=== PATIENT | male | born 1980 | race Caucasian/White ===

== ENCOUNTER → 2016-02-28 | Outpatient (CLI) | payer MEDICAID ==
[~2016-02-28] VITALS: Ht 180.3 cm; Wt 68.0 kg
[~2016-02-28] MED LIST: AMOX500C2 PO; ASP325T PO; DEXAMETHASONE PF 10 MG/ML (DECADRON) VIAL ONE; DOXY100C2 PO; HYDR-700 PO; PRD20T PO; TRIA60LO3 TP
--- OUTSIDE RECORDS SUMMARY | 2016-02-28 10:33 | XMS REPORT | Continuity of Care Document ---
Author Author [facility] Organization [facility] Address Unknown Phone Unavailable Care Team Providers Care Chemical Detection Expert Name Role Phone [facility] OF PCP Insurance Providers Payer Name Policy Number Subscriber Name Relationship [facility] [id number] Osito Hutchinson Sr 20 Self / Same As Patient Advance Directives Directive Response Recorded Date/Time Advance Directives No 01/31/16 7:35am Health Care Power of Data Designer No 01/31/16 7:35am Organ Donor No 01/31/16 7:35am Resuscitation Status Full Code 01/31/16 7:35am Problems Active Problems Medical Problem Onset Date Status Acute headache Unknown Acute Dermatitis Unknown Acute Lymphadenitis Unknown Acute Rash Unknown Acute Medications Past Home Medications Medication Directions Ordered Status Aspirin 325 Mg Tab, 325 Mg Oral 2 Daily 03/23/10 Discontinued Amoxicillin 500 Mg Capsule, 1 Each Oral Four Times Daily 03/23/10 Discontinued Prednisone 20 Mg Tab, 20 Mg Oral Three Times A Day 12/26/14 Discontinued Triamcinolone Acetonide 60 Ml Lotion, 60 Ml Topical Twice A Day 12/26/14 Discontinued Doxycycline Hyclate 100 Mg Capsule, 100 Mg Oral Twice A Day 01/06/15 Discontinued Hydroxyzine Hcl 25 Mg Tablet, 25-50 Mg Oral Every 4HRS as needed for Itching 01/06/15 Discontinued Social History Social History Problem Response Recorded Date/Time Alcohol Use Denies Use 08/25/2015 3:12pm Recreational Drug Use No 08/25/2015 3:12pm Recent Foreign Travel No 01/31/2016 7:22am Hospital Discharge Instructions No hospital discharge instructions. Plan of Care Discharge Date 01/31/16 8:01am Instructions/Education Provided DR. PEARSON-POST EPIDURAL INST Prescriptions See Medication Section Functional Status No functional status results. Allergies, Adverse Reactions, Alerts No known allergies. Immunizations No immunization records. Vital Signs Acute Vital Signs Vital Response Date/Time Temperature (Fahrenheit) 98.1 degrees F (97.6 - 99.5) 01/31/2016 7:43am Temperature (Calculated Celsius) 36.46085 degrees C (36.4 - 37.5) 01/31/2016 7:43am Temperature Source Tympanic 01/31/2016 7:43am Pulse Rate (adult) 78 bpm (60 - 90) 01/31/2016 8:00am Respiratory Rate 14 bpm (12 - 24) 01/31/2016 8:00am O2 Sat by Pulse Oximetry 98 % (88 - 100) 01/31/2016 8:00am Blood Pressure 128/68 mm Hg 01/31/2016 8:00am Blood Pressure Mean 90 mm Hg 01/31/2016 7:43am Pain Numeric Pain Scale 4 01/31/2016 8:00am Height (Feet) 5 feet 01/31/2016 7:35am Height (Inches) 11.00 inches 01/31/2016 7:35am Height (Calculated Centimeters) 180.126297 cm 01/31/2016 7:35am Weight (Pounds) 156 pounds 01/31/2016 7:35am Weight (Ounces) 0.0 oz 01/31/2016 7:35am Weight (Calculated Grams) 26338.41 gm 01/31/2016 7:35am Weight (Calculated Kilograms) 70.197841 kilograms 01/31/2016 7:35am Calculated BMI 21.8 01/31/2016 7:35am Results No known relevant diagnostic tests, laboratory data and/or discharge summary. Procedures No known history of procedures. Encounters Encounter Location Arrival/Admit Date Discharge/Depart Date Attending Provider Departed Clinic [facility] 01/31/16 7:23am 01/31/16 8: 01am FERNY PEARSON MD Registered Clinic [facility] 01/08/16 9:14am FERNY PEARSON MD
[2016-02-28 10:46] VITALS: BP 116/68
[2016-02-28 11:23] VITALS: BP 124/81
--- NOTE | 2016-02-28 13:58 | Pain Medicine-Procedure ---
Procedure Pre-Op/Post-Op Diagnosis Diagnosis: disc disorder with radiculopathy, thoracic Indications for Operation Mid back pain Attending Surgeon Maury Procedure Date of Service: Feb 28, 2016 Procedure: Thoracic epidural steroid injection at T11-T12 Level under Fluoroscopic Guidance Procedure: Pt was identified in the holding area. After risks, benefits, and alternatives were discussed with the patient, informed consent was obtained. An IV was placed by nursing staff prior to procedure. Patient was brought to the fluoroscopy suite and placed prone on the operating table. A time out was performed. Vital signs were monitored throughout the procedure. The patients mid back was prepped and draped in the usual sterile fashion. The patients skin was anesthetized using 1% Lidocaine. A 18 gauge tuohy needle was inserted and advanced to the T11-T12 epidural space under fluoroscopic guidance using the loss of resistance technique. The needle position was confirmed in the AP and lateral view. After negative aspiration 2 ml of non-ionic contrast was injected under live fluoroscopy which showed good spread of the contrast in the epidural space at the appropriate level, there was no intravascular or subarachnoid spread. Again, after negative aspiration, 3 ml of preservative free normal saline and 10 mg of dexamethasone was injected. The needle was removed and the patient was transferred to the recovery area in stable condition. And after a brief period of observation was discharged to home in stable condition with no new neurologic deficits. l Complications None FERNY PEARSON MD Feb 28, 2016 1:58 pm
== END ==
LOC: CARD 10:29
PROVIDERS: ATTEND Pain Medicine Pain Medicine
DX: M51.14 Intervertebral disc disorders with radiculopathy, thoracic region (principal); M47.814 Spondylosis without myelopathy or radiculopathy, thoracic region; Z79.899 Other long term (current) drug therapy
CPT/HCPCS: 62321

== ENCOUNTER 2016-08-29 00:53 | Emergency (ER) | payer MEDICAID ==
[~2016-08-29] VITALS: Ht 180.3 cm; Wt 68.0 kg
[~2016-08-29 00:53] MED LIST changes: -DEXAMETHASONE PF 10 MG/ML (DECADRON) VIAL ONE
[2016-08-29] MEDS ORDERED: ARTIFICAL TEARS 0.4 ML UNIT DOSE (REFRESH PLUS) ONE (02:36)
[2016-08-29] MEDS ORDERED: RX-TOBRAMYCIN 0.3% OPHTH (TOBREX) SOLN 5 ML BTL OP STA (02:39)
[2016-08-29] MEDS ORDERED: ARTIFICAL TEARS 0.4 ML UNIT DOSE (REFRESH PLUS) OD PRN (02:45)
[2016-08-29] MEDS ORDERED: TETRACAINE 0.5% OPHTH SOLN 4 ML BTL (SINGLE DOSE ONLY) OP ONE (02:45)
[2016-08-29] MEDS ORDERED: RX-HYDROCODONE/APAP 5/325 MG #4 TAB PK PO PRN (02:45)
--- NOTE | 2016-08-29 02:53 | ED EENT ---
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 REPORTS THINKS HE HAS METAL IN HIS RT EYE. NO OTHER C/O VOICED Source: patient Exam Limitations: no limitations History of Present Illness Time seen by provider: 02:20 Initial Comments Here with complaint of a piece of metal in his eye. 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 He can see and feel the metal to the medial lower aspect of the right eye. Denies other injury. Tetanus is up-to-date. Admits to rubbing his eye as it felt better but now he can feel it scratching his eye. Timing/Duration: abrupt, other (36 hours ago) Severity: moderate Location: eye (R) Prearrival Treatment: no prearrival treatment Allergies and Home Medications Allergies Coded Allergies: No Known Drug Allergies (Unverified , 08/25/15) Review of Systems Constitutional: no symptoms reported, No chills, No fever Eyes: See HPI, Foreign Body Sensation, Inflammation, Pain Respiratory: no symptoms reported Cardiovascular: no symptoms reported Gastrointestinal: no symptoms reported Neurological: No Symptoms Reported Past Agjxxug-Hffzlh-Majtvg Hx Patient Social History Alcohol Use: Denies Use Recreational Drug Use: No Smoking Status: Current Everyday Smoker 2nd Hand Smoke Exposure: Yes Recent Foreign Travel: No Contact w/Someone Who Travel: No Recent Infectious Disease Expo: No Recent Hopitalizations: No Immunizations Up To Date Tetanus Booster (TDap): More than 5yrs Surgeries HX Surgeries: No Respiratory Hx Respiratory Disorders: No Cardiovascular Hx Cardiac Disorders: No Neurological Hx Neurological Disorders: No Reproductive System Hx Reproductive Disorders: No Genitourinary Hx Genitourinary Disorders: No Gastrointestinal Hx Gastrointestinal Disorders: No Musculoskeletal Hx Musculoskeletal Disorders: Yes (rotator cuff injury, in pain clinic for back pain- hydrocodones) Musculoskeletal Disorders: Chronic Back Pain Endocrine Hx Endocrine Disorders: No HEENT HX ENT Disorders: No Cancer Hx Cancer: No Psychosocial Hx Psychiatric Problems: No Integumentary HX Skin/Integumentary Disorder: No Blood Transfusions Hx Blood Disorders: No Reviewed Nursing Assessment Reviewed/Agree w Nursing PMH: Yes Family Medical History Significant Family History: No Pertinent Family Hx Physical Exam Vital Signs Vital Sign - Last 12Hours 08/29/16 01:36 Temp 97.6 Pulse 81 Resp 20 B/P (MAP) 115/79 Pulse Ox 99 O2 Delivery Room Air General Appearance: WD/WN, no apparent distress Eyes: right eye corneal abrasion, right eye foreign body, left eye normal inspection, bilateral eye EOMI, bilateral eye PERRL Cardiovascular: regular rate, rhythm, no murmur Respiratory: lungs clear, normal breath sounds Neurologic/Psychiatric: alert, oriented x 3 Progress/Results/Core Measures Results/Orders My Orders Orders - AREN COLINDRES MD Carboxymethylcell Ophth Soln (Refresh Pl (08/29/16 02:36) Rx-Tobramycin Ophth Drops (Rx-Tobrex 0.3 (08/29/16 02:39) Rx-Hydrocodone/Apap 5-325 Mg (Rx-Vicodin (08/29/16 02:45) Carboxymethylcell Ophth Soln (Refresh Pl (08/29/16 02:45) Tetracaine 0.5% Ophth Lashawn Sdv (Tetracai (08/29/16 02:45) Vital Signs/I&O Vital Sign - Last 12Hours 08/29/16 01:36 Temp 97.6 Pulse 81 Resp 20 B/P (MAP) 115/79 Pulse Ox 99 O2 Delivery Room Air Blood Pressure Mean: 91 Progress Note : Progress Note Seen and evaluated. Patient has obvious metal foreign body with rust ring to the right medial lower aspect of the right eye within the area of the iris. Local anesthesia with tetracaine. Using a ophthalmic bur, I was able to remove the foreign body and rust ring. Patient has abrasion noted to the surrounding area and linear medial lateral aspect. I did discuss the case with Dr. Guidry. He will see the patient in the office at 0900. Recommending tobramycin eyedrops which I will give. Patient's tetanus is up-to-date. Hydrocodone 5/325 go pack given. Discharged home with return precautions. Patient verbalize understanding instructions and agreement with plan. Departure Impression Impression: Primary Impression: Foreign body of eye, external, right Qualified Codes: T15.91XA - Foreign body on external eye, part unspecified, right eye, initial encounter Disposition: HOME, SELF-CARE Condition: Improved Departure-Patient Inst. Decision time for Depature: 02:55 Referrals: RENE BUENO DO (PCP) Primary Care Physician [place] (Family) Primary Care Physician LONDON GUIDRY OD Patient Instructions: Corneal Abrasion (DC) Add. Discharge Instructions: All discharge instructions reviewed with patient and/or family. Voiced understanding. Use medications as directed. You may take ibuprofen 800 mg every 8 hours as needed for pain as well. It is very important that he follow up with Dr. Guidry at 9 a.m. at his office on [address] across from [facility] for further evaluation. You may call him at [phone] if the pain becomes severe or you have vision problems. This is his direct number. Return for worse pain, fever , vomiting, weakness, breathing problems or other concerns as needed. Images Eye 1 - Foriegn Body 2 - Abrasion Copy Copies To 1: LONDON GUIDRY OD, TIMOTHY D MD Aug 29, 2016 02:53
[2016-08-29 03:05] VITALS: BP 121/79
== END 2016-08-29 03:05 | disposition home or self-care (01) ==
LOC: EDUNIT# 00:53 → ER 00:59
DX: T15.91XA Foreign body on external eye, part unspecified, right eye, initial encounter (principal); G89.29 Other chronic pain; M54.9 Dorsalgia, unspecified; F17.210 Nicotine dependence, cigarettes, uncomplicated
CPT/HCPCS: 99283

== ENCOUNTER 2018-04-01 20:10 | Emergency (ER) | payer MEDICAID ==
[~2018-04-01] VITALS: Ht 177.8 cm; Wt 63.5 kg
[~2018-04-01 20:10] MED LIST changes: +HYDR-34 PO; +LORA2TAB PO; +PSEU120T75 PO; +TRIA60LO10 TP; -TRIA60LO3 TP
--- OUTSIDE RECORDS SUMMARY | 2018-04-01 20:15 | XMS REPORT ---
Author Author MOUNA LAKE Organization [facility] Address [address] [place] [address] Care Team Providers Care Direct Service Worker Name Role Phone MOUNA LAKE Unavailable PROBLEMS Type Condition ICD9-CM Code [id number] Code Onset Dates Condition Status SNOMED Code Problem Acute upper respiratory infection, unspecified J06.9 Active 89749633 Problem Low back pain M54.5 Active 030176926 Problem Primary insomnia F51.01 Active 7875178 Problem DENISSE (generalized anxiety disorder) F41.1 Active 08310580 Problem Adjustment disorder with depressed mood F43.21 Active 08774715 Problem Anxiety F41.9 Active 32499248 Problem Cannabis use disorder, mild, abuse F12.10 Active 48120303 Problem Dysthymic disorder F34.1 Active 75914892 ALLERGIES No Information ENCOUNTERS Encounter Location Date Diagnosis [place] [address] [address]17- 8155 Feb, [place] [address] 61229- 1217 Feb, [place] [address] 44923- 3451 Jan, [facility] [address] 80775- 8305 Jan, Thoracic neuritis M54.14 [place] [address] 79289- 8590 05 Jan, 2018 Primary insomnia F51.01 [facility] [address] 04105- 9765 04 Jan, 2018 DENISSE (generalized anxiety disorder) F41.1 and Cannabis use disorder, mild, abuse F12.10 [place] [address] 61388- 8958 Jan, Generalized anxiety disorder F41.1 [facility] [address] [place] [id number] [place] [address] 28820- 7788 Dec, Generalized anxiety disorder F41.1 [facility] [address] [place] [id number] [place] [address] 53190- 0535 14 Dec, 2017 Thoracic neuritis M54.14 and Acute upper respiratory infection, unspecified J06.9 [facility] [address] [place] [id number] [place] [address] 18317- 1940 07 Dec, 2017 Thoracic neuritis M54.14 [facility] [address] [place] [id number] [place] [address] 82099- 9274 30 Nov, 2017 Generalized anxiety disorder F41.1 [facility] [address] [place] [id number] [place] [address] 15901- 1882 16 Nov, 2017 [facility] [address] 93678- 5485 15 Nov, 2017 Low back pain M54.5 and Thoracic neuritis M54.14 [facility] [address] [id number] [place] [address] 58866- 4589 03 Nov, 2017 Low back pain M54.5 [facility] [address] [place] [id number] [place] [address] 66371- 4773 19 Oct, 2017 Thoracic neuritis M54.14 [facility] [address] [id number] [place] [address] 97913- 8093 18 Oct, 2017 Thoracic neuritis M54.14 [facility] [address] [id number] [place] [address] 25398- 7905 06 Oct, 2017 Thoracic neuritis M54.14 [facility] [address] [place] [id number] [place] [address] 48928- 7731 Sep, Thoracic neuritis M54.14 [facility] [address] [place] [id number] [place] [address] 81051- 9448 Sep, [facility] [address] [place] [id number] [place] [address] 13415- 3985 Sep, Thoracic neuritis M54.14 and Acute recurrent maxillary sinusitis J01.01 [facility] [address] [place] [id number] [place] [address] 81472- 4376 Aug, [facility] [address] [id number] [place] [address] 11504- 0436 Aug, Thoracic neuritis M54.14 [facility] [address] [place] [id number] [place] [address] 91713- 6162 Jul, Low back pain M54.5 [facility] [address] 69144- 9821 June, Low back pain M54.5 [facility] [address] [place] [id number] [place] [address] 77307- 5891 May, Low back pain M54.5 and Generalized anxiety disorder F41.1 [facility] [address] [place] [id number] [place] [address] 78212- 4725 May, [facility] [address] 96637- 8710 May, Generalized anxiety disorder F41.1 [facility] [address] [place] [id number] [place] [address] 04810- 6922 May, Low back pain M54.5 and Anxiety F41.9 [facility] [address] [place] [id number] [place] [address] 64924- 6129 Apr, [facility] [address] [place] [id number] [place] [address] 32623- 9246 Mar, Low back pain M54.5 [facility] [address] [place] [id number] [place] [address] 35277- 5716 Mar, Low back pain M54.5 [facility] [address] [place] [id number] [place] [address] 30284- 1332 Feb, Ganglion, left wrist M67.432 [facility] [address] [place] [id number] [place] [address] 81447- 7910 Feb, Low back pain M54.5 [facility] [address] [place] [id number] [place] [address] 24963- 4946 Feb, Low back pain M54.5 [facility] [address] [place] [id number] [place] [address] 55897- 1343 Feb, [facility] [address] [place] [id number] [place] [address] 83484- 9934 Feb, Low back pain M54.5 and Bronchitis J40 [facility] [address] 43739- 8826 Feb, Low back pain M54.5 [facility] [address] [place] [id number] [place] [address] 61478- 1359 Jan, [facility] [address] 42890- 5654 Jan, Low back pain M54.5 [facility] [address] [place] [id number] [place] [address] 04503- 7529 Jan, Low back pain M54.5 ; Anxiety F41.9 and Ganglion, left wrist M67.432 [facility] [address] [place] [id number] [place] [address] 12290- 8167 Dec, Low back pain M54.5 [facility] [address] [place] [id number] [place] [address] 32674- 2039 Dec, Ganglion, left wrist M67.432 [facility] [address] [place] [id number] [place] [address] 71097- 1122 Nov, Ganglion, left wrist M67.432 and Anxiety F41.9 [facility] [address] [place] [id number] [place] [address] 19240- 3348 Nov, Low back pain M54.5 [facility] [address] [place] [address]- 3870 18 Nov, 2016 [facility] [address] [address]- 9111 16 Nov, 2016 [facility] [address] [address]- 6615 Nov, [facility] [address] [place] [address] 05744- 0037 Oct, Anxiety F41.9 [facility] [address] [place] [address] 45629- 8096 Oct, Low back pain M54.5 [facility] [address] [place] [address] 24148- 5214 Oct, [facility] [address] [address]- 7520 Oct, [facility] [address] [place] [address] 82416- 9913 06 Oct, 2016 Adjustment disorder with depressed mood F43.21 and Generalized anxiety disorder F41.1 [facility] [address] [place] [address] 82264- 1063 Sep, Adjustment disorder with depressed mood F43.21 and Generalized anxiety disorder F41.1 [facility] [address] [address]- 2267 Sep, [address] [id number] [address] Sep [facility] [address] [place] [id number] [address]- 2405 Sep, Anxiety F41.9 [facility] [address] [address]- 3920 Sep, Low back pain M54.5 [facility] [address] [address]- 7634 Sep, Adjustment disorder with depressed mood F43.21 and Generalized anxiety disorder F41.1 [facility] [address] [place] [id number] [place] [address] 36885- 3131 Sep, Allergic urticaria L50.0 [facility] [address] [place] [id number] [place] [address] 73520- 7725 Aug, [facility] [address] [place] [id number] [place] [address] 14097- 7426 Aug, Low back pain M54.5 [facility] [address] [place] [id number] [place] [address] 47059 2546 Aug, Low back pain M54.5 [facility] [address] [place] [id number] [place] [address] 91477- 4776 Aug, [facility] [address] [place] [id number] [place] [address] 47558- 2540 Aug, Thoracic neuritis M54.14 [facility] [address] [place] [id number] [place] [address] 30645- 6410 Jul, [facility] [address] [place] [id number] [place] [address] 67886- 1600 Jul, Low back pain M54.5 [facility] [address] [place] [id number] [place] [address] 87941 2541 Jul, Thoracic neuritis M54.14 [facility] [address] [place] [id number] [place] [address] 84497 2546 Jul, [facility] [address] [place] [id number] [place] [address] 52733 2545 Jul, Thoracic neuritis M54.14 [facility] [address] [place] [id number] [place] [address] 83838- 1936 June, [facility] [address] [place] [id number] [place] [address] 24994- 2540 June, Thoracic neuritis M54.14 [facility] [address] [place] [id number] [place] [address] 09873- 5446 May, [facility] [address] [facility] [id number] [address]- 7911 May, [facility] [address] [facility] [id number] [place] [address] 52013- 5258 Dec, [facility] [address] [place] [address] 48406- 7062 Dec, [facility] [address] [facility] [id number] [place] [address] 30874- 5043 Dec, [facility] [address] [facility] [id number] [place] [address] 91689- 3523 Dec, [facility] [address] [place] [id number] [place] [address] 32029- 0642 Nov, [facility] [address] [place] [id number] [place] [address] 08829- 7439 Nov, Thoracic neuritis M54.14 and Low back pain M54.5 [facility] [address] [place] [address] 42696- 0052 Nov, [facility] [address] [place] [id number] [place] [address] 66908- 7125 Oct, Low back pain M54.5 and Acute upper respiratory infection, unspecified J06.9 [facility] [address] [place] [address] 91838- 1045 Oct, [facility] [address] [place] [address] 76355- 7459 Oct, [facility] [address] [place] [address] 57077- 7992 Oct, [facility] [address] [place] [address] 43478- 7791 Oct, [facility] [address] [address]- 4084 Sep, Chronic maxillary sinusitis J32.0 and Thoracic neuritis M54.14 [facility] [address] [place] [id number] [place] [address] 39908- 1300 Sep, [facility] [address] 37637- 6705 Aug, Low back pain M54.5 and Other chronic pain G89.29 [place] [address] 99116- 7161 Jul, Low back pain M54.5 and Other chronic pain G89.29 [place] [address] 46585- 8257 Jul, [place] [address] 41452- 3587 June, [place] [address] 58477- 6944 May, Lumbago M54.5 and Sinusitis J32.9 [place] [address] [place] [id number] [place] [address] 96368- 5696 Apr, Unspecified backache 724.5 and Folliculitis L73.9 [place] [address] [place] [id number] [place] [address] 05903- 8834 Mar, URI (upper respiratory infection) J06.9 and Back pain M54.9 [place] [address] [place] [id number] [place] [address] 06543- 0744 Mar, [facility] [address] [place] [id number] [place] [address] 39172- 0547 Mar, [facility] [address] [place] [id number] [place] [address] 69276- 7254 Feb, Low back pain M54.5 ; Sciatica, unspecified side M54.30 ; Folliculitis L73.9 and Allergic urticaria L50.0 [facility] [address] [place] [id number] [place] [address] 98941- 7922 Feb, Visit for suture removal Z48.02 [facility] [address] [place] [id number] [place] [address] 11894- 3706 Feb, [facility] [address] [place] [id number] [place] [address] 55033- 1895 Feb, Rash R21 [facility] [address] [place] [id number] [place] [address] 85540- 1082 Jan, Pharyngitis J02.9 ; Shoulder pain, right M25.511 and Rash R21 [place] [address] [place] [id number] [place] [address] 65290- 7644 Jan, [place] [address] 44899- 5986 Dec, Allergic urticaria L50.0 ; Right shoulder pain M25.511 and Lumbago M54.5 [place] [address] [place] [id number] [place] [address] 87659- 2448 Dec, Upper respiratory tract infection, unspecified upper respiratory infection J06.9 [place] [address] [place] [id number] [place] [address] 29404- 5580 Dec, Contact dermatitis L25.9 [place] [address] [place] [id number] [place] [address] 84978- 6743 Dec, [facility] [address] [place] [id number] [place] [address] 15020- 9737 Dec, Dermatitis L30.9 and Pain in right shoulder M25.511 [facility] [address] [place] [id number] [place] [address] 87264- 7846 Nov, [facility] [address] [place] [id number] [place] [address] 65487- 7898 Nov, Upper respiratory tract infection, unspecified upper respiratory infection J06.9 [facility] [address] [place] [id number] [place] [address] 48512- 9640 Oct, [facility] [address] [id number] [place] [address]- 5669 Oct, [facility] [address] [id number] [place] [address]- 7120 Oct, [facility] [place] [facility] [address] [id number] [place] [address]- 1915 Sep, Back pain 724.5 [facility] [place] [facility] [address] [id number] [place] [address]- 6467 Sep, Back pain 724.5 [facility] [place] [facility] [address] [id number] [place] [address]- 6840 10 Sep, 2014 [facility] [place] [facility] [address] [id number] [place] [address]- 5769 Aug, [facility] [place] [facility] [address] [id number] [place] [address]- 1164 Aug, [facility] [place] [facility] [address] [id number] [address]- 8370 Jul, Back pain 724.5 [facility] [place] [facility] [address] [id number] [place] [address]- 6693 Jul, [facility] [place] [facility] [address] [id number] [place] [address]- 9831 June, [facility] [place] [facility] [address] [id number] [place] [address]- 9642 14 May, 2014 [facility] [place] [facility] [address] [id number] [place] [address]- 2124 May, [facility] [place] [facility] [address] [id number] [place] [address]- 4976 30 Apr, 2014 [facility] [place] [facility] [address] [id number] [place] 1490 30 Apr, 2014 [facility] [place] [facility] [address] [id number] [place] [address]- 1872 Feb, [facility] [place] [facility] [address] [address]- 6996 Feb, [facility] [address] [address]- 2389 Dec, [facility] [address] [address]- 0896 Dec, [facility] [address] [address]- 9274 Nov, [facility] [address] 7049 Nov, [facility] [address] [place] [address] 97357- 7895 Feb, [facility] [address] 3586 Feb, [facility] [address] [place] [address] 55676- 4894 Sep, [facility] [address] [address]- 7895 Apr, [facility] [address] 5486 Apr, [facility] [address] [address]- 0608 Mar, [facility] [address] 5587 Mar, [facility] [address] [place] [id number] 6046 Mar, [facility] [address] [address]- 0616 Sep, IMMUNIZATIONS No Known Immunizations SOCIAL HISTORY Never Assessed REASON FOR VISIT Controlled Med Refill PLAN OF CARE VITAL SIGNS MEDICATIONS Medication Instructions Dosage Frequency Start Date End Date Duration Status Pseudoephedrine HCl 60 mg Orally 2 times a day 1 tablet as needed 12h 05 Aug, 2017 28 days Active RESULTS No Results PROCEDURES No Known procedures INSTRUCTIONS MEDICATIONS ADMINISTERED No Known Medications MEDICAL (GENERAL) HISTORY Type Description Date Medical History frequent ear infections Medical History gets 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 redding did injections down his spine, adn Epidurals
--- OUTSIDE RECORDS SUMMARY | 2018-04-01 20:16 | XMS REPORT ---
Author Author MOUNA LAKE Organization 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 Name Role Phone MOUNA LAKE Unavailable PROBLEMS Type Condition ICD9-CM Code OXF50-DP Code Onset Dates Condition Status SNOMED Code Problem Acute upper respiratory infection, unspecified J06.9 Active 47063804 Problem Low back pain M54.5 Active 029079327 Problem Primary insomnia F51.01 Active 2556092 Problem DENISSE (generalized anxiety disorder) F41.1 Active 82746492 Problem Adjustment disorder with depressed mood F43.21 Active 66287285 Problem Anxiety F41.9 Active 16812935 Problem Cannabis use disorder, mild, abuse F12.10 Active 75495227 Problem Dysthymic disorder F34.1 Active 53244653 ALLERGIES No Known Allergies ENCOUNTERS Encounter Location Date Diagnosis [facility] [address] [address]- 1791 Feb, [facility] [id number] [place] [address] 76267- 8958 Feb, [facility] [id number] [place] [address] 58370- 9742 Jan, [facility] [id number] [place] [address] 05475- 4412 Jan, Primary insomnia F51.01 [facility] [id number] [place] [address] 52884- 3534 Jan, DENISSE (generalized anxiety disorder) F41.1 and Cannabis use disorder, mild, abuse F12.10 [facility] [id number] [place] [address] 80370- 6047 Jan, Generalized anxiety disorder F41.1 [facility] [id number] [place] [address] 00036- 3968 Dec, Generalized anxiety disorder F41.1 [facility] [id number] [place] [address] 99971- 7623 14 Dec, 2017 Thoracic neuritis M54.14 and Acute upper respiratory infection, unspecified J06.9 [facility] [id number] [place] [address] 80482- 7056 07 Dec, 2017 Thoracic neuritis M54.14 [facility] [address] 24907- 5744 30 Nov, 2017 Generalized anxiety disorder F41.1 [facility] [address] 14459- 9452 16 Nov, 2017 [facility] [address] 70364- 9350 15 Nov, 2017 Low back pain M54.5 and Thoracic neuritis M54.14 [facility] [address] 82804- 0787 03 Nov, 2017 Low back pain M54.5 [facility] [address] 47531- 5403 19 Oct, 2017 Thoracic neuritis M54.14 [facility] [id number] [place] [address] 14617- 6689 18 Oct, 2017 Thoracic neuritis M54.14 [facility] [address] 88486- 8399 06 Oct, 2017 Thoracic neuritis M54.14 [facility] [id number] [place] [address] 83906- 6386 Sep, Thoracic neuritis M54.14 [facility] [id number] [place] [address] 18402- 3165 Sep, [facility] [id number] [place] [address] 83794- 1663 Sep, Thoracic neuritis M54.14 and Acute recurrent maxillary sinusitis J01.01 [facility] [id number] [place] [address] 11125- 6189 Aug, [facility] [id number] [place] [address] 21957- 2478 Aug, Thoracic neuritis M54.14 [facility] [id number] [place] [address] 06723- 7936 Jul, Low back pain M54.5 [facility] [id number] [place] [address] 24712- 7001 June, Low back pain M54.5 [facility] [address] 87312- 8165 May, Low back pain M54.5 and Generalized anxiety disorder F41.1 [facility] [id number] [place] [address] 21788- 4959 May, [facility] [id number] [place] [address] 03478- 0808 May, Generalized anxiety disorder F41.1 [facility] [address] 96773- 5503 May, Low back pain M54.5 and Anxiety F41.9 [facility] [id number] [place] [address] 93287- 5720 Apr, [facility] [id number] [place] [address] 12798- 1871 Mar, Low back pain M54.5 [facility] [id number] [place] [address] 69073- 6452 Mar, Low back pain M54.5 [facility] [id number] [place] [address] 14246- 3477 Feb, Ganglion, left wrist M67.432 [facility] [id number] [place] [address] 40721- 0576 Feb, Low back pain M54.5 [facility] [id number] [place] [address] 27962- 3885 Feb, Low back pain M54.5 [facility] [id number] [place] [address] 76572- 0522 Feb, [facility] [id number] [place] [address] 61650- 9012 Feb, Low back pain M54.5 and Bronchitis J40 [facility] [id number] [place] [address] 02021- 2927 Feb, Low back pain M54.5 [facility] [id number] [place] [address] 92595- 4185 Jan, [facility] [id number] [place] [address] 62322- 7571 Jan, Low back pain M54.5 [facility] [id number] [place] [address] 36153- 9521 Jan, Low back pain M54.5 ; Anxiety F41.9 and Ganglion, left wrist M67.432 [facility] [id number] [place] [address] 59417- 4368 Dec, Low back pain M54.5 [facility] [id number] [place] [address] 42752- 1215 Dec, Ganglion, left wrist M67.432 [facility] [id number] [place] [address] 12720- 2475 Nov, Ganglion, left wrist M67.432 and Anxiety F41.9 [facility] [id number] [place] [address] 69270- 4437 Nov, Low back pain M54.5 [facility] [id number] [place] [address] 87669- 7473 Nov, [facility] [id number] [place] [address] 14991- 0828 Nov, [facility] [address] [address]- 1229 Nov, [facility] [id number] [place] [address] 19487- 0133 Oct, Anxiety F41.9 [facility] [id number] [place] [address] 97229- 2915 Oct, Low back pain M54.5 [facility] [id number] [place] [address] 02753- 5102 20 Oct, 2016 [facility] [id number] [place] [address] 71139- 6522 07 Oct, 2016 [facility] [id number] [place] [address] 50275- 5307 06 Oct, 2016 Adjustment disorder with depressed mood F43.21 and Generalized anxiety disorder F41.1 [facility] [id number] [place] [address] 23149- 0943 Sep, Adjustment disorder with depressed mood F43.21 and Generalized anxiety disorder F41.1 [facility] [address] [address]- 0985 Sep, [address] [id number] [place] [address] Sep [facility] [id number] [place] [address] 11310- 7626 Sep, Anxiety F41.9 [facility] [address] [address]- 4969 Sep, Low back pain M54.5 [facility] [id number] [place] [address] 85108- 3255 Sep, Adjustment disorder with depressed mood F43.21 and Generalized anxiety disorder F41.1 [facility] [id number] [place] [address] 84113- 3423 Sep, Allergic urticaria L50.0 [facility] [address] [facility] [id number] [place] [address] 77476- 4407 Aug, [facility] [id number] [place] [address] 00863- 1526 Aug, Low back pain M54.5 [facility] [id number] [place] [address] 03722- 3756 Aug, Low back pain M54.5 [facility] [id number] [place] [address] 05467 2546 Aug, [facility] [id number] [place] [address] 36608- 9469 Aug, Thoracic neuritis M54.14 [facility] [id number] [place] [address] 75816- 2275 Jul, [facility] [id number] [place] [address] 68639- 3344 Jul, Low back pain M54.5 [facility] [id number] [place] [address] 15898- 5819 Jul, Thoracic neuritis M54.14 [facility] [id number] [place] [address] 86125- 7830 Jul, [facility] [id number] [place] [address] 92673- 3028 Jul, Thoracic neuritis M54.14 [facility] [id number] [place] [address] 31030- 7759 June, [facility] [id number] [place] [address] 28408- 7567 June, Thoracic neuritis M54.14 [facility] [id number] [place] [address] 27488- 2302 May, [facility] [id number] [place] [address] 62212- 5324 May, [facility] [address] [address]- 4044 Dec, [facility] [id number] [place] [address] 49288- 2065 Dec, [facility] [id number] [place] [address] 24201- 9092 Dec, [facility] [id number] [place] [address] 47673- 1739 Dec, [facility] [id number] [place] [address] 03990- 6918 Nov, [facility] [id number] [place] [address] 22703- 0369 Nov, Thoracic neuritis M54.14 and Low back pain M54.5 [facility] [id number] [place] [address] 42077- 9897 Nov, [facility] [id number] [place] [address] 10941- 0026 Oct, Low back pain M54.5 and Acute upper respiratory infection, unspecified J06.9 [facility] [id number] [place] [address] 13960- 7199 Oct, [facility] [id number] [place] [address] 78008- 1360 Oct, [facility] [id number] [place] [address] 67714- 8667 Oct, [facility] [id number] [place] [address] 79639- 0480 Oct, [facility] [id number] [place] [address] 17568- 6798 Sep, Chronic maxillary sinusitis J32.0 and Thoracic neuritis M54.14 [facility] [id number] [place] [address] 25055- 3136 Sep, [facility] [id number] [place] [address] 17582- 5489 Aug, Low back pain M54.5 and Other chronic pain G89.29 [facility] [id number] [place] [address] 97339- 5666 Jul, Low back pain M54.5 and Other chronic pain G89.29 [place] [address] 56287- 5080 Jul, [place] [address] 40901- 6545 June, [place] [id number] [place] [address] 80276- 6393 May, Lumbago M54.5 and Sinusitis J32.9 [place] [id number] [place] [address] 50179- 5314 Apr, Unspecified backache 724.5 and Folliculitis L73.9 [place] [id number] [place] [address] 19466- 5753 24 Mar, 2015 URI (upper respiratory infection) J06.9 and Back pain M54.9 [place] [id number] [place] [address] 59571- 3848 05 Mar, 2015 [place] [id number] [place] [address] 88453- 2035 Mar, [place] [id number] [place] [address] 69610- 7504 Feb, Low back pain M54.5 ; Sciatica, unspecified side M54.30 ; Folliculitis L73.9 and Allergic urticaria L50.0 [place] [id number] [place] [address] 57363- 4039 Feb, Visit for suture removal Z48.02 [place] [address] 98442- 3993 Feb, [facility] [id number] [place] [address] 60354- 9786 Feb, Rash R21 [facility] [id number] [place] [address] 72645- 4715 Jan, Pharyngitis J02.9 ; Shoulder pain, right M25.511 and Rash R21 [facility] [address] 50140- 1971 Jan, [facility] [id number] [place] [address] 96991- 2796 30 Dec, 2014 Allergic urticaria L50.0 ; Right shoulder pain M25.511 and Lumbago M54.5 [facility] [id number] [place] [address] 92504- 9129 Dec, Upper respiratory tract infection, unspecified upper respiratory infection J06.9 [facility] [id number] [place] [address] 49746- 5616 Dec, Contact dermatitis L25.9 [facility] [id number] [place] [address] 07910- 1627 Dec, [facility] [id number] [place] [address] 25100- 7207 Dec, Dermatitis L30.9 and Pain in right shoulder M25.511 [facility] [id number] [place] [address] 07956- 1122 Nov, [facility] [id number] [place] [address] 88390- 3158 Nov, Upper respiratory tract infection, unspecified upper respiratory infection J06.9 [facility] [id number] [place] [address] 90374- 7686 Oct, [facility] [id number] [place] [address] 97554- 9282 Oct, [facility] [address] [id number] [place] [address]- 1722 Oct, [facility] [address] [id number] [place] [address]- 1147 Sep, Back pain 724.5 [facility] [place] [facility] [address] [id number] [place] [address]- 1546 Sep, Back pain 724.5 [facility] [place] [facility] [address] [id number] [place] [address]- 2537 Sep, [facility] [place] [facility] [address] [id number] [place] [address]- 3716 Aug, [facility] [place] [facility] [address] [id number] [place] [address]- 3331 Aug, [facility] [place] [facility] [address] [facility] [id number] [place] [address]- 2514 Jul, Back pain 724.5 [facility] [place] [facility] [address] [id number] [place] [address]- 1004 Jul, [facility] [place] [facility] [address] [id number] [place] [address]- 3671 June, [facility] [place] [facility] [address] [facility] [id number] [place] [address]- 4475 May, [facility] [place] [facility] [address] [id number] [address]- 9703 May, [facility] [place] [facility] [address] [id number] [address]- 5535 Apr, [facility] [place] [facility] [address] [id number] [place] [address]- 9582 Apr, [facility] [place] [facility] [address] [id number] [address]- 4407 Feb, [facility] [place] [facility] [address] [id number] [place] [address]- 0326 Feb, [facility] [place] [facility] [id number] [address]- 0516 Dec, [facility] [address] [address]- 2696 Dec, [facility] [address] [address]- 6706 Nov, [facility] [address] [address]- 3456 Nov, [facility] [address] [address]- 0986 Feb, [facility] [address] [address]- 4023 Feb, [facility] [address] [address]- 9166 Sep, [facility] [address] [address]- 9556 Apr, [facility] [address] [address]- 1956 Apr, [facility] [address] [address]- 0474 Mar, [facility] [id number] [address]- 3456 Mar, [facility] [address] [address]- 8116 Mar, [facility] [id number] [address]- 8226 Sep, IMMUNIZATIONS No Known Immunizations SOCIAL HISTORY Never Assessed REASON FOR VISIT Pain management (chronic) - Pavan CAREY, PT has an appointment 03/07 in [place] for [facility]. -Pavan CAREY PLAN OF CARE VITAL SIGNS Height 70 in 2018-01-12 Weight 141 lbs 2018-01-12 Temperature 97.8 degrees Fahrenheit 2018-01-12 Heart Rate 80 bpm 2018-01-12 Respiratory Rate 20 2018-01-12 Oximetry 98 % 2018-01-12 BMI 20.23 kg/m2 2018-01-12 Blood pressure systolic 122 mmHg 2018-01-12 Blood pressure diastolic 70 mmHg 2018-01-12 MEDICATIONS Medication Instructions Dosage Frequency Start Date End Date Duration Status Cymbalta 30 MG Orally Once a day for two weeks, then 1 capsule twice a day 1 capsule Jan, 30 day(s) Active ProAir HFA 108 (90 Base) MCG/ACT INHALE 2 PUFFS BY MOUTH EVERY 6 HOURS NEEDED FOR SHORTNESS OF BREATH OR COUGH 25 Active Methocarbamol 750 MG Orally every 4 hrs 1 tablet 4h Oct, Active Pseudoephedrine HCl 60 mg Orally 2 times a day 1 tablet as needed 12h Aug, 28 days Active Propranolol HCl 20 mg Orally twice a day as needed for anxiety 1 tablet Jan, 30 day(s) Active Seroquel 50 MG Orally Once a day 1 tablet 24h Jan, 30 day(s) Active Ibuprofen 800 MG Orally Three times a day 1 tablet with food or milk as needed 8h Sep, Active RESULTS No Results PROCEDURES No Known procedures INSTRUCTIONS MEDICATIONS ADMINISTERED No Known Medications MEDICAL (GENERAL) HISTORY Type Description Date Medical History frequent ear infections Medical History gets respiratory infections from being around 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 redding did injections down his spine, adn Epidurals
--- OUTSIDE RECORDS SUMMARY | 2018-04-01 20:16 | XMS REPORT ---
Author Author EVIN TERRY [facility] Address [address] [place] [address] Care Team Providers Care Web Page Designer Name Role Phone EVIN, TERRY Unavailable PROBLEMS Type Condition ICD9-CM Code [id number] Code Onset Dates Condition Status SNOMED Code Problem Acute upper respiratory infection, unspecified J06.9 Active 60895641 Problem Low back pain M54.5 Active 188932617 Problem Primary insomnia F51.01 Active 6182627 Problem DENISSE (generalized anxiety disorder) F41.1 Active 16984841 Problem Adjustment disorder with depressed mood F43.21 Active 10042590 Problem Anxiety F41.9 Active 23141002 Problem Cannabis use disorder, mild, abuse F12.10 Active 05108624 Problem Dysthymic disorder F34.1 Active 99495476 ALLERGIES No Known Allergies ENCOUNTERS Encounter Location Date Diagnosis [facility], [place] [id number] [place] [address] 65181- 5272 Feb, [facility], [place] [address] 54089- 9402 Feb, [facility], [place] [id number] [place] [address] 86898- 1359 Jan, [facility], [place] [id number] [place] [address] 40398- 3692 Jan, Primary insomnia F51.01 [facility], [place] [id number] [place] [address] 13516- 1380 Jan, DENISSE (generalized anxiety disorder) F41.1 and Cannabis use disorder, mild, abuse F12.10 [facility], [place] [id number] [place] [address] 02474- 2502 Jan, Generalized anxiety disorder F41.1 [facility], [place] [address] [place] [address] 0[address] 20 Dec, 2017 Generalized anxiety disorder F41.1 [facility], [place] [address] 41968- 2063 14 Dec, 2017 Thoracic neuritis M54.14 and Acute upper respiratory infection, unspecified J06.9 [facility], [place] [address] 97682- 6481 07 Dec, 2017 Thoracic neuritis M54.14 [facility], [place] [address] 64647- 5968 30 Nov, 2017 Generalized anxiety disorder F41.1 [facility], [place] [address] 77441- 2028 16 Nov, 2017 [facility], [place] [address] 64210- 1387 15 Nov, 2017 Low back pain M54.5 and Thoracic neuritis M54.14 [facility], [place] [address] 76159- 5973 03 Nov, 2017 Low back pain M54.5 [facility], [place] [address] 08504- 1286 19 Oct, 2017 Thoracic neuritis M54.14 [facility], [place] [address] 59542- 4992 18 Oct, 2017 Thoracic neuritis M54.14 [facility], [place] [id number] [place] [address] 72778- 4712 06 Oct, 2017 Thoracic neuritis M54.14 [facility], [place] [id number] [place] [address] 82116- 5770 Sep, Thoracic neuritis M54.14 [facility], [place] [id number] [place] [address] 14346- 5066 Sep, [facility], [place] [id number] [place] [address] 16787- 4937 Sep, Thoracic neuritis M54.14 and Acute recurrent maxillary sinusitis J01.01 [facility], [place] [id number] [place] [address] 33553- 5395 Aug, [facility], [place] [id number] [place] [address] 29488- 2204 Aug, Thoracic neuritis M54.14 [facility], [place] [id number] [place] [address] 78977- 9983 Jul, Low back pain M54.5 [facility], [place] [id number] [place] [address] 63386- 9813 June, Low back pain M54.5 [facility], [place] [id number] [place] [address] 30481- 0119 May, Low back pain M54.5 and Generalized anxiety disorder F41.1 [facility], [place] [id number] [place] [address] 13087- 0107 May, [facility], [place] [id number] [place] [address] 14900- 9538 May, Generalized anxiety disorder F41.1 [facility], [place] [address] 93084- 1087 May, Low back pain M54.5 and Anxiety F41.9 [facility], [place] [id number] [place] [address] 92479- 8185 Apr, [facility], [place] [id number] [place] [address] 17675- 9673 Mar, Low back pain M54.5 [facility], [place] [id number] [place] [address] 53164- 6203 Mar, Low back pain M54.5 [facility], [place] [id number] [place] [address] 23543- 7432 Feb, Ganglion, left wrist M67.432 [facility], [place] [id number] [place] [address] 90163- 9164 Feb, Low back pain M54.5 [facility], [place] [address] [facility] [id number] [place] [address] 53490- 1463 Feb, Low back pain M54.5 [facility], [place] [address] [facility] [id number] [place] [address] 98080- 0646 Feb, [facility], [place] [address] [facility] [id number] [place] [address] 50446- 7521 Feb, Low back pain M54.5 and Bronchitis J40 [facility], [place] [address] [facility] [id number] [place] [address] 74382- 5136 Feb, Low back pain M54.5 [facility], [place] [id number] [place] [address] 04868- 0910 Jan, [facility], [place] [id number] [place] [address] 01331- 5999 Jan, Low back pain M54.5 [facility], [place] [id number] [place] [address] 51243- 4685 Jan, Low back pain M54.5 ; Anxiety F41.9 and Ganglion, left wrist M67.432 [facility], [place] [id number] [place] [address] 29454- 2746 Dec, Low back pain M54.5 [facility], [place] [id number] [place] [address] 51906- 0137 Dec, Ganglion, left wrist M67.432 [facility], [place] [address] [facility] [id number] [place] [address] 34443- 1982 Nov, Ganglion, left wrist M67.432 and Anxiety F41.9 [facility], [place] [address] [facility] [id number] [place] [address] 65841- 3934 Nov, Low back pain M54.5 [facility], [place] [id number] [place] [address] 26360- 8376 Nov, [facility], [place] [address], [place] [address]- 3962 Nov, [facility], [place] [id number] [place] [address] 29631- 7349 Nov, [facility], [place] [id number] [place] [address] 62097- 6061 Oct, Anxiety F41.9 [facility], [place] [id number] [place] [address] 74215- 9721 Oct, Low back pain M54.5 [facility], [place] [id number] [place] [address] 25117- 7918 20 Oct, 2016 [facility], [place] [id number] [place] [address] 56818- 1911 07 Oct, 2016 [facility], [place] [id number] [place] [address] 57466- 4007 06 Oct, 2016 Adjustment disorder with depressed mood F43.21 and Generalized anxiety disorder F41.1 [facility], [place] [address], [place] [address]- 6639 Sep, Adjustment disorder with depressed mood F43.21 and Generalized anxiety disorder F41.1 [facility], [place] [address], [place] [address]- 9125 Sep, [address] [id number] [place] [address] Sep [facility], [place] [address], [place] [address]- 6170 Sep, Anxiety F41.9 [facility], [place] [address], [place] [address]- 7374 Sep, Low back pain M54.5 [facility], [place] [address], [place] [address]- 4604 Sep, Adjustment disorder with depressed mood F43.21 and Generalized anxiety disorder F41.1 [facility], [place] [id number] [place] [address] 27913- 4101 Sep, Allergic urticaria L50.0 [facility], [place] [id number] [place] [address] 50598- 3443 Aug, [facility], [place] [id number] [place] [address] 56776- 6102 Aug, Low back pain M54.5 [facility], [place] [id number] [place] [address] 31879- 2987 Aug, Low back pain M54.5 [facility], [place] [id number] [place] [address] 77744- 8779 Aug, [facility], [place] [id number] [place] [address] 16221- 5975 Aug, Thoracic neuritis M54.14 [facility], [place] [id number] [place] [address] 16114- 6848 Jul, [facility], [place] [id number] [place] [address] 16916- 7638 Jul, Low back pain M54.5 [facility], [place] [id number] [place] [address] 09034- 0849 Jul, Thoracic neuritis M54.14 [facility], [place] [id number] [place] [address] 49675- 5746 Jul, [facility], [place] [id number] [place] [address] 67815- 9550 Jul, Thoracic neuritis M54.14 [facility], [place] [id number] [place] [address] 34759- 7293 June, [facility], [place] [id number] [place] [address] 75248- 4086 June, Thoracic neuritis M54.14 [facility], [place] [id number] [place] [address] 35448- 6449 May, [facility], [place] [id number] [place] [address] 74884- 9421 May, [facility], [place] [address], [place] [address]- 4940 Dec, [facility], [place] [id number] [place] [address] 99854- 5361 Dec, [facility], [place] [id number] [place] [address] 84131- 2190 Dec, [facility], [place] [id number] [place] [address] 06052- 2077 Dec, [facility], [place] [id number] [place] [address] 82923- 7309 Nov, [facility], [place] [id number] [place] [address] 09588- 5509 Nov, Thoracic neuritis M54.14 and Low back pain M54.5 [facility], [place] [id number] [place] [address] 68803- 5100 Nov, [facility], [place] [id number] [place] [address] 70201- 2370 Oct, Low back pain M54.5 and Acute upper respiratory infection, unspecified J06.9 [facility], [place] [id number] [place] [address] 62196- 6728 Oct, [facility], [place] [id number] [place] [address] 89941- 9775 Oct, [facility], [place] [id number] [place] [address] 75403- 6614 Oct, [facility], [place] [id number] [place] [address] 12137- 0308 Oct, [facility], [place] [id number] [place] [address] 16759- 4216 Sep, Chronic maxillary sinusitis J32.0 and Thoracic neuritis M54.14 [facility], [place] [id number] [place] [address] 15241- 6990 Sep, [facility], [place] [id number] [place] [address] 42448- 0736 Aug, Low back pain M54.5 and Other chronic pain G89.29 [facility], [place] [id number] [place] [address] 89634- 1821 Jul, Low back pain M54.5 and Other chronic pain G89.29 [address] [address] 51378- 8191 Jul, [facility], [place] [address] 73516- 9932 June, [address] [address] 68749- 8786 May, Lumbago M54.5 and Sinusitis J32.9 [address] [address] 64818- 5729 Apr, Unspecified backache 724.5 and Folliculitis L73.9 [place] [id number] [place] [address] 42976- 5184 Mar, URI (upper respiratory infection) J06.9 and Back pain M54.9 [place] [id number] [place] [address] 87709- 2860 Mar, [facility], [place] [id number] [place] [address] 94239- 8590 Mar, [place] [id number] [place] [address] 56059- 1846 Feb, Low back pain M54.5 ; Sciatica, unspecified side M54.30 ; Folliculitis L73.9 and Allergic urticaria L50.0 [place] [id number] [place] [address] 28691- 2068 Feb, Visit for suture removal Z48.02 [place] [address] [place] [address]- 9124 Feb, [facility], [place] [id number] [place] [address] 37183- 5855 Feb, Rash R21 [facility], [place] [id number] [place] [address] 33043- 1676 Jan, Pharyngitis J02.9 ; Shoulder pain, right M25.511 and Rash R21 [facility], [place] [address] 85478- 8671 Jan, [facility], [place] [id number] [place] [address] 26143- 3767 Dec, Allergic urticaria L50.0 ; Right shoulder pain M25.511 and Lumbago M54.5 [place] [id number] [place] [address] 29859- 2763 Dec, Upper respiratory tract infection, unspecified upper respiratory infection J06.9 [facility], [place] [id number] [place] [address] 59507- 2064 Dec, Contact dermatitis L25.9 [facility], [place] [id number] [place] [address] 69007- 5884 Dec, [facility], [place] [id number] [place] [address] 50313- 4434 Dec, Dermatitis L30.9 and Pain in right shoulder M25.511 [facility], [place] [id number] [place] [address] 43273- 4942 Nov, [facility], [place] [id number] [place] [address] 51293- 9067 Nov, Upper respiratory tract infection, unspecified upper respiratory infection J06.9 [facility], [place] [id number] [place] [address] 89198- 0984 Oct, [facility], [place] [id number] [place] [address] 60369- 0232 Oct, [facility], [place] [address] [id number] [place] [address]- 7713 Oct, [facility] [address] [id number] [place] [address]- 4844 Sep, Back pain 724.5 [facility] [address] [id number] [place] [address]- 4918 Sep, Back pain 724.5 [facility] [address] [id number] [place] [address]- 8461 Sep, [facility] [place] [facility] [address] [id number] [place] [address]- 2111 Aug, [facility] [place] [facility] [address] [id number] [place] [address]- 6224 Aug, [facility] [place] [facility] [address] [id number] [place] [address]- 9575 Jul, Back pain 724.5 [facility] [address] [id number] [place] [address]- 7941 Jul, [facility] [place] [facility] [address] [id number] [place] [address]- 4472 June, [facility] [place] [facility] [address] [id number] [place] [address]- 7314 May, [facility] [place] [facility] [address] [id number] [place] [address]- 8010 May, [facility] [place] [facility] [address] [id number] [place] [address]- 5885 Apr, [facility] [place] [facility] [address] [id number] [place] 9941 Apr, [facility] [place] [facility] [address] [id number] [place] 4197 Feb, [facility] [place] [facility] [address] [id number] [place] [address]- 7485 Feb, [facility] [place] [facility] [address], [place] [address]- 0328 Dec, [facility], [place] [address], [place] [address]- 9928 Dec, [facility], [place] [address], [place] [address]- 4487 Nov, [facility], [place] [address] 1556 Nov, [facility], [place] [address], [place] [address]- 0479 Feb, [facility], [place] [id number] [place] [address] 975014- 1212 Feb, [facility], [place] [address], [place] [address]- 0348 Sep, [facility], [place] [address], [place] [address]- 2968 Apr, [facility], [place] [address], [place] [address]- 9029 Apr, [facility], [place] [address], [place] [address]- 1229 Mar, [facility], [place] [address], [place] [address]- 8169 Mar, [facility] [place] [address], [place] [address]- 1142 Mar, [facility], [place] [id number] [address]- 6243 Sep, IMMUNIZATIONS No Known Immunizations SOCIAL HISTORY Never Assessed REASON FOR VISIT Psychiatric intake- lety neri PLAN OF CARE Activity Details Follow Up 4 Weeks Reason: f/u VITAL SIGNS Height 70 in 2018-01-11 Weight 141 lbs 2018-01-11 Heart Rate 115 bpm 2018-01-11 Respiratory Rate 20 2018-01-11 BMI 20.23 kg/m2 2018-01-11 Blood pressure systolic 132 mmHg 2018-01-11 Blood pressure diastolic 84 mmHg 2018-01-11 MEDICATIONS Medication Instructions Dosage Frequency Start Date End Date Duration Status Methocarbamol 750 MG Orally every 4 hrs 1 tablet 4h Oct, Active Propranolol HCl 20 mg Orally twice a day as needed for anxiety 1 tablet Jan, 30 day(s) Active Pseudoephedrine HCl 60 mg Orally 2 times a day 1 tablet as needed 12h Aug, 28 days Active ProAir HFA 108 (90 Base) MCG/ACT INHALE 2 PUFFS BY MOUTH EVERY 6 HOURS NEEDED FOR SHORTNESS OF BREATH OR COUGH 25 Active Cymbalta 30 MG Orally Once a day for two weeks, then 1 capsule twice a day 1 capsule Jan, 30 day(s) Active Nortriptyline HCl 50 mg Orally Once a day, at night 1 capsule Dec, 30 day(s) Active Ibuprofen 800 MG Orally Three times a day 1 tablet with food or milk as needed 8h Sep, Active RESULTS No Results PROCEDURES No Known procedures INSTRUCTIONS MEDICATIONS ADMINISTERED No Known Medications MEDICAL (GENERAL) HISTORY Type Description Date Medical History frequent ear infections Medical History 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 redding did injections down his spine, adn Epidurals
--- OUTSIDE RECORDS SUMMARY | 2018-04-01 20:16 | XMS REPORT ---
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 Name Role Phone LORNA BELL Unavailable PROBLEMS Type Condition ICD9-CM Code JVE31-SE Code Onset Dates Condition Status SNOMED Code Problem Low back pain M54.5 Active 371035660 Problem DENISSE (generalized anxiety disorder) F41.1 Active 48445383 Problem Cannabis use disorder, mild, abuse F12.10 Active 46382987 Problem Anxiety F41.9 Active 20541766 Problem Acute upper respiratory infection, unspecified J06.9 Active 43675838 Problem Dysthymic disorder F34.1 Active 80196931 Problem Adjustment disorder with depressed mood F43.21 Active 02803669 ALLERGIES No Information ENCOUNTERS Encounter Location Date Diagnosis [facility] [id number] [place] [address] 63356- 0325 Feb, [facility] [address] 80814- 7933 Jan, [facility] [id number] [place] [address] 15537- 6183 Jan, [facility] [id number] [place] [address] 87481- 5503 Jan, DENISSE (generalized anxiety disorder) F41.1 and Cannabis use disorder, mild, abuse F12.10 [facility] [id number] [place] [address] 75303- 1486 Jan, Generalized anxiety disorder F41.1 [facility] [id number] [place] [address] 20484- 5937 Dec, Generalized anxiety disorder F41.1 [facility] [address] 06494- 2020 14 Dec, 2017 Thoracic neuritis M54.14 and Acute upper respiratory infection, unspecified J06.9 [facility] [address] 34402- 8376 07 Dec, 2017 Thoracic neuritis M54.14 [facility] [id number] [place] [address] 53231- 2672 30 Nov, 2017 Generalized anxiety disorder F41.1 [facility] [address] 72823- 5692 16 Nov, 2017 [facility] [address] 94764- 2661 15 Nov, 2017 Low back pain M54.5 and Thoracic neuritis M54.14 [facility] [address] 28905- 5742 Nov, Low back pain M54.5 [facility] [address] 32051- 2900 19 Oct, 2017 Thoracic neuritis M54.14 [facility] [address] 20832- 2546 18 Oct, 2017 Thoracic neuritis M54.14 [facility] [address] 37768- 0412 06 Oct, 2017 Thoracic neuritis M54.14 [facility] [id number] [place] [address] 43039- 7719 Sep, Thoracic neuritis M54.14 [facility] [id number] [place] [address] 69510- 5464 Sep, [facility] [address] 84519- 9355 Sep, Thoracic neuritis M54.14 and Acute recurrent maxillary sinusitis J01.01 [facility] [id number] [place] [address] 28193- 5201 Aug, [facility] [address] [place] [address]- 4098 Aug, Thoracic neuritis M54.14 [facility] [address] 46288- 9501 Jul, Low back pain M54.5 [facility] [id number] [place] [address] 39847- 4037 June, Low back pain M54.5 [facility] [address] 19403- 1194 May, Low back pain M54.5 and Generalized anxiety disorder F41.1 [facility] [address] 56231- 6250 May, [facility] [id number] [place] [address] 20013- 4288 May, Generalized anxiety disorder F41.1 [facility] [address] 66399- 7314 May, Low back pain M54.5 and Anxiety F41.9 [facility] [id number] [place] [address] 77653- 7522 Apr, [facility] [id number] [place] [address] 17322- 7542 Mar, Low back pain M54.5 [facility] [id number] [place] [address] 44548- 5621 Mar, Low back pain M54.5 [facility] [id number] [place] [address] 00355- 5963 Feb, Ganglion, left wrist M67.432 [facility] [id number] [place] [address] 33537- 5096 Feb, Low back pain M54.5 [facility] [id number] [place] [address] 21362- 9499 Feb, Low back pain M54.5 [facility] [id number] [place] [address] 42720- 9846 Feb, [facility] [id number] [place] [address] 11028- 2245 Feb, Low back pain M54.5 and Bronchitis J40 [facility] [id number] [place] [address] 35730- 7696 Feb, Low back pain M54.5 [facility] [id number] [place] [address] 83648- 8366 Jan, [facility] [id number] [place] [address] 32645- 6716 Jan, Low back pain M54.5 [facility] [id number] [place] [address] 25040- 9637 Jan, Low back pain M54.5 ; Anxiety F41.9 and Ganglion, left wrist M67.432 [facility] [id number] [place] [address] 61588- 5860 Dec, Low back pain M54.5 [facility] [id number] [place] [address] 77709- 3734 Dec, Ganglion, left wrist M67.432 [facility] [id number] [place] [address] 88517- 9659 Nov, Ganglion, left wrist M67.432 and Anxiety F41.9 [facility] [id number] [place] [address] 75404- 5014 Nov, Low back pain M54.5 [facility] [id number] [place] [address] 84007- 2016 Nov, [facility] [id number] [place] [address] 05870- 9086 Nov, [facility] [id number] [place] [address] 84793- 8783 Nov, [facility] [address] [facility] [id number], [place] [address]- 7774 Oct, Anxiety F41.9 [facility] [id number] [place] [address] 58077- 8036 Oct, Low back pain M54.5 [facility] [id number] [place] [address] 85873- 0087 Oct, [facility] [id number] [place] [address] 05738- 6605 Oct, [facility] [id number] [place] [address] 86281- 5942 Oct, Adjustment disorder with depressed mood F43.21 and Generalized anxiety disorder F41.1 [facility] [id number] [place] [address] 69583- 9749 Sep, Adjustment disorder with depressed mood F43.21 and Generalized anxiety disorder F41.1 [facility] [id number] [place] [address] 53348- 1016 Sep, [address] [id number] [place] [address] Sep [facility] [id number] [place] [address] 76140- 2482 Sep, Anxiety F41.9 [facility] [id number] [place] [address] 33798- 1306 Sep, Low back pain M54.5 [facility] [id number] [place] [address] 13740- 8525 Sep, Adjustment disorder with depressed mood F43.21 and Generalized anxiety disorder F41.1 [facility] [id number] [place] [address] 08248- 1263 Sep, Allergic urticaria L50.0 [facility] [id number] [place] [address] 74033- 7132 Aug, [facility] [id number] [place] [address] 90238- 0283 Aug, Low back pain M54.5 [facility] [address] [facility] [id number] [place] [address], [place] [address]- 7551 Aug, Low back pain M54.5 [facility] [address] [facility] [id number] [place] [address]- 5444 Aug, [facility] [address] [facility] [id number] [place] [address] 45564- 8283 Aug, Thoracic neuritis M54.14 [facility] [address] [facility] [id number] [place] [address], [place] [address]- 3751 Jul, [facility] [id number] [place] [address] 22062- 4084 Jul, Low back pain M54.5 [facility] [id number] [place] [address] 71771- 3621 Jul, Thoracic neuritis M54.14 [facility] [address] [facility] [id number] [place] [address] 22764- 1818 Jul, [facility] [id number] [place] [address] 53661- 3095 Jul, Thoracic neuritis M54.14 [facility] [address] [address]- 5085 June, [facility] [id number] [place] [address] 31194- 7413 June, Thoracic neuritis M54.14 [facility] [address] [facility] [id number], [place] [address]- 6791 May, [facility] [address] [facility] [id number] [place] [address] 86893- 7152 May, [facility] [address], [place] [address]- 1165 Dec, [facility] [id number] [address]- 0444 Dec, [facility] [id number] [place] [address] 10422- 4798 Dec, [facility] [id number] [place] [address] 36782- 6324 Dec, [facility] [id number] [place] [address] 86577- 4440 Nov, [facility] [id number] [place] [address] 39851- 9115 Nov, Thoracic neuritis M54.14 and Low back pain M54.5 [facility] [id number] [place] [address] 05125- 1338 Nov, [facility] [id number] [place] [address] 57060- 8941 Oct, Low back pain M54.5 and Acute upper respiratory infection, unspecified J06.9 [facility] [id number] [place] [address] 15932- 4355 Oct, [facility] [id number] [place] [address] 38354- 7337 Oct, [facility] [id number] [place] [address] 53642- 3002 Oct, [facility] [id number] [place] [address] 78419- 8425 Oct, [facility] [id number] [place] [address] 41143- 9458 Sep, Chronic maxillary sinusitis J32.0 and Thoracic neuritis M54.14 [facility] [id number] [place] [address] 85320- 7802 Sep, [facility] [id number] [place] [address] 63678- 3295 Aug, Low back pain M54.5 and Other chronic pain G89.29 [facility] [id number] [place] [address] 78260- 9614 27 Jul, 2015 Low back pain M54.5 and Other chronic pain G89.29 [facility] [id number] [place] [address] 98320- 7838 16 Jul, 2015 [facility] [address] 28061- 5422 June, [facility] [address] 26152- 0233 May, Lumbago M54.5 and Sinusitis J32.9 [facility] [address] 23759- 1287 Apr, Unspecified backache 724.5 and Folliculitis L73.9 [facility] [address] 09718- 3892 Mar, URI (upper respiratory infection) J06.9 and Back pain M54.9 [facility] [id number] [place] [address] 86678- 7821 Mar, [facility] [address] 15110- 9913 Mar, [facility] [id number] [place] [address] 27228- 4349 Feb, Low back pain M54.5 ; Sciatica, unspecified side M54.30 ; Folliculitis L73.9 and Allergic urticaria L50.0 [facility] [id number] [place] [address] 05748- 7557 Feb, Visit for suture removal Z48.02 [facility] [address] 08178- 4474 Feb, [facility] [address] 13088- 8014 Feb, Rash R21 [facility] [address] [address]- 9844 16 Jan, 2015 Pharyngitis J02.9 ; Shoulder pain, right M25.511 and Rash R21 [facility] [id number] [place] [address] 87330- 8058 Jan, [facility] [id number] [place] [address] 46906- 9487 30 Dec, 2014 Allergic urticaria L50.0 ; Right shoulder pain M25.511 and Lumbago M54.5 [facility] [id number] [place] [address] 29496- 8733 Dec, Upper respiratory tract infection, unspecified upper respiratory infection J06.9 [facility] [id number] [place] [address] 50013- 3720 Dec, Contact dermatitis L25.9 [facility] [id number] [place] [address] 80634- 9291 Dec, [facility] [id number] [place] [address] 99210- 0244 Dec, Dermatitis L30.9 and Pain in right shoulder M25.511 [facility] [id number] [place] [address] 38895- 2294 Nov, [facility] [id number] [place] [address] 85310- 3495 Nov, Upper respiratory tract infection, unspecified upper respiratory infection J06.9 [facility] [id number] [place] [address] 53401- 6907 Oct, [facility] [id number] [place] [address] 18754- 9812 Oct, [facility] [id number] [place] [address] 23726- 0085 Oct, [facility] [id number] [place] [address] 39596- 4981 Sep, Back pain 724.5 [facility] [address] [id number] [place] [address]- 0255 Sep, Back pain 724.5 [facility] [place] [facility] [address] [id number] [place] [address]- 0638 10 Sep, 2014 [facility] [address] [id number] [place] [address]- 1209 Aug, [facility] [place] [facility] [address] [id number] [place] [address]- 6177 Aug, [facility] [address] [id number] [place] [address], [place]- 0921 Jul, Back pain 724.5 [facility] [address] [id number] [place] [address]- 8140 Jul, [facility] [address] [facility] [id number] [place] [address], [place] [address]- 8066 June, [facility] [address] [id number] [place] [address]- 9972 May, [facility] [place] [facility] [address] [facility] [id number] [place] [address], [place] [address]- 2705 May, [facility] [address] [facility] [id number] [place] [address]- 7340 Apr, [facility] [place] [facility] [address] [facility] [id number] [place] [address]- 8427 Apr, [facility] [place] [facility] [address] [id number], [place] [address]- 6740 Feb, [facility] [place] [facility] [address] [id number] [place] [address]- 4280 Feb, [facility] [place] [facility] [address] [facility] [id number] [place] [address]- 7916 Dec, [facility] [place] [facility] [address] [facility] [id number] [place] [address]- 8905 Dec, [facility] [id number] [address]- 0036 Nov, [facility] [address] [address]- 3556 Nov, [facility] [id number], [place] [address]- 3546 Feb, [facility] [address] [address]- 6906 Feb, [facility] [address] [address]- 1350 Sep, [facility] [address], [place] [address]- 1186 Apr, [facility] [address] [address]- 2546 Apr, [facility] [address] [address]- 7806 Mar, [facility] [id number] [address]- 6816 Mar, [facility] [id number] [address]- 0176 Mar, [facility] [id number] [address]- 0796 Sep, IMMUNIZATIONS No Known Immunizations SOCIAL HISTORY Never Assessed REASON FOR VISIT f/u PLAN OF CARE Activity Details Follow Up next available Reason:anxiety VITAL SIGNS MEDICATIONS Unknown Medications RESULTS No Results PROCEDURES Procedure Date Ordered Result Body Site Psychotherapy, patient &/family, 30 minutes, established patient Jan 10, 2018 INSTRUCTIONS MEDICATIONS ADMINISTERED No Known Medications MEDICAL (GENERAL) HISTORY Type Description Date Medical History frequent ear infections Medical History gets respiratory infections from being around smoke, 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 redding did injections down his spine, adn Epidurals
--- OUTSIDE RECORDS SUMMARY | 2018-04-01 20:17 | XMS REPORT ---
Author Author MOUNA LAKE Organization [facility] Address [address] [place] [address] [id number] Care Team Providers Care Outsole Tacker Name Role Phone MOUNA LAKE Unavailable PROBLEMS Type Condition ICD9-CM Code PWC33-JY Code Onset Dates Condition Status SNOMED Code Problem Low back pain M54.5 Active 335359067 Problem Anxiety state, unspecified F41.1 Active 098187115 Problem Dysthymic disorder F34.1 Active 55865771 Problem Anxiety F41.9 Active 07129522 Problem Acute upper respiratory infection, unspecified J06.9 Active 20693073 Problem Generalized anxiety disorder F41.1 Active 97993807 Problem Adjustment disorder with depressed mood F43.21 Active 09550446 ALLERGIES No Known Allergies ENCOUNTERS Encounter Location Date Diagnosis [place] [id number] [place] [address] 98368- 4600 Jan, [place] [address] 74426- 2200 Jan, [facility] [id number] [place] [address] 25528- 4880 Dec, [place] [id number] [place] [address] 64417- 4541 Dec, Thoracic neuritis M54.14 [facility] [id number] [place] [address] 83315- 0511 Nov, Generalized anxiety disorder F41.1 [facility] [address] 95854- 7143 Nov, [facility] [id number] [place] [address] 02161- 4687 15 Nov, 2017 Low back pain M54.5 and Thoracic neuritis M54.14 [facility] [id number] [place] [address] 50705- 7308 Nov, Low back pain M54.5 [facility] [address] 83347- 5926 19 Oct, 2017 Thoracic neuritis M54.14 [facility] [id number] [place] [address] 80927- 4551 18 Oct, 2017 Thoracic neuritis M54.14 [facility] [address] 92280- 8006 06 Oct, 2017 Thoracic neuritis M54.14 [facility] [address] 13955- 2147 Sep, Thoracic neuritis M54.14 [facility] [id number] [place] [address] 38743- 1380 Sep, [facility] [address] 95095- 2569 Sep, Thoracic neuritis M54.14 and Acute recurrent maxillary sinusitis J01.01 [facility] [id number] [place] [address] 80841- 2984 Aug, [facility] [id number] [place] [address] 42208- 1439 Aug, Thoracic neuritis M54.14 [facility] [id number] [place] [address] 04163- 9138 Jul, Low back pain M54.5 [facility] [id number] [place] [address] 17655- 8301 June, Low back pain M54.5 [facility] [id number] [place] [address] 42142- 3265 May, Low back pain M54.5 and Generalized anxiety disorder F41.1 [facility] [id number] [place] [address] 82303- 0255 May, [facility] [id number] [place] [address] 66299- 4739 May, Generalized anxiety disorder F41.1 [facility] [address] 45887- 7215 May, Low back pain M54.5 and Anxiety F41.9 [facility] [id number] [place] [address] 23489- 7452 Apr, [facility] [address] 41095- 7233 Mar, Low back pain M54.5 [facility] [address] 22900- 6582 Mar, Low back pain M54.5 [facility] [id number] [place] [address] 29188- 0147 Feb, Ganglion, left wrist M67.432 [facility] [id number] [place] [address] 78303- 8760 Feb, Low back pain M54.5 [facility] [address] 12727- 6495 Feb, Low back pain M54.5 [facility] [id number] [place] [address] 28484- 3997 Feb, [facility] [id number] [place] [address] 20277- 9937 Feb, Low back pain M54.5 and Bronchitis J40 [facility] [id number] [place] [address] 39069- 8909 Feb, Low back pain M54.5 [facility] [id number] [place] [address] 79884- 2219 Jan, [facility] [id number] [place] [address] 82076- 2024 Jan, Low back pain M54.5 [facility] [id number] [place] [address] 28770- 2531 Jan, Low back pain M54.5 ; Anxiety F41.9 and Ganglion, left wrist M67.432 [facility] [id number] [place] [address] 12360- 9230 Dec, Low back pain M54.5 [facility] [id number] [place] [address] 16039- 8832 Dec, Ganglion, left wrist M67.432 [facility] [id number] [place] [address] 09371- 7180 Nov, Ganglion, left wrist M67.432 and Anxiety F41.9 [facility] [id number] [place] [address] 20040- 2991 Nov, Low back pain M54.5 [facility] [id number] [place] [address] 85138- 9117 Nov, [facility] [id number] [place] [address] 23677- 1614 Nov, [facility] [id number] [place] [address] 73296- 9950 Nov, [facility] [id number] [place] [address] 87843- 5654 Oct, Anxiety F41.9 [facility] [id number] [place] [address] 20062- 4145 22 Oct, 2016 Low back pain M54.5 [facility] [id number] [place] [address] 78151- 9727 Oct, [facility] [id number] [place] [address] 76756- 2295 Oct, [facility] [id number] [place] [address] 54832- 4338 06 Oct, 2016 Adjustment disorder with depressed mood F43.21 and Generalized anxiety disorder F41.1 [facility] [id number] [place] [address] 36297- 5322 Sep, Adjustment disorder with depressed mood F43.21 and Generalized anxiety disorder F41.1 [facility] [id number] [place] [address] 57503- 8046 Sep, [address] [id number] [address] Sep [facility] [id number] [place] [address] 82200- 0387 Sep, Anxiety F41.9 [facility] [id number] [place] [address] 46203- 9184 Sep, Low back pain M54.5 [facility] [id number] [place] [address] 75538- 6932 Sep, Adjustment disorder with depressed mood F43.21 and Generalized anxiety disorder F41.1 [facility] [id number] [place] [address] 27568- 9638 Sep, Allergic urticaria L50.0 [facility] [id number] [place] [address] 41315- 8065 Aug, [facility] [id number] [place] [address] 71688- 6780 Aug, Low back pain M54.5 [facility] [id number] [place] [address] 64265- 4910 Aug, Low back pain M54.5 [facility] [id number] [place] [address] 26743- 0764 Aug, [facility] [id number] [place] [address] 22228- 6810 Aug, Thoracic neuritis M54.14 [facility] [id number] [place] [address] 49432- 8607 Jul, [facility] [id number] [place] [address] 23077- 0791 Jul, Low back pain M54.5 [facility] [id number] [place] [address] 38044- 2871 Jul, Thoracic neuritis M54.14 [facility] [id number] [place] [address] 07554- 0650 Jul, [facility] [address] 68469- 7155 Jul, Thoracic neuritis M54.14 [facility] [id number] [place] [address] 55807- 2264 June, [facility] [id number] [place] [address] 24992- 5575 June, Thoracic neuritis M54.14 [facility] [id number] [place] [address] 74059- 2141 May, [facility] [id number] [place] [address] 53340- 1793 May, [facility] [id number] [place] [address] 85620- 4982 Dec, [facility] [id number] [place] [address] 74978- 6390 Dec, [facility] [id number] [place] [address] 28484- 0312 Dec, [facility] [id number] [place] [address] 91189- 0587 Dec, [facility] [id number] [place] [address] 08589- 9612 Nov, [facility] [id number] [place] [address] 29690- 9204 Nov, Thoracic neuritis M54.14 and Low back pain M54.5 [facility] [id number] [place] [address] 13182- 9279 Nov, [facility] [address] [address]- 2311 26 Oct, 2015 Low back pain M54.5 and Acute upper respiratory infection, unspecified J06.9 [facility] [id number] [place] [address] 28501- 3810 19 Oct, 2015 [facility] [id number] [place] [address] 16976- 6177 Oct, [facility] [id number] [place] [address] 16377- 7949 Oct, [facility] [id number] [place] [address] 43556- 7448 Oct, [facility] [id number] [place] [address] 15254- 1334 Sep, Chronic maxillary sinusitis J32.0 and Thoracic neuritis M54.14 [facility] [id number] [place] [address] 12660- 9761 Sep, [facility] [id number] [place] [address] 88909- 1114 Aug, Low back pain M54.5 and Other chronic pain G89.29 [facility] [id number] [place] [address] 06786- 2775 Jul, Low back pain M54.5 and Other chronic pain G89.29 [facility] [id number] [place] [address] 64888- 5632 16 Jul, 2015 [facility] [id number] [place] [address] 16974- 9983 June, [facility] [id number] [place] [address] 13171- 7394 May, Lumbago M54.5 and Sinusitis J32.9 [facility] [id number] [place] [address] 40562- 9371 Apr, Unspecified backache 724.5 and Folliculitis L73.9 [place] [id number] [place] [address] 11417- 2370 Mar, URI (upper respiratory infection) J06.9 and Back pain M54.9 [place] [address] 36190- 1063 Mar, [place] [address] 82157- 0740 Mar, [place] [address] 15583- 7714 Feb, Low back pain M54.5 ; Sciatica, unspecified side M54.30 ; Folliculitis L73.9 and Allergic urticaria L50.0 [place] [address] 43648- 8856 Feb, Visit for suture removal Z48.02 [place] [address] 73322- 1394 Feb, [place] [address] 15096- 7197 Feb, Rash R21 [place] [id number] [place] [address] 82075- 3937 16 Jan, 2015 Pharyngitis J02.9 ; Shoulder pain, right M25.511 and Rash R21 [place] [id number] [place] [address] 29783- 3173 Jan, [place] [id number] [place] [address] 14792- 2061 Dec, Allergic urticaria L50.0 ; Right shoulder pain M25.511 and Lumbago M54.5 [place] [id number] [place] [address] 56622- 5553 Dec, Upper respiratory tract infection, unspecified upper respiratory infection J06.9 [place] [address], [place] [address]- 3866 Dec, Contact dermatitis L25.9 [facility] [id number] [place] [address] 63096- 4749 Dec, [facility] [id number] [place] [address] 78141- 1645 Dec, Dermatitis L30.9 and Pain in right shoulder M25.511 [facility] [id number] [place] [address] 32805- 0459 Nov, [facility] [id number] [place] [address] 99966- 1751 Nov, Upper respiratory tract infection, unspecified upper respiratory infection J06.9 [facility] [id number] [place] [address] 58576- 1413 Oct, [facility] [id number] [place] [address] 58209- 0873 Oct, [facility] [id number] [place] [address] 99878- 4784 Oct, [facility] [id number] [place] [address] 53216- 3178 Sep, Back pain 724.5 [facility] [id number] [place] [address] 03705- 5092 Sep, Back pain 724.5 [facility] [id number] [place] [address] 71141- 7952 Sep, [facility] [address] [place] [address]- 8313 Aug, [facility] [id number] [place] [address] 70745- 5529 Aug, [facility] [address], [place] [address]- 7054 Jul, Back pain 724.5 [facility] [place] [facility] [address] [id number] [place] [address]- 7990 Jul, [facility] [place] [facility] [address] [id number] [place] [address]- 3630 June, [facility] [place] [facility] [address] [id number] [place] [address]- 3814 May, [facility] [place] [facility] [address] [id number] [place] [address]- 4171 May, [facility] [place] [facility] [address] [id number] [place] [address]- 3999 Apr, [facility] [place] [facility] [address] [id number] [place] [address]- 2667 Apr, [facility] [place] [facility] [address] [id number] [place] [address]- 1415 Feb, [facility] [place] [facility] [address] [id number] [place] [address]- 3559 Feb, [facility] [place] [facility] [address] [id number] [place] [address]- 0937 Dec, [facility] [place] [facility] [address] [id number] [place] [address]- 7597 Dec, [facility] [place] [facility] [address] [id number] [place] [address]- 5656 Nov, [facility] [place] [facility] [address] [id number] [place] [address]- 4030 Nov, [facility] [place] [facility] [address] [id number] [place] [address]- 4833 Feb, [facility] [place] [facility] [address] [id number] [place] [address]- 8422 Feb, [facility] [place] [facility] [address] [id number] [place] [address]- 9230 Sep, [facility] [place] [facility] [address] [id number] [place] [address]- 4464 Apr, [facility] [address] [facility] [id number], [place] [address]- 1216 Apr, [facility] [address] [facility] [id number], [place] [address]- 1126 Mar, [facility] [address] [facility] [id number], [place] [address]- 5836 Mar, [facility] [address] [facility] [id number] [address]- 2406 Mar, [facility] [address] [facility] [id number], [place] [address]- 1746 Sep, IMMUNIZATIONS No Known Immunizations SOCIAL HISTORY Never Assessed REASON FOR VISIT Pain management (chronic) --AURELIO Gomez PLAN OF CARE VITAL SIGNS Height 70 in 2017-12-15 Weight 138.9 lbs 2017-12-15 Temperature 97.8 degrees Fahrenheit 2017-12-15 Heart Rate 94 bpm 2017-12-15 Respiratory Rate 20 2017-12-15 BMI 19.93 kg/m2 2017-12-15 Blood pressure systolic 126 mmHg 2017-12-15 Blood pressure diastolic 74 mmHg 2017-12-15 MEDICATIONS Medication Instructions Dosage Frequency Start Date End Date Duration Status ProAir HFA 108 (90 Base) MCG/ACT INHALE 2 PUFFS BY MOUTH EVERY 6 HOURS NEEDED FOR SHORTNESS OF BREATH OR COUGH 25 Active Ibuprofen 800 MG Orally Three times a day 1 tablet with food or milk as needed 8h Sep, Active Nortriptyline HCl 50 mg Orally Once a day, at night 1 capsule Dec, 30 day(s) Active Pseudoephedrine HCl 60 mg Orally 2 times a day 1 tablet as needed 12h Aug, 28 days Active Venlafaxine HCl 37.5 MG Orally 2 times a day 1 tablet with food 12h Nov 30 day(s) Active Methocarbamol 750 MG Orally every 4 hrs 1 tablet 4h 06 Oct, 2017 Active RESULTS No Results PROCEDURES No Known procedures INSTRUCTIONS MEDICATIONS ADMINISTERED No Known Medications MEDICAL (GENERAL) HISTORY Type Description Date Medical History frequent ear infections Medical History gets 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 redding did injections down his spine, adn Epidurals
--- OUTSIDE RECORDS SUMMARY | 2018-04-01 20:17 | XMS REPORT ---
Author Author LORNA BELL Organization [facility] Address [address] [place] [address] Care Team Providers [employer] Name Role Phone RAY LORNA Unavailable PROBLEMS Type Condition ICD9-CM Code DDI24-OB Code Onset Dates Condition Status SNOMED Code Problem Low back pain M54.5 Active 904910418 Problem Anxiety state, unspecified F41.1 Active 184848495 Problem Dysthymic disorder F34.1 Active 55172015 Problem Anxiety F41.9 Active 24532179 Problem Acute upper respiratory infection, unspecified J06.9 Active 51286438 Problem Generalized anxiety disorder F41.1 Active 25831049 Problem Adjustment disorder with depressed mood F43.21 Active 62159227 ALLERGIES No Information ENCOUNTERS Encounter Location Date Diagnosis [facility] [id number] [place] [address] 31420- 9045 Jan, [facility] [address] 72510- 8041 Jan, [facility] [id number] [place] [address] 19672- 7172 Jan, [facility] [id number] [place] [address] 64446- 2551 Dec, Generalized anxiety disorder F41.1 [facility] [id number] [place] [address] 60994- 3746 14 Dec, 2017 Thoracic neuritis M54.14 and Acute upper respiratory infection, unspecified J06.9 [facility] [id number] [place] [address] 51468- 9610 07 Dec, 2017 Thoracic neuritis M54.14 [facility] [id number] [place] [address] 17234- 0471 Nov, Generalized anxiety disorder F41.1 [facility] [id number] [place] [address] 88912- 9858 16 Nov, 2017 [facility] [id number] [place] [address] 43781- 3556 15 Nov, 2017 Low back pain M54.5 and Thoracic neuritis M54.14 [facility] [id number] [place] [address] 92123- 5209 03 Nov, 2017 Low back pain M54.5 [facility] [id number] [place] [address] 08993- 4010 Oct, Thoracic neuritis M54.14 [facility] [id number] [place] [address] 30434- 9803 18 Oct, 2017 Thoracic neuritis M54.14 [facility] [id number] [place] [address] 30431- 4882 Oct, Thoracic neuritis M54.14 [facility] [id number] [place] [address] 31240- 2405 Sep, Thoracic neuritis M54.14 [facility] [id number] [place] [address] 71950- 9250 Sep, [facility] [id number] [place] [address] 06249- 0137 Sep, Thoracic neuritis M54.14 and Acute recurrent maxillary sinusitis J01.01 [facility] [id number] [place] [address] 60226- 9640 Aug, [facility] [id number] [place] [address] 61603- 9038 Aug, Thoracic neuritis M54.14 [facility] [id number] [place] [address] 02077- 2536 Jul, Low back pain M54.5 [facility] [id number] [place] [address] 33307- 3265 June, Low back pain M54.5 [facility] [id number] [place] [address] 46822- 4036 May, Low back pain M54.5 and Generalized anxiety disorder F41.1 [facility] [id number] [place] [address] 22925- 4782 May, [facility] [address] 70249- 5797 May, Generalized anxiety disorder F41.1 [facility] [address] 48255- 0367 May, Low back pain M54.5 and Anxiety F41.9 [facility] [id number] [place] [address] 78600- 5383 Apr, [facility] [address] 47714- 8451 Mar, Low back pain M54.5 [facility] [id number] [place] [address] 18256- 8852 Mar, Low back pain M54.5 [facility] [address] 50045- 5429 Feb, Ganglion, left wrist M67.432 [facility] [id number] [place] [address] 44554- 2836 Feb, Low back pain M54.5 [facility] [id number] [place] [address] 08511- 3673 Feb, Low back pain M54.5 [facility] [id number] [place] [address] 61709- 8360 Feb, [facility] [id number] [place] [address] 88869- 5342 Feb, Low back pain M54.5 and Bronchitis J40 [facility] [address] 45866- 6583 Feb, Low back pain M54.5 [facility] [id number] [place] [address] 30098- 9353 Jan, [facility] [id number] [place] [address] 65771- 2327 Jan, Low back pain M54.5 [facility] [id number] [place] [address] 64910- 3116 Jan, Low back pain M54.5 ; Anxiety F41.9 and Ganglion, left wrist M67.432 [facility] [id number] [place] [address] 74906- 3846 Dec, Low back pain M54.5 [facility] [id number] [place] [address] 72878- 5782 Dec, Ganglion, left wrist M67.432 [facility] [id number] [place] [address] 66998- 2031 Nov, Ganglion, left wrist M67.432 and Anxiety F41.9 [facility] [id number] [place] [address] 49744- 7023 Nov, Low back pain M54.5 [facility] [id number] [place] [address] 46879- 9355 Nov, [facility] [id number] [place] [address] 54997- 8442 Nov, [facility] [id number] [place] [address] 31709- 7679 Nov, [facility] [id number] [place] [address] 15990- 3200 Oct, Anxiety F41.9 [facility] [id number] [place] [address] 59867- 0454 Oct, Low back pain M54.5 [facility] [id number] [place] [address] 49523- 0090 Oct, [facility] [address] [address]- 0957 Oct, [facility] [address] [facility] [id number] [place] [address] 46027- 7569 Oct, Adjustment disorder with depressed mood F43.21 and Generalized anxiety disorder F41.1 [facility] [id number] [place] [address] 44040- 2945 Sep, Adjustment disorder with depressed mood F43.21 and Generalized anxiety disorder F41.1 [facility] [address] [address]- 5287 Sep, [address] [id number] [place] [address] Sep [facility] [address] [place] [address] 60049- 7740 Sep, Anxiety F41.9 [facility] [address] [place] [address] 03770- 6213 Sep, Low back pain M54.5 [facility] [address] [place] [address] 73527- 7596 Sep, Adjustment disorder with depressed mood F43.21 and Generalized anxiety disorder F41.1 [facility] [address] [place] [address] 40004- 9605 Sep, Allergic urticaria L50.0 [facility] [address] [place] [address] 72275- 1978 Aug, [facility] [address] [place] [address] 30182- 9049 Aug, Low back pain M54.5 [facility] [address] [place] [address] 06837- 6019 Aug, Low back pain M54.5 [facility] [address] [place] [address] 78867- 0665 Aug, [facility] [address] [facility] [id number] [address] 5601 Aug, Thoracic neuritis M54.14 [facility] [address] [facility] [id number] [address]- 1486 Jul, [facility] [address], [place] [address]- 2959 Jul, Low back pain M54.5 [facility] [id number] [place] [address] 83372- 9666 Jul, Thoracic neuritis M54.14 [facility] [id number] [place] [address] 15349- 6771 Jul, [facility] [address] [place] [address] 08110- 1778 Jul, Thoracic neuritis M54.14 [facility] [address] [place] [address] 71435- 7370 June, [facility] [id number] [place] [address] 79089- 9918 June, Thoracic neuritis M54.14 [facility] [id number], [place] [address]- 6180 May, [facility] [address], [place] [address]- 6037 May, [facility] [id number], [place] [address]- 1145 Dec, [facility] [id number], [place] [address]- 5517 Dec, [facility] [id number], [place] [address]- 2336 Dec, [facility] [address], [place] [address]- 7598 Dec, [facility] [id number] [place] [address] 11438- 6510 Nov, [facility] [id number] [place] [address] 31376- 0793 Nov, Thoracic neuritis M54.14 and Low back pain M54.5 [facility] [id number] [place] [address] 45832- 3534 17 Nov, 2015 [facility] [id number] [place] [address] 06387- 3934 26 Oct, 2015 Low back pain M54.5 and Acute upper respiratory infection, unspecified J06.9 [facility] [id number] [place] [address] 29681- 0377 Oct, [facility] [id number] [place] [address] 19750- 3795 Oct, [facility] [id number] [place] [address] 08820- 0897 Oct, [facility] [id number] [place] [address] 22292- 0440 Oct, [facility] [id number] [place] [address] 86620- 0980 Sep, Chronic maxillary sinusitis J32.0 and Thoracic neuritis M54.14 [facility] [id number] [place] [address] 76793- 7731 Sep, [facility] [id number] [place] [address] 45478- 6800 Aug, Low back pain M54.5 and Other chronic pain G89.29 [facility] [id number] [place] [address] 61641- 7306 Jul, Low back pain M54.5 and Other chronic pain G89.29 [facility] [id number] [place] [address] 21921- 5557 16 Jul, 2015 [facility] [address] 84607- 8529 June, [place] [address] 12480- 5051 May, Lumbago M54.5 and Sinusitis J32.9 [place] [address] 65703- 0971 Apr, Unspecified backache 724.5 and Folliculitis L73.9 [place] [address] 52341- 2730 Mar, URI (upper respiratory infection) J06.9 and Back pain M54.9 [place] [address] 46341- 5765 Mar, [place] [address] 33588- 8019 Mar, [place] [address] 14958- 9475 Feb, Low back pain M54.5 ; Sciatica, unspecified side M54.30 ; Folliculitis L73.9 and Allergic urticaria L50.0 [place] [address] 09316- 1096 Feb, Visit for suture removal Z48.02 [place] [address] 02972- 3908 Feb, [place] [address] 95132- 5510 Feb, Rash R21 [place] [address] 39974- 6974 16 Jan, 2015 Pharyngitis J02.9 ; Shoulder pain, right M25.511 and Rash R21 [place] [address] 18714- 0839 Jan, [place] [address] [place] [address]- 7043 30 Dec, 2014 Allergic urticaria L50.0 ; Right shoulder pain M25.511 and Lumbago M54.5 [facility] [id number] [place] [address] 00892- 0544 Dec, Upper respiratory tract infection, unspecified upper respiratory infection J06.9 [facility] [id number] [place] [address] 69215- 1537 Dec, Contact dermatitis L25.9 [facility] [address] 88453- 2624 Dec, [facility] [address] 48367- 1704 Dec, Dermatitis L30.9 and Pain in right shoulder M25.511 [facility] [id number] [place] [address] 44447- 9559 Nov, [facility] [id number] [place] [address] 58960- 6380 Nov, Upper respiratory tract infection, unspecified upper respiratory infection J06.9 [facility] [id number] [place] [address] 69163- 0538 Oct, [facility] [id number] [place] [address] 56907- 2429 Oct, [facility] [id number] [place] [address] 65979- 8737 Oct, [facility] [id number] [place] [address] 68962- 4268 Sep, Back pain 724.5 [facility] [id number] [place] [address] 34634- 0324 Sep, Back pain 724.5 [facility] [id number] [place] [address] 18192- 9661 Sep, [facility] [id number] [place] [address] [place] [address]- 3526 16 Aug, 2014 [facility] [address] [id number] [place] [address]- 0605 16 Aug, 2014 [facility] [place] [facility] [address] [address]- 9891 Jul, Back pain 724.5 [facility] [id number] [place] [address], [place] [address]- 9067 Jul, [facility] [place] [facility] [id number] [place] [address], [place] [address]- 4097 June, [facility] [address] [id number] [place] [address], [place] [address]- 5051 May, [facility] [place] [facility] [address] [facility] [id number] [place] [address], [place] [address]- 2470 May, [facility] [place] [facility] [id number] [place] [address], [place] [address]- 2351 Apr, [facility] [address] [id number] [place] [address]- 1550 Apr, [facility] [place] [facility] [id number] [place] [address], [place] [address]- 5815 Feb, [facility] [address] [facility] [id number], [place] [address]- 8256 Feb, [facility] [place] [facility] [address] [facility] [id number] [place] [address]- 5794 Dec, [facility] [place] [facility] [address] [id number] [place] [address]- 2396 Dec, [facility] [place] [facility] [address] [facility] [id number] [place] [address]- 9294 Nov, [facility] [place] [facility] [address] [facility] [id number] [place] [address]- 9842 Nov, [facility] [place] [facility] [address] [facility] [id number] [place] [address]- 6394 Feb, [facility] [id number], [place] [address]- 3636 Feb, [facility] [address], [place] [address]- 2816 Sep, [facility] [id number], [place] [address]- 1746 Apr, [facility] [address], [place] [address]- 0356 Apr, [facility] [address], [place] [address]- 3731 Mar, [facility] [address], [place] [address]- 1976 Mar, [facility] [address], [place] [address]- 3806 Mar, [facility] [id number], [place] [address]- 6926 Sep, IMMUNIZATIONS No Known Immunizations SOCIAL HISTORY Never Assessed REASON FOR VISIT f/u PLAN OF CARE Activity Details Follow Up Next available Reason:anxiety VITAL SIGNS MEDICATIONS Unknown Medications RESULTS No Results PROCEDURES Procedure Date Ordered Result Body Site Psychotherapy, patient &/family, 30 minutes, established patient Dec 28, 2017 INSTRUCTIONS MEDICATIONS ADMINISTERED No Known Medications MEDICAL (GENERAL) HISTORY Type Description Date Medical History frequent ear infections Medical History gets respiratory infections from being around smoke, 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 redding did injections down his spine, adn Epidurals
--- OUTSIDE RECORDS SUMMARY | 2018-04-01 20:17 | XMS REPORT ---
Author Author LRONA BELL Organization [facility] Address [address] [place] [address] Care Team Providers Care Gatehouse Attendant Name Role Phone LORNA BELL Unavailable PROBLEMS Type Condition ICD9-CM Code [id number] Code Onset Dates Condition Status SNOMED Code Problem Low back pain M54.5 Active 110595646 Problem Anxiety state, unspecified F41.1 Active 422721033 Problem Dysthymic disorder F34.1 Active 45343434 Problem Anxiety F41.9 Active 28891268 Problem Acute upper respiratory infection, unspecified J06.9 Active 97474932 Problem Generalized anxiety disorder F41.1 Active 67667656 Problem Adjustment disorder with depressed mood F43.21 Active 97136534 ALLERGIES No Information ENCOUNTERS Encounter Location Date Diagnosis [facility] [id number] [place] [address] 31382- 9126 Jan, [facility] [id number] [place] [address] 45588- 5026 Dec, [facility] [id number] [place] [address] 48960- 0856 Dec, [facility] [id number] [place] [address] 31682- 8270 30 Nov, 2017 Generalized anxiety disorder F41.1 [facility] [id number] [place] [address] 30787- 6313 Nov, [facility] [id number] [place] [address] 25417- 2946 15 Nov, 2017 Low back pain M54.5 and Thoracic neuritis M54.14 [facility] [id number] [place] [address] 17279- 1668 03 Nov, 2017 Low back pain M54.5 [facility] [id number] [place] [address] 97787- 5635 19 Oct, 2017 Thoracic neuritis M54.14 [facility] [id number] [place] [address] 74955- 1818 18 Oct, 2017 Thoracic neuritis M54.14 [facility] [id number] [place] [address] 91770- 8739 06 Oct, 2017 Thoracic neuritis M54.14 [facility] [id number] [place] [address] 34689- 2814 Sep, Thoracic neuritis M54.14 [facility] [id number] [place] [address] 50303- 9762 Sep, [facility] [id number] [place] [address] 64992- 9401 Sep, Thoracic neuritis M54.14 and Acute recurrent maxillary sinusitis J01.01 [facility] [id number] [place] [address] 91838- 4138 Aug, [facility] [id number] [place] [address] 87972- 8295 Aug, Thoracic neuritis M54.14 [facility] [id number] [place] [address] 38903- 2746 Jul, Low back pain M54.5 [facility] [id number] [place] [address] 72434- 5250 June, Low back pain M54.5 [facility] [id number] [place] [address] 49549- 8443 May, Low back pain M54.5 and Generalized anxiety disorder F41.1 [facility] [id number] [place] [address] 47192- 9604 May, [facility] [id number] [place] [address] 30692- 0415 May, Generalized anxiety disorder F41.1 [facility] [id number] [place] [address] 48622- 9500 May, Low back pain M54.5 and Anxiety F41.9 [facility] [id number] [place] [address] 91429- 8726 Apr, [facility] [id number] [place] [address] 93423 2546 Mar, Low back pain M54.5 [facility] [id number] [place] [address] 42589 2546 Mar, Low back pain M54.5 [facility] [id number] [place] [address] 39670- 1476 Feb, Ganglion, left wrist M67.432 [facility] [id number] [place] [address] 09633- 3306 Feb, Low back pain M54.5 [facility] [id number] [place] [address] 27669- 6256 Feb, Low back pain M54.5 [facility] [id number] [place] [address] 66486- 4286 Feb, [facility] [id number] [place] [address] 83793- 7727 Feb, Low back pain M54.5 and Bronchitis J40 [facility] [id number] [place] [address] 41119- 9448 Feb, Low back pain M54.5 [facility] [id number] [place] [address] 42934 2546 Jan, [facility] [id number] [place] [address] 09734 2546 Jan, Low back pain M54.5 [facility] [id number] [place] [address] 76248 2546 Jan, Low back pain M54.5 ; Anxiety F41.9 and Ganglion, left wrist M67.432 [facility] [address] [facility] [id number] [place] [address] 19007- 5306 15 Dec, 2016 Low back pain M54.5 [facility] [address] [facility] [id number] [place] [address] 72587 2546 07 Dec, 2016 Ganglion, left wrist M67.432 [facility] [id number] [place] [address] 28534 2546 Nov, Ganglion, left wrist M67.432 and Anxiety F41.9 [facility] [address] [facility] [id number] [place] [address] 72305- 1036 Nov, Low back pain M54.5 [facility] [id number] [place] [address] 74192- 8476 Nov, [facility] [id number] [place] [address] 01108- 4813 Nov, [facility] [id number] [place] [address] 98793- 5910 Nov, [facility] [id number] [place] [address] 66272- 3583 Oct, Anxiety F41.9 [facility] [id number] [place] [address] 03549- 5902 Oct, Low back pain M54.5 [facility] [id number] [place] [address] 74118 2546 Oct, [facility] [id number] [place] [address] 74099- 6906 Oct, [facility] [id number] [place] [address] 33434- 2546 Oct, Adjustment disorder with depressed mood F43.21 and Generalized anxiety disorder F41.1 [facility] [id number] [place] [address] 86263- 6186 Sep, Adjustment disorder with depressed mood F43.21 and Generalized anxiety disorder F41.1 [facility] [address] [facility] [id number], [place] [address]- 2597 Sep, [facility] [address] [id number] [place] [address] Sep [facility] [id number] [place] [address] 58029- 8657 Sep, Anxiety F41.9 [facility] [id number] [place] [address] 72740- 5572 Sep, Low back pain M54.5 [facility] [id number] [place] [address] 26300- 9568 Sep, Adjustment disorder with depressed mood F43.21 and Generalized anxiety disorder F41.1 [facility] [id number] [place] [address] 80660- 6456 Sep, Allergic urticaria L50.0 [facility] [id number] [place] [address] 13414- 1205 Aug, [facility] [id number] [place] [address] 36124- 8760 Aug, Low back pain M54.5 [facility] [id number] [place] [address] 81301- 3471 Aug, Low back pain M54.5 [facility] [id number] [place] [address] 80541- 9712 Aug, [facility] [id number] [place] [address] 54581- 7879 Aug, Thoracic neuritis M54.14 [facility] [id number] [place] [address] 83756- 5426 Jul, [facility] [id number] [place] [address] 60118- 9051 Jul, Low back pain M54.5 [facility] [address] [id number] [address]- 3406 Jul, Thoracic neuritis M54.14 [facility] [id number] [place] [address] 50314- 2154 Jul, [facility] [id number] [place] [address] 19083- 2299 Jul, Thoracic neuritis M54.14 [facility] [id number] [place] [address] 39201- 7224 June, [facility] [id number] [place] [address] 89618- 7069 June, Thoracic neuritis M54.14 [facility] [id number] [place] [address] 61214- 4497 May, [facility] [id number] [place] [address] 48118- 3402 May, [facility] [id number] [place] [address] 16541- 1631 Dec, [facility] [id number] [place] [address] 36538- 5481 Dec, [facility] [id number] [place] [address] 14748- 1858 Dec, [facility] [id number] [place] [address] 28710- 7558 Dec, [facility] [id number] [place] [address] 33239- 3743 Nov, [facility] [id number] [place] [address] 36586- 7018 Nov, Thoracic neuritis M54.14 and Low back pain M54.5 [facility] [address] [address]- 1611 Nov, [facility] [id number] [place] [address] 55319- 1997 Oct, Low back pain M54.5 and Acute upper respiratory infection, unspecified J06.9 [facility] [id number] [place] [address] 62534- 8541 Oct, [facility] [id number] [place] [address] 23627- 2855 Oct, [facility] [id number] [place] [address] 83746- 6010 Oct, [facility] [id number] [place] [address] 80254- 2504 Oct, [facility] [address] 99534- 9055 Sep, Chronic maxillary sinusitis J32.0 and Thoracic neuritis M54.14 [facility] [id number] [place] [address] 36790- 7338 Sep, [facility] [id number] [place] [address] 80866- 4301 Aug, Low back pain M54.5 and Other chronic pain G89.29 [facility] [address] 54907- 1528 Jul, Low back pain M54.5 and Other chronic pain G89.29 [facility] [id number] [place] [address] 51830- 6589 Jul, [facility] [id number] [place] [address] 46048- 0448 June, [facility] [id number] [place] [address] 83318- 8445 May, Lumbago M54.5 and Sinusitis J32.9 [facility] [id number] [place] [address] 90644- 9191 Apr, Unspecified backache 724.5 and Folliculitis L73.9 [facility] [id number] [place] [address] 83178- 7669 Mar, URI (upper respiratory infection) J06.9 and Back pain M54.9 [place] [address] 62667- 9330 Mar, [facility] [id number] [place] [address] 50952- 0793 Mar, [place] [facility] [address] 81502- 7403 Feb, Low back pain M54.5 ; Sciatica, unspecified side M54.30 ; Folliculitis L73.9 and Allergic urticaria L50.0 [place] [address] 28778- 3346 Feb, Visit for suture removal Z48.02 [place] [address] 15065- 1946 Feb, [place] [address] 95149- 0931 Feb, Rash R21 [place] [address] 79208- 4805 Jan, Pharyngitis J02.9 ; Shoulder pain, right M25.511 and Rash R21 [place] [facility] [id number] [place] [address] 94440- 1671 Jan, [place] [facility] [id number] [place] [address] 66847- 4663 Dec, Allergic urticaria L50.0 ; Right shoulder pain M25.511 and Lumbago M54.5 [place] [address] 02578- 4755 Dec, Upper respiratory tract infection, unspecified upper respiratory infection J06.9 [place] [facility] [id number] [place] [address] 91926- 7407 Dec, Contact dermatitis L25.9 [place] [address] [facility] [id number], [place] [address]- 5419 Dec, [facility] [address] [facility] [id number], [place] [address]- 0431 Dec, Dermatitis L30.9 and Pain in right shoulder M25.511 [facility] [address] [facility] [id number], [place] [address]- 1320 Nov, [facility] [address] [facility] [id number], [place] [address]- 5540 Nov, Upper respiratory tract infection, unspecified upper respiratory infection J06.9 [facility] [address] [facility] [id number], [place] [address]- 4071 Oct, [facility] [address] [facility] [id number], [place] [address]- 4652 Oct, [facility] [id number] [place] [address] 37801- 5062 Oct, [facility] [address] [facility] [id number], [place] [address]- 1347 Sep, Back pain 724.5 [facility] [address] [facility] [id number], [place] [address]- 0537 Sep, Back pain 724.5 [facility] [address] [facility] [id number], [place] [address]- 4659 Sep, [facility] [address] [facility] [id number], [place] [address]- 3092 Aug, [facility] [address] [facility] [id number], [place] [address]- 6168 Aug, [facility] [address] [facility] [id number], [place] [address]- 7311 Jul, Back pain 724.5 [facility] [address] [facility] [id number], [place] [address]- 6073 Jul, [facility] [address] [facility] [id number] [place] [address]- 3060 June, [facility] [address] [id number] [place] [address]- 2589 May, [facility] [place] [facility] [address] [id number] [place] [address]- 1449 May, [facility] [address] [id number] [place] [address]- 9626 Apr, [facility] [place] [facility] [address] [id number] [place] [address]- 8977 Apr, [facility] [address] [id number] [place] [address]- 9848 Feb, [facility] [address] [id number] [place] [address]- 0416 Feb, [facility] [address] [id number] [place] [address]- 0412 Dec, [facility] [address] [id number] [place] [address]- 4178 Dec, [facility] [address] [id number] [place] [address]- 1830 Nov, [facility] [address] [id number] [place] [address]- 5530 Nov, [facility] [place] [facility] [address] [id number] [place] [address]- 8665 Feb, [facility] [place] [facility] [address] [id number] [place] [address]- 9630 Feb, [facility] [place] [facility] [address] [id number] [place] [address]- 6569 Sep, [facility] [place] [facility] [address] [id number] [place] [address]- 7836 Apr, [facility] [place] [facility] [address] [id number] [place] [address]- 7506 Apr, [facility] [address] [facility] [id number], [place] [address]- 4414 Mar, [facility] [address] [facility] [id number], [place] [address]- 3906 Mar, [facility] [address] [facility] [id number], [place] [address]- 7356 Mar, [facility] [address] [facility] [id number], [place] [address]- 2196 Sep, IMMUNIZATIONS No Known Immunizations SOCIAL HISTORY Never Assessed REASON FOR VISIT Intake PLAN OF CARE Activity Details Follow Up next available Reason:anxiety VITAL SIGNS MEDICATIONS Medication Instructions Dosage Frequency Start Date End Date Duration Status Pseudoephedrine HCl 60 mg Orally 2 times a day 1 tablet as needed 12h Aug, 28 days Active ProAir HFA 108 (90 Base) MCG/ACT Inhalation every 6 hrs for shortness of breath/cough 2 puffs as needed Active Ibuprofen 800 MG Orally Three times a day 1 tablet with food or milk as needed 8h Sep, Active Methocarbamol 750 MG Orally every 4 hrs 1 tablet 4h Oct, Active Venlafaxine HCl 37.5 MG Orally 2 times a day 1 tablet with food 12h Nov 30 day(s) Active RESULTS No Results PROCEDURES Procedure Date Ordered Result Body Site Psych diagnostic evaluation, established patient Dec 07, 2017 INSTRUCTIONS MEDICATIONS ADMINISTERED No Known Medications MEDICAL (GENERAL) HISTORY Type Description Date Medical History frequent ear infections Medical History gets respiratory infections from being around 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 redding did injections down his spine, adn Epidurals
--- OUTSIDE RECORDS SUMMARY | 2018-04-01 20:18 | XMS REPORT ---
Author Author MOUNA LAKE Organization [facility] Address [address] [place] [address] Care Team Providers Care Vamp Throater Name Role Phone MOUNA LAKE Unavailable PROBLEMS Type Condition ICD9-CM Code [id number] Code Onset Dates Condition Status SNOMED Code Problem Dysthymic disorder F34.1 Active 99589109 Problem Generalized anxiety disorder F41.1 Active 80026837 Problem Acute upper respiratory infection, unspecified J06.9 Active 45177649 Problem Low back pain M54.5 Active 690845231 Problem Adjustment disorder with depressed mood F43.21 Active 17180546 Problem Anxiety F41.9 Active 68063698 ALLERGIES No Known Allergies ENCOUNTERS Encounter Location Date Diagnosis [facility] [id number] [place] [address] 98773- 9296 Dec, [facility] [address] 06130- 8568 Nov, Low back pain M54.5 [facility] [id number] [place] [address] 76115- 3934 Oct, Thoracic neuritis M54.14 [facility] [id number] [place] [address] 16637- 7821 18 Oct, 2017 Thoracic neuritis M54.14 [facility] [id number] [place] [address] 78386- 1918 Oct, Thoracic neuritis M54.14 [facility] [address] 97340- 2298 Sep, Thoracic neuritis M54.14 [facility] [id number] [place] [address] 40764- 6449 Sep, [facility] [address] [place] [address]- 5660 Sep, Thoracic neuritis M54.14 and Acute recurrent maxillary sinusitis J01.01 [facility] [id number] [place] [address] 42317- 6561 Aug, [facility] [id number] [place] [address] 15950- 0001 Aug, Thoracic neuritis M54.14 [facility] [id number] [place] [address] 85891- 4290 Jul, Low back pain M54.5 [facility] [id number] [place] [address] 78087- 5761 June, Low back pain M54.5 [facility] [id number] [place] [address] 99849- 5595 May, Low back pain M54.5 and Generalized anxiety disorder F41.1 [facility] [id number] [place] [address] 65899- 6019 May, [facility] [id number] [place] [address] 93401- 1986 May, Generalized anxiety disorder F41.1 [facility] [id number] [place] [address] 64192- 5351 May, Low back pain M54.5 and Anxiety F41.9 [facility] [id number] [place] [address] 54425- 8302 Apr, [facility] [id number] [place] [address] 17468- 7361 Mar, Low back pain M54.5 [facility] [id number] [place] [address] 85422- 5926 Mar, Low back pain M54.5 [facility] [id number] [place] [address] 16450- 4427 Feb, Ganglion, left wrist M67.432 [facility] [id number] [place] [address] 24940- 0540 Feb, Low back pain M54.5 [facility] [id number] [place] [address] 06154- 9337 Feb, Low back pain M54.5 [facility] [id number] [place] [address] 94992- 8942 Feb, [facility] [address] 62857- 4250 Feb, Low back pain M54.5 and Bronchitis J40 [facility] [address] 19949- 2894 Feb, Low back pain M54.5 [facility] [id number] [place] [address] 77103- 6694 Jan, [facility] [address] 14483- 3624 Jan, Low back pain M54.5 [facility] [id number] [place] [address] 86641- 8013 Jan, Low back pain M54.5 ; Anxiety F41.9 and Ganglion, left wrist M67.432 [facility] [id number] [place] [address] 10921- 2201 Dec, Low back pain M54.5 [facility] [id number] [place] [address] 72171- 5706 Dec, Ganglion, left wrist M67.432 [facility] [id number] [place] [address] 68718- 1867 Nov, Ganglion, left wrist M67.432 and Anxiety F41.9 [facility] [id number] [place] [address] 92314- 6713 Nov, Low back pain M54.5 [facility] [id number] [place] [address] 83021- 3268 Nov, [facility] [address] [facility] [id number], [place] [address]- 8571 Nov, [facility] [address] [facility] [id number], [place] [address]- 6266 Nov, [facility] [address] [facility] [id number], [place] [address]- 5148 Oct, Anxiety F41.9 [facility] [id number] [place] [address] 07686- 3089 Oct, Low back pain M54.5 [facility] [address] [facility] [id number] [place] [address] 39045- 9659 20 Oct, 2016 [facility] [address] [id number] [address]- 4423 07 Oct, 2016 [facility] [address] [place] [address] 48682- 3142 Oct, Adjustment disorder with depressed mood F43.21 and Generalized anxiety disorder F41.1 [facility] [address] [address]- 0249 Sep, Adjustment disorder with depressed mood F43.21 and Generalized anxiety disorder F41.1 [facility] [address] [address]- 1360 Sep, [address] [id number] [place] [address] Sep [facility] [address] [id number] [address]- 0159 Sep, Anxiety F41.9 [facility] [address] [id number] [address]- 1214 Sep, Low back pain M54.5 [facility] [address] [id number], [place] [address]- 9569 Sep, Adjustment disorder with depressed mood F43.21 and Generalized anxiety disorder F41.1 [facility] [id number] [place] [address] 85674- 4094 Sep, Allergic urticaria L50.0 [facility] [id number] [place] [address] 39500- 2996 Aug, [facility] [id number] [place] [address] 25022- 7357 Aug, Low back pain M54.5 [facility] [id number] [place] [address] 48060- 7745 Aug, Low back pain M54.5 [facility] [id number] [place] [address] 26750- 1056 Aug, [facility] [id number] [place] [address] 34237- 5275 Aug, Thoracic neuritis M54.14 [facility] [id number] [place] [address] 91269- 0568 Jul, [facility] [id number] [place] [address] 11164- 1405 Jul, Low back pain M54.5 [facility] [id number] [place] [address] 32819- 1614 Jul, Thoracic neuritis M54.14 [facility] [id number] [place] [address] 67196- 5724 Jul, [facility] [id number] [place] [address] 13404- 2541 Jul, Thoracic neuritis M54.14 [facility] [id number] [place] [address] 75778- 6912 June, [facility] [id number] [place] [address] 14659- 1705 June, Thoracic neuritis M54.14 [facility] [id number] [place] [address] 50077- 4144 May, [facility] [address] [facility] [id number], [place] [address]- 0290 May, [facility] [address] [facility] [id number] [place] [address] 64413- 0324 Dec, [facility] [address] [facility] [id number], [place] [address]- 0788 Dec, [facility] [address] [facility] [id number] [place] [address] 53117- 5799 Dec, [facility] [address] [facility] [id number] [place] [address] 00183- 2605 Dec, [facility] [address] [facility] [id number] [place] [address] 84719- 0057 Nov, [facility] [address] [place] [address] 74790- 4095 Nov, Thoracic neuritis M54.14 and Low back pain M54.5 [facility] [address] [facility] [id number] [place] [address] 48079- 6802 Nov, [facility] [address] [place] [address] 98305- 9976 Oct, Low back pain M54.5 and Acute upper respiratory infection, unspecified J06.9 [facility] [address], [place] [address]- 3395 Oct, [facility] [address] [facility] [id number], [place] [address]- 5778 Oct, [facility] [address] [facility] [id number], [place] [address]- 2399 Oct, [facility] [address] [facility] [id number] [place] [address] 24175- 2626 Oct, [facility] [address] [id number], [place] [address]- 1727 Sep, Chronic maxillary sinusitis J32.0 and Thoracic neuritis M54.14 [address] [facility] [id number] [place] [address] 73093- 6172 Sep, [facility] [address] 52291- 7363 Aug, Low back pain M54.5 and Other chronic pain G89.29 [address] [address] 84650- 9790 Jul, Low back pain M54.5 and Other chronic pain G89.29 [address] 40431- 8321 Jul, [address] [address] 30676- 8405 June, [address] 42745- 9969 May, Lumbago M54.5 and Sinusitis J32.9 [address] [place] [address] 85654- 7167 Apr, Unspecified backache 724.5 and Folliculitis L73.9 [address] [place] [address] 57127- 6178 Mar, URI (upper respiratory infection) J06.9 and Back pain M54.9 [facility] [id number] [place] [address] 80625- 9891 Mar, [facility] [id number] [place] [address] 64631- 4820 Mar, [address] [facility] [id number] [place] [address] 07010- 6543 Feb, Low back pain M54.5 ; Sciatica, unspecified side M54.30 ; Folliculitis L73.9 and Allergic urticaria L50.0 [facility] [id number] [place] [address] 59515- 9882 Feb, Visit for suture removal Z48.02 [facility] [address], [place] [address]- 2401 Feb, [facility] [id number] [place] [address] 78373- 6228 Feb, Rash R21 [facility] [id number] [place] [address] 80488- 3951 Jan, Pharyngitis J02.9 ; Shoulder pain, right M25.511 and Rash R21 [facility] [id number] [place] [address] 13120- 3806 Jan, [facility] [id number] [place] [address] 78071- 3311 Dec, Allergic urticaria L50.0 ; Right shoulder pain M25.511 and Lumbago M54.5 [address] [id number] [place] [address] 18601- 9906 Dec, Upper respiratory tract infection, unspecified upper respiratory infection J06.9 [facility] [address] [place] [address] 13158- 3706 Dec, Contact dermatitis L25.9 [facility] [id number] [place] [address] 44796- 4808 Dec, [facility] [address] [place] [address] 51975- 4381 Dec, Dermatitis L30.9 and Pain in right shoulder M25.511 [facility] [address], [place] [address]- 8139 Nov, [facility] [id number] [place] [address] 00601- 5266 Nov, Upper respiratory tract infection, unspecified upper respiratory infection J06.9 [facility] [address], [place] [address]- 7143 Oct, [facility] [address] [id number], [place] [address]- 2874 Oct, [facility] [address] [id number], [place] [address]- 4856 Oct, [facility] [place] [facility] [address] [id number], [place] [address]- 9370 Sep, Back pain 724.5 [facility] [address] [id number], [place] [address]- 4205 Sep, Back pain 724.5 [facility] [place] [facility] [address] [id number] [place] [address]- 6301 10 Sep, 2014 [facility] [place] [facility] [address] [id number], [place] [address]- 5865 Aug, [facility] [place] [facility] [address] [facility] [id number], [place] [address]- 7639 Aug, [facility] [place] [facility] [address] [id number], [place] [address]- 7277 Jul, Back pain 724.5 [facility] [place] [facility] [address] [id number] [place] [address]- 2256 Jul, [facility] [place] [facility] [address] [facility] [id number], [place] [address]- 6756 June, [facility] [place] [facility] [address] [id number], [place] [address]- 5332 14 May, 2014 [facility] [place] [facility] [address] [id number], [place] [address]- 4914 May, [facility] [place] [facility] [address] [facility] [id number], [place] [address]- 2777 30 Apr, 2014 [facility] [place] [facility] [address] [id number][place]- 7762 30 Apr, 2014 [facility] [place] [facility] [address] [facility] [id number], [place] [address]- 8327 Feb, [facility] [place] [facility] [address], [place] [address]- 0082 Feb, [facility] [address] 7361 Dec, [facility] [address], [place] [address]- 3825 Dec, [facility] [address], [place] [address]- 5293 Nov, [facility] [address], [place] [address]- 9350 Nov, [facility] [address] [place] [address] 07755- 9840 Feb, [facility] [address], [place] [address]- 2444 Feb, [facility] [address] 2248 Sep, [facility] [address], [place] [address]- 9390 Apr, [facility] [address], [place] [address]- 6644 Apr, [facility] [address], [place] [address]- 7094 Mar, [facility] [address], [place] [address]- 6361 Mar, [facility] [address], [place] [address]- 7003 Mar, [facility] [id number], [place] [address]- 7548 Sep, IMMUNIZATIONS No Known Immunizations SOCIAL HISTORY Never Assessed REASON FOR VISIT Pain management (chronic), PT reports he is still dealing with pain -Jade CAREY PLAN OF CARE VITAL SIGNS Height 70 in 2017-11-10 Weight 133.0 lbs 2017-11-10 Temperature 98.3 degrees Fahrenheit 2017-11-10 Heart Rate 102 bpm 2017-11-10 Respiratory Rate 20 2017-11-10 Oximetry 98 % 2017-11-10 BMI 19.08 kg/m2 2017-11-10 Blood pressure systolic 128 mmHg 2017-11-10 Blood pressure diastolic 80 mmHg 2017-11-10 MEDICATIONS Medication Instructions Dosage Frequency Start Date End Date Duration Status Pseudoephedrine HCl 60 mg Orally 2 times a day 1 tablet as needed 12h Aug, 28 days Active Venlafaxine HCl 37.5 MG Orally 2 times a day 1 tablet with food 12h Nov 30 day(s) Active Methocarbamol 750 MG Orally every 4 hrs 1 tablet 4h Oct, Active Ibuprofen 800 MG Orally Three times a day 1 tablet with food or milk as needed 8h Sep, Active ProAir HFA 108 (90 Base) MCG/ACT Inhalation every 6 hrs for shortness of breath/cough 2 puffs as needed Active RESULTS No Results PROCEDURES No Known procedures INSTRUCTIONS MEDICATIONS ADMINISTERED No Known Medications MEDICAL (GENERAL) HISTORY Type Description Date Medical History frequent ear infections Medical History gets respiratory infections from being 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 redding did injections down his spine, adn Epidurals
--- OUTSIDE RECORDS SUMMARY | 2018-04-01 20:18 | XMS REPORT ---
Author Author MOUNA LAKE Organization [facility] Address [address] [place] [address] Care Team Providers Care Sheep Killer Name Role Phone MOUNA LAKE Unavailable PROBLEMS Type Condition ICD9-CM Code [id number] Code Onset Dates Condition Status SNOMED Code Problem Dysthymic disorder F34.1 Active 22873987 Problem Generalized anxiety disorder F41.1 Active 25341976 Problem Acute upper respiratory infection, unspecified J06.9 Active 12682675 Problem Low back pain M54.5 Active 965196361 Problem Adjustment disorder with depressed mood F43.21 Active 27858412 Problem Anxiety F41.9 Active [id number] ALLERGIES No Information ENCOUNTERS Encounter Location Date Diagnosis [facility] [id number] [place] [address] 59715- 1607 Dec, [facility] [address] 02051- 6745 Nov, Low back pain M54.5 [facility] [id number] [place] [address] 49505- 7856 Oct, Thoracic neuritis M54.14 [facility] [id number] [place] [address] 64871- 5505 Oct, Thoracic neuritis M54.14 [facility] [id number] [place] [address] 75921- 7818 Oct, Thoracic neuritis M54.14 [facility] [address] 68667- 3658 Sep, Thoracic neuritis M54.14 [facility] [id number] [place] [address] 08954- 5732 Sep, [facility] [address] [place] [address]- 8696 Sep, Thoracic neuritis M54.14 and Acute recurrent maxillary sinusitis J01.01 [facility] [id number] [place] [address] 75180- 6233 Aug, [facility] [id number] [place] [address] 20862- 4666 Aug, Thoracic neuritis M54.14 [facility] [id number] [place] [address] 73905- 2976 Jul, Low back pain M54.5 [facility] [id number] [place] [address] 57118- 3373 June, Low back pain M54.5 [facility] [id number] [place] [address] 60177- 9019 May, Low back pain M54.5 and Generalized anxiety disorder F41.1 [facility] [id number] [place] [address] 98468- 3897 May, [facility] [id number] [place] [address] 96195- 0489 May, Generalized anxiety disorder F41.1 [facility] [id number] [place] [address] 28026- 3550 May, Low back pain M54.5 and Anxiety F41.9 [facility] [id number] [place] [address] 34218- 8583 Apr, [facility] [id number] [place] [address] 94647- 0145 Mar, Low back pain M54.5 [facility] [id number] [place] [address] 33281- 4326 Mar, Low back pain M54.5 [facility] [id number] [place] [address] 72336- 7331 Feb, Ganglion, left wrist M67.432 [facility] [id number] [place] [address] 29885- 1843 Feb, Low back pain M54.5 [facility] [id number] [place] [address] 53635- 2374 Feb, Low back pain M54.5 [facility] [id number] [place] [address] 71249- 3114 Feb, [facility] [id number] [place] [address] 42044- 1354 Feb, Low back pain M54.5 and Bronchitis J40 [facility] [address] 68316- 5689 Feb, Low back pain M54.5 [facility] [id number] [place] [address] 26335- 0351 Jan, [facility] [address] 79020- 4895 Jan, Low back pain M54.5 [facility] [id number] [place] [address] 76323- 4949 Jan, Low back pain M54.5 ; Anxiety F41.9 and Ganglion, left wrist M67.432 [facility] [id number] [place] [address] 59411- 3896 Dec, Low back pain M54.5 [facility] [id number] [place] [address] 64651- 2954 Dec, Ganglion, left wrist M67.432 [facility] [id number] [place] [address] 88308- 0650 Nov, Ganglion, left wrist M67.432 and Anxiety F41.9 [facility] [id number] [place] [address] 19301- 1492 Nov, Low back pain M54.5 [facility] [id number] [place] [address] 29579- 6202 18 Nov, 2016 [facility] [address] [facility] [id number] [address]- 6217 16 Nov, 2016 [facility] [address] [facility] [id number] [place] [address] 81380- 2185 Nov, [facility] [address] [facility] [id number] [place] [address] 41158- 4373 Oct, Anxiety F41.9 [facility] [address] [facility] [id number] [place] [address] 47951- 5366 22 Oct, 2016 Low back pain M54.5 [facility] [address] [facility] [id number] [place] [address] 58288- 1180 20 Oct, 2016 [facility] [id number] [place] [address] 78525- 9763 07 Oct, 2016 [facility] [address] [place] [address] 04246- 2158 Oct, Adjustment disorder with depressed mood F43.21 and Generalized anxiety disorder F41.1 [facility] [address] [address]- 4851 Sep, Adjustment disorder with depressed mood F43.21 and Generalized anxiety disorder F41.1 [facility] [address] [address]- 4479 Sep, [address] [id number] [place] [address] Sep [facility] [address] [id number] [address]- 6193 Sep, Anxiety F41.9 [facility] [address] [id number] [address]- 4136 Sep, Low back pain M54.5 [facility] [address] [id number] [address]- 0518 Sep, Adjustment disorder with depressed mood F43.21 and Generalized anxiety disorder F41.1 [facility] [id number] [place] [address] 29787- 9219 Sep, Allergic urticaria L50.0 [facility] [id number] [place] [address] 48578 2546 Aug, [facility] [id number] [place] [address] 37201- 6016 Aug, Low back pain M54.5 [facility] [id number] [place] [address] 12530 2546 Aug, Low back pain M54.5 [facility] [id number] [place] [address] 04115- 5626 Aug, [facility] [id number] [place] [address] 35194 2546 Aug, Thoracic neuritis M54.14 [facility] [id number] [place] [address] 55194- 3326 Jul, [facility] [id number] [place] [address] 56981 2545 Jul, Low back pain M54.5 [facility] [id number] [place] [address] 45858 2540 Jul, Thoracic neuritis M54.14 [facility] [id number] [place] [address] 95002- 3956 Jul, [facility] [id number] [place] [address] 30173 2541 Jul, Thoracic neuritis M54.14 [facility] [id number] [place] [address] 72570- 5566 June, [facility] [id number] [place] [address] 60303- 2547 June, Thoracic neuritis M54.14 [facility] [id number] [place] [address] 07589- 7723 May, [facility] [address] [facility] [id number] [address]- 2299 May, [facility] [address] [facility] [id number] [place] [address] 43026- 6882 Dec, [facility] [address] [facility] [id number] [address]- 5951 Dec, [facility] [id number] [place] [address] 39657- 9775 Dec, [facility] [address] [facility] [id number], [place] [address]- 7974 Dec, [facility] [id number] [place] [address] 15149- 8402 Nov, [facility] [id number] [place] [address] 71377- 4331 Nov, Thoracic neuritis M54.14 and Low back pain M54.5 [facility] [address] [place] [address] 07215- 7281 Nov, [facility] [address] [place] [address] 04837- 8185 Oct, Low back pain M54.5 and Acute upper respiratory infection, unspecified J06.9 [facility] [address] [address]- 5298 Oct, [facility] [address], [place] [address]- 0576 Oct, [facility] [address], [place] [address]- 5634 Oct, [facility] [id number] [place] [address] 71577- 4878 Oct, [facility] [address], [place] [address]- 0996 Sep, Chronic maxillary sinusitis J32.0 and Thoracic neuritis M54.14 [facility] [id number] [place] [address] 52266- 0427 Sep, [address] [address] 25161- 3416 Aug, Low back pain M54.5 and Other chronic pain G89.29 [address] 64913- 8391 Jul, Low back pain M54.5 and Other chronic pain G89.29 [address] 47001- 7141 Jul, [address] 54519- 0492 June, [address] [address] 11748- 6624 May, Lumbago M54.5 and Sinusitis J32.9 [address] [facility] [address] 90407- 4934 Apr, Unspecified backache 724.5 and Folliculitis L73.9 [place] [facility] [address] 04195- 6213 Mar, URI (upper respiratory infection) J06.9 and Back pain M54.9 [facility] [id number] [place] [address] 53743- 7414 Mar, [facility] [id number] [place] [address] 67933- 1383 Mar, [facility] [id number] [place] [address] 64494- 2570 Feb, Low back pain M54.5 ; Sciatica, unspecified side M54.30 ; Folliculitis L73.9 and Allergic urticaria L50.0 [facility] [id number] [place] [address] 42234- 9168 Feb, Visit for suture removal Z48.02 [facility] [address], [place] [address]- 1942 Feb, [facility] [id number] [place] [address] 08116- 6114 Feb, Rash R21 [facility] [id number] [place] [address] 95734- 4133 Jan, Pharyngitis J02.9 ; Shoulder pain, right M25.511 and Rash R21 [facility] [id number] [place] [address] 95297- 8513 Jan, [facility] [id number] [place] [address] 52372- 4767 Dec, Allergic urticaria L50.0 ; Right shoulder pain M25.511 and Lumbago M54.5 [facility] [id number] [place] [address] 13558- 7594 Dec, Upper respiratory tract infection, unspecified upper respiratory infection J06.9 [facility] [id number] [place] [address] 08559- 1921 Dec, Contact dermatitis L25.9 [facility] [id number] [place] [address] 02135- 1418 Dec, [facility] [address] [place] [address] 36680- 3048 Dec, Dermatitis L30.9 and Pain in right shoulder M25.511 [facility] [address] [place] [address] 22412- 4753 Nov, [facility] [id number] [place] [address] 52610- 9457 Nov, Upper respiratory tract infection, unspecified upper respiratory infection J06.9 [facility] [id number] [place] [address] 17318- 6848 Oct, [facility] [id number] [address]- 2737 Oct, [facility] [address] [id number] [place] [address]- 1976 Oct, [facility] [place] [facility] [address] [id number] [place] [address]- 2860 Sep, Back pain 724.5 [facility] [place] [facility] [address] [id number] [place] [address]- 9325 18 Sep, 2014 Back pain 724.5 [facility] [place] [facility] [address] [id number] [place] [address]- 3502 10 Sep, 2014 [facility] [place] [facility] [address] [id number] [place] [address]- 7611 16 Aug, 2014 [facility] [place] [facility] [address] [facility] [id number], [place] [address]- 2521 Aug, [facility] [place] [facility] [address] [id number], [place] [address]- 5725 Jul, Back pain 724.5 [facility] [place] [facility] [address] [id number] [place] [address]- 2817 Jul, [facility] [place] [facility] [address] [facility] [id number], [place] [address]- 9712 June, [facility] [place] [facility] [address] [id number], [place] [address]- 5618 14 May, 2014 [facility] [place] [facility] [address] [id number], [place] [address]- 2403 May, [facility] [place] [facility] [address] [id number] [place] [address]- 1172 30 Apr, 2014 [facility] [place] [facility] [address] [id number] [place] 9677 30 Apr, 2014 [facility] [place] [facility] [address] [facility] [id number]- 9654 Feb, [facility] [place] [facility] [id number], [place] [address]- 7990 Feb, [facility] [address], [place] [address]- 6430 Dec, [facility] [address], [place] [address]- 8505 Dec, [facility] [address], [place] [address]- 5196 Nov, [facility] [id number] [place] [address] 442971- 5918 Nov, [facility] [address] [place] [address] 510495- 5128 Feb, [facility] [address] [place] [address] 48275- 6511 Feb, [facility] [id number] [place] [address] 15388- 6532 Sep, [facility] [address], [place] [address]- 4975 Apr, [facility] [address]- 4165 Apr, [facility] [address], [place] [address]- 9446 Mar, [facility] [address] 8084 Mar, [facility] [address], [place] [address]- 2598 Mar, [facility] [address] 4964 Sep, IMMUNIZATIONS No Known Immunizations SOCIAL HISTORY Never Assessed REASON FOR VISIT Medication refill request PLAN OF CARE VITAL SIGNS MEDICATIONS Medication Instructions Dosage Frequency Start Date End Date Duration Status Pseudoephedrine HCl 60 mg Orally 2 times a day 1 tablet as needed 12h Aug, 28 days Active RESULTS No Results PROCEDURES No Known procedures INSTRUCTIONS MEDICATIONS ADMINISTERED No Known Medications MEDICAL (GENERAL) HISTORY Type Description Date Medical History frequent ear infections 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 redding did injections down his spine, adn Epidurals
--- OUTSIDE RECORDS SUMMARY | 2018-04-01 20:18 | XMS REPORT ---
Author Author MOUNA LAKE Organization [facility] Address [address] [place] [address] Care Team Providers Care Health Therapist Name Role Phone MOUNA LAKE Unavailable PROBLEMS Type Condition ICD9-CM Code [id number] Code Onset Dates Condition Status SNOMED Code Problem Dysthymic disorder F34.1 Active 37545857 Problem Generalized anxiety disorder F41.1 Active 37115432 Problem Acute upper respiratory infection, unspecified J06.9 Active 39967506 Problem Low back pain M54.5 Active 038422213 Problem Adjustment disorder with depressed mood F43.21 Active 39019631 Problem Anxiety F41.9 Active 66553361 ALLERGIES No Information ENCOUNTERS Encounter Location Date Diagnosis [facility] [id number] [place] [address] 15845- 5162 Dec, [facility] [address] 67560- 9355 Nov, Low back pain M54.5 [facility] [id number] [place] [address] 86769- 9666 Oct, Thoracic neuritis M54.14 [facility] [id number] [place] [address] 46857- 5292 Oct, Thoracic neuritis M54.14 [facility] [id number] [place] [address] 96663- 8761 Oct, Thoracic neuritis M54.14 [facility] [address] 84955- 0944 Sep, Thoracic neuritis M54.14 [facility] [id number] [place] [address] 11827- 5087 Sep, [facility] [address] [place] [address]- 1484 Sep, Thoracic neuritis M54.14 and Acute recurrent maxillary sinusitis J01.01 [facility] [id number] [place] [address] 52943- 4832 Aug, [facility] [id number] [place] [address] 03209- 3598 Aug, Thoracic neuritis M54.14 [facility] [id number] [place] [address] 44693- 6534 Jul, Low back pain M54.5 [facility] [id number] [place] [address] 53303- 4390 June, Low back pain M54.5 [facility] [id number] [place] [address] 14509- 4590 May, Low back pain M54.5 and Generalized anxiety disorder F41.1 [facility] [id number] [place] [address] 44902- 6128 May, [facility] [id number] [place] [address] 28505- 4548 May, Generalized anxiety disorder F41.1 [facility] [id number] [place] [address] 53065- 9466 May, Low back pain M54.5 and Anxiety F41.9 [facility] [id number] [place] [address] 08883- 9425 Apr, [facility] [id number] [place] [address] 52715- 0926 Mar, Low back pain M54.5 [facility] [id number] [place] [address] 22321- 8786 Mar, Low back pain M54.5 [facility] [id number] [place] [address] 76334- 0612 Feb, Ganglion, left wrist M67.432 [facility] [id number] [place] [address] 81398- 6409 Feb, Low back pain M54.5 [facility] [id number] [place] [address] 56047- 1070 Feb, Low back pain M54.5 [facility] [id number] [place] [address] 24495- 0297 Feb, [facility] [id number] [place] [address] 57744- 7083 Feb, Low back pain M54.5 and Bronchitis J40 [facility] [address] 58986- 3972 Feb, Low back pain M54.5 [facility] [id number] [place] [address] 93382- 8072 Jan, [facility] [address] 86793- 0338 Jan, Low back pain M54.5 [facility] [id number] [place] [address] 11516- 6216 Jan, Low back pain M54.5 ; Anxiety F41.9 and Ganglion, left wrist M67.432 [facility] [id number] [place] [address] 20807- 8870 Dec, Low back pain M54.5 [facility] [id number] [place] [address] 98640- 1434 Dec, Ganglion, left wrist M67.432 [facility] [id number] [place] [address] 93456- 7287 Nov, Ganglion, left wrist M67.432 and Anxiety F41.9 [facility] [id number] [place] [address] 24041- 7660 Nov, Low back pain M54.5 [facility] [id number] [place] [address] 40391- 2176 18 Nov, 2016 [facility] [address] [facility] [id number], [place] [address]- 9872 16 Nov, 2016 [facility] [address] [facility] [id number] [place] [address] 54886- 6921 Nov, [facility] [address] [facility] [id number] [place] [address] 04882- 6424 Oct, Anxiety F41.9 [facility] [address] [facility] [id number] [place] [address] 40752- 6301 22 Oct, 2016 Low back pain M54.5 [facility] [address] [facility] [id number] [place] [address] 90147- 1854 20 Oct, 2016 [facility] [id number] [place] [address] 74329- 9181 07 Oct, 2016 [facility] [id number] [place] [address] 54277- 4988 Oct, Adjustment disorder with depressed mood F43.21 and Generalized anxiety disorder F41.1 [facility] [address] [address]- 9468 Sep, Adjustment disorder with depressed mood F43.21 and Generalized anxiety disorder F41.1 [facility] [address], [place] [address]- 0195 Sep, [address] [id number] [place] [address] Sep [facility] [id number] [address]- 0221 Sep, Anxiety F41.9 [facility] [id number] [address]- 8451 Sep, Low back pain M54.5 [facility] [id number] [address]- 4257 Sep, Adjustment disorder with depressed mood F43.21 and Generalized anxiety disorder F41.1 [facility] [id number] [place] [address] 11424- 4164 Sep, Allergic urticaria L50.0 [facility] [id number] [place] [address] 80612 2546 Aug, [facility] [id number] [place] [address] 18895- 1706 Aug, Low back pain M54.5 [facility] [id number] [place] [address] 09885 2546 Aug, Low back pain M54.5 [facility] [id number] [place] [address] 62326- 8676 Aug, [facility] [id number] [place] [address] 58332 2546 Aug, Thoracic neuritis M54.14 [facility] [id number] [place] [address] 94346- 2516 Jul, [facility] [id number] [place] [address] 10757 2547 Jul, Low back pain M54.5 [facility] [id number] [place] [address] 97652 2544 Jul, Thoracic neuritis M54.14 [facility] [id number] [place] [address] 70003- 5586 Jul, [facility] [id number] [place] [address] 43496 2541 Jul, Thoracic neuritis M54.14 [facility] [id number] [place] [address] 22306- 6436 June, [facility] [id number] [place] [address] 22384- 254 June, Thoracic neuritis M54.14 [facility] [id number] [place] [address] 42457- 6847 May, [facility] [address] [facility] [id number], [place] [address]- 0516 May, [facility] [address] [facility] [id number] [place] [address] 22005- 4969 Dec, [facility] [address] [facility] [id number], [place] [address]- 9080 Dec, [facility] [id number] [place] [address] 65476- 7236 Dec, [facility] [address] [facility] [id number], [place] [address]- 6617 Dec, [facility] [id number] [place] [address] 17294- 0446 Nov, [facility] [id number] [place] [address] 47522- 3498 Nov, Thoracic neuritis M54.14 and Low back pain M54.5 [facility] [id number] [place] [address] 23077- 6195 Nov, [facility] [id number] [place] [address] 94012- 0703 Oct, Low back pain M54.5 and Acute upper respiratory infection, unspecified J06.9 [facility] [address], [place] [address]- 7306 Oct, [facility] [address], [place] [address]- 7977 Oct, [facility] [address], [place] [address]- 1471 Oct, [facility] [id number] [place] [address] 23073- 9831 Oct, [facility] [address], [place] [address]- 8951 Sep, Chronic maxillary sinusitis J32.0 and Thoracic neuritis M54.14 [facility] [id number] [place] [address] 01306- 8645 Sep, [place] [address] 15756- 6795 Aug, Low back pain M54.5 and Other chronic pain G89.29 [place] [address] 33924- 4065 Jul, Low back pain M54.5 and Other chronic pain G89.29 [address] [address] 15909- 2597 Jul, [place] [address] 84266- 0716 June, [place] [address] 44586- 8237 May, Lumbago M54.5 and Sinusitis J32.9 [place] [address] 86189- 5931 Apr, Unspecified backache 724.5 and Folliculitis L73.9 [place] [address] 22412- 4180 Mar, URI (upper respiratory infection) J06.9 and Back pain M54.9 [facility] [id number] [place] [address] 15202- 4439 Mar, [facility] [id number] [place] [address] 84693- 7858 Mar, [facility] [id number] [place] [address] 04346- 5008 Feb, Low back pain M54.5 ; Sciatica, unspecified side M54.30 ; Folliculitis L73.9 and Allergic urticaria L50.0 [facility] [id number] [place] [address] 49409- 8476 Feb, Visit for suture removal Z48.02 [facility] [address], [place] [address]- 9720 Feb, [facility] [id number] [place] [address] 62366- 8772 Feb, Rash R21 [facility] [id number] [place] [address] 10426- 3358 Jan, Pharyngitis J02.9 ; Shoulder pain, right M25.511 and Rash R21 [facility] [id number] [place] [address] 52855- 7674 Jan, [facility] [id number] [place] [address] 28083- 6961 Dec, Allergic urticaria L50.0 ; Right shoulder pain M25.511 and Lumbago M54.5 [facility] [id number] [place] [address] 12249- 2335 Dec, Upper respiratory tract infection, unspecified upper respiratory infection J06.9 [facility] [id number] [place] [address] 96412- 1334 Dec, Contact dermatitis L25.9 [facility] [id number] [place] [address] 22374- 1776 Dec, [facility] [id number] [place] [address] 69912- 6626 Dec, Dermatitis L30.9 and Pain in right shoulder M25.511 [facility] [id number] [place] [address] 41433- 8517 Nov, [facility] [id number] [place] [address] 90673- 7111 Nov, Upper respiratory tract infection, unspecified upper respiratory infection J06.9 [facility] [id number] [place] [address] 11980- 8045 Oct, [facility] [id number] [address]- 3357 Oct, [facility] [address] [id number] [place] [address]- 7208 Oct, [facility] [place] [facility] [address] [id number] [place] [address]- 5532 Sep, Back pain 724.5 [facility] [place] [facility] [address] [id number] [place] [address]- 8385 18 Sep, 2014 Back pain 724.5 [facility] [place] [facility] [address] [id number] [place] [address]- 2154 10 Sep, 2014 [facility] [place] [facility] [address] [id number] [place] [address]- 6003 16 Aug, 2014 [facility] [place] [facility] [address] [facility] [id number], [place] [address]- 9365 Aug, [facility] [place] [facility] [address] [id number], [place] [address]- 9779 Jul, Back pain 724.5 [facility] [place] [facility] [address] [id number] [place] [address]- 5370 Jul, [facility] [place] [facility] [address] [facility] [id number], [place] [address]- 9167 June, [facility] [place] [facility] [address] [id number], [place] [address]- 2006 14 May, 2014 [facility] [place] [facility] [address] [id number], [place] [address]- 6342 May, [facility] [place] [facility] [address] [id number] [place] [address]- 3657 30 Apr, 2014 [facility] [place] [facility] [address] [id number] [place] 7816 30 Apr, 2014 [facility] [place] [facility] [address] [facility] [id number] 3608 Feb, [facility] [place] [facility] [id number], [place] [address]- 7175 Feb, [facility] [address], [place] [address]- 6663 Dec, [facility] [address] 3392 Dec, [facility] [address], [place] [address]- 7575 Nov, [facility] [id number] [place] [address] 183520- 5662 Nov, [facility] [address] [place] [address] 551086- 4224 Feb, [facility] [id number] [place] [address] 90758- 9179 Feb, [facility] [address] [place] [address] 11381- 6252 Sep, [facility] [address], [place] [address]- 3162 Apr, [facility] [address] [place] [address] 961238- 8412 Apr, [facility] [address], [place] [address]- 4727 Mar, [facility] [address] 6023 Mar, [facility] [address], [place] [address]- 5122 Mar, [facility] [address] 4650 Sep, IMMUNIZATIONS No Known Immunizations SOCIAL HISTORY [...] from being around smoke, 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 redding did injections down his spine, adn Epidurals
--- OUTSIDE RECORDS SUMMARY | 2018-04-01 20:19 | XMS REPORT ---
Author Author MOUNA LAKE Organization [facility] Address [address] [place] [address] Care Team Providers Care Queen Producer Name Role Phone MOUNA LAKE Unavailable PROBLEMS Type Condition ICD9-CM Code GBP77-DG Code Onset Dates Condition Status SNOMED Code Problem Dysthymic disorder F34.1 Active 41334254 Problem Generalized anxiety disorder F41.1 Active 24151450 Problem Acute upper respiratory infection, unspecified J06.9 Active 48180986 Problem Low back pain M54.5 Active 221217969 Problem Adjustment disorder with depressed mood F43.21 Active 58813120 Problem Anxiety F41.9 Active 35398853 ALLERGIES No Information ENCOUNTERS Encounter Location Date Diagnosis [place] [id number] [address]- [address] Nov, [facility] [address] [address]- [address] Oct, Thoracic neuritis M54.14 [facility] [address] 55725- 6880 Oct, Thoracic neuritis M54.14 [facility] [address] 11568- 4338 Oct, Thoracic neuritis M54.14 [facility] [address] [place] [id number] [place] [address] 10818- 1688 Sep, Thoracic neuritis M54.14 [facility] [address] [address]- 6412 Sep, [facility] [address] 07953- 2805 Sep, Thoracic neuritis M54.14 and Acute recurrent maxillary sinusitis J01.01 [facility] [address] [place] [id number] [place] [address] 02327- 7783 Aug, [facility] [address] [place] [id number] [place] [address] 06161- 2774 Aug, Thoracic neuritis M54.14 [facility] [address] [place] [id number] [place] [address] 30816- 6290 Jul, Low back pain M54.5 [facility] [address] [place] [id number] [place] [address] 03511- 8938 June, Low back pain M54.5 [facility] [address] [place] [id number] [place] [address] 36781- 0246 May, Low back pain M54.5 and Generalized anxiety disorder F41.1 [facility] [address] [place] [id number] [place] [address] 22912- 2758 May, [facility] [address] [place] [id number] [place] [address] 39955- 5290 May, Generalized anxiety disorder F41.1 [facility] [address] [place] [id number] [place] [address] 51189- 2027 May, Low back pain M54.5 and Anxiety F41.9 [facility] [address] [place] [id number] [place] [address] 14451- 7730 Apr, [facility] [address] [place] [id number] [place] [address] 76596- 1894 Mar, Low back pain M54.5 [facility] [address] [place] [id number] [place] [address] 92541- 5395 Mar, Low back pain M54.5 [facility] [address] [place] [id number] [place] [address] 85513- 5256 Feb, Ganglion, left wrist M67.432 [facility] [address] [place] [id number] [place] [address] 35965- 9575 Feb, Low back pain M54.5 [facility] [address] [place] [id number] [place] [address] 28446- 5038 Feb, Low back pain M54.5 [facility] [address] [place] [id number] [place] [address] 83955- 3256 Feb, [facility] [address] [place] [id number] [place] [address] 25599- 0434 Feb, Low back pain M54.5 and Bronchitis J40 [facility] [address] [place] [id number] [place] [address] 24303- 9365 Feb, Low back pain M54.5 [facility] [address] 21055- 3866 Jan, [facility] [address] [place] [id number] [place] [address] 37925- 6908 Jan, Low back pain M54.5 [facility] [address] [place] [id number] [place] [address] 06065- 6208 Jan, Low back pain M54.5 ; Anxiety F41.9 and Ganglion, left wrist M67.432 [facility] [address] [place] [id number] [place] [address] 47945- 0749 Dec, Low back pain M54.5 [facility] [address] [place] [id number] [place] [address] 48643- 5201 Dec, Ganglion, left wrist M67.432 [facility] [address] [place] [id number] [place] [address] 40601- 5075 Nov, Ganglion, left wrist M67.432 and Anxiety F41.9 [facility] [address] [place] [id number] [place] [address] 31380- 7706 Nov, Low back pain M54.5 [facility] [address] [place] [id number] [place] [address] 24086- 5907 Nov, [facility] [address] [place] [id number] [place] [address] 38167- 4921 Nov, [facility] [address] [address]- 1246 Nov, [facility] [address] [place] [address] 39487- 3217 Oct, Anxiety F41.9 [facility] [address] [place] [address] 57124- 4387 Oct, Low back pain M54.5 [facility] [address] [place] [address] 87179- 4012 20 Oct, 2016 [facility] [address] [place] [address] 51768- 1927 Oct, [facility] [address] [place] [id number] [place] [address] 80231- 4605 Oct, Adjustment disorder with depressed mood F43.21 and Generalized anxiety disorder F41.1 [facility] [address] [place] [address] 06786- 1471 Sep, Adjustment disorder with depressed mood F43.21 and Generalized anxiety disorder F41.1 [facility] [address] [place] [address] 41808- 6221 Sep, [address] [id number] [place] [address] Sep [facility] [address] [place] [address] 67661- 3375 Sep, Anxiety F41.9 [facility] [address] [address]- 8307 Sep, Low back pain M54.5 [facility] [address] [place] [address] 42129- 8141 Sep, Adjustment disorder with depressed mood F43.21 and Generalized anxiety disorder F41.1 [facility] [address] [address]- 8999 Sep, Allergic urticaria L50.0 [facility] [address] [facility] [id number] [place] [address] 74652 2546 Aug, [facility] [address] [facility] [id number] [place] [address] 35605- 1736 Aug, Low back pain M54.5 [facility] [address] [facility] [id number] [place] [address] 23181 2546 Aug, Low back pain M54.5 [facility] [address] [facility] [id number] [place] [address] 31290 2546 Aug, [facility] [address] [facility] [id number] [place] [address] 64749- 8496 Aug, Thoracic neuritis M54.14 [facility] [address] [place] [id number] [place] [address], [place] [address] 2546 Jul, [facility] [address] [place] [id number] [place] [address] 85537- 1146 Jul, Low back pain M54.5 [facility] [address] [facility] [id number] [place] [address] 11068 2541 Jul, Thoracic neuritis M54.14 [facility] [address] [place] [address] 32373- 5570 Jul, [facility] [address] [place] [address] 99946- 1572 Jul, Thoracic neuritis M54.14 [facility] [address] [facility] [id number] [place] [address] 91167 254 June, [facility] [address] [facility] [id number] [place] [address] 48694 2546 June, Thoracic neuritis M54.14 [facility] [address] [facility] [id number] [place] [address] 40084- 2546 May, [facility] [address] [place] [id number] [address]- 6694 May, [facility] [address] [address]- 6884 Dec, [facility] [address] [place] [id number] [place] [address] 81975- 8940 Dec, [facility] [address] [place] [address] 37538- 8963 Dec, [facility] [address] [place] [id number] [place] [address] 68753- 1660 Dec, [facility] [address] [place] [id number] [place] [address] 48714- 3240 Nov, [facility] [address] [place] [id number] [place] [address] 59845- 7901 Nov, Thoracic neuritis M54.14 and Low back pain M54.5 [facility] [address] [place] [id number] [place] [address] 43564- 1527 Nov, [facility] [address] [place] [id number] [place] [address] 66564- 1027 Oct, Low back pain M54.5 and Acute upper respiratory infection, unspecified J06.9 [facility] [address] [place] [id number] [place] [address] 39817- 1313 Oct, [facility] [address] [place] [address] 32273- 8471 Oct, [facility] [address] [place] [address] 38315- 3239 Oct, [facility] [address] [place] [address] 89385- 4205 Oct, [facility] [address] [place] [id number] [place] [address] 34175- 6017 Sep, Chronic maxillary sinusitis J32.0 and Thoracic neuritis M54.14 [facility] [address] [address]- 7431 Sep, [facility] [address] [place] [id number] [place] [address] 31050- 7045 Aug, Low back pain M54.5 and Other chronic pain G89.29 [place] [address] 63227- 9791 Jul, Low back pain M54.5 and Other chronic pain G89.29 [place] [address] 16015- 3426 Jul, [place] [address] 63626- 1914 June, [place] [address] 18962- 4281 May, Lumbago M54.5 and Sinusitis J32.9 [place] [address] 83176- 8897 Apr, Unspecified backache 724.5 and Folliculitis L73.9 [place] [address] 75871- 5435 Mar, URI (upper respiratory infection) J06.9 and Back pain M54.9 [place] [address] [place] [id number] [place] [address] 46023- 3412 Mar, [place] [address] [place] [id number] [place] [address] 77821- 1001 Mar, [place] [address] 91194- 4065 Feb, Low back pain M54.5 ; Sciatica, unspecified side M54.30 ; Folliculitis L73.9 and Allergic urticaria L50.0 [place] [address] [place] [id number] [place] [address] 42709- 4896 Feb, Visit for suture removal Z48.02 [place] [address] 95430- 9993 Feb, [facility] [address] [place] [address] 28379- 6376 Feb, Rash R21 [facility] [address] [place] [id number] [place] [address] 18930- 4255 Jan, Pharyngitis J02.9 ; Shoulder pain, right M25.511 and Rash R21 [facility] [address] 66533- 4981 Jan, [facility] [address] [place] [id number] [place] [address] 51024- 2615 Dec, Allergic urticaria L50.0 ; Right shoulder pain M25.511 and Lumbago M54.5 [place] [address] [place] [id number] [place] [address] 14557- 7815 Dec, Upper respiratory tract infection, unspecified upper respiratory infection J06.9 [place] [address] [place] [id number] [place] [address] 08705- 3544 Dec, Contact dermatitis L25.9 [place] [address] [place] [id number] [place] [address] 22129- 9659 Dec, [place] [address] [place] [id number] [place] [address] 12520- 1661 Dec, Dermatitis L30.9 and Pain in right shoulder M25.511 [place] [address] [place] [id number] [place] [address] 59661- 2947 Nov, [facility] [address] [place] [id number] [place] [address] 70878- 3076 Nov, Upper respiratory tract infection, unspecified upper respiratory infection J06.9 [facility] [address] [place] [id number] [place] [address] 83062- 7788 Oct, [facility] [address] [place] [id number] [place] [address] 41876- 6262 Oct, [facility] [address] [place] [id number] [place] [address] 23397- 9404 Oct, [facility] [address] [id number] [place] [address]- 6185 Sep, Back pain 724.5 [facility] [place] [facility] [address] [id number] [place] [address]- 2515 Sep, Back pain 724.5 [facility] [address] [id number] [place] [address]- 4331 Sep, [facility] [place] [facility] [address] [id number] [place] [address]- 4767 Aug, [facility] [place] [facility] [address] [id number] [place] [address], [place] [address]- 9145 Aug, [facility] [place] [facility] [address] [id number] [place] [address]- 5592 Jul, Back pain 724.5 [facility] [address] [id number] [place] [address]- 3537 Jul, [facility] [place] [facility] [address] [id number] [place] [address]- 8774 June, [facility] [place] [facility] [address] [id number] [place] [address], [place] [address]- 8767 May, [facility] [place] [facility] [address] [id number] [place] [address]- 4110 May, [facility] [place] [facility] [address] [id number] [address]- 1016 Apr, [facility] [place] [facility] [address] [id number] [place] [address]- 9426 Apr, [facility] [place] [facility] [address] [id number] [place] [address]- 3725 Feb, [facility] [place] [facility] [address] [id number] [address]- 5880 Feb, [facility] [place] [facility] [address] [id number] [address]- 2636 Dec, [facility] [address] [place] [id number] [address]- 7663 Dec, [facility] [address] [address]- 0406 Nov, [facility] [address] [address]- 5226 Nov, [facility] [address] [address]- 9047 Feb, [facility] [address] [address]- 4897 Feb, [facility] [address] [address]- 9396 Sep, [facility] [address] [address]- 0096 Apr, [facility] [address] [address]- 9146 Apr, [facility] [address] [address]- 3920 Mar, [facility] [address] [address]- 3256 Mar, [facility] [address] [address]- 9546 Mar, [facility] [address] [address]- 2706 Sep, IMMUNIZATIONS No Known Immunizations SOCIAL HISTORY Never Assessed REASON FOR VISIT Pseudophed refill PLAN OF CARE VITAL SIGNS MEDICATIONS Medication Instructions Dosage Frequency Start Date End Date Duration Status Pseudoephedrine HCl 60 mg Orally every 6 hrs 1 tablet as needed Aug, Active RESULTS No Results PROCEDURES No Known procedures INSTRUCTIONS MEDICATIONS ADMINISTERED No Known Medications MEDICAL (GENERAL) HISTORY Type Description Date Medical History frequent ear infections Medical History 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 rdeding did injections down his spine, adn Epidurals
--- OUTSIDE RECORDS SUMMARY | 2018-04-01 20:19 | XMS REPORT ---
Author Author MOUNA LAKE Organization [facility] Address [address] [place] [address] Care Team Providers Care Land Development Manager Name Role Phone MOUNA LAKE Unavailable PROBLEMS Type Condition ICD9-CM Code [id number] Code Onset Dates Condition Status SNOMED Code Problem Dysthymic disorder F34.1 Active 52387527 Problem Generalized anxiety disorder F41.1 Active 01573604 Problem Acute upper respiratory infection, unspecified J06.9 Active 84915443 Problem Low back pain M54.5 Active 615641006 Problem Adjustment disorder with depressed mood F43.21 Active 75900643 Problem Anxiety F41.9 Active 67508598 ALLERGIES No Information ENCOUNTERS Encounter Location Date Diagnosis [place] [address] [address] Nov, [place] [address] 45240- 5138 Oct, Thoracic neuritis M54.14 [place] [address] [place] [id number] [place] [address] 77408- 8019 Sep, Thoracic neuritis M54.14 [place] [address] [place] [id number] [place] [address] 08268- 8816 Sep, [facility] [address] [place] [id number] [place] [address] 62265- 2962 Sep, Thoracic neuritis M54.14 and Acute recurrent maxillary sinusitis J01.01 [facility] [address] 19246- 7903 Aug, [facility] [address] [place] [id number] [place] [address] 82675- 3645 Aug, Thoracic neuritis M54.14 [place] [address] [place] [address] 4166 Jul, Low back pain M54.5 [facility] [address] [place] [id number] [place] [address] 00063- 5881 June, Low back pain M54.5 [facility] [address] [place] [id number] [place] [address] 25755- 7460 May, Low back pain M54.5 and Generalized anxiety disorder F41.1 [facility] [address] [place] [id number] [place] [address] 74127- 3251 May, [facility] [address] [place] [id number] [place] [address] 80607- 2943 May, Generalized anxiety disorder F41.1 [facility] [address] [place] [id number] [place] [address] 49184- 4054 May, Low back pain M54.5 and Anxiety F41.9 [facility] [address] [place] [id number] [place] [address] 58304- 6999 Apr, [facility] [address] [place] [id number] [place] [address] 61528- 3714 Mar, Low back pain M54.5 [facility] [id number] [place] [address] 14696- 1153 Mar, Low back pain M54.5 [facility] [id number] [place] [address] 71855- 5335 Feb, Ganglion, left wrist M67.432 [facility] [id number] [place] [address] 82314- 1761 Feb, Low back pain M54.5 [facility] [id number] [place] [address] 58574- 7866 Feb, Low back pain M54.5 [facility] [id number] [place] [address] 90297- 0966 Feb, [facility] [address] [place] [id number] [place] [address] 82272- 9058 Feb, Low back pain M54.5 and Bronchitis J40 [facility] [address] 68970- 7153 Feb, Low back pain M54.5 [facility] [address] [place] [id number] [place] [address] 82377- 6306 Jan, [facility] [address] 08843- 9598 Jan, Low back pain M54.5 [facility] [address] 31524- 7819 Jan, Low back pain M54.5 ; Anxiety F41.9 and Ganglion, left wrist M67.432 [facility] [address] 90491- 7184 Dec, Low back pain M54.5 [facility] [address] [place] [id number] [place] [address] 83732- 7017 Dec, Ganglion, left wrist M67.432 [facility] [address] 25723- 2348 Nov, Ganglion, left wrist M67.432 and Anxiety F41.9 [facility] [address] [place] [id number] [place] [address] 96572- 0476 Nov, Low back pain M54.5 [facility] [address] [place] [id number] [place] [address] 32026- 8243 Nov, [facility] [address] [place] [id number] [place] [address] 15288- 4217 Nov, [facility] [address] [place] [id number] [place] [address] 04293- 2264 Nov, [facility] [address] [place] [id number] [place] [address] 29203- 2328 Oct, Anxiety F41.9 [facility] [id number] [address]- 4077 22 Oct, 2016 Low back pain M54.5 [facility] [address] [facility] [id number] [place] [address] 68256- 2652 20 Oct, 2016 [facility] [address] [place] [id number] [place] [address] 50671- 2329 07 Oct, 2016 [facility] [address] [place] [id number] [place] [address] 67658- 1595 Oct, Adjustment disorder with depressed mood F43.21 and Generalized anxiety disorder F41.1 [facility] [address] [place] [id number] [place] [address] 22101- 8524 Sep, Adjustment disorder with depressed mood F43.21 and Generalized anxiety disorder F41.1 [facility] [id number] [place] [address] 14994- 2847 Sep, [id number] [place] [address] Sep [facility] [id number] [place] [address] 85869- 8759 Sep, Anxiety F41.9 [facility] [id number] [place] [address] 51937- 6484 Sep, Low back pain M54.5 [facility] [id number] [place] [address] 25095- 4613 Sep, Adjustment disorder with depressed mood F43.21 and Generalized anxiety disorder F41.1 [facility] [id number] [place] [address] 81164- 3606 Sep, Allergic urticaria L50.0 [facility] [address] [place] [id number] [place] [address] 13987- 4495 Aug, [facility] [id number] [place] [address] 86152- 8822 Aug, Low back pain M54.5 [facility] [address] [place] [id number] [place] [address] 36577- 6011 Aug, Low back pain M54.5 [facility] [address] [place] [id number] [place] [address] 21379- 6322 Aug, [facility] [address] [place] [id number] [place] [address] 18987- 1058 Aug, Thoracic neuritis M54.14 [facility] [address] [place] [id number] [place] [address] 93988- 8608 Jul, [facility] [address] [place] [id number] [place] [address] 54000- 5423 Jul, Low back pain M54.5 [facility] [address] [place] [id number] [place] [address] 33781- 6324 Jul, Thoracic neuritis M54.14 [facility] [address] [place] [id number] [place] [address] 58672- 2158 Jul, [facility] [address] [place] [id number] [place] [address] 60790- 6842 Jul, Thoracic neuritis M54.14 [facility] [address] [place] [id number] [place] [address] 05077- 3105 June, [facility] [id number] [place] [address] 56512- 6283 June, Thoracic neuritis M54.14 [facility] [id number] [place] [address] 59550- 0057 May, [facility] [id number] [place] [address] 47821- 7130 May, [facility] [address] [place] [id number] [place] [address] 55239- 9096 Dec, [facility] [address] [address]- 8991 Dec, [facility] [address] [place] [id number] [place] [address] 79025- 4010 Dec, [facility] [id number] [place] [address] 95884- 4711 Dec, [facility] [address] [place] [id number] [place] [address] 25077- 0951 Nov, [facility] [address] [place] [id number] [place] [address] 68082- 2778 Nov, Thoracic neuritis M54.14 and Low back pain M54.5 [facility] [address] [place] [id number] [place] [address] 84637- 3625 Nov, [facility] [address] [place] [id number] [place] [address] 03135- 0421 Oct, Low back pain M54.5 and Acute upper respiratory infection, unspecified J06.9 [facility] [address] [place] [id number] [place] [address] 08412- 0580 Oct, [facility] [address] [place] [id number] [place] [address] 86273- 1615 Oct, [facility] [address] [place] [id number] [place] [address] 02115- 6595 Oct, [facility] [address] [place] [id number] [place] [address] 26276- 2967 Oct, [facility] [address] [place] [address] 26034- 7953 Sep, Chronic maxillary sinusitis J32.0 and Thoracic neuritis M54.14 [facility] [id number] [place] [address] 87831- 4824 Sep, [facility] [address] [place] [id number] [place] [address] 77544- 9773 Aug, Low back pain M54.5 and Other chronic pain G89.29 [facility] [address] [place] [id number] [place] [address] 54314- 0503 Jul, Low back pain M54.5 and Other chronic pain G89.29 [place] [address] [place] [id number] [place] [address] 62742- 8832 Jul, [place] [address] 66762- 3396 June, [place] [address] 19261- 8913 May, Lumbago M54.5 and Sinusitis J32.9 [place] [address] 38194- 9598 Apr, Unspecified backache 724.5 and Folliculitis L73.9 [place] [address] 78038- 7096 Mar, URI (upper respiratory infection) J06.9 and Back pain M54.9 [place] [address] 17031- 6410 Mar, [place] [address] 22387- 7362 Mar, [place] [address] 69540- 1052 Feb, Low back pain M54.5 ; Sciatica, unspecified side M54.30 ; Folliculitis L73.9 and Allergic urticaria L50.0 [place] [address] [place] [id number] [place] [address] 01541- 0233 Feb, Visit for suture removal Z48.02 [place] [address] [place] [id number] [place] [address] 80940- 7361 Feb, [place] [address] 27471- 4240 Feb, Rash R21 [place] [address] [place] [id number] [place] [address] 48281- 4564 Jan, Pharyngitis J02.9 ; Shoulder pain, right M25.511 and Rash R21 [facility] [address] [place] [id number] [place] [address] 29669- 6379 Jan, [facility] [address] [place] [id number] [place] [address] 96263- 6435 Dec, Allergic urticaria L50.0 ; Right shoulder pain M25.511 and Lumbago M54.5 [facility] [address] [place] [id number] [place] [address] 38193- 4182 Dec, Upper respiratory tract infection, unspecified upper respiratory infection J06.9 [facility] [address] [place] [id number] [place] [address] 87223- 3331 Dec, Contact dermatitis L25.9 [facility] [address] [place] [id number] [place] [address] 64773- 8057 Dec, [facility] [address] 49053- 5820 Dec, Dermatitis L30.9 and Pain in right shoulder M25.511 [facility] [address] [place] [id number] [place] [address] 08322- 2633 Nov, [facility] [address] [place] [id number] [place] [address] 39244- 5948 Nov, Upper respiratory tract infection, unspecified upper respiratory infection J06.9 [facility] [address] [place] [id number] [place] [address] 38300- 0794 Oct, [facility] [address] [place] [id number] [place] [address] 59404- 0225 Oct, [facility] [address] [place] [id number] [place] [address] 70170- 5174 Oct, [facility] [address] [place] [id number] [place] [address] 36394- 4023 Sep, Back pain 724.5 [facility] [address] [place] [id number] [place] [address] 56737- 1918 Sep, Back pain 724.5 [facility] [address] [id number] [place] [address]- 2757 Sep, [facility] [place] [facility] [address] [id number] [place] [address]- 6263 Aug, [facility] [place] [facility] [address] [facility] [id number] [place] [address]- 9273 Aug, [facility] [place] [facility] [address] [facility] [id number] [place] [address], [place] [address]- 3792 Jul, Back pain 724.5 [facility] [id number] [place] [address], [place] [address]- 9067 Jul, [facility] [place] [facility] [address] [facility] [id number] [place] [address]- 4485 June, [facility] [id number] [place] [address], [place] [address]- 8065 May, [facility] [place] [facility] [address] [facility] [id number] [place] [address]- 2949 May, [facility] [place] [facility] [address] [place] [id number] [place] [address]- 5219 Apr, [facility] [place] [facility] [address] [facility] [id number] [place] [address]- 9211 Apr, [facility] [place] [facility] [address] [facility] [id number] [place] [address]- 7768 Feb, [facility] [place] [facility] [address] [facility] [id number] [address]- 7647 Feb, [facility] [place] [facility] [address] [facility] [id number] [place] [address]- 5231 Dec, [facility] [place] [facility] [address] [facility] [id number] [place] 3564 Dec, [facility] [place] [facility] [address] [facility] [id number] [place] [address]- 6522 Nov, [facility] [place] [facility] [address] [place] [id number] [address]- 1098 Nov, [facility] [id number] [address]- 9388 Feb, [facility] [id number] [address]- 4066 Feb, [facility] [address] [place] [id number] [address]- 3879 Sep, [facility] [address] [facility] [id number] [address]- 3030 Apr, [facility] [address] [address]- 3626 Apr, [facility] [id number] [address]- 3960 Mar, [facility] [id number] [address]- 5154 Mar, [facility] [address] [place] [id number] [address]- 7475 Mar, [facility] [id number] [address]- 4873 Sep, IMMUNIZATIONS No Known Immunizations SOCIAL HISTORY Never Assessed REASON FOR VISIT Robaxin note PLAN OF CARE VITAL SIGNS MEDICATIONS Medication Instructions Dosage Frequency Start Date End Date Duration Status Robaxin 1000 MG Orally 3 times a day 1 tablet 8h Active RESULTS No Results PROCEDURES No Known procedures INSTRUCTIONS MEDICATIONS ADMINISTERED No Known Medications MEDICAL (GENERAL) HISTORY Type Description Date Medical History frequent ear infections Medical History gets respiratory infections from being around smoke, 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 redding did injections down his spine, adn Epidurals
--- OUTSIDE RECORDS SUMMARY | 2018-04-01 20:19 | XMS REPORT ---
Author Author MOUNA LAKE Organization [facility] Address [address] [place] [address] Care Team Providers Care Panelboard Operator Name Role Phone MOUNA LAKE Unavailable PROBLEMS Type Condition ICD9-CM Code [id number] Code Onset Dates Condition Status SNOMED Code Problem Dysthymic disorder F34.1 Active 49046517 Problem Generalized anxiety disorder F41.1 Active 61244049 Problem Acute upper respiratory infection, unspecified J06.9 Active 94185291 Problem Low back pain M54.5 Active 004268546 Problem Adjustment disorder with depressed mood F43.21 Active 82996013 Problem Anxiety F41.9 Active [id number] ALLERGIES No Known Allergies ENCOUNTERS Encounter Location Date Diagnosis [place] [address] [address] Nov, [place] [address] 041[address]- [address] Oct, Thoracic neuritis M54.14 [place] [address] 63307- 5541 Oct, Thoracic neuritis M54.14 [place] [address] 47435- 4334 Oct, Thoracic neuritis M54.14 [facility] [address] [place] [id number] [place] [address] 86403- 3526 Sep, Thoracic neuritis M54.14 [facility] [address] 9[address]42- 8463 Sep, [facility] [address] 77603- 5483 Sep, Thoracic neuritis M54.14 and Acute recurrent maxillary sinusitis J01.01 [facility] [address] [place] [id number] [place] [address] 84297- 2920 Aug, [facility] [address] [place] [id number] [place] [address] 76730- 2552 Aug, Thoracic neuritis M54.14 [facility] [address] [place] [address] [id number] [place] [address] 41903- 5830 Jul, Low back pain M54.5 [facility] [address] [id number] [place] [address] 43493- 6408 June, Low back pain M54.5 [facility] [address] [place] [id number] [place] [address] 85548- 7750 May, Low back pain M54.5 and Generalized anxiety disorder F41.1 [facility] [address] [place] [id number] [place] [address] 26217- 5988 May, [facility] [address] [place] [id number] [place] [address] 01935- 6839 May, Generalized anxiety disorder F41.1 [facility] [address] [place] [address] [id number] [place] [address] 28188- 4189 May, Low back pain M54.5 and Anxiety F41.9 [facility] [address] [id number] [place] [address] 40651- 5704 Apr, [facility] [address] [place] [id number] [place] [address] 29251- 9005 Mar, Low back pain M54.5 [facility] [address] [id number] [place] [address] 23479- 7846 Mar, Low back pain M54.5 [facility] [address] [place] [place] [id number] [place] [address] 12471- 6896 Feb, Ganglion, left wrist M67.432 [facility] [address] [place] [id number] [place] [address] 50065- 5095 Feb, Low back pain M54.5 [facility] [address] [place] [place] [id number] [place] [address] 66351- 8038 Feb, Low back pain M54.5 [facility] [address] [place] [id number] [place] [address] 39902- 4521 Feb, [facility] [address] [place] [id number] [place] [address] 57384- 1498 Feb, Low back pain M54.5 and Bronchitis J40 [facility] [address] 42448- 0992 Feb, Low back pain M54.5 [facility] [address] 12922- 8202 Jan, [facility] [address] [place] [id number] [place] [address] 48222- 3889 Jan, Low back pain M54.5 [facility] [address] [place] [id number] [place] [address] 34288- 9207 Jan, Low back pain M54.5 ; Anxiety F41.9 and Ganglion, left wrist M67.432 [facility] [address] [place] [place] [id number] [place] [address] 68363- 1306 Dec, Low back pain M54.5 [facility] [address] [place] [id number] [place] [address] 49976- 3946 Dec, Ganglion, left wrist M67.432 [facility] [address] [place] [id number] [place] [address] 69419- 1261 Nov, Ganglion, left wrist M67.432 and Anxiety F41.9 [facility] [address] [place] [id number] [place] [address] 49577- 5797 Nov, Low back pain M54.5 [facility] [address] [place] [place] [id number] [place] [address] 82721- 3438 Nov, [facility] [address] [place] [place] [id number] [place] [address] 57257- 1245 Nov, [facility] [address] [address]- 5532 Nov, [facility] [address] [place] [address] 60414- 6315 Oct, Anxiety F41.9 [facility] [id number] [place] [address] 22850- 3526 Oct, Low back pain M54.5 [facility] [id number] [place] [address] 69381- 4187 20 Oct, 2016 [facility] [address] [place] [address] 28998- 0274 Oct, [facility] [address] [place] [address] 61022- 7055 Oct, Adjustment disorder with depressed mood F43.21 and Generalized anxiety disorder F41.1 [facility] [address] [place] [address] 55736- 5361 Sep, Adjustment disorder with depressed mood F43.21 and Generalized anxiety disorder F41.1 [facility] [address] [place] [address] 51038- 6330 Sep, [address] [id number] [place] [address] Sep [facility] [address] [address]- 4347 Sep, Anxiety F41.9 [facility] [address] [address]- 1678 Sep, Low back pain M54.5 [facility] [address] [place] [address] 82741- 4088 Sep, Adjustment disorder with depressed mood F43.21 and Generalized anxiety disorder F41.1 [facility] [address] [address]- 6824 Sep, Allergic urticaria L50.0 [facility] [address] [facility] [id number] [place] [address] 63598- 4000 Aug, [facility] [address] [facility] [id number] [place] [address] 60372- 9216 Aug, Low back pain M54.5 [facility] [address] [facility] [id number] [place] [address] 06769- 0956 Aug, Low back pain M54.5 [facility] [address] [facility] [id number] [place] [address] 84053- 1301 Aug, [facility] [address] [facility] [id number] [place] [address] 19742- 1921 Aug, Thoracic neuritis M54.14 [facility] [address] [place] [id number] [place] [address] 84676- 6874 Jul, [facility] [address] [place] [id number] [place] [address] 10239- 5324 Jul, Low back pain M54.5 [facility] [address] [facility] [id number] [place] [address] 35395- 0137 Jul, Thoracic neuritis M54.14 [facility] [address] [place] [id number] [place] [address] 89154- 4870 Jul, [facility] [id number] [place] [address] 55915- 7935 Jul, Thoracic neuritis M54.14 [facility] [address] [place] [id number] [place] [address] 00780- 1194 June, [facility] [address] [facility] [id number] [place] [address] 21910- 5556 June, Thoracic neuritis M54.14 [facility] [address] [place] [id number] [place] [address] 40094- 9943 May, [facility] [address] [place] [address] 35357- 4039 May, [facility] [address] [address]- 2264 07 Dec, 2015 [facility] [address] [place] [id number] [place] [address] 80595- 6299 Dec, [facility] [address] [place] [id number] [place] [address] 02684- 4535 Dec, [facility] [address] [place] [id number] [place] [address] 77824- 6700 Dec, [facility] [address] [place] [id number] [place] [address] 56104- 3888 Nov, [facility] [address] [place] [id number] [place] [address] 79255- 0083 Nov, Thoracic neuritis M54.14 and Low back pain M54.5 [facility] [address] [place] [id number] [place] [address] 95132- 9578 Nov, [facility] [address] [place] [id number] [place] [address] 74563- 8949 Oct, Low back pain M54.5 and Acute upper respiratory infection, unspecified J06.9 [facility] [address] [place] [id number] [place] [address] 65389- 9490 Oct, [facility] [address] [place] [id number] [place] [address] 02118- 1176 Oct, [facility] [id number] [place] [address] 06178- 0904 Oct, [facility] [address] [place] [address] 11670- 6207 Oct, [facility] [address] [place] [id number] [place] [address] 28723- 0128 Sep, Chronic maxillary sinusitis J32.0 and Thoracic neuritis M54.14 [facility] [address] [place] [address] 68266- 7266 Sep, [facility] [address] [place] [id number] [place] [address] 60966- 8899 Aug, Low back pain M54.5 and Other chronic pain G89.29 [place] [address] [place] [id number] [place] [address] 16670- 6650 Jul, Low back pain M54.5 and Other chronic pain G89.29 [place] [address] 85315- 5547 Jul, [place] [address] 39357- 7368 June, [place] [address] 44464- 7976 May, Lumbago M54.5 and Sinusitis J32.9 [place] [address] 73873- 2177 Apr, Unspecified backache 724.5 and Folliculitis L73.9 [place] [address] 29043- 3262 Mar, URI (upper respiratory infection) J06.9 and Back pain M54.9 [place] [address] [place] [id number] [place] [address] 51646- 0084 Mar, [place] [address] [place] [id number] [place] [address] 14803- 0633 Mar, [place] [address] 63713- 9874 Feb, Low back pain M54.5 ; Sciatica, unspecified side M54.30 ; Folliculitis L73.9 and Allergic urticaria L50.0 [place] [address] [place] [id number] [place] [address] 62855- 5680 Feb, Visit for suture removal Z48.02 [place] [address] 36639- 9424 Feb, [facility] [address] [place] [address] 82977- 2359 Feb, Rash R21 [facility] [address] [place] [id number] [place] [address] 83368- 6821 Jan, Pharyngitis J02.9 ; Shoulder pain, right M25.511 and Rash R21 [facility] [address] [place] [id number] [place] [address] 38939- 9412 Jan, [facility] [address] [place] [id number] [place] [address] 70013- 7417 Dec, Allergic urticaria L50.0 ; Right shoulder pain M25.511 and Lumbago M54.5 [place] [address] [place] [id number] [place] [address] 43611- 6269 Dec, Upper respiratory tract infection, unspecified upper respiratory infection J06.9 [place] [address] [place] [id number] [place] [address] 74699- 2321 Dec, Contact dermatitis L25.9 [facility] [address] [place] [id number] [place] [address] 08091- 7402 Dec, [facility] [address] [place] [id number] [place] [address] 41432- 9390 Dec, Dermatitis L30.9 and Pain in right shoulder M25.511 [facility] [address] [place] [id number] [place] [address] 36168- 4853 Nov, [facility] [address] [place] [id number] [place] [address] 42868- 8487 Nov, Upper respiratory tract infection, unspecified upper respiratory infection J06.9 [facility] [address] [place] [id number] [place] [address] 85501- 0483 Oct, [facility] [address] [place] [id number] [place] [address] 08753- 3635 Oct, [facility] [address] [place] [id number] [place] [address] 71175- 0604 Oct, [facility] [address] [id number] [place] [address]- 0016 Sep, Back pain 724.5 [facility] [place] [facility] [address] [id number] [place] 2004 Sep, Back pain 724.5 [facility] [address] [id number] [place] [address]- 1022 Sep, [facility] [place] [facility] [address] [id number] [place] [address]- 4813 Aug, [facility] [address] [id number] [place] [address]- 8001 Aug, [facility] [place] [facility] [address] [facility] [id number] [address]- 8965 Jul, Back pain 724.5 [facility] [address] [id number] [place] [address]- 0451 Jul, [facility] [place] [facility] [address] [id number] [place] [address]- 3248 June, [facility] [place] [facility] [address] [facility] [id number] [place] [address]- 0774 May, [facility] [place] [facility] [address] [id number], [place] [address]- 9512 May, [facility] [place] [facility] [address] [id number], [place] [address]- 4571 Apr, [facility] [place] [facility] [address] [id number] [place] [address]- 1088 Apr, [facility] [place] [facility] [address] [id number] [place] [address]- 6038 Feb, [facility] [place] [facility] [address] [id number], [place] [address]- 7621 Feb, [facility] [place] [facility] [address] [id number], [place] [address]- 0426 Dec, [facility] [address] [place] [id number] [address]- 8656 Dec, [facility] [address] [place] [address]- 2546 Nov, [facility] [address] [address]- 2546 Nov, [facility] [address] [address]- 2546 Feb, [facility] [address] [place] [address]- 2546 Feb, [facility] [address] [place] [address] 47859- 2546 Sep, [facility] [address] [place] [address]- 7056 Apr, [facility] [address] [place] [address]- 2546 Apr, [facility] [address] [address]- 5326 Mar, [facility] [address] [place] [address]- 2546 Mar, [facility] [address] [place] [id number] [address]- 2546 Mar, [facility] [address] [place] [id number] [address]- 2546 Sep, IMMUNIZATIONS Vaccine Route Administration Date Status TORADOL (IM) 60 MG/2ML (UP TO 15 MG) IM Intramuscular Oct 14, 2017 Administered SOCIAL HISTORY Never Assessed REASON FOR VISIT Pain management (chronic), Pt reports concerns with the medication not working and is still experincing pain. -Pavan CAREY PLAN OF CARE VITAL SIGNS Height 70 in 2017-10-14 Weight 134.8 lbs 2017-10-14 Temperature 98.3 degrees Fahrenheit 2017-10-14 Heart Rate 93 bpm 2017-10-14 Respiratory Rate 20 2017-10-14 Oximetry 96 % 2017-10-14 BMI 19.34 kg/m2 2017-10-14 Blood pressure systolic 138 mmHg 2017-10-14 Blood pressure diastolic 80 mmHg 2017-10-14 MEDICATIONS Medication Instructions Dosage Frequency Start Date End Date Duration Status Methocarbamol 750 MG Orally 4 times a day 1 tablet 6h Oct, Active Ibuprofen 800 MG Orally Three times a day 1 tablet with food or milk as needed 8h Sep, Active Pseudoephedrine HCl 60 mg Orally every 6 hrs 1 tablet as needed 6h Aug, Active Depakote 250 MG Orally 2 times a day 1 tablet 12h Oct, Active ProAir HFA 108 (90 Base) MCG/ACT Inhalation every 6 hrs for shortness of breath/cough 2 puffs as needed Active Pristiq 50 mg Orally Once a day 1 tablet 24h Sep, 30 day(s) Active RESULTS No Results PROCEDURES Procedure Date Ordered Result Body Site TORADOL (IM) 60 MG/2ML (UP TO 15 MG) Oct 14, 2017 THER/PROPH/DIAG INJ, SC/IM Oct 14, 2017 INSTRUCTIONS MEDICATIONS ADMINISTERED No Known Medications MEDICAL (GENERAL) HISTORY Type Description Date Medical History frequent ear infections 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 redding did injections down his spine, adn Epidurals
--- OUTSIDE RECORDS SUMMARY | 2018-04-01 20:20 | XMS REPORT ---
Author Author MOUNA LAKE Organization [facility] Address [address] [place] [address] Care Team Providers Care Back Roller Name Role Phone MOUNA LAKE Unavailable PROBLEMS Type Condition ICD9-CM Code THB23-ML Code Onset Dates Condition Status SNOMED Code Problem Dysthymic disorder F34.1 Active 69297809 Problem Generalized anxiety disorder F41.1 Active 76221679 Problem Acute upper respiratory infection, unspecified J06.9 Active 01795165 Problem Low back pain M54.5 Active 682365839 Problem Adjustment disorder with depressed mood F43.21 Active 06882549 Problem Anxiety F41.9 Active 53194827 ALLERGIES No Known Allergies ENCOUNTERS Encounter Location Date Diagnosis [facility] [id number] [place] [address] 91464- 7546 Nov, [facility] [id number] [place] [address] 76395- 9534 Oct, Thoracic neuritis M54.14 [facility] [facility] [id number] [place] [address] 10302- 5176 Sep, Thoracic neuritis M54.14 [facility] [facility] [id number] [place] [address] 45136- 5054 Sep, [facility] [id number] [place] [address] 42002- 4464 Sep, Thoracic neuritis M54.14 and Acute recurrent maxillary sinusitis J01.01 [facility] [id number] [place] [address] 93940- 9155 Aug, [facility] [id number] [place] [address] 60635- 9026 Aug, Thoracic neuritis M54.14 [place] [id number] [place] [address] 9710 Jul, Low back pain M54.5 [facility] [id number] [place] [address] 12560- 3442 June, Low back pain M54.5 [facility] [id number] [place] [address] 38801- 6288 May, Low back pain M54.5 and Generalized anxiety disorder F41.1 [facility] [id number] [place] [address] 01680- 5876 May, [facility] [id number] [place] [address] 28631- 2968 May, Generalized anxiety disorder F41.1 [facility] [id number] [place] [address] 25856- 7350 May, Low back pain M54.5 and Anxiety F41.9 [facility] [id number] [place] [address] 95252- 0761 Apr, [facility] [id number] [place] [address] 17325- 0880 Mar, Low back pain M54.5 [facility] [id number] [place] [address] 71333- 0127 Mar, Low back pain M54.5 [facility] [address] [place] [address] 32294- 6782 Feb, Ganglion, left wrist M67.432 [facility] [id number] [place] [address] 72292- 4638 Feb, Low back pain M54.5 [facility] [id number] [place] [address] 60395- 1406 Feb, Low back pain M54.5 [facility] [address] [place] [address] 94674- 4297 Feb, [facility] [id number] [place] [address] 63755- 4515 Feb, Low back pain M54.5 and Bronchitis J40 [facility] [address] 13102- 8059 Feb, Low back pain M54.5 [facility] [id number] [place] [address] 43438- 4940 Jan, [facility] [address] 11151- 4013 Jan, Low back pain M54.5 [facility] [id number] [place] [address] 97773- 1315 Jan, Low back pain M54.5 ; Anxiety F41.9 and Ganglion, left wrist M67.432 [facility] [id number] [place] [address] 94363- 8149 Dec, Low back pain M54.5 [facility] [id number] [place] [address] 29611- 8600 Dec, Ganglion, left wrist M67.432 [facility] [address] 30547- 8012 Nov, Ganglion, left wrist M67.432 and Anxiety F41.9 [facility] [id number] [place] [address] 85198- 5328 Nov, Low back pain M54.5 [facility] [id number] [place] [address] 08972- 8563 Nov, [facility] [id number] [place] [address] 67719- 3855 Nov, [facility] [id number] [place] [address] 75798- 4625 Nov, [facility] [id number] [place] [address] 72928- 4046 Oct, Anxiety F41.9 [facility] [address] [address]- 5591 22 Oct, 2016 Low back pain M54.5 [facility] [id number] [place] [address] 64273- 6891 20 Oct, 2016 [facility] [id number] [place] [address] 06989- 6593 07 Oct, 2016 [facility] [id number] [place] [address] 07939- 0500 Oct, Adjustment disorder with depressed mood F43.21 and Generalized anxiety disorder F41.1 [facility] [address] [place] [address] 44425- 7449 Sep, Adjustment disorder with depressed mood F43.21 and Generalized anxiety disorder F41.1 [facility] [address] [place] [address] 91954- 5566 Sep, [place] [id number] [address] Sep [facility] [address] [place] [address] 16840- 6557 Sep, Anxiety F41.9 [facility] [address] [place] [address] 68549- 7947 Sep, Low back pain M54.5 [facility] [address] [place] [address] 44068- 3933 Sep, Adjustment disorder with depressed mood F43.21 and Generalized anxiety disorder F41.1 [facility] [address] [place] [address] 31855- 3309 Sep, Allergic urticaria L50.0 [facility] [id number] [place] [address] 22918- 6523 Aug, [facility] [address] [place] [address] 82358- 1144 Aug, Low back pain M54.5 [facility] [address] [address]- 5540 Aug, Low back pain M54.5 [facility] [id number] [place] [address] 03589- 2315 Aug, [facility] [id number] [place] [address] 11129- 0896 Aug, Thoracic neuritis M54.14 [facility] [id number] [place] [address] 95234- 3199 Jul, [facility] [id number] [place] [address] 73427- 6282 Jul, Low back pain M54.5 [facility] [id number] [place] [address] 40818- 0161 Jul, Thoracic neuritis M54.14 [facility] [id number] [place] [address] 03299- 5416 Jul, [facility] [id number] [place] [address] 23284- 9340 Jul, Thoracic neuritis M54.14 [facility] [id number] [place] [address] 76652- 9368 June, [facility] [address] [place] [address] 41495- 6034 June, Thoracic neuritis M54.14 [facility] [address] [address]- 1826 May, [facility] [id number] [place] [address] 18401- 8669 May, [facility] [id number] [place] [address] 32201- 7923 Dec, [facility] [address] [address]- 5784 Dec, [facility] [id number] [place] [address] 88240- 8275 Dec, [facility] [address] [place] [address] 39160- 4066 Dec, [facility] [id number] [place] [address] 38882- 7672 Nov, [facility] [id number] [place] [address] 08979- 9622 Nov, Thoracic neuritis M54.14 and Low back pain M54.5 [facility] [id number] [place] [address] 91755- 5027 Nov, [facility] [id number] [place] [address] 06886- 4041 Oct, Low back pain M54.5 and Acute upper respiratory infection, unspecified J06.9 [facility] [id number] [place] [address] 37101- 9977 Oct, [facility] [id number] [place] [address] 01019- 5738 Oct, [facility] [id number] [place] [address] 46631- 9259 Oct, [facility] [id number] [place] [address] 96310- 1080 Oct, [facility] [id number] [place] [address] 36984- 4277 Sep, Chronic maxillary sinusitis J32.0 and Thoracic neuritis M54.14 [facility] [address] [place] [address] 95333- 0167 Sep, [facility] [id number] [place] [address] 09619- 1792 Aug, Low back pain M54.5 and Other chronic pain G89.29 [facility] [id number] [place] [address] 81881- 0519 Jul, Low back pain M54.5 and Other chronic pain G89.29 [facility] [facility] [id number] [place] [address] 23997- 4160 Jul, [place] [facility] [address] 71946- 8618 June, [place] [facility] [address] 06072- 7042 May, Lumbago M54.5 and Sinusitis J32.9 [facility] [facility] [address] 70238- 6290 Apr, Unspecified backache 724.5 and Folliculitis L73.9 [place] [facility] [address] 33948- 2184 Mar, URI (upper respiratory infection) J06.9 and Back pain M54.9 [place] [address] 77120- 5814 Mar, [place] [facility] [id number] [place] [address] 61894- 4534 Mar, [place] [facility] [address] 65126- 1253 Feb, Low back pain M54.5 ; Sciatica, unspecified side M54.30 ; Folliculitis L73.9 and Allergic urticaria L50.0 [facility] [facility] [id number] [place] [address] 81482- 3281 Feb, Visit for suture removal Z48.02 [facility] [facility] [id number] [place] [address] 81466- 1018 Feb, [place] [address] 90678- 7254 Feb, Rash R21 [facility] [facility] [id number] [place] [address] 34331- 0500 16 Jan, 2015 Pharyngitis J02.9 ; Shoulder pain, right M25.511 and Rash R21 [facility] [id number] [place] [address] 79356- 9899 Jan, [facility] [id number] [place] [address] 28462- 3358 Dec, Allergic urticaria L50.0 ; Right shoulder pain M25.511 and Lumbago M54.5 [facility] [id number] [place] [address] 55221- 0048 Dec, Upper respiratory tract infection, unspecified upper respiratory infection J06.9 [facility] [id number] [place] [address] 24400- 1662 Dec, Contact dermatitis L25.9 [facility] [id number] [place] [address] 66634- 6825 Dec, [facility] [id number] [place] [address] 19384- 4168 Dec, Dermatitis L30.9 and Pain in right shoulder M25.511 [facility] [id number] [place] [address] 04833- 6142 Nov, [facility] [id number] [place] [address] 82447- 0964 Nov, Upper respiratory tract infection, unspecified upper respiratory infection J06.9 [facility] [id number] [place] [address] 62281- 2186 Oct, [facility] [id number] [place] [address] 95766- 8388 Oct, [facility] [id number] [place] [address] 28792- 1500 Oct, [facility] [id number] [place] [address] 23060- 2267 Sep, Back pain 724.5 [facility] [id number] [place] [address] 21433- 2364 Sep, Back pain 724.5 [facility] [address] [id number] [place] [address]- 4168 Sep, [facility] [place] [facility] [address] [id number] [place] [address]- 9744 16 Aug, 2014 [facility] [place] [facility] [address] [facility] [id number] [place] [address]- 2499 Aug, [facility] [place] [facility] [address] [id number] [place] [address]- 5263 Jul, Back pain 724.5 [facility] [address] [id number] [place] [address]- 6582 Jul, [facility] [place] [facility] [address] [id number] [place] [address]- 1391 June, [facility] [address] [facility] [id number] [place] [address]- 4050 May, [facility] [place] [facility] [address] [id number] [place] [address]- 4771 May, [facility] [address] [facility] [id number] [place] [address]- 8971 Apr, [facility] [place] [facility] [address] [facility] [id number] [place] [address]- 6110 Apr, [facility] [place] [facility] [address] [facility] [id number] [place] [address]- 0387 Feb, [facility] [place] [facility] [address] [id number] [address]- 1234 Feb, [facility] [place] [facility] [address] [facility] [id number] [place] [address]- 6183 Dec, [facility] [place] [facility] [address] [facility] [id number] [place] [address]- 9657 Dec, [facility] [place] [facility] [address] [facility] [id number] [place] [address]- 8166 Nov, [facility] [place] [facility] [id number] [address]- 8406 Nov, [facility] [id number] [address]- 2026 Feb, [facility] [address] [address]- 9496 Feb, [facility] [address], [place] [address]- 7526 Sep, [facility] [address] [address]- 1161 Apr, [facility] [address] [address]- 7646 Apr, [facility] [address] [address]- 1042 Mar, [facility] [address] [address]- 7846 Mar, [facility] [id number] [address]- 2926 Mar, [facility] [address] [address]- 1846 Sep, IMMUNIZATIONS No Known Immunizations SOCIAL HISTORY Never Assessed REASON FOR VISIT Pain Management, -Pavan CAREY PLAN OF CARE VITAL SIGNS Height 70 in 2017-08-12 Weight 144 lbs 2017-08-12 Temperature 98.5 degrees Fahrenheit 2017-08-12 Heart Rate 107 bpm 2017-08-12 Respiratory Rate 20 2017-08-12 Oximetry on room air:98 % 2017-08-12 BMI 20.66 kg/m2 2017-08-12 Blood pressure systolic 130 mmHg 2017-08-12 Blood pressure diastolic 72 mmHg 2017-08-12 MEDICATIONS Medication Instructions Dosage Frequency Start Date End Date Duration Status Meloxicam 7.5 MG Orally 2 times a day 1 tablet 12h Jul, Not- Taking Bactrim DS 800-160 MG Orally Twice a day 1 tablet 12Aug,Aug 10 day(s) Active PredniSONE 20 mg Orally Once a day 2 tablets 24h Aug, Aug, 05 days Active Gabapentin 800 MG Orally 3 times a day 1 capsule 8h May, 30 day (s) Not-Taking Pseudoephedrine HCl 60 mg Orally every 6 hrs 1 tablet as needed 6h Aug, Active Cymbalta 30 MG Orally Once a day 1 capsule 24h May, 30 day(s) Not-Taking Ibuprofen 800 MG Orally Three times a day 1 tablet with food or milk as needed 8h May, Not-Taking Sulindac 200 MG Orally Twice a day 1 tablet with food 12h Aug, Sep, 30 day(s) Active Robaxin 500 mg Orally 3 times a day 2 tablets 8h 30 Active ProAir HFA 108 (90 Base) MCG/ACT Inhalation every 6 hrs for shortness of breath/cough 2 puffs as needed Active RESULTS No Results PROCEDURES No Known procedures INSTRUCTIONS MEDICATIONS ADMINISTERED No Known Medications MEDICAL (GENERAL) HISTORY Type Description Date Medical History frequent ear infections Medical History gets respiratory infections from being around smoke, 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 redding did injections down his spine, adn Epidurals
--- OUTSIDE RECORDS SUMMARY | 2018-04-01 20:20 | XMS REPORT ---
Author Author MOUNA LAKE Organization [facility] Address [address] [place] [address] Care Team Providers Care Runner Worker Name Role Phone MOUNA LAKE Unavailable PROBLEMS Type Condition ICD9-CM Code CNA10-KB Code Onset Dates Condition Status SNOMED Code Problem Dysthymic disorder F34.1 Active 07264085 Problem Generalized anxiety disorder F41.1 Active 99977462 Problem Acute upper respiratory infection, unspecified J06.9 Active 07381783 Problem Low back pain M54.5 Active 575571294 Problem Adjustment disorder with depressed mood F43.21 Active 23395601 Problem Anxiety F41.9 Active [id number] ALLERGIES No Information ENCOUNTERS Encounter Location Date Diagnosis [place] [address] [address]- [address] Nov, [place] [address] 24101- 2258 Oct, Thoracic neuritis M54.14 [place] [address] [place] [id number] [place] [address] 56899- 7019 Sep, Thoracic neuritis M54.14 [place] [address] [place] [id number] [place] [address] 88203- 6690 Sep, [facility] [address] [place] [id number] [place] [address] 94565- 6906 Sep, Thoracic neuritis M54.14 and Acute recurrent maxillary sinusitis J01.01 [facility] [address] 63483- 9362 Aug, [facility] [address] [place] [id number] [place] [address] 94051- 8962 Aug, Thoracic neuritis M54.14 [place] [address] [place] [address] 2584 Jul, Low back pain M54.5 [facility] [address] [place] [id number] [place] [address] 83133- 8215 June, Low back pain M54.5 [facility] [address] [place] [address] [id number] [place] [address] 98656- 6712 May, Low back pain M54.5 and Generalized anxiety disorder F41.1 [facility] [address] [place] [id number] [place] [address] 72691- 5520 May, [facility] [address] [place] [id number] [place] [address] 69362- 3898 May, Generalized anxiety disorder F41.1 [facility] [address] [place] [id number] [place] [address] 79280- 6176 May, Low back pain M54.5 and Anxiety F41.9 [facility] [address] [place] [id number] [place] [address] 69169- 4343 Apr, [facility] [address] [place] [address] [id number] [place] [address] 16441- 3784 Mar, Low back pain M54.5 [facility] [address] [place] [address] 66142- 2892 Mar, Low back pain M54.5 [facility] [address] [place] [address] 50715- 1301 Feb, Ganglion, left wrist M67.432 [facility] [address] [place] [address] 63917- 9338 Feb, Low back pain M54.5 [facility] [address] [place] [address] 83788- 9106 Feb, Low back pain M54.5 [facility] [address] [place] [address] 68865- 9656 Feb, [facility] [address] [place] [id number] [place] [address] 00274- 6509 Feb, Low back pain M54.5 and Bronchitis J40 [facility] [address] 04964- 1152 Feb, Low back pain M54.5 [facility] [address] [place] [id number] [place] [address] 94997- 0236 Jan, [facility] [address] 67601- 3916 Jan, Low back pain M54.5 [facility] [address] 52267- 6775 Jan, Low back pain M54.5 ; Anxiety F41.9 and Ganglion, left wrist M67.432 [facility] [address] 19974- 9529 Dec, Low back pain M54.5 [facility] [address] [place] [id number] [place] [address] 08857- 5258 Dec, Ganglion, left wrist M67.432 [facility] [address] 06385- 2084 Nov, Ganglion, left wrist M67.432 and Anxiety F41.9 [facility] [address] [place] [id number] [place] [address] 41405- 8413 Nov, Low back pain M54.5 [facility] [address] [place] [id number] [place] [address] 23818- 0327 Nov, [facility] [address] [place] [id number] [place] [address] 00129- 9235 Nov, [facility] [address] [place] [id number] [place] [address] 77554- 8128 Nov, [facility] [address] [place] [id number] [place] [address] 60543- 4861 Oct, Anxiety F41.9 [facility] [address] [address] 3415 22 Oct, 2016 Low back pain M54.5 [facility] [address] [facility] [id number] [place] [address] 04046- 7507 20 Oct, 2016 [facility] [address] [place] [id number] [place] [address] 94455- 9732 07 Oct, 2016 [facility] [address] [place] [id number] [place] [address] 19913- 2153 Oct, Adjustment disorder with depressed mood F43.21 and Generalized anxiety disorder F41.1 [facility] [address] [place] [id number] [place] [address] 29081- 0387 Sep, Adjustment disorder with depressed mood F43.21 and Generalized anxiety disorder F41.1 [facility] [address] [place] [address] 02985- 2240 Sep, [address] [id number] [place] [address] Sep [facility] [address] [place] [address] 87419- 9645 Sep, Anxiety F41.9 [facility] [address] [place] [address] 03187- 0025 Sep, Low back pain M54.5 [facility] [address] [place] [address] 24677- 4541 Sep, Adjustment disorder with depressed mood F43.21 and Generalized anxiety disorder F41.1 [facility] [address] [place] [address] 64067- 2159 Sep, Allergic urticaria L50.0 [facility] [address] [place] [id number] [place] [address] 46005- 2973 Aug, [facility] [address] [place] [address] 07461- 2637 Aug, Low back pain M54.5 [facility] [address] [place] [id number] [place] [address] 50012- 6130 Aug, Low back pain M54.5 [facility] [address] [place] [id number] [place] [address] 94394- 2503 Aug, [facility] [address] [place] [id number] [place] [address] 88483- 6961 Aug, Thoracic neuritis M54.14 [facility] [address] [place] [id number] [place] [address] 43727- 8380 Jul, [facility] [address] [place] [id number] [place] [address] 48421- 1777 Jul, Low back pain M54.5 [facility] [address] [place] [id number] [place] [address] 24831- 3139 Jul, Thoracic neuritis M54.14 [facility] [address] [place] [id number] [place] [address] 47740- 7929 Jul, [facility] [address] [place] [id number] [place] [address] 24626- 4140 Jul, Thoracic neuritis M54.14 [facility] [address] [place] [id number] [place] [address] 67558- 6549 June, [facility] [address] [place] [address] 86480- 9440 June, Thoracic neuritis M54.14 [facility] [address] [place] [address] 87031- 3172 May, [facility] [address] [place] [address] 35296- 9570 May, [facility] [address] [place] [id number] [place] [address] 75785- 2190 Dec, [facility] [address], [place] [address]- 6147 Dec, [facility] [address] [place] [id number] [place] [address] 64532- 2957 Dec, [facility] [address] [place] [address] 58837- 8638 Dec, [facility] [address] [place] [id number] [place] [address] 36362- 4847 Nov, [facility] [address] [place] [id number] [place] [address] 24011- 5775 Nov, Thoracic neuritis M54.14 and Low back pain M54.5 [facility] [address] [place] [id number] [place] [address] 51532- 5089 Nov, [facility] [address] [place] [id number] [place] [address] 28184- 6671 Oct, Low back pain M54.5 and Acute upper respiratory infection, unspecified J06.9 [facility] [address] [place] [id number] [place] [address] 25616- 8613 Oct, [facility] [address] [place] [id number] [place] [address] 79722- 8617 Oct, [facility] [address] [place] [id number] [place] [address] 48403- 7770 Oct, [facility] [address] [place] [id number] [place] [address] 35950- 2303 Oct, [facility] [address] [place] [address] 18195- 1954 Sep, Chronic maxillary sinusitis J32.0 and Thoracic neuritis M54.14 [facility] [address] [place] [address] 28409- 1657 Sep, [facility] [address] [place] [id number] [place] [address] 80952- 6213 Aug, Low back pain M54.5 and Other chronic pain G89.29 [facility] [address] [place] [id number] [place] [address] 28287- 4401 Jul, Low back pain M54.5 and Other chronic pain G89.29 [place] [address] [place] [id number] [place] [address] 28637- 8962 Jul, [place] [address] 44050- 7553 June, [place] [address] 53723- 6616 May, Lumbago M54.5 and Sinusitis J32.9 [place] [address] 21704- 5835 Apr, Unspecified backache 724.5 and Folliculitis L73.9 [place] [address] 76902- 2716 Mar, URI (upper respiratory infection) J06.9 and Back pain M54.9 [place] [address] 44084- 1054 Mar, [place] [address] 95511- 2282 Mar, [place] [address] 92211- 5073 Feb, Low back pain M54.5 ; Sciatica, unspecified side M54.30 ; Folliculitis L73.9 and Allergic urticaria L50.0 [place] [address] [place] [id number] [place] [address] 05765- 5078 Feb, Visit for suture removal Z48.02 [place] [address] [place] [id number] [place] [address] 95627- 7429 Feb, [place] [address] 20326- 1496 Feb, Rash R21 [place] [address] [place] [id number] [place] [address] 00164- 3291 Jan, Pharyngitis J02.9 ; Shoulder pain, right M25.511 and Rash R21 [facility] [address] [place] [id number] [place] [address] 55044- 6033 Jan, [facility] [address] [place] [id number] [place] [address] 53788- 4304 Dec, Allergic urticaria L50.0 ; Right shoulder pain M25.511 and Lumbago M54.5 [facility] [address] [place] [id number] [place] [address] 51912- 4589 Dec, Upper respiratory tract infection, unspecified upper respiratory infection J06.9 [facility] [address] [place] [id number] [place] [address] 54254- 8482 Dec, Contact dermatitis L25.9 [facility] [address] [place] [id number] [place] [address] 14608- 4928 Dec, [facility] [address] 65914- 9566 Dec, Dermatitis L30.9 and Pain in right shoulder M25.511 [facility] [address] [place] [id number] [place] [address] 52216- 4324 Nov, [facility] [address] [place] [id number] [place] [address] 05284- 8928 Nov, Upper respiratory tract infection, unspecified upper respiratory infection J06.9 [facility] [address] [place] [id number] [place] [address] 39545- 0423 Oct, [facility] [address] [place] [id number] [place] [address] 60470- 3323 Oct, [facility] [address] [place] [id number] [place] [address] 72233- 7624 Oct, [facility] [address] [place] [id number] [place] [address] 61764- 8574 Sep, Back pain 724.5 [facility] [address] [place] [id number] [place] [address] 16609- 7071 Sep, Back pain 724.5 [facility] [place] [facility] [address] [id number] [place] [address]- 9332 Sep, [facility] [place] [facility] [address] [id number] [place] [address]- 4442 Aug, [facility] [place] [facility] [address] [facility] [id number] [place] [address]- 4745 Aug, [facility] [place] [facility] [address] [facility] [id number] [place] [address], [place] [address]- 2020 Jul, Back pain 724.5 [facility] [place] [facility] [address] [id number] [place] [address], [place] [address]- 8168 Jul, [facility] [place] [facility] [address] [facility] [id number] [place] [address]- 9730 June, [facility] [place] [facility] [address] [place] [address], [place] [address]- 0508 May, [facility] [place] [facility] [address] [facility] [id number] [place] [address]- 3585 May, [facility] [place] [facility] [address] [place] [id number] [address]- 9731 Apr, [facility] [place] [facility] [address] [facility] [id number] [place] [address]- 5505 Apr, [facility] [place] [facility] [address] [facility] [id number] [place] [address]- 2445 Feb, [facility] [place] [facility] [address] [facility] [id number], [place] [address]- 5743 Feb, [facility] [place] [facility] [address] [facility] [id number] [place] [address]- 4904 Dec, [facility] [place] [facility] [address] [facility] [id number] [place] 6237 Dec, [facility] [place] [facility] [address] [facility] [id number] [place] [address]- 2183 Nov, [facility] [place] [facility] [address], [place] [address]- 6016 Nov, [facility] [address], [place] [address]- 7226 Feb, [facility] [address], [place] [address]- 4346 Feb, [facility] [address], [place] [address]- 1073 Sep, [facility] [address] [facility] [id number], [place] [address]- 3900 Apr, [facility] [address], [place] [address]- 3406 Apr, [facility] [address], [place] [address]- 3412 Mar, [facility] [address], [place] [address]- 2313 Mar, [facility] [address], [place] [address]- 0162 Mar, [facility] [address], [place] [address]- 8806 Sep, IMMUNIZATIONS No Known Immunizations SOCIAL HISTORY Never Assessed REASON FOR VISIT med refill PLAN OF CARE VITAL SIGNS MEDICATIONS Medication Instructions Dosage Frequency Start Date End Date Duration Status Robaxin 500 mg Orally 3 times a day 1 tablet 8h 90 days Active RESULTS No Results PROCEDURES No Known procedures INSTRUCTIONS MEDICATIONS ADMINISTERED No Known Medications MEDICAL (GENERAL) HISTORY Type Description Date Medical History frequent ear infections Medical History gets respiratory infections from being around smoke, 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 redding did injections down his spine, adn Epidurals
--- OUTSIDE RECORDS SUMMARY | 2018-04-01 20:20 | XMS REPORT ---
Author Author MOUNA LAKE Organization [facility] Address [address] [place] [address] Care Team Providers Care Laboratory Cureman Name Role Phone MOUNA LAKE Unavailable PROBLEMS Type Condition ICD9-CM Code YTI09-PM Code Onset Dates Condition Status SNOMED Code Problem Dysthymic disorder F34.1 Active 64042351 Problem Generalized anxiety disorder F41.1 Active 71139612 Problem Acute upper respiratory infection, unspecified J06.9 Active 11174600 Problem Low back pain M54.5 Active 563259127 Problem Adjustment disorder with depressed mood F43.21 Active 09907460 Problem Anxiety F41.9 Active 42533112 ALLERGIES No Known Allergies ENCOUNTERS Encounter Location Date Diagnosis [facility] [id number] [place] [address] 49487- 7653 Nov, [facility] [id number] [place] [address] 85054- 5221 Oct, Thoracic neuritis M54.14 [facility] [id number] [place] [address] 89217- 7630 Sep, Thoracic neuritis M54.14 [facility] [id number] [place] [address] 09837- 2579 Sep, [facility] [id number] [place] [address] 44126- 0350 Sep, Thoracic neuritis M54.14 and Acute recurrent maxillary sinusitis J01.01 [facility] [id number] [place] [address] 00344- 1129 Aug, [facility] [id number] [place] [address] 37272- 1413 Aug, Thoracic neuritis M54.14 [facility] [id number] [place] [address] 8357 Jul, Low back pain M54.5 [facility] [id number] [place] [address] 55952- 6086 June, Low back pain M54.5 [facility] [id number] [place] [address] 17368- 1726 May, Low back pain M54.5 and Generalized anxiety disorder F41.1 [facility] [id number] [place] [address] 26321- 1861 May, [facility] [id number] [place] [address] 43563- 8749 May, Generalized anxiety disorder F41.1 [facility] [id number] [place] [address] 15494- 5010 May, Low back pain M54.5 and Anxiety F41.9 [facility] [id number] [place] [address] 78105- 1585 Apr, [facility] [id number] [place] [address] 37056- 5894 Mar, Low back pain M54.5 [facility] [id number] [place] [address] 97779- 5745 Mar, Low back pain M54.5 [facility] [id number] [place] [address] 50147- 4351 Feb, Ganglion, left wrist M67.432 [facility] [id number] [place] [address] 94468- 2224 Feb, Low back pain M54.5 [facility] [id number] [place] [address] 05916- 3126 Feb, Low back pain M54.5 [facility] [id number] [place] [address] 39150- 8860 Feb, [facility] [id number] [place] [address] 83246- 0939 Feb, Low back pain M54.5 and Bronchitis J40 [facility] [address] 40673- 4939 Feb, Low back pain M54.5 [facility] [id number] [place] [address] 21263- 3886 Jan, [facility] [address] 89797- 1180 Jan, Low back pain M54.5 [facility] [id number] [place] [address] 81954- 7595 Jan, Low back pain M54.5 ; Anxiety F41.9 and Ganglion, left wrist M67.432 [facility] [id number] [place] [address] 26099- 2339 Dec, Low back pain M54.5 [facility] [id number] [place] [address] 14870- 0048 Dec, Ganglion, left wrist M67.432 [facility] [address] 60464- 6957 Nov, Ganglion, left wrist M67.432 and Anxiety F41.9 [facility] [id number] [place] [address] 53639- 9353 Nov, Low back pain M54.5 [facility] [id number] [place] [address] 99090- 0611 Nov, [facility] [id number] [place] [address] 25367- 4980 Nov, [facility] [id number] [place] [address] 30182- 4404 Nov, [facility] [id number] [place] [address] 13082- 7237 Oct, Anxiety F41.9 [facility] [address] [address] 1397 22 Oct, 2016 Low back pain M54.5 [facility] [id number] [place] [address] 66066- 2982 20 Oct, 2016 [facility] [id number] [place] [address] 60806- 8801 07 Oct, 2016 [facility] [id number] [place] [address] 28875- 8227 Oct, Adjustment disorder with depressed mood F43.21 and Generalized anxiety disorder F41.1 [facility] [id number] [place] [address] 70958- 0590 Sep, Adjustment disorder with depressed mood F43.21 and Generalized anxiety disorder F41.1 [facility] [id number] [place] [address] 82102- 5326 Sep, [place] [id number] [address] Sep [facility] [id number] [place] [address] 50308- 3875 Sep, Anxiety F41.9 [facility] [id number] [place] [address] 34115- 6070 Sep, Low back pain M54.5 [facility] [id number] [place] [address] 04924- 5683 Sep, Adjustment disorder with depressed mood F43.21 and Generalized anxiety disorder F41.1 [facility] [id number] [place] [address] 52675- 1313 Sep, Allergic urticaria L50.0 [facility] [id number] [place] [address] 29326- 0502 Aug, [facility] [id number] [place] [address] 38894- 2233 Aug, Low back pain M54.5 [facility] [address] [address] 8520 Aug, Low back pain M54.5 [facility] [id number] [place] [address] 52009- 4393 Aug, [facility] [id number] [place] [address] 72059- 0968 Aug, Thoracic neuritis M54.14 [facility] [id number] [place] [address] 94234- 9282 Jul, [facility] [id number] [place] [address] 57562- 9102 Jul, Low back pain M54.5 [facility] [id number] [place] [address] 74288- 1215 Jul, Thoracic neuritis M54.14 [facility] [id number] [place] [address] 84823- 8854 Jul, [facility] [id number] [place] [address] 04897- 7711 Jul, Thoracic neuritis M54.14 [facility] [id number] [place] [address] 02944- 8711 June, [facility] [id number] [place] [address] 74746- 0562 June, Thoracic neuritis M54.14 [facility] [address] [address]- 0970 May, [facility] [id number] [place] [address] 94115- 2194 May, [facility] [id number] [place] [address] 51886- 5735 Dec, [facility] [address], [place] [address]- 9355 Dec, [facility] [id number] [place] [address] 53505- 2207 Dec, [facility] [id number] [place] [address] 83925- 6472 Dec, [facility] [id number] [place] [address] 96661- 0376 Nov, [facility] [id number] [place] [address] 59826- 7882 Nov, Thoracic neuritis M54.14 and Low back pain M54.5 [facility] [id number] [place] [address] 88166- 2377 Nov, [facility] [id number] [place] [address] 65765- 4236 Oct, Low back pain M54.5 and Acute upper respiratory infection, unspecified J06.9 [facility] [id number] [place] [address] 19552- 9965 Oct, [facility] [id number] [place] [address] 71810- 1440 Oct, [facility] [id number] [place] [address] 69135- 6256 Oct, [facility] [id number] [place] [address] 83506- 2842 Oct, [facility] [id number] [place] [address] 77360- 4075 Sep, Chronic maxillary sinusitis J32.0 and Thoracic neuritis M54.14 [facility] [id number] [place] [address] 27446- 1342 Sep, [facility] [id number] [place] [address] 84068- 4040 Aug, Low back pain M54.5 and Other chronic pain G89.29 [facility] [id number] [place] [address] 38316- 7908 Jul, Low back pain M54.5 and Other chronic pain G89.29 [facility] [id number] [place] [address] 21896- 7918 Jul, [facility] [address] 73557- 4234 June, [facility] [address] 13106- 6920 May, Lumbago M54.5 and Sinusitis J32.9 [facility] [address] 11703- 4680 Apr, Unspecified backache 724.5 and Folliculitis L73.9 [facility] [address] 88735- 8247 Mar, URI (upper respiratory infection) J06.9 and Back pain M54.9 [facility] [address] 26705- 6318 Mar, [facility] [facility] [id number] [place] [address] 84690- 1366 Mar, [facility] [address] 39911- 2482 Feb, Low back pain M54.5 ; Sciatica, unspecified side M54.30 ; Folliculitis L73.9 and Allergic urticaria L50.0 [facility] [id number] [place] [address] 21173- 2643 Feb, Visit for suture removal Z48.02 [facility] [id number] [place] [address] 82995- 4048 Feb, [facility] [address] 64765- 7565 Feb, Rash R21 [facility] [facility] [id number] [place] [address] 41494- 9634 16 Jan, 2015 Pharyngitis J02.9 ; Shoulder pain, right M25.511 and Rash R21 [facility] [id number] [place] [address] 68631- 2862 Jan, [facility] [id number] [place] [address] 89752- 5944 Dec, Allergic urticaria L50.0 ; Right shoulder pain M25.511 and Lumbago M54.5 [facility] [id number] [place] [address] 68009- 1508 Dec, Upper respiratory tract infection, unspecified upper respiratory infection J06.9 [facility] [id number] [place] [address] 89811- 9170 Dec, Contact dermatitis L25.9 [facility] [id number] [place] [address] 76038- 2931 Dec, [facility] [id number] [place] [address] 31829- 2437 Dec, Dermatitis L30.9 and Pain in right shoulder M25.511 [facility] [id number] [place] [address] 86091- 2875 Nov, [facility] [id number] [place] [address] 99767- 4343 Nov, Upper respiratory tract infection, unspecified upper respiratory infection J06.9 [facility] [id number] [place] [address] 82206- 9356 Oct, [facility] [id number] [place] [address] 69927- 4410 Oct, [facility] [id number] [place] [address] 96284- 0682 Oct, [facility] [id number] [place] [address] 52742- 2176 Sep, Back pain 724.5 [facility] [id number] [place] [address] 39120- 5509 Sep, Back pain 724.5 [facility] [address] [id number] [place] [address]- 3395 Sep, [facility] [place] [facility] [address] [id number] [place] [address]- 4981 16 Aug, 2014 [facility] [place] [facility] [address] [facility] [id number] [place] [address]- 0428 Aug, [facility] [place] [facility] [address] [id number] [place] [address]- 0753 Jul, Back pain 724.5 [facility] [address] [id number] [place] [address]- 5138 Jul, [facility] [place] [facility] [address] [id number] [place] [address]- 7718 June, [facility] [address] [facility] [id number] [place] [address]- 0715 May, [facility] [place] [facility] [address] [id number] [place] [address]- 2896 May, [facility] [address] [facility] [id number] [place] [address]- 0457 Apr, [facility] [place] [facility] [address] [facility] [id number] [place] [address]- 3606 Apr, [facility] [place] [facility] [address] [facility] [id number] [place] [address]- 1995 Feb, [facility] [place] [facility] [address] [id number] [address]- 6181 Feb, [facility] [place] [facility] [address] [facility] [id number] [place] [address]- 4657 Dec, [facility] [place] [facility] [address] [facility] [id number] [place] [address]- 7041 Dec, [facility] [place] [facility] [address] [facility] [id number] [place] [address]- 2714 Nov, [facility] [place] [facility] [id number] [address]- 2546 Nov, [facility] [address] [address]- 4716 Feb, [facility] [address] [place] [address]- 2546 Feb, [facility] [address] [place] [address]- 2546 Sep, [facility] [address] [place] [address]- 2546 Apr, [facility] [address] [place] [address]- 2546 Apr, [facility] [address] [place] [address]- 0176 Mar, [facility] [address] [place] [address] 2546 Mar, [facility] [id number] [address] 2546 Mar, [facility] [id number] [address]- 2546 Sep, IMMUNIZATIONS No Known Immunizations SOCIAL HISTORY Never Assessed REASON FOR VISIT Pain management (chronic), PT reports he has been experincing a lot of pain. - Pavan CAREY , PT reports he has been dealing with a lot of sinus drainage, recently has been wheezing and congestion. PT is worried he may have an upper respiratory infection -Pavan CAREY PLAN OF CARE VITAL SIGNS Height 70 in 2017-09-09 Weight 138.0 lbs 2017-09-09 Temperature 98.3 degrees Fahrenheit 2017-09-09 Heart Rate 83 bpm 2017-09-09 Respiratory Rate 20 2017-09-09 Oximetry 96 % 2017-09-09 BMI 19.80 kg/m2 2017-09-09 Blood pressure systolic 138 mmHg 2017-09-09 Blood pressure diastolic 70 mmHg 2017-09-09 MEDICATIONS Medication Instructions Dosage Frequency Start Date End Date Duration Status PredniSONE 20 mg Orally Once a day 2 tablets 24h Sep, Sep, 05 days Active Ibuprofen 800 MG Orally Three times a day 1 tablet with food or milk as needed 8h Sep, Active ProAir HFA 108 (90 Base) MCG/ACT Inhalation every 6 hrs for shortness of breath/cough 2 puffs as needed Active Robaxin 1000 MG Orally 3 times a day 1 tablet 8h Active Pseudoephedrine HCl 60 mg Orally every 6 hrs 1 tablet as needed 6h Aug, Active Pristiq 50 mg Orally Once a day 1 tablet 24h Sep, 30 day(s) Active RESULTS No Results PROCEDURES No Known procedures INSTRUCTIONS MEDICATIONS ADMINISTERED No Known Medications MEDICAL (GENERAL) HISTORY Type Description Date Medical History frequent ear infections Medical History gets 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 redding did injections down his spine, adn Epidurals
--- OUTSIDE RECORDS SUMMARY | 2018-04-01 20:21 | XMS REPORT ---
Author Author SLAVA RUCKER Organization [facility] Address [address] [place] [address] Care Team Providers Care Reheater Helper Name Role Phone SLAVA RUCKER Unavailable PROBLEMS Type Condition ICD9-CM Code DDF60-HK Code Onset Dates Condition Status SNOMED Code Problem Dysthymic disorder F34.1 Active 23431831 Problem Generalized anxiety disorder F41.1 Active 32118904 Problem Acute upper respiratory infection, unspecified J06.9 Active 87035030 Problem Low back pain M54.5 Active 580154965 Problem Adjustment disorder with depressed mood F43.21 Active 99411428 Problem Anxiety F41.9 Active 12461996 ALLERGIES No Known Allergies ENCOUNTERS Encounter Location Date Diagnosis [facility] [id number] [place] [address] 07284- 9666 Oct, [facility] [id number] [place] [address] 48590- 3350 Sep, [facility] [id number] [place] [address] 01759- 2735 Sep, Thoracic neuritis M54.14 and Acute recurrent maxillary sinusitis J01.01 [facility] [id number] [place] [address] 94339- 0048 Aug, [facility] [id number] [place] [address] 39472- 1725 Aug, Thoracic neuritis M54.14 [facility] [id number] [place] [address] 41390- 1138 Jul, Low back pain M54.5 [facility] [id number] [place] [address] 66045- 2760 June, Low back pain M54.5 [facility] [id number] [place] [address] 21687- 2363 May, Low back pain M54.5 and Generalized anxiety disorder F41.1 [facility] [id number] [place] [address] 67149- 7657 May, [facility] [id number] [place] [address] 94776- 7583 May, Generalized anxiety disorder F41.1 [facility] [address] 71545- 2415 May, Low back pain M54.5 and Anxiety F41.9 [facility] [address] 48249- 2623 Apr, [facility] [id number] [place] [address] 30936- 7592 Mar, Low back pain M54.5 [facility] [address] 05392- 5439 Mar, Low back pain M54.5 [facility] [id number] [place] [address] 56574- 1427 Feb, Ganglion, left wrist M67.432 [facility] [id number] [place] [address] 15435- 1023 Feb, Low back pain M54.5 [facility] [id number] [place] [address] 42986- 6065 Feb, Low back pain M54.5 [facility] [id number] [place] [address] 88113- 5812 Feb, [facility] [id number] [place] [address] 01091- 7807 Feb, Low back pain M54.5 and Bronchitis J40 [facility] [id number] [place] [address] 38036- 7482 Feb, Low back pain M54.5 [facility] [id number] [place] [address] 49809- 6306 Jan, [facility] [address] [facility] [id number] [place] [address] 14216- 7456 Jan, Low back pain M54.5 [facility] [address] [facility] [id number] [place] [address] 70272 2546 04 Jan, 2017 Low back pain M54.5 ; Anxiety F41.9 and Ganglion, left wrist M67.432 [facility] [id number] [place] [address] 97585 2546 15 Dec, 2016 Low back pain M54.5 [facility] [address] [facility] [id number] [place] [address] 50461 2546 Dec, Ganglion, left wrist M67.432 [facility] [id number] [place] [address] 39934- 3576 Nov, Ganglion, left wrist M67.432 and Anxiety F41.9 [facility] [address] [facility] [id number] [place] [address] 29081- 6065 Nov, Low back pain M54.5 [facility] [address] [facility] [id number] [place] [address] 74954- 2976 18 Nov, 2016 [facility] [id number] [place] [address] 58409- 8866 16 Nov, 2016 [facility] [address] [facility] [id number] [place] [address] 38997 2546 09 Nov, 2016 [facility] [address] [facility] [id number] [place] [address] 00406- 1960 22 Oct, 2016 Anxiety F41.9 [facility] [address] [facility] [id number] [place] [address] 61967 2546 22 Oct, 2016 Low back pain M54.5 [facility] [address] [facility] [id number] [place] [address] 94062 2546 Oct, [facility] [address] [facility] [id number] [address]- 4880 Oct, [facility] [address] [facility] [id number] [place] [address] 18304- 2696 Oct, Adjustment disorder with depressed mood F43.21 and Generalized anxiety disorder F41.1 [facility] [id number] [place] [address] 87208- 7656 Sep, Adjustment disorder with depressed mood F43.21 and Generalized anxiety disorder F41.1 [facility] [address] [facility] [id number], [place] [address] 5293 Sep, [address] [id number] [place] [address] Sep [facility] [id number] [place] [address] 45028- 5117 Sep, Anxiety F41.9 [facility] [id number] [place] [address] 68102- 1695 Sep, Low back pain M54.5 [facility] [id number] [place] [address] 13466- 4599 Sep, Adjustment disorder with depressed mood F43.21 and Generalized anxiety disorder F41.1 [facility] [address] [address] 0904 Sep, Allergic urticaria L50.0 [facility] [id number] [place] [address] 70368- 5861 Aug, [facility] [address] [facility] [id number] [place] [address] 01228- 4014 Aug, Low back pain M54.5 [facility] [id number] [place] [address] 16538- 0715 Aug, Low back pain M54.5 [facility] [id number] [place] [address] 06686- 5216 Aug, [facility] [id number] [address] 3958 Aug, Thoracic neuritis M54.14 [facility] [id number] [place] [address] 42829- 6211 Jul, [facility] [id number] [place] [address] 02847- 6087 Jul, Low back pain M54.5 [facility] [id number] [place] [address] 87734- 4713 Jul, Thoracic neuritis M54.14 [facility] [id number] [place] [address] 36680- 5395 Jul, [facility] [id number] [place] [address] 37629- 0552 Jul, Thoracic neuritis M54.14 [facility] [id number] [place] [address] 07350- 1354 June, [facility] [id number] [place] [address] 31821- 6231 June, Thoracic neuritis M54.14 [facility] [id number] [place] [address] 86026- 7723 May, [facility] [id number] [place] [address] 96800- 0149 May, [facility] [id number] [place] [address] 86247- 3748 Dec, [facility] [id number] [place] [address] 90488- 3508 Dec, [facility] [id number] [place] [address] 75776- 3117 Dec, [facility] [address] [address]- 3471 Dec, [facility] [id number] [place] [address] 24015- 0566 Nov, [facility] [address] [facility] [id number], [place] [address]- 5448 Nov, Thoracic neuritis M54.14 and Low back pain M54.5 [facility] [id number] [place] [address] 93353- 9125 17 Nov, 2015 [facility] [id number] [place] [address] 30695- 3890 26 Oct, 2015 Low back pain M54.5 and Acute upper respiratory infection, unspecified J06.9 [facility] [address] [facility] [id number] [place] [address] 48265- 3919 19 Oct, 2015 [facility] [address] [facility] [id number] [place] [address] 53592- 6001 19 Oct, 2015 [facility] [id number] [place] [address] 66158- 9092 Oct, [facility] [id number] [place] [address] 40079- 3816 Oct, [facility] [id number] [place] [address] 05204- 7283 Sep, Chronic maxillary sinusitis J32.0 and Thoracic neuritis M54.14 [facility] [id number] [place] [address] 42999- 0417 Sep, [facility] [id number] [place] [address] 79460- 2798 Aug, Low back pain M54.5 and Other chronic pain G89.29 [facility] [id number] [place] [address] 56271- 8331 Jul, Low back pain M54.5 and Other chronic pain G89.29 [facility] [id number] [place] [address] 91131- 8791 16 Jul, 2015 [facility] [id number] [place] [address] 63389- 3388 June, [facility] [id number] [place] [address] 23247- 1112 May, Lumbago M54.5 and Sinusitis J32.9 [facility] [id number] [place] [address] 11777- 9957 Apr, Unspecified backache 724.5 and Folliculitis L73.9 [place] [address] 96605- 2315 Mar, URI (upper respiratory infection) J06.9 and Back pain M54.9 [facility] [address] 89948- 5869 Mar, [place] [address] 81820- 2641 Mar, [facility] [facility] [address] 87492- 2936 Feb, Low back pain M54.5 ; Sciatica, unspecified side M54.30 ; Allergic urticaria L50.0 and Folliculitis L73.9 [facility] [address] 73378- 2959 Feb, Visit for suture removal Z48.02 [facility] [id number] [place] [address] 24018- 6547 Feb, [facility] [id number] [place] [address] 50906- 7520 Feb, Rash R21 [facility] [id number] [place] [address] 50576- 3551 Jan, Pharyngitis J02.9 ; Shoulder pain, right M25.511 and Rash R21 [facility] [id number] [place] [address] 62126- 9170 Jan, [facility] [id number] [place] [address] 53126- 0257 Dec, Allergic urticaria L50.0 ; Right shoulder pain M25.511 and Lumbago M54.5 [facility] [id number] [place] [address] 87659- 1852 Dec, Upper respiratory tract infection, unspecified upper respiratory infection J06.9 [facility] [id number] [place] [address] 15977- 8493 Dec, Contact dermatitis L25.9 [facility] [id number] [place] [address] 93927- 1908 Dec, [facility] [id number] [place] [address] 15943- 3982 Dec, Dermatitis L30.9 and Pain in right shoulder M25.511 [facility] [id number] [place] [address] 28590- 9357 Nov, [facility] [id number] [place] [address] 88315- 6056 Nov, Upper respiratory tract infection, unspecified upper respiratory infection J06.9 [facility] [id number] [place] [address] 59513- 3142 Oct, [facility] [id number] [place] [address] 38970- 3750 Oct, [facility] [id number] [place] [address] 02349- 8930 Oct, [facility] [id number] [place] [address] 24941- 0951 Sep, Back pain 724.5 [facility] [id number] [place] [address] 60475- 5300 Sep, Back pain 724.5 [facility] [id number] [place] [address] 54594- 7751 Sep, [facility] [id number] [place] [address] 47036- 7871 Aug, [facility] [place] [facility] [address] [id number] [place] [address]- 7737 Aug, [facility] [place] [facility] [address] [id number] [place] [address]- 2040 Jul, Back pain 724.5 [facility] [place] [facility] [address] [id number] [place] [address]- 3984 Jul, [facility] [place] [facility] [address] [id number] [place] [address]- 6355 June, [facility] [place] [facility] [address] [id number] [place] [address]- 0780 May, [facility] [place] [facility] [address] [id number] [place] [address]- 6407 May, [facility] [place] [facility] [address] [id number] [place] [address]- 2973 Apr, [facility] [place] [facility] [address] [id number] [place] [address]- 2057 Apr, [facility] [place] [facility] [address] [id number] [place] [address]- 2872 Feb, [facility] [place] [facility] [address] [id number] [place] [address]- 6641 Feb, [facility] [place] [facility] [address] [id number] [place] [address]- 8179 Dec, [facility] [place] [facility] [address] [id number], [place] [address]- 2022 Dec, [facility] [place] [facility] [address] [id number] [place] [address]- 4365 Nov, [facility] [place] [facility] [address] [id number] [place] [address]- 7775 Nov, [facility] [place] [facility] [address] [id number] [place] [address]- 2433 Feb, [facility] [place] [facility] [id number], [place] [address]- 9754 Feb, [facility] [address] [place] [address]- 3839 Sep, [facility] [id number], [place] [address]- 0087 Apr, [facility] [address], [place] [address]- 1810 Apr, [facility] [address], [place] [address]- 4075 Mar, [facility] [id number] [place] [address] 89107- 3536 Mar, [facility] [address], [place] [address]- 2535 Mar, [facility] [address], [place] [address]- 3811 Sep, IMMUNIZATIONS No Known Immunizations SOCIAL HISTORY Never Assessed REASON FOR VISIT Pain Management Consult -[facility] PLAN OF CARE Activity Details Follow Up 4 Weeks Reason:anxiety / chronic pain VITAL SIGNS Height 70 in 2017-05-31 Weight 146 lbs 2017-05-31 Temperature 98.1 degrees Fahrenheit 2017-05-31 Heart Rate 106 bpm 2017-05-31 Respiratory Rate 20 2017-05-31 BMI 20.95 kg/m2 2017-05-31 Blood pressure systolic 128 mmHg 2017-05-31 Blood pressure diastolic 78 mmHg 2017-05-31 MEDICATIONS Medication Instructions Dosage Frequency Start Date End Date Duration Status Robaxin 500 mg Orally 3 times a day 2 tablets 8h May, June, 30 day(s) Active Ibuprofen 800 MG Orally Three times a day 1 tablet with food or milk as needed 8h May, Active Cymbalta 30 MG Orally Once a day 1 capsule 24h May, 30 day(s) Active ProAir HFA 108 (90 Base) MCG/ACT Inhalation every 6 hrs for shortness of breath/cough 2 puffs as needed Active Gabapentin 800 MG Orally 3 times a day 1 capsule 8h May, 30 day (s) Active RESULTS No Results PROCEDURES No Known procedures INSTRUCTIONS MEDICATIONS ADMINISTERED No Known Medications MEDICAL (GENERAL) HISTORY Type Description Date Medical History frequent ear infections Medical History gets 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 redding did injections down his spine, adn Epidurals
--- OUTSIDE RECORDS SUMMARY | 2018-04-01 20:21 | XMS REPORT ---
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 Name Role Phone MOUNA LAKE Unavailable PROBLEMS Type Condition ICD9-CM Code UIL30-UM Code Onset Dates Condition Status SNOMED Code Problem Dysthymic disorder F34.1 Active 18515156 Problem Generalized anxiety disorder F41.1 Active 92126888 Problem Acute upper respiratory infection, unspecified J06.9 Active 79977918 Problem Low back pain M54.5 Active 357271271 Problem Adjustment disorder with depressed mood F43.21 Active 16256762 Problem Anxiety F41.9 Active 85647949 ALLERGIES No Information ENCOUNTERS Encounter Location Date Diagnosis [facility] [id number] [place] [address] 47166- 6282 Sep, [facility] [id number] [place] [address] 79407- 9614 Aug, [facility] [id number] [place] [address] 05875- 8761 Aug, Thoracic neuritis M54.14 [facility] [id number] [place] [address] 21792- 4608 Jul, Low back pain M54.5 [facility] [id number] [place] [address] 20154- 3420 June, Low back pain M54.5 [facility] [id number] [place] [address] 94487- 3496 May, Low back pain M54.5 and Generalized anxiety disorder F41.1 [facility] [id number] [place] [address] 21246- 8023 May, [facility] [address] [place] [address]- 4565 May, Generalized anxiety disorder F41.1 [facility] [address] 11009- 1206 May, Low back pain M54.5 and Anxiety F41.9 [facility] [id number] [place] [address] 18286- 0087 Apr, [facility] [address] 41977- 4435 Mar, Low back pain M54.5 [facility] [id number] [place] [address] 55060- 6335 Mar, Low back pain M54.5 [facility] [id number] [place] [address] 72413- 7321 Feb, Ganglion, left wrist M67.432 [facility] [address] 85123- 6146 Feb, Low back pain M54.5 [facility] [address] 85177- 8769 Feb, Low back pain M54.5 [facility] [id number] [place] [address] 70442- 8365 Feb, [facility] [id number] [place] [address] 81575- 3289 Feb, Low back pain M54.5 and Bronchitis J40 [facility] [id number] [place] [address] 42298- 1341 Feb, Low back pain M54.5 [facility] [address] 32949- 0510 Jan, [facility] [id number] [place] [address] 49061- 2095 Jan, Low back pain M54.5 [facility] [id number] [place] [address] 65232- 8327 Jan, Low back pain M54.5 ; Anxiety F41.9 and Ganglion, left wrist M67.432 [facility] [id number] [place] [address] 76782- 5353 Dec, Low back pain M54.5 [facility] [id number] [place] [address] 60899- 2190 Dec, Ganglion, left wrist M67.432 [facility] [address] 28738- 2862 Nov, Ganglion, left wrist M67.432 and Anxiety F41.9 [facility] [id number] [place] [address] 43409- 2137 Nov, Low back pain M54.5 [facility] [id number] [place] [address] 75484- 0487 Nov, [facility] [id number] [place] [address] 67766- 6827 Nov, [facility] [id number] [place] [address] 97918- 0636 Nov, [facility] [id number] [place] [address] 87739- 4434 Oct, Anxiety F41.9 [facility] [id number] [place] [address] 99581- 7812 Oct, Low back pain M54.5 [facility] [id number] [place] [address] 80808- 7741 Oct, [facility] [address] 71165- 8060 07 Oct, 2016 [facility] [id number] [place] [address] 46712- 1658 06 Oct, 2016 Adjustment disorder with depressed mood F43.21 and Generalized anxiety disorder F41.1 [facility] [address] [place] [address]- 6562 Sep, Adjustment disorder with depressed mood F43.21 and Generalized anxiety disorder F41.1 [facility] [id number] [place] [address] 69809- 4436 Sep, [facility] [place] [address] [place] [id number] [place] [address] Sep [facility] [id number] [place] [address] 91025- 0921 Sep, Anxiety F41.9 [facility] [id number] [place] [address] 04209- 0355 Sep, Low back pain M54.5 [facility] [id number] [place] [address] 97526- 1496 Sep, Adjustment disorder with depressed mood F43.21 and Generalized anxiety disorder F41.1 [facility] [id number] [place] [address] 82173- 1708 Sep, Allergic urticaria L50.0 [facility] [id number] [place] [address] 63991- 8591 Aug, [facility] [id number] [place] [address] 59194- 0876 Aug, Low back pain M54.5 [facility] [id number] [place] [address] 85654- 7549 Aug, Low back pain M54.5 [facility] [id number] [place] [address] 26622- 3796 Aug, [facility] [id number] [place] [address] 76684- 5278 Aug, Thoracic neuritis M54.14 [facility] [id number] [place] [address] 99244- 4009 Jul, [facility] [id number] [place] [address] 25266- 3398 Jul, Low back pain M54.5 [facility] [address] [facility] [address] [id number] [address] 0989 Jul, Thoracic neuritis M54.14 [facility] [address] [facility] [id number] [place] [address] 52389- 3203 Jul, [facility] [id number] [place] [address] 60164- 7657 Jul, Thoracic neuritis M54.14 [facility] [address] [facility] [id number] [place] [address] 19672- 5846 June, [facility] [id number] [place] [address] 17547- 6012 June, Thoracic neuritis M54.14 [facility] [id number] [place] [address] 84735- 3937 May, [facility] [id number] [place] [address] 38806- 5988 May, [facility] [id number] [place] [address] 36883- 2352 Dec, [facility] [id number] [place] [address] 94592- 2106 Dec, [facility] [address] [address]- 2863 Dec, [facility] [id number] [place] [address] 06275- 9880 Dec, [facility] [id number] [address]- 9514 Nov, [facility] [id number] [place] [address] 08515- 0404 Nov, Thoracic neuritis M54.14 and Low back pain M54.5 [facility] [id number] [address]- 4455 Nov, [facility] [address] [place] [address]- 1480 26 Oct, 2015 Low back pain M54.5 and Acute upper respiratory infection, unspecified J06.9 [facility] [address] [place] [address] 72570- 3118 19 Oct, 2015 [facility] [id number] [place] [address] 28444- 7072 Oct, [facility] [id number] [place] [address] 04643- 9810 Oct, [facility] [id number] [place] [address] 96656- 6931 Oct, [facility] [id number] [place] [address] 56960- 1153 Sep, Chronic maxillary sinusitis J32.0 and Thoracic neuritis M54.14 [facility] [id number] [place] [address] 43842- 3345 Sep, [facility] [id number] [place] [address] 40300- 6188 Aug, Low back pain M54.5 and Other chronic pain G89.29 [facility] [id number] [place] [address] 32994- 1226 Jul, Low back pain M54.5 and Other chronic pain G89.29 [facility] [address] [place] [address] 79148- 1877 Jul, [facility] [address] [place] [address] 87311- 6967 June, [facility] [id number] [place] [address] 45753- 5176 May, Lumbago M54.5 and Sinusitis J32.9 [facility] [address] [place] [address] 99036- 3471 Apr, Unspecified backache 724.5 and Folliculitis L73.9 [id number] [place] [address] 61843- 6943 Mar, URI (upper respiratory infection) J06.9 and Back pain M54.9 [facility] [id number] [place] [address] 61131- 3585 05 Mar, 2015 [place] [address] 63915- 3427 Mar, [facility] [place] [address] 45466- 8335 Feb, Low back pain M54.5 ; Sciatica, unspecified side M54.30 ; Folliculitis L73.9 and Allergic urticaria L50.0 [place] [address] 20211- 7515 Feb, Visit for suture removal Z48.02 [facility] [id number] [place] [address] 28260- 9835 Feb, [facility] [address] 59086- 5071 Feb, Rash R21 [facility] [id number] [place] [address] 10964- 1150 16 Jan, 2015 Pharyngitis J02.9 ; Shoulder pain, right M25.511 and Rash R21 [place] [id number] [place] [address] 38885- 5049 Jan, [facility] [id number] [place] [address] 26394- 1307 Dec, Allergic urticaria L50.0 ; Right shoulder pain M25.511 and Lumbago M54.5 [facility] [id number] [place] [address] 63356- 6272 24 Dec, 2014 Upper respiratory tract infection, unspecified upper respiratory infection J06.9 [place] [address] [place] [address]- 5438 Dec, Contact dermatitis L25.9 [facility] [id number] [place] [address] 52865- 1248 Dec, [facility] [id number] [place] [address] 59931- 4141 Dec, Dermatitis L30.9 and Pain in right shoulder M25.511 [facility] [id number] [place] [address] 86216- 5684 Nov, [facility] [address] [place] [address] 79280- 9185 Nov, Upper respiratory tract infection, unspecified upper respiratory infection J06.9 [facility] [address] [place] [address] 75927- 2514 Oct, [facility] [id number] [place] [address] 18996- 8462 Oct, [facility] [address] [place] [address] 46123- 8602 Oct, [facility] [id number] [place] [address] 17164- 8578 Sep, Back pain 724.5 [facility] [address] [place] [address] 22805- 6146 Sep, Back pain 724.5 [facility] [address] [place] [address] 00921- 0799 Sep, [facility] [address] [address]- 7012 Aug, [facility] [id number] [place] [address] 80873- 6954 Aug, [facility] [address] [place] [address] 43450- 8004 Jul, Back pain 724.5 [facility] [id number] [place] [address] [place] [address]- 7978 Jul, [facility] [place] [facility] [address] [id number] [place] [address]- 1272 June, [facility] [place] [facility] [address] [id number] [place] [address]- 5173 May, [facility] [place] [facility] [address] [id number] [place] [address]- 8143 May, [facility] [place] [facility] [address] [id number] [place] [address]- 0392 Apr, [facility] [place] [facility] [address] [id number] [place] [address]- 4978 Apr, [facility] [place] [facility] [address] [id number] [place] [address]- 9120 Feb, [facility] [place] [facility] [address] [id number] [place] [address]- 4425 Feb, [facility] [place] [facility] [address] [id number] [place] [address]- 3695 Dec, [facility] [place] [facility] [address] [id number] [place] [address]- 5293 Dec, [facility] [place] [facility] [address] [facility] [address] [id number] [place] [address]- 0533 Nov, [facility] [place] [facility] [address] [id number] [place] [address]- 4465 Nov, [facility] [place] [facility] [address] [id number] [place] [address]- 1149 Feb, [facility] [place] [facility] [address] [id number] [place] [address]- 2768 Feb, [facility] [place] [facility] [address] [id number] [place] [address]- 6644 Sep, [facility] [place] [facility] [address] [id number] [place] [address]- 5900 Apr, [facility] [place] [facility] [address] [facility] [id number] [address]- 2546 Apr, [facility] [id number] [address]- 6386 Mar, [facility] [id number] [address]- 4346 Mar, [facility] [id number] [address] 2546 Mar, [facility] [address] [facility] [address] [id number], [place] [address]- 6960 Sep, IMMUNIZATIONS No Known Immunizations SOCIAL HISTORY Never Assessed REASON FOR VISIT Pain Management Consult PLAN OF CARE VITAL SIGNS MEDICATIONS Unknown Medications RESULTS No Results PROCEDURES No Known procedures INSTRUCTIONS MEDICATIONS ADMINISTERED No Known Medications MEDICAL (GENERAL) HISTORY Type Description Date Medical History frequent ear infections 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
--- OUTSIDE RECORDS SUMMARY | 2018-04-01 20:21 | XMS REPORT ---
Author Author MOUNA LAKE Organization [facility] Address [address] [place] [address] Care Team Providers Care Feed Management Advisor Name Role Phone MOUNA LAKE Unavailable PROBLEMS Type Condition ICD9-CM Code [id number] Code Onset Dates Condition Status SNOMED Code Problem Dysthymic disorder F34.1 Active 57562599 Problem Generalized anxiety disorder F41.1 Active 86039811 Problem Acute upper respiratory infection, unspecified J06.9 Active 83225816 Problem Low back pain M54.5 Active 524835238 Problem Adjustment disorder with depressed mood F43.21 Active 66551405 Problem Anxiety F41.9 Active 93248377 ALLERGIES No Known Allergies ENCOUNTERS Encounter Location Date Diagnosis [facility] [id number] [place] [address] 60688- 3766 Oct, [facility] [id number] [place] [address] 30934- 6032 Sep, Thoracic neuritis M54.14 [facility] [id number] [place] [address] 30549- 5160 Sep, [facility] [id number] [place] [address] 47657- 5733 Sep, Thoracic neuritis M54.14 and Acute recurrent maxillary sinusitis J01.01 [facility] [id number] [place] [address] 54979- 7547 Aug, [facility] [id number] [place] [address] 83684- 6293 Aug, Thoracic neuritis M54.14 [facility] [id number] [place] [address] 22968- 6049 Jul, Low back pain M54.5 [facility] [id number] [place] [address] 1602 June, Low back pain M54.5 [facility] [id number] [place] [address] 68695- 7187 May, Low back pain M54.5 and Generalized anxiety disorder F41.1 [facility] [id number] [place] [address] 21998- 2304 May, [facility] [address] 37967- 7789 May, Generalized anxiety disorder F41.1 [facility] [address] 20321- 5051 May, Low back pain M54.5 and Anxiety F41.9 [facility] [id number] [place] [address] 84134- 9793 Apr, [facility] [address] 78710- 1489 Mar, Low back pain M54.5 [facility] [id number] [place] [address] 95619- 5754 Mar, Low back pain M54.5 [facility] [id number] [place] [address] 24791- 1717 Feb, Ganglion, left wrist M67.432 [facility] [id number] [place] [address] 14512- 0201 Feb, Low back pain M54.5 [facility] [id number] [place] [address] 17150- 0765 Feb, Low back pain M54.5 [facility] [id number] [place] [address] 81541- 1365 Feb, [facility] [id number] [place] [address] 23807- 6377 Feb, Low back pain M54.5 and Bronchitis J40 [facility] [id number] [place] [address] 36115- 3943 Feb, Low back pain M54.5 [facility] [id number] [place] [address] 02349- 2536 Jan, [facility] [id number] [place] [address] 19620- 3978 Jan, Low back pain M54.5 [facility] [id number] [place] [address] 61302- 7034 Jan, Low back pain M54.5 ; Anxiety F41.9 and Ganglion, left wrist M67.432 [facility] [id number] [place] [address] 36778- 9878 Dec, Low back pain M54.5 [facility] [id number] [place] [address] 34069- 0313 Dec, Ganglion, left wrist M67.432 [facility] [id number] [place] [address] 77525- 7832 Nov, Ganglion, left wrist M67.432 and Anxiety F41.9 [facility] [id number] [place] [address] 99221- 6524 Nov, Low back pain M54.5 [facility] [id number] [place] [address] 80720- 0461 Nov, [facility] [id number] [place] [address] 46908- 3711 Nov, [facility] [id number] [place] [address] 49642- 3419 Nov, [facility] [id number] [place] [address] 39504- 5244 Oct, Anxiety F41.9 [facility] [id number] [place] [address] 01135- 0086 Oct, Low back pain M54.5 [facility] [id number] [address] 9313 Oct, [facility] [id number] [place] [address] 69708- 3786 Oct, [facility] [id number] [place] [address] 08819- 3767 Oct, Adjustment disorder with depressed mood F43.21 and Generalized anxiety disorder F41.1 [facility] [id number] [place] [address] 34150- 5537 Sep, Adjustment disorder with depressed mood F43.21 and Generalized anxiety disorder F41.1 [facility] [id number] [place] [address] 42565- 4729 Sep, [facility] [id number] [address] Sep [facility] [id number] [place] [address] 30173- 5862 Sep, Anxiety F41.9 [facility] [id number] [place] [address] 43162- 5260 Sep, Low back pain M54.5 [facility] [id number] [place] [address] 07833- 4761 Sep, Adjustment disorder with depressed mood F43.21 and Generalized anxiety disorder F41.1 [facility] [id number] [place] [address] 10033- 1343 Sep, Allergic urticaria L50.0 [facility] [id number] [place] [address] 63379- 1534 Aug, [facility] [id number] [place] [address] 54621- 8394 Aug, Low back pain M54.5 [facility] [id number] [place] [address] 51018- 9244 Aug, Low back pain M54.5 [facility] [id number] [address] 0537 Aug, [facility] [id number] [place] [address] 00683- 5201 Aug, Thoracic neuritis M54.14 [facility] [id number] [address] 0253 Jul, [facility] [id number] [place] [address] 97775- 9011 Jul, Low back pain M54.5 [facility] [id number] [place] [address], [place] [address] 3821 Jul, Thoracic neuritis M54.14 [facility] [id number] [place] [address], [place] [address]- 6213 Jul, [facility] [id number] [place] [address] 47815- 4860 Jul, Thoracic neuritis M54.14 [facility] [id number] [place] [address] 62090- 2434 June, [facility] [id number] [place] [address] 27894- 5402 June, Thoracic neuritis M54.14 [facility] [id number] [address]- 7559 May, [facility] [id number] [address]- 3655 May, [facility] [id number] [address]- 3656 Dec, [facility] [id number] [place] [address] 26216- 1594 Dec, [facility] [address] [facility] [id number] [address] 8995 Dec, [facility] [id number] [place] [address] 23925- 5486 Dec, [facility] [id number] [place] [address] 51267- 0123 Nov, [facility] [id number] [place] [address] 49945- 5802 Nov, Thoracic neuritis M54.14 and Low back pain M54.5 [facility] [id number] [place] [address] 47718- 2322 Nov, [facility] [id number] [place] [address] 15757- 5409 Oct, Low back pain M54.5 and Acute upper respiratory infection, unspecified J06.9 [facility] [id number] [place] [address] 32227- 2262 Oct, [facility] [id number] [place] [address] 50482- 6679 Oct, [facility] [id number] [place] [address] 10539- 0834 Oct, [facility] [id number] [place] [address] 93069- 7950 Oct, [facility] [id number] [place] [address] 11044- 9243 Sep, Chronic maxillary sinusitis J32.0 and Thoracic neuritis M54.14 [facility] [id number] [place] [address] 19583- 4889 Sep, [facility] [id number] [place] [address] 80282- 3774 Aug, Low back pain M54.5 and Other chronic pain G89.29 [facility] [id number] [place] [address] 33532- 3960 Jul, Low back pain M54.5 and Other chronic pain G89.29 [facility] [id number] [place] [address] 79601- 2644 Jul, [facility] [id number] [place] [address] 78942- 6941 June, [facility] [id number] [place] [address] 20171- 1772 May, Lumbago M54.5 and Sinusitis J32.9 [facility] [id number] [place] [address] 09222- 7135 Apr, Unspecified backache 724.5 and Folliculitis L73.9 [facility] [id number] [place] [address] 64097- 5774 Mar, URI (upper respiratory infection) J06.9 and Back pain M54.9 [facility] [id number] [place] [address] 77460- 6444 Mar, [facility] [address] 73290- 5124 Mar, [facility] [id number] [place] [address] 40072- 5673 Feb, Low back pain M54.5 ; Sciatica, unspecified side M54.30 ; Folliculitis L73.9 and Allergic urticaria L50.0 [facility] [id number] [place] [address] 57694- 6339 Feb, Visit for suture removal Z48.02 [facility] [id number] [place] [address] 64076- 4818 Feb, [facility] [id number] [place] [address] 00429- 8729 Feb, Rash R21 [facility] [place] [id number] [place] [address] 41096- 6443 16 Jan, 2015 Pharyngitis J02.9 ; Shoulder pain, right M25.511 and Rash R21 [facility] [place] [id number] [place] [address] 10770- 1043 Jan, [facility] [address], [place] [address]- 9099 Dec, Allergic urticaria L50.0 ; Right shoulder pain M25.511 and Lumbago M54.5 [facility] [id number] [address]- 7121 Dec, Upper respiratory tract infection, unspecified upper respiratory infection J06.9 [facility] [id number] [place] [address] 02628- 5847 Dec, Contact dermatitis L25.9 [facility] [id number] [place] [address] 97258- 3674 Dec, [facility] [id number] [place] [address] 68840- 5871 Dec, Dermatitis L30.9 and Pain in right shoulder M25.511 [facility] [id number] [place] [address] 88993- 2838 Nov, [facility] [id number] [place] [address] 84680- 0422 Nov, Upper respiratory tract infection, unspecified upper respiratory infection J06.9 [facility] [id number] [place] [address] 64345- 7725 Oct, [facility] [id number] [place] [address] 60525- 8496 Oct, [facility] [id number] [place] [address] 24131- 6990 Oct, [facility] [id number] [place] [address] 96350- 7308 Sep, Back pain 724.5 [facility] [id number] [place] [address] 66210- 3857 Sep, Back pain 724.5 [facility] [id number] [place] [address] 54938- 2688 Sep, [facility] [place] [facility] [address] [id number] [place] [address]- 6242 Aug, [facility] [place] [facility] [address] [id number] [place] [address]- 1182 Aug, [facility] [place] [facility] [address] [id number] [place] [address]- 7941 Jul, Back pain 724.5 [facility] [place] [facility] [address] [id number] [place] [address]- 2522 Jul, [facility] [place] [facility] [address] [id number] [place] [address]- 2940 June, [facility] [place] [facility] [address] [id number] [place] [address]- 6839 May, [facility] [place] [facility] [address] [id number] [place] [address]- 9635 May, [facility] [place] [facility] [address] [id number] [place] [address]- 2995 Apr, [facility] [place] [facility] [address] [id number] [place] [address]- 4979 Apr, [facility] [place] [facility] [address] [id number] [place] [address]- 5511 Feb, [facility] [place] [facility] [address] [id number] [place] [address]- 9896 Feb, [facility] [place] [facility] [address] [id number] [place] [address]- 5124 Dec, [facility] [place] [facility] [address] [id number] [place] [address]- 3344 Dec, [facility] [place] [facility] [address] [id number] [place] [address]- 2965 Nov, [facility] [place] [facility] [address] [id number] [place] [address]- 9379 Nov, [facility] [place] [facility] [id number] [address]- 1716 Feb, [facility] [id number] [address]- 3196 Feb, [facility] [id number] [address]- 0656 Sep, [facility] [id number] [place] [address]- 1316 Apr, [facility] [id number] [place] [address]- 2546 Apr, [facility] [id number] [address]- 8586 Mar, [facility] [id number] [place] [address] 2546 Mar, [facility] [id number] [place] [address]- 2646 Mar, [facility] [id number] [address]- 9716 Sep, IMMUNIZATIONS Vaccine Route Administration Date Status TORADOL (IM) 60 MG/2ML (UP TO 15 MG) IM Intramuscular July 14, 2017 Administered SOCIAL HISTORY Never Assessed REASON FOR VISIT Pain Management, reports sore since pain medications taken away for his back. CBRumbackRN PLAN OF CARE VITAL SIGNS Height 70 in 2017-07-14 Weight 143.2 lbs 2017-07-14 Temperature 98.9 degrees Fahrenheit 2017-07-14 Heart Rate 100 bpm 2017-07-14 Respiratory Rate 20 2017-07-14 BMI 20.54 kg/m2 2017-07-14 Blood pressure systolic 128 mmHg 2017-07-14 Blood pressure diastolic 76 mmHg 2017-07-14 MEDICATIONS Medication Instructions Dosage Frequency Start Date End Date Duration Status Cymbalta 30 MG Orally Once a day 1 capsule 24h May, 30 day(s) Not-Taking Ibuprofen 800 MG Orally Three times a day 1 tablet with food or milk as needed 8h May, Not-Taking Meloxicam 7.5 MG Orally 2 times a day 1 tablet 12h Jul, Active Robaxin 500 mg Orally 3 times a day 2 tablets 8h 30 Active Nabumetone 500 mg Orally 3 times a day 1 tablet 8h June, Aug, 30 day(s) Active ProAir HFA 108 (90 Base) MCG/ACT Inhalation every 6 hrs for shortness of breath/cough 2 puffs as needed Active Gabapentin 800 MG Orally 3 times a day 1 capsule 8h May, 30 day (s) Active RESULTS No Results PROCEDURES Procedure Date Ordered Result Body Site TORADOL (IM) 60 MG/2ML (UP TO 15 MG) July 14, 2017 THER/PROPH/DIAG INJ, SC/IM July 14, 2017 INSTRUCTIONS MEDICATIONS ADMINISTERED No Known Medications MEDICAL (GENERAL) HISTORY Type Description Date Medical History frequent ear infections Medical 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 redding did injections down his spine, adn Epidurals
--- OUTSIDE RECORDS SUMMARY | 2018-04-01 20:21 | XMS REPORT ---
Author Author MOUNA LAKE Organization [facility] Address [address] [place] [address] Care Team Providers Care New Business Clerk Name Role Phone MOUNA LAKE Unavailable PROBLEMS Type Condition ICD9-CM Code XHT32-YE Code Onset Dates Condition Status SNOMED Code Problem Dysthymic disorder F34.1 Active 02151083 Problem Generalized anxiety disorder F41.1 Active 30004911 Problem Acute upper respiratory infection, unspecified J06.9 Active 56313807 Problem Low back pain M54.5 Active 357386552 Problem Adjustment disorder with depressed mood F43.21 Active 69858334 Problem Anxiety F41.9 Active [id number] ALLERGIES No Known Allergies ENCOUNTERS Encounter Location Date Diagnosis [facility] [id number] [place] [address] 85390- 1197 Oct, [facility] [id number] [place] [address] 81157- 8432 Sep, [facility] [id number] [place] [address] 46462- 4210 Sep, Thoracic neuritis M54.14 and Acute recurrent maxillary sinusitis J01.01 [facility] [id number] [place] [address] 42504- 9762 Aug, [facility] [id number] [place] [address] 57424- 2763 Aug, Thoracic neuritis M54.14 [facility] [id number] [place] [address] 91579- 7333 Jul, Low back pain M54.5 [facility] [id number] [place] [address] 93781- 2122 June, Low back pain M54.5 [facility] [address] [place] [address] 3579 May, Low back pain M54.5 and Generalized anxiety disorder F41.1 [facility] [id number] [place] [address] 35304- 8275 May, [facility] [id number] [place] [address] 35883- 7335 May, Generalized anxiety disorder F41.1 [facility] [id number] [place] [address] 00548- 5692 May, Low back pain M54.5 and Anxiety F41.9 [facility] [address] 83728- 2397 Apr, [facility] [place] [id number] [place] [address] 10803- 2665 Mar, Low back pain M54.5 [facility] [id number] [place] [address] 17784- 8035 Mar, Low back pain M54.5 [facility] [id number] [place] [address] 56286- 9611 Feb, Ganglion, left wrist M67.432 [facility] [id number] [place] [address] 74837- 5213 Feb, Low back pain M54.5 [facility] [id number] [place] [address] 75535- 4033 Feb, Low back pain M54.5 [facility] [id number] [place] [address] 50842- 9629 Feb, [facility] [address] 27921- 9852 Feb, Low back pain M54.5 and Bronchitis J40 [facility] [id number] [place] [address] 13285- 5402 Feb, Low back pain M54.5 [facility] [address] [facility] [id number] [address] 9925 Jan, [facility] [address] [facility] [id number] [place] [address] 75769- 7996 Jan, Low back pain M54.5 [facility] [address] [facility] [id number] [place] [address] 77068- 2696 Jan, Low back pain M54.5 ; Anxiety F41.9 and Ganglion, left wrist M67.432 [facility] [address] [facility] [id number] [place] [address] 59531- 0966 15 Dec, 2016 Low back pain M54.5 [facility] [id number] [place] [address] 77968- 7506 Dec, Ganglion, left wrist M67.432 [facility] [id number] [place] [address] 82519- 1356 Nov, Ganglion, left wrist M67.432 and Anxiety F41.9 [facility] [id number] [place] [address] 49436- 5571 Nov, Low back pain M54.5 [facility] [id number] [place] [address] 21416- 8516 18 Nov, 2016 [facility] [id number] [place] [address] 93429- 1709 16 Nov, 2016 [facility] [id number] [place] [address] 36380- 9750 Nov, [facility] [id number] [place] [address] 56008- 7622 Oct, Anxiety F41.9 [facility] [address] [facility] [id number] [place] [address] 42977- 1816 Oct, Low back pain M54.5 [facility] [id number] [place] [address] 48255- 6686 Oct, [facility] [address] [place] [address]- 9854 Oct, [facility] [address] [facility] [id number] [place] [address] 13705- 6341 Oct, Adjustment disorder with depressed mood F43.21 and Generalized anxiety disorder F41.1 [facility] [id number] [place] [address] 38627- 1309 Sep, Adjustment disorder with depressed mood F43.21 and Generalized anxiety disorder F41.1 [facility] [address] [facility] [id number] [place] [address] 09144- 8106 Sep, [address] [id number] [place] [address] Sep [facility] [id number] [place] [address] 07049- 7750 Sep, Anxiety F41.9 [facility] [id number] [place] [address] 24090- 0996 Sep, Low back pain M54.5 [facility] [id number] [place] [address] 42960- 0346 Sep, Adjustment disorder with depressed mood F43.21 and Generalized anxiety disorder F41.1 [facility] [id number] [place] [address] 82176- 2710 Sep, Allergic urticaria L50.0 [facility] [id number] [place] [address] 47671- 6313 Aug, [facility] [address] [facility] [id number] [place] [address] 72418- 5026 Aug, Low back pain M54.5 [facility] [id number] [place] [address] 59636- 2953 Aug, Low back pain M54.5 [facility] [id number] [place] [address] 83608- 1308 Aug, [facility] [id number] [place] [address] 03224- 5705 Aug, Thoracic neuritis M54.14 [facility] [id number] [place] [address] 59758- 7805 Jul, [facility] [id number] [place] [address] 16791- 5634 Jul, Low back pain M54.5 [facility] [id number] [place] [address] 12006- 1561 Jul, Thoracic neuritis M54.14 [facility] [id number] [place] [address] 01471- 8292 Jul, [facility] [id number] [place] [address] 47917- 4175 Jul, Thoracic neuritis M54.14 [facility] [id number] [place] [address] 01988- 8031 June, [facility] [id number] [place] [address] 08778- 8284 June, Thoracic neuritis M54.14 [facility] [id number] [place] [address] 32177- 8496 May, [facility] [id number] [place] [address] 92983- 7667 May, [facility] [id number] [place] [address] 18567- 1602 Dec, [facility] [id number] [place] [address] 06724- 8550 Dec, [facility] [id number] [place] [address] 03648- 5788 Dec, [facility] [id number] [place] [address] 63688- 9617 Dec, [facility] [id number] [place] [address] 87048- 4688 Nov, [facility] [address] [facility] [id number] [place] [address] 86961- 2830 Nov, Thoracic neuritis M54.14 and Low back pain M54.5 [facility] [id number] [place] [address] 08345- 7620 17 Nov, 2015 [facility] [id number] [place] [address] 63484- 2598 26 Oct, 2015 Low back pain M54.5 and Acute upper respiratory infection, unspecified J06.9 [facility] [address] [facility] [id number] [place] [address] 79560- 8826 19 Oct, 2015 [facility] [address] [facility] [id number] [place] [address] 42936- 9598 19 Oct, 2015 [facility] [id number] [place] [address] 37083- 5941 19 Oct, 2015 [facility] [id number] [place] [address] 29411- 6517 Oct, [facility] [id number] [place] [address] 48398- 1316 Sep, Chronic maxillary sinusitis J32.0 and Thoracic neuritis M54.14 [facility] [id number] [place] [address] 64825- 8361 Sep, [facility] [id number] [place] [address] 51922- 5580 Aug, Low back pain M54.5 and Other chronic pain G89.29 [facility] [id number] [place] [address] 79751- 1441 Jul, Low back pain M54.5 and Other chronic pain G89.29 [facility] [id number] [place] [address] 28032- 6970 16 Jul, 2015 [facility] [id number] [place] [address] 19093- 1717 June, [facility] [id number] [place] [address] 93148- 2678 May, Lumbago M54.5 and Sinusitis J32.9 [place] [id number] [place] [address] 01288- 9259 Apr, Unspecified backache 724.5 and Folliculitis L73.9 [place] [address] 61207- 3690 Mar, URI (upper respiratory infection) J06.9 and Back pain M54.9 [place] [address] 33103- 6763 Mar, [place] [address] 20422- 2910 Mar, [place] [address] 70223- 8227 Feb, Low back pain M54.5 ; Sciatica, unspecified side M54.30 ; Folliculitis L73.9 and Allergic urticaria L50.0 [place] [address] 78998- 8021 Feb, Visit for suture removal Z48.02 [place] [id number] [place] [address] 47931- 9483 Feb, [place] [address] 43345- 5639 Feb, Rash R21 [place] [id number] [place] [address] 32893- 9193 Jan, Pharyngitis J02.9 ; Shoulder pain, right M25.511 and Rash R21 [place] [id number] [place] [address] 90516- 5820 Jan, [place] [id number] [place] [address] 44939- 5522 Dec, Allergic urticaria L50.0 ; Right shoulder pain M25.511 and Lumbago M54.5 [facility] [id number] [place] [address] 41243- 1224 Dec, Upper respiratory tract infection, unspecified upper respiratory infection J06.9 [facility] [id number] [place] [address] 40015- 3430 Dec, Contact dermatitis L25.9 [facility] [id number] [place] [address] 79073- 0242 Dec, [facility] [id number] [place] [address] 49437- 0863 Dec, Dermatitis L30.9 and Pain in right shoulder M25.511 [facility] [id number] [place] [address] 60840- 4085 Nov, [facility] [id number] [place] [address] 37894- 4651 Nov, Upper respiratory tract infection, unspecified upper respiratory infection J06.9 [facility] [id number] [place] [address] 73525- 6871 Oct, [facility] [id number] [place] [address] 93798- 2602 Oct, [facility] [address] [address]- 7781 Oct, [facility] [id number] [place] [address] 31055- 7666 Sep, Back pain 724.5 [facility] [id number] [place] [address] 97094- 2648 Sep, Back pain 724.5 [facility] [id number] [place] [address] 41442- 5467 Sep, [facility] [address] [address]- 0573 Aug, [facility] [address] [id number] [place] [address]- 0845 16 Aug, 2014 [facility] [place] [facility] [address] [id number] [place] [address]- 0071 Jul, Back pain 724.5 [facility] [place] [facility] [address] [id number] [place] [address]- 6617 Jul, [facility] [place] [facility] [address] [id number] [place] [address]- 1260 June, [facility] [place] [facility] [address] [id number] [place] [address]- 8802 May, [facility] [place] [facility] [address] [id number] [place] [address]- 1301 May, [facility] [place] [facility] [address] [facility] [id number] [place] [address]- 5906 Apr, [facility] [place] [facility] [address] [id number] [place] [address]- 8476 Apr, [facility] [place] [facility] [address] [facility] [id number] [place] [address]- 9939 Feb, [facility] [place] [facility] [address] [id number], [place] [address]- 2396 Feb, [facility] [place] [facility] [address] [facility] [id number], [place] [address]- 6589 Dec, [facility] [place] [facility] [address] [id number], [place] [address]- 4578 Dec, [facility] [place] [facility] [address] [id number] [place] [address]- 0625 Nov, [facility] [place] [facility] [address] [id number] [place] [address]- 8411 Nov, [facility] [place] [facility] [address] [facility] [id number], [place] [address]- 4077 Feb, [facility] [place] [facility] [address] [id number], [place] [address]- 9726 Feb, [facility] [id number] [address]- 7307 Sep, [facility] [address] [address]- 9966 Apr, [facility] [id number] [address]- 5936 Apr, [facility] [address] [address]- 2736 Mar, [facility] [address] [address]- 5937 Mar, [facility] [address] [address]- 6886 Mar, [facility] [id number] [address]- 4698 Sep, IMMUNIZATIONS No Known Immunizations SOCIAL HISTORY Never Assessed REASON FOR VISIT Pain management (chronic) -[place] PLAN OF CARE VITAL SIGNS Height 70 in 2017-06-11 Weight 143 lbs 2017-06-11 Temperature 98.2 degrees Fahrenheit 2017-06-11 Heart Rate 96 bpm 2017-06-11 Respiratory Rate 20 2017-06-11 BMI 20.52 kg/m2 2017-06-11 Blood pressure systolic 118 mmHg 2017-06-11 Blood pressure diastolic 74 mmHg 2017-06-11 MEDICATIONS Medication Instructions Dosage Frequency Start Date End Date Duration Status Gabapentin 800 MG Orally 3 times a day 1 capsule 8h May, 30 day (s) Active Robaxin 500 mg Orally 3 times a day 2 tablets 8h May, June, 30 day(s) Active Cymbalta 30 MG Orally Once a day 1 capsule 24h May, 30 day(s) Active Ibuprofen 800 MG Orally Three times a day 1 tablet with food or milk as needed 8h May, Active ProAir HFA 108 (90 Base) MCG/ACT Inhalation every 6 hrs for shortness of breath/cough 2 puffs as needed Active Nabumetone 500 mg Orally 3 times a day 1 tablet 8h June, Aug, 30 day(s) Active RESULTS No Results PROCEDURES No Known procedures INSTRUCTIONS MEDICATIONS ADMINISTERED No Known Medications MEDICAL (GENERAL) HISTORY Type Description Date Medical History frequent ear infections Medical History gets respiratory infections from being around smoke, 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 redding did injections down his spine, adn Epidurals
--- OUTSIDE RECORDS SUMMARY | 2018-04-01 20:22 | XMS REPORT ---
Author MOUNA Mathews Organization [employer] Address Unknown Phone Unavailable Care Team Providers Care Molecular Spectroscopist Name Role Phone [facility] Unavailable Allergies, Adverse Reactions, Alerts Substance Reaction Event Type N.K.D.A. Info Not Available Non Drug Allergy Problems Problem Type Condition Code Onset Dates Condition Status Assessment Low back pain M54.5 Active Assessment Other chronic pain G89.29 Active Problem Influenza with other respiratory manifestations 487.1 Active Problem Unspecified backache 724.5 Active Problem Unspecified otalgia 388.70 Active Problem Lumbago 724.2 Active Problem Acute upper respiratory infections of unspecified site 465.9 Active Problem Cough 786.2 Active Problem Acute sinusitis, unspecified 461.9 Active Medications Medication Code System Code Instructions Start Date End Date Status Dosage Zanaflex [facility] [address]-08 4 MG Orally 2 times a day Sep 29, 2014 1 tablet as needed Sudafed [facility] [address]-60 60 mg Orally 2 times a day Nov 22, 2014 1 tablet as needed [place] [facility] [address]-07 7.5-325 MG Orally 3 times a day May 07, 2014 take 1 tablet [place] [facility] [address]-49 5-325 MG Orally 3 times a day May 07, 2014 take 1 tablet ProAir HFA [facility] [address]-88 108 (90 Base) MCG/ACT Inhalation every 6 hrs for shortness of breath/cough 2 puffs as needed Procedures Procedure Coding System Code Date Office Visit, Est Pt., Level 3 CPT-4 49909 September 02, 2015 Vital Signs Date/Time: September 02, 2015 Cardiac Monitoring Heart Rate 92 bpm Weight 147.1 lbs Height 70 in Blood Pressure Diastolic 78 mmHg Blood Pressure Systolic 142 mmHg Results No Known Results Summary Purpose [employer] Submission
--- OUTSIDE RECORDS SUMMARY | 2018-04-01 20:22 | XMS REPORT ---
Author Author MOUNA LAKE Organization [facility] Address [address] [place] [address] Care Team Providers Care Commercial Review Appraiser Name Role Phone MOUNA LAKE Unavailable PROBLEMS Type Condition ICD9-CM Code CYW11-WF Code Onset Dates Condition Status SNOMED Code Problem Dysthymic disorder F34.1 Active 73850854 Problem Generalized anxiety disorder F41.1 Active 63255923 Problem Acute upper respiratory infection, unspecified J06.9 Active 71369901 Problem Low back pain M54.5 Active 075972790 Problem Adjustment disorder with depressed mood F43.21 Active 91861910 Problem Anxiety F41.9 Active 50986365 ALLERGIES No Information ENCOUNTERS Encounter Location Date Diagnosis [place] [id number] [place] [address] 19025- 4933 Sep, [facility] [id number] [place] [address] 64100- 4893 Aug, Thoracic neuritis M54.14 [facility] [id number] [place] [address] 02568- 8767 Jul, Low back pain M54.5 [facility] [id number] [place] [address] 48221- 8576 June, Low back pain M54.5 [facility] [id number] [place] [address] 62930- 0416 May, Low back pain M54.5 and Generalized anxiety disorder F41.1 [facility] [id number] [place] [address] 00973- 8268 May, [facility] [id number] [place] [address] 56586- 5281 May, Generalized anxiety disorder F41.1 [facility] [address] 21836- 0521 May, Low back pain M54.5 and Anxiety F41.9 [facility] [address] 20113- 3736 Apr, [facility] [address] 61116- 7616 Mar, Low back pain M54.5 [facility] [address] 64903- 7916 Mar, Low back pain M54.5 [facility] [address] 38798- 3996 Feb, Ganglion, left wrist M67.432 [facility] [address] 13423- 1300 Feb, Low back pain M54.5 [facility] [address] 92624- 0635 Feb, Low back pain M54.5 [facility] [address] 96930- 4356 Feb, [facility] [address] 96877- 0755 Feb, Low back pain M54.5 and Bronchitis J40 [facility] [address] 36443- 4431 Feb, Low back pain M54.5 [facility] [id number] [place] [address] 47784- 3796 Jan, [facility] [address] [address] 2546 Jan, Low back pain M54.5 [facility] [id number] [place] [address] 87614- 3226 Jan, Low back pain M54.5 ; Anxiety F41.9 and Ganglion, left wrist M67.432 [facility] [address] [facility] [id number] [place] [address] 15097 2546 Dec, Low back pain M54.5 [facility] [address] [facility] [id number] [place] [address] 94750 2546 Dec, Ganglion, left wrist M67.432 [facility] [address] [id number] [place] [address] 91208 2546 Nov, Ganglion, left wrist M67.432 and Anxiety F41.9 [facility] [address] [facility] [id number] [place] [address] 70693 2546 Nov, Low back pain M54.5 [facility] [address] [facility] [id number] [place] [address] 60738 2546 Nov, [facility] [address] [id number] [place] [address] 29209 2546 Nov, [facility] [address] [facility] [id number] [place] [address] 79455 2546 Nov, [facility] [address] [id number] [place] [address] 68938 2546 Oct, Anxiety F41.9 [facility] [address] [place] [id number] [place] [address] 53412 2546 Oct, Low back pain M54.5 [facility] [address] [place] [address] [id number] [place] [address] 43848 2546 Oct, [facility] [address] [facility] [id number] [place] [address] 66637 2546 Oct, [facility] [address] [place] [id number] [place] [address] 94145 2546 Oct, Adjustment disorder with depressed mood F43.21 and Generalized anxiety disorder F41.1 [facility] [address] [id number] [place] [address] 83273 2546 Sep, Adjustment disorder with depressed mood F43.21 and Generalized anxiety disorder F41.1 [facility] [id number] [address] 6673 Sep, [facility] [place] [address] [address] [id number] [address] Sep [facility] [address] [place] [address] 25920- 6660 Sep, Anxiety F41.9 [facility] [id number] [place] [address] 52396- 0088 Sep, Low back pain M54.5 [facility] [id number] [place] [address] 55338- 4457 Sep, Adjustment disorder with depressed mood F43.21 and Generalized anxiety disorder F41.1 [facility] [id number] [place] [address] 11827- 0587 Sep, Allergic urticaria L50.0 [facility] [id number] [place] [address] 81814- 9373 Aug, [facility] [id number] [place] [address] 47033- 6803 Aug, Low back pain M54.5 [facility] [id number] [place] [address] 34682- 1569 Aug, Low back pain M54.5 [facility] [id number] [place] [address] 44685- 7296 Aug, [facility] [address] [place] [address] 50616- 0345 Aug, Thoracic neuritis M54.14 [facility] [id number] [place] [address] 43874- 0881 Jul, [facility] [address] [place] [address] 92623- 2459 Jul, Low back pain M54.5 [facility] [id number] [place] [address] 76038- 3525 Jul, Thoracic neuritis M54.14 [facility] [id number] [place] [address] 09413- 8577 Jul, [facility] [id number] [place] [address] 44146- 0687 Jul, Thoracic neuritis M54.14 [facility] [id number] [place] [address] 96174- 0292 June, [facility] [address] [place] [id number] [place] [address] 58207- 8952 June, Thoracic neuritis M54.14 [facility] [id number] [place] [address] 54807- 2384 May, [facility] [id number] [place] [address] 14583- 1850 May, [facility] [id number] [place] [address] 50853- 5304 Dec, [facility] [address] [place] [address] 48235- 0000 Dec, [facility] [id number] [place] [address] 62590- 4735 Dec, [facility] [address] [address]- 4131 Dec, [facility] [id number] [place] [address] 68164- 6100 Nov, [facility] [id number] [address]- 3243 Nov, Thoracic neuritis M54.14 and Low back pain M54.5 [facility] [id number] [address]- 7441 Nov, [facility] [address] [address]- 5818 Oct, Low back pain M54.5 and Acute upper respiratory infection, unspecified J06.9 [facility] [id number] [place] [address] 49663- 6460 19 Oct, 2015 [facility] [id number] [place] [address] 25999- 2858 Oct, [facility] [id number] [place] [address] 80331- 4552 Oct, [facility] [id number] [place] [address] 68510- 0986 Oct, [facility] [id number] [place] [address] 38200- 1939 Sep, Chronic maxillary sinusitis J32.0 and Thoracic neuritis M54.14 [facility] [id number] [place] [address] 88951- 8592 Sep, [facility] [id number] [place] [address] 46275- 2753 Aug, Low back pain M54.5 and Other chronic pain G89.29 [facility] [id number] [place] [address] 80076- 1816 Jul, Low back pain M54.5 and Other chronic pain G89.29 [facility] [id number] [place] [address] 99192- 6054 Jul, [facility] [id number] [place] [address] 37793- 7620 June, [facility] [id number] [place] [address] 51976- 4585 May, Lumbago M54.5 and Sinusitis J32.9 [facility] [id number] [place] [address] 43643- 4087 Apr, Unspecified backache 724.5 and Folliculitis L73.9 [facility] [id number] [place] [address] 60229- 9557 Mar, URI (upper respiratory infection) J06.9 and Back pain M54.9 [place] [address] 40712- 2249 Mar, [facility] [id number] [place] [address] 33341- 1286 Mar, [place] [address] 04442- 2524 Feb, Low back pain M54.5 ; Sciatica, unspecified side M54.30 ; Allergic urticaria L50.0 and Folliculitis L73.9 [place] [address] 84094- 6337 Feb, Visit for suture removal Z48.02 [place] [address] 18526- 8659 Feb, [place] [address] 89367- 4357 Feb, Rash R21 [place] [address] 21433- 0318 Jan, Pharyngitis J02.9 ; Shoulder pain, right M25.511 and Rash R21 [place] [address] [place] [id number] [place] [address] 06578- 6488 Jan, [place] [address] 79071- 9095 Dec, Allergic urticaria L50.0 ; Right shoulder pain M25.511 and Lumbago M54.5 [place] [address] 34754- 6717 Dec, Upper respiratory tract infection, unspecified upper respiratory infection J06.9 [place] [address] [place] [place] [id number] [place] [address] 53134- 7745 Dec, Contact dermatitis L25.9 [place] [id number] [address]- 3710 Dec, [facility] [address] [facility] [id number] [address]- 2561 Dec, Dermatitis L30.9 and Pain in right shoulder M25.511 [facility] [address] [facility] [id number] [address]- 7234 Nov, [facility] [address] [facility] [id number] [place] [address] 95441- 2938 Nov, Upper respiratory tract infection, unspecified upper respiratory infection J06.9 [facility] [address] [facility] [id number] [place] [address] 58018- 4454 Oct, [facility] [id number] [address]- 1806 Oct, [facility] [address] [place] [address] 67824- 6074 Oct, [facility] [address] [facility] [id number] [address]- 3781 Sep, Back pain 724.5 [facility] [address] [address]- 7962 Sep, Back pain 724.5 [facility] [address] [address]- 4570 Sep, [facility] [address] [address]- 5165 Aug, [facility] [address] [facility] [id number] [address]- 4063 Aug, [facility] [address] [address]- 1828 Jul, Back pain 724.5 [facility] [id number] [address]- 1463 Jul, [facility] [address] [place] [address] [place] [address]- 4620 June, [facility] [place] [facility] [address] [id number] [place] [address]- 9939 May, [facility] [place] [facility] [address] [id number] [place] [address]- 7431 May, [facility] [place] [facility] [address] [id number] [place] [address]- 7259 Apr, [facility] [place] [facility] [address] [id number] [place] [address]- 6932 Apr, [facility] [place] [facility] [address] [id number] [place] [address]- 5867 Feb, [facility] [place] [facility] [address] [id number] [place] [address]- 3418 Feb, [facility] [place] [facility] [address] [id number] [place] [address]- 4043 Dec, [facility] [place] [facility] [address] [id number] [place] [address]- 0599 Dec, [facility] [place] [facility] [address] [id number] [place] [address]- 9296 Nov, [facility] [place] [facility] [address] [id number] [place] [address]- 9957 Nov, [facility] [place] [facility] [address] [id number] [place] [address]- 1739 Feb, [facility] [place] [facility] [address] [id number] [place] [address]- 7237 Feb, [facility] [place] [facility] [address] [id number] [place] [address]- 2865 Sep, [facility] [place] [facility] [address] [id number] [place] [address]- 1311 Apr, [facility] [place] [facility] [address] [id number] [place] [address]- 1818 Apr, [facility] [place] [facility] [address] [facility] [id number] [place] [address]- 1346 Mar, [facility] [address] [facility] [id number] 4875 Mar, [facility] [address] [facility] [id number][place] [address]- 7063 Mar, [facility] [address] [facility] [id number] [address]- 7657 Sep, IMMUNIZATIONS No Known Immunizations SOCIAL HISTORY Never Assessed REASON FOR VISIT request call PLAN OF CARE VITAL SIGNS MEDICATIONS Unknown Medications RESULTS No Results PROCEDURES No Known procedures INSTRUCTIONS MEDICATIONS ADMINISTERED No Known Medications MEDICAL (GENERAL) HISTORY Type Description Date Medical History frequent ear infections Medical History gets respiratory infections from being around 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
--- OUTSIDE RECORDS SUMMARY | 2018-04-01 20:22 | XMS REPORT ---
Author Author CRISTIANA VANG Organization [employer] Address Unknown Phone Unavailable Care Team Providers Care Card Setter Name Role Phone CRISTIANA VANG CP Unavailable Allergies, Adverse Reactions, Alerts Substance Reaction Event Type N.K.D.A. Info Not Available Non Drug Allergy Problems Problem Type Condition Code Onset Dates Condition Status Assessment Dermatitis L30.9 Active Assessment Pain in right shoulder M25.511 Active Problem Influenza with other respiratory manifestations 487.1 Active Problem Unspecified backache 724.5 Active Problem Unspecified otalgia 388.70 Active Problem Lumbago 724.2 Active Problem Acute upper respiratory infections of unspecified site 465.9 Active Problem Cough 786.2 Active Problem Acute sinusitis, unspecified 461.9 Active Medications Medication Code System Code Instructions Start Date End Date Status Dosage Diclofenac [facility] [address]-48 75 mg Orally 2 times a day, pc Dec 24, [address] [facility] [address]-09 5-325 MG Orally every 6 hrs May 07, 2014 take [address] [facility] [address]-99 60 MG Orally 2 times a day Nov 22, 2014 1 tablet as needed Zanaflex [facility] [address]-70 4 MG Orally every 8 hrs Sep 29, 2014 1 tablet as needed Elimite [facility] [address]-68 5 % Externally Dec 24, [address] [facility] [address]-47 50 MG Orally Once a day Dec 24, 2014 Dec 29, 2014 1 tablet with food or milk Procedures Procedure Coding System Code Date Office Visit, Est Pt., Level 3 CPT-4 68031 Dec 24, 2014 Vital Signs Date/Time: Dec 24, 2014 Temperature 98.0 F Weight 146 lbs Height 70 in BMI 20.95 Index Blood Pressure Diastolic 70 mmHg Blood Pressure Systolic 122 mmHg Cardiac Monitoring Heart Rate 90 bpm Results No Known Results Summary Purpose [employer] Submission
--- OUTSIDE RECORDS SUMMARY | 2018-04-01 20:22 | XMS REPORT ---
Author Author LORNA BELL Organization [facility] Address [address] [place] [address] Care Team Providers Care English Composition Instructor Name Role Phone RAYULICESLORNA Unavailable PROBLEMS Type Condition ICD9-CM Code NOS50-GB Code Onset Dates Condition Status SNOMED Code Problem Dysthymic disorder F34.1 Active 64325295 Problem Generalized anxiety disorder F41.1 Active 76720647 Problem Acute upper respiratory infection, unspecified J06.9 Active 09790300 Problem Low back pain M54.5 Active 766078375 Problem Adjustment disorder with depressed mood F43.21 Active 79110373 Problem Anxiety F41.9 Active [id number] ALLERGIES No Information ENCOUNTERS Encounter Location Date Diagnosis [facility] [id number] [place] [address] 26496- 4337 Sep, [facility] [id number] [place] [address] 44667- 2287 Aug, [facility] [id number] [place] [address] 94349- 5220 Aug, Thoracic neuritis M54.14 [facility] [id number] [place] [address] 54424- 6889 Jul, Low back pain M54.5 [facility] [id number] [place] [address] 20458- 1369 June, Low back pain M54.5 [facility] [id number] [place] [address] 21220- 8915 May, Low back pain M54.5 and Generalized anxiety disorder F41.1 [facility] [id number] [place] [address] 69637- 9639 May, [facility] [address] [place] [address] 8092 May, Generalized anxiety disorder F41.1 [facility] [address] 58899- 8539 May, Low back pain M54.5 and Anxiety F41.9 [facility] [id number] [place] [address] 66873- 3494 Apr, [facility] [address] 44873- 5707 Mar, Low back pain M54.5 [facility] [address] 11953- 6684 Mar, Low back pain M54.5 [facility] [id number] [place] [address] 19332- 4698 Feb, Ganglion, left wrist M67.432 [facility] [address] 56926- 4234 Feb, Low back pain M54.5 [facility] [id number] [place] [address] 32279- 8737 Feb, Low back pain M54.5 [facility] [id number] [place] [address] 73972- 0396 Feb, [facility] [id number] [place] [address] 10251- 4037 Feb, Low back pain M54.5 and Bronchitis J40 [facility] [id number] [place] [address] 35438- 4631 Feb, Low back pain M54.5 [facility] [address] 68897- 1588 Jan, [facility] [id number] [place] [address] 56546- 1951 Jan, Low back pain M54.5 [facility] [address] [place] [address]- 2053 Jan, Low back pain M54.5 ; Anxiety F41.9 and Ganglion, left wrist M67.432 [facility] [id number] [place] [address] 76956- 8929 Dec, Low back pain M54.5 [facility] [id number] [place] [address] 38797- 5852 Dec, Ganglion, left wrist M67.432 [facility] [address] 58028- 8858 Nov, Ganglion, left wrist M67.432 and Anxiety F41.9 [facility] [id number] [place] [address] 90861- 9658 Nov, Low back pain M54.5 [facility] [id number] [place] [address] 53678- 6345 Nov, [facility] [id number] [place] [address] 58787- 3624 Nov, [facility] [id number] [place] [address] 04189- 1246 Nov, [facility] [id number] [place] [address] 94916- 2231 Oct, Anxiety F41.9 [facility] [id number] [place] [address] 11142- 1767 Oct, Low back pain M54.5 [facility] [id number] [place] [address] 99962- 8454 Oct, [facility] [id number] [place] [address] 49348- 7067 07 Oct, 2016 [facility] [id number] [place] [address] 85331- 9349 06 Oct, 2016 Adjustment disorder with depressed mood F43.21 and Generalized anxiety disorder F41.1 [facility] [id number] [place] [address] 12286- 4789 Sep, Adjustment disorder with depressed mood F43.21 and Generalized anxiety disorder F41.1 [facility] [id number] [place] [address] 29201- 1306 Sep, [address] [id number] [place] [address] Sep [facility] [id number] [place] [address] 92671- 4166 Sep, Anxiety F41.9 [facility] [id number] [place] [address] 60286- 0261 Sep, Low back pain M54.5 [facility] [id number] [place] [address] 67116- 4922 Sep, Adjustment disorder with depressed mood F43.21 and Generalized anxiety disorder F41.1 [facility] [id number] [place] [address] 29613- 0848 Sep, Allergic urticaria L50.0 [facility] [id number] [place] [address] 33564- 4021 Aug, [facility] [id number] [place] [address] 90653- 2043 Aug, Low back pain M54.5 [facility] [id number] [place] [address] 58613- 7778 Aug, Low back pain M54.5 [facility] [id number] [place] [address] 68228- 0645 Aug, [facility] [id number] [place] [address] 77843- 4274 Aug, Thoracic neuritis M54.14 [facility] [id number] [place] [address] 77002- 8683 Jul, [facility] [id number] [place] [address] 65008- 1232 Jul, Low back pain M54.5 [facility] [address] [facility] [id number] [place] [address] 22888- 6107 Jul, Thoracic neuritis M54.14 [facility] [address] [facility] [id number] [place] [address] 15024- 6112 Jul, [facility] [id number] [place] [address] 36320- 2923 Jul, Thoracic neuritis M54.14 [facility] [address] [facility] [id number] [place] [address] 71203- 0412 June, [facility] [id number] [place] [address] 21097- 3825 June, Thoracic neuritis M54.14 [facility] [id number] [place] [address] 99367- 8895 May, [facility] [id number] [place] [address] 91931- 1523 May, [facility] [id number] [place] [address] 23752- 9004 Dec, [facility] [id number] [place] [address] 29251- 3613 Dec, [facility] [id number] [place] [address] 38181- 1506 Dec, [facility] [id number] [place] [address] 55426- 7554 Dec, [facility] [id number] [place] [address] 70926- 6311 Nov, [facility] [id number] [place] [address] 53202- 3230 Nov, Thoracic neuritis M54.14 and Low back pain M54.5 [facility] [id number] [place] [address] 26672- 4839 Nov, [facility] [address] [facility] [id number] [address]- 6646 26 Oct, 2015 Low back pain M54.5 and Acute upper respiratory infection, unspecified J06.9 [facility] [id number] [address]- 5183 19 Oct, 2015 [facility] [id number] [place] [address] 63210- 0388 19 Oct, 2015 [facility] [id number] [place] [address] 75322- 9586 19 Oct, 2015 [facility] [id number] [place] [address] 28982- 3204 Oct, [facility] [id number] [place] [address] 63549- 3830 Sep, Chronic maxillary sinusitis J32.0 and Thoracic neuritis M54.14 [facility] [id number] [place] [address] 10883- 5344 Sep, [facility] [id number] [place] [address] 14739- 4236 Aug, Low back pain M54.5 and Other chronic pain G89.29 [facility] [id number] [place] [address] 20359- 6655 Jul, Low back pain M54.5 and Other chronic pain G89.29 [facility] [id number] [place] [address] 37795- 8414 16 Jul, 2015 [facility] [id number] [place] [address] 23336- 0653 June, [facility] [id number] [place] [address] 98461- 7603 May, Lumbago M54.5 and Sinusitis J32.9 [facility] [address] [place] [address] 38372- 2777 Apr, Unspecified backache 724.5 and Folliculitis L73.9 [place] [facility] [id number] [place] [address] 44972- 6342 Mar, URI (upper respiratory infection) J06.9 and Back pain M54.9 [facility] [id number] [place] [address] 24220- 9214 Mar, [facility] [address] 79842- 0673 Mar, [place] [facility] [address] 79097- 4007 Feb, Low back pain M54.5 ; Sciatica, unspecified side M54.30 ; Folliculitis L73.9 and Allergic urticaria L50.0 [facility] [address] 26742- 9922 Feb, Visit for suture removal Z48.02 [facility] [id number] [place] [address] 38346- 3482 Feb, [place] [facility] [address] 44279- 9247 Feb, Rash R21 [facility] [id number] [place] [address] 28085- 8195 16 Jan, 2015 Pharyngitis J02.9 ; Shoulder pain, right M25.511 and Rash R21 [facility] [id number] [place] [address] 88779- 7372 Jan, [facility] [id number] [place] [address] 03133- 6490 Dec, Allergic urticaria L50.0 ; Right shoulder pain M25.511 and Lumbago M54.5 [facility] [id number] [place] [address] 36608- 0027 24 Dec, 2014 Upper respiratory tract infection, unspecified upper respiratory infection J06.9 [facility] [address] [place] [address]- 9302 Dec, Contact dermatitis L25.9 [facility] [id number] [place] [address] 28850- 5651 Dec, [facility] [id number] [place] [address] 02394- 3139 Dec, Dermatitis L30.9 and Pain in right shoulder M25.511 [facility] [id number] [place] [address] 39844- 2456 Nov, [facility] [id number] [place] [address] 16037- 4763 Nov, Upper respiratory tract infection, unspecified upper respiratory infection J06.9 [facility] [id number] [place] [address] 39358- 3777 Oct, [facility] [id number] [place] [address] 01007- 4484 Oct, [facility] [id number] [place] [address] 02955- 4200 Oct, [facility] [id number] [place] [address] 70986- 6981 Sep, Back pain 724.5 [facility] [id number] [place] [address] 36772- 5641 Sep, Back pain 724.5 [facility] [id number] [place] [address] 83441- 0207 Sep, [facility] [id number] [place] [address] 12748- 6424 Aug, [facility] [id number] [place] [address] 47096- 7746 Aug, [facility] [id number] [place] [address] 15829- 6148 Jul, Back pain 724.5 [facility] [id number] [place] [address]- 8250 Jul, [facility] [place] [facility] [address] [id number] [place] [address]- 5893 June, [facility] [place] [facility] [address] [id number] [place] [address]- 9198 May, [facility] [place] [facility] [address] [id number] [place] [address]- 4755 May, [facility] [place] [facility] [address] [id number] [place] [address]- 9550 Apr, [facility] [place] [facility] [address] [id number] [place] [address]- 0776 Apr, [facility] [place] [facility] [address] [id number] [place] [address]- 7291 Feb, [facility] [place] [facility] [address] [id number] [place] [address]- 2144 Feb, [facility] [place] [facility] [address] [id number] [place] [address]- 6740 Dec, [facility] [place] [facility] [address] [id number] [place] [address]- 5523 Dec, [facility] [place] [facility] [address] [id number] [place] [address]- 8877 Nov, [facility] [place] [facility] [address] [id number] [place] [address]- 9877 Nov, [facility] [place] [facility] [address] [id number] [place] [address]- 5596 Feb, [facility] [place] [facility] [address] [id number] [place] [address]- 5526 Feb, [facility] [place] [facility] [address] [id number] [place] [address]- 3824 Sep, [facility] [place] [facility] [address] [id number] [place] [address]- 3061 Apr, [facility] [address] [facility] [id number] [place] [address]- 2546 Apr, [facility] [id number] [address]- 2506 Mar, [facility] [id number] [address]- 2546 Mar, [facility] [address] [address]- 2546 Mar, [facility] [address] [facility] [id number] [place] [address]- 4156 Sep, IMMUNIZATIONS No Known Immunizations SOCIAL HISTORY Never Assessed REASON FOR VISIT BH f/u - requesting 30 min alexx, Anxiety. 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
--- OUTSIDE RECORDS SUMMARY | 2018-04-01 20:22 | XMS REPORT ---
Author Author MOUNA LAKE Organization [facility] Address [address] [place] [address] Care Team Providers Care Salesperson [employer]obiles Name Role Phone MOUNA LAKE Unavailable PROBLEMS Type Condition ICD9-CM Code [id number] Code Onset Dates Condition Status SNOMED Code Problem Dysthymic disorder F34.1 Active 93893418 Problem Generalized anxiety disorder F41.1 Active 56185810 Problem Acute upper respiratory infection, unspecified J06.9 Active 13371006 Problem Low back pain M54.5 Active 759511287 Problem Adjustment disorder with depressed mood F43.21 Active 33961395 Problem Anxiety F41.9 Active 77326095 ALLERGIES No Known Allergies ENCOUNTERS Encounter Location Date Diagnosis [facility] [id number] [place] [address] 19425- 3460 Sep, [facility] [id number] [place] [address] 90668- 7192 Aug, [place] [id number] [place] [address] 72213- 6876 Aug, Thoracic neuritis M54.14 [facility] [id number] [place] [address] 05033- 6854 Jul, Low back pain M54.5 [facility] [id number] [place] [address] 69608- 6594 June, Low back pain M54.5 [facility] [id number] [place] [address] 25513- 2095 May, Low back pain M54.5 and Generalized anxiety disorder F41.1 [facility] [id number] [place] [address] 46941- 4522 May, [facility] [address] [place] [address] 5434 May, Generalized anxiety disorder F41.1 [facility] [address] 15345- 0733 May, Low back pain M54.5 and Anxiety F41.9 [facility] [address] 14090- 9066 Apr, [facility] [address] 21843- 0554 Mar, Low back pain M54.5 [facility] [address] 39016- 1909 Mar, Low back pain M54.5 [facility] [id number] [place] [address] 20841- 4584 Feb, Ganglion, left wrist M67.432 [facility] [address] 29817- 1705 Feb, Low back pain M54.5 [facility] [address] 48969- 9980 Feb, Low back pain M54.5 [facility] [id number] [place] [address] 00120- 8309 Feb, [facility] [id number] [place] [address] 38976- 8618 Feb, Low back pain M54.5 and Bronchitis J40 [facility] [id number] [place] [address] 75332- 5598 Feb, Low back pain M54.5 [facility] [address] 92327- 0517 Jan, [facility] [id number] [place] [address] 95220- 2947 Jan, Low back pain M54.5 [facility] [address] [place] [address]- 3033 Jan, Low back pain M54.5 ; Anxiety F41.9 and Ganglion, left wrist M67.432 [facility] [address] 04749- 9224 Dec, Low back pain M54.5 [facility] [id number] [place] [address] 27941- 6295 Dec, Ganglion, left wrist M67.432 [facility] [address] 67535- 8214 Nov, Ganglion, left wrist M67.432 and Anxiety F41.9 [facility] [address] 40379- 5922 Nov, Low back pain M54.5 [facility] [address] 15937- 9633 Nov, [facility] [address] 25152- 8664 Nov, [facility] [id number] [place] [address] 79124- 2580 Nov, [facility] [id number] [place] [address] 74243- 2923 Oct, Anxiety F41.9 [facility] [id number] [place] [address] 86109- 7265 Oct, Low back pain M54.5 [facility] [id number] [place] [address] 26324- 1153 Oct, [facility] [address] 63991- 6383 07 Oct, 2016 [facility] [id number] [place] [address] 27351- 9600 06 Oct, 2016 Adjustment disorder with depressed mood F43.21 and Generalized anxiety disorder F41.1 [facility] [address] [place] [address]- 7721 Sep, Adjustment disorder with depressed mood F43.21 and Generalized anxiety disorder F41.1 [facility] [id number] [place] [address] 72225- 4508 Sep, [facility] [address] [facility] [id number] [place] [address] Sep [facility] [id number] [place] [address] 11595- 6121 Sep, Anxiety F41.9 [facility] [id number] [place] [address] 11835- 8492 Sep, Low back pain M54.5 [facility] [id number] [place] [address] 76486- 7621 Sep, Adjustment disorder with depressed mood F43.21 and Generalized anxiety disorder F41.1 [facility] [id number] [place] [address] 54015- 9539 Sep, Allergic urticaria L50.0 [facility] [id number] [place] [address] 40883- 2313 Aug, [facility] [id number] [place] [address] 16763- 5118 Aug, Low back pain M54.5 [facility] [id number] [place] [address] 78942- 3797 Aug, Low back pain M54.5 [facility] [id number] [place] [address] 20235- 2127 Aug, [facility] [id number] [place] [address] 86245- 4211 Aug, Thoracic neuritis M54.14 [facility] [id number] [place] [address] 65283- 9341 Jul, [facility] [id number] [place] [address] 14534- 6026 Jul, Low back pain M54.5 [facility] [id number] [place] [address] 63093- 9361 Jul, Thoracic neuritis M54.14 [facility] [id number] [place] [address] 13552- 8683 Jul, [facility] [id number] [place] [address] 47078- 7198 Jul, Thoracic neuritis M54.14 [facility] [address] [facility] [address] [facility] [id number] [place] [address] 62454- 9021 June, [facility] [id number] [place] [address] 61043- 8720 June, Thoracic neuritis M54.14 [facility] [id number] [place] [address] 81984- 7867 May, [facility] [id number] [place] [address] 33533- 7945 May, [facility] [id number] [place] [address] 19384- 7465 Dec, [facility] [id number] [place] [address] 27984- 2569 Dec, [facility] [id number] [place] [address] 97874- 3343 Dec, [facility] [id number] [place] [address] 42872- 9089 Dec, [facility] [id number] [place] [address] 36366- 8959 Nov, [facility] [id number] [place] [address] 66569- 1061 Nov, Thoracic neuritis M54.14 and Low back pain M54.5 [facility] [id number] [place] [address] 78894- 9051 Nov, [facility] [address] [address]- 7078 26 Oct, 2015 Low back pain M54.5 and Acute upper respiratory infection, unspecified J06.9 [facility] [id number] [place] [address] 11749- 2269 19 Oct, 2015 [facility] [id number] [place] [address] 72253- 2873 19 Oct, 2015 [facility] [id number] [place] [address] 50936- 4860 19 Oct, 2015 [facility] [id number] [place] [address] 12825- 1157 Oct, [facility] [id number] [place] [address] 48686- 9617 Sep, Chronic maxillary sinusitis J32.0 and Thoracic neuritis M54.14 [facility] [id number] [place] [address] 19163- 1481 Sep, [facility] [id number] [place] [address] 49712- 4542 Aug, Low back pain M54.5 and Other chronic pain G89.29 [facility] [id number] [place] [address] 22065- 7866 Jul, Low back pain M54.5 and Other chronic pain G89.29 [facility] [id number] [place] [address] 09781- 4448 Jul, [facility] [id number] [place] [address] 69906- 4817 June, [facility] [id number] [place] [address] 61097- 1894 May, Lumbago M54.5 and Sinusitis J32.9 [facility] [id number] [place] [address] 24346- 2724 Apr, Unspecified backache 724.5 and Folliculitis L73.9 [place] [id number] [place] [address] 73652- 1029 24 Mar, 2015 URI (upper respiratory infection) J06.9 and Back pain M54.9 [place] [id number] [place] [address] 11058- 9859 05 Mar, 2015 [place] [address] 58696- 0888 Mar, [place] [address] 26240- 8600 Feb, Low back pain M54.5 ; Sciatica, unspecified side M54.30 ; Folliculitis L73.9 and Allergic urticaria L50.0 [place] [address] 93420- 0001 Feb, Visit for suture removal Z48.02 [place] [id number] [place] [address] 62908- 7605 Feb, [place] [address] 27497- 0753 Feb, Rash R21 [place] [id number] [place] [address] 76163- 0468 16 Jan, 2015 Pharyngitis J02.9 ; Shoulder pain, right M25.511 and Rash R21 [place] [id number] [place] [address] 07904- 2754 Jan, [place] [id number] [place] [address] 04013- 3810 Dec, Allergic urticaria L50.0 ; Right shoulder pain M25.511 and Lumbago M54.5 [place] [id number] [place] [address] 99804- 2985 24 Dec, 2014 Upper respiratory tract infection, unspecified upper respiratory infection J06.9 [place] [address] [place] [address]- 1374 Dec, Contact dermatitis L25.9 [facility] [id number] [place] [address] 26263- 2134 Dec, [facility] [id number] [place] [address] 56658- 3359 Dec, Dermatitis L30.9 and Pain in right shoulder M25.511 [facility] [id number] [place] [address] 82861- 8326 Nov, [facility] [id number] [place] [address] 58296- 5205 Nov, Upper respiratory tract infection, unspecified upper respiratory infection J06.9 [facility] [id number] [place] [address] 45695- 4102 Oct, [facility] [id number] [place] [address] 56648- 2863 Oct, [facility] [id number] [place] [address] 28596- 3077 Oct, [facility] [id number] [place] [address] 98352- 2156 Sep, Back pain 724.5 [facility] [id number] [place] [address] 33628- 4891 Sep, Back pain 724.5 [facility] [id number] [place] [address] 23999- 0268 Sep, [facility] [id number] [place] [address] 59640- 3060 Aug, [facility] [id number] [place] [address] 00099- 2079 Aug, [facility] [id number] [place] [address] 92168- 2739 Jul, Back pain 724.5 [facility] [id number] [place] [address], [place] [address]- 9733 Jul, [facility] [place] [facility] [address] [id number] [place] [address]- 5448 June, [facility] [place] [facility] [address] [id number] [place] [address]- 6938 May, [facility] [place] [facility] [address] [id number] [place] [address]- 8016 May, [facility] [place] [facility] [address] [id number] [place] [address]- 9721 Apr, [facility] [place] [facility] [address] [id number] [place] [address]- 7190 Apr, [facility] [place] [facility] [address] [id number] [place] [address]- 5177 Feb, [facility] [place] [facility] [address] [id number] [place] [address]- 2768 Feb, [facility] [place] [facility] [address] [id number] [place] [address]- 9544 Dec, [facility] [place] [facility] [address] [id number] [place] [address]- 0735 Dec, [facility] [place] [facility] [address] [facility] [address] [facility] [id number] [place] [address]- 8076 Nov, [facility] [place] [facility] [address] [id number] [place] [address]- 1035 Nov, [facility] [place] [facility] [address] [id number] [place] [address]- 6085 Feb, [facility] [place] [facility] [address] [id number] [place] [address]- 2921 Feb, [facility] [place] [facility] [address] [id number] [place] [address]- 9136 Sep, [facility] [place] [facility] [address] [id number] [place] [address]- 6020 Apr, [facility] [place] [facility] [address] [facility] [address] [facility] [id number] [place] [address]- 0046 Apr, [facility] [address] [facility] [address] [facility] [id number] [place] [address]- 9656 Mar, [facility] [address] [facility] [address] [facility] [id number] [place] [address]- 4456 Mar, [facility] [address] [facility] [address] [facility] [id number] [place] [address]- 3686 Mar, [facility] [address] [facility] [address] [facility] [id number] [place] [address]- 6086 Sep, IMMUNIZATIONS No Known Immunizations SOCIAL HISTORY Never Assessed REASON FOR VISIT Pain management (chronic)----DBennettRN PLAN OF CARE VITAL SIGNS Height 70 in 2017-05-12 Weight 144 lbs 2017-05-12 Temperature 98.1 degrees Fahrenheit 2017-05-12 Heart Rate 90 bpm 2017-05-12 Respiratory Rate 20 2017-05-12 BMI 20.66 kg/m2 2017-05-12 Blood pressure systolic 132 mmHg 2017-05-12 Blood pressure diastolic 84 mmHg 2017-05-12 MEDICATIONS Medication Instructions Dosage Frequency Start Date End Date Duration Status Paroxetine HCl 20 MG Orally Once a day 1 tablet in the morning 24h May, 30 day(s) Active Ibuprofen 800 MG Orally Three times a day 1 tablet with food or milk as needed 8h May, Active Gabapentin 800 MG Orally 3 times a day 1 capsule 8h May, 30 day (s) Active Robaxin 500 mg Orally 3 times a day 2 tablets 8h May, June, 30 day(s) Active ProAir HFA 108 (90 Base) MCG/ACT Inhalation every 6 hrs for shortness of breath/cough 2 puffs as needed Active RESULTS No Results PROCEDURES No Known procedures INSTRUCTIONS MEDICATIONS ADMINISTERED No Known Medications MEDICAL (GENERAL) HISTORY Type Description Date Medical History frequent ear infections 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
--- OUTSIDE RECORDS SUMMARY | 2018-04-01 20:23 | XMS REPORT ---
Author MOUNA Mathews Organization [employer] Address Unknown Phone Unavailable Care Team Providers Care Seasoning Sprayer Name Role Phone MOUNA LAKE CP Unavailable Allergies, Adverse Reactions, Alerts Substance Reaction Event Type N.K.D.A. Info Not Available Non Drug Allergy Problems Problem Type Condition Code Onset Dates Condition Status Assessment Lumbago M54.5 Active Assessment Sinusitis J32.9 Active Problem Influenza with other respiratory manifestations 487.1 Active Problem Unspecified backache 724.5 Active Problem Unspecified otalgia 388.70 Active Problem Lumbago 724.2 Active Problem Acute upper respiratory infections of unspecified site 465.9 Active Problem Cough 786.2 Active Problem Acute sinusitis, unspecified 461.9 Active Medications Medication Code System Code Instructions Start Date End Date Status Dosage Triamcinolone Acetonide [facility] [address]-55 0.1 % Externally Twice a day Dec 26, 2014 1 application to affected area Sudafed [facility] [address]-02 60 mg Orally 2 times a day Nov 22, 2014 1 tablet as needed Amoxicillin [facility] [address]-49 500 MG Orally Three times a day May 31, 2015 June 10, 2015 1 capsule Zanaflex [facility] [address]-43 4 MG Orally 2 times a day Sep 29, 2014 1 tablet as needed ProAir HFA [facility] [address]-74 108 (90 Base) MCG/ACT Inhalation every 6 hrs for shortness of breath/cough 2 puffs as needed Sidon [facility] [address]-73 5-325 MG Orally every 6 hrs. May 07, 2014 take 1 tablet Procedures Procedure Coding System Code Date Office Visit, Est Pt., Level 3 CPT-4 21492 May 31, 2015 Vital Signs Date/Time: May 31, 2015 Temperature 98.2 F Weight 161.6 lbs Height 70 in BMI 23.18 Index Blood Pressure Diastolic 90 mmHg Blood Pressure Systolic 132 mmHg Cardiac Monitoring Heart Rate 92 bpm Results No Known Results Summary Purpose [employer] Submission
--- OUTSIDE RECORDS SUMMARY | 2018-04-01 20:23 | XMS REPORT ---
Author Author MOUNA LAKE Organization [facility] Address [address] [place] [address] Care Team Providers Care Remote Advisor Name Role Phone MOUNA LAKE Unavailable PROBLEMS Type Condition ICD9-CM Code GDN22-EB Code Onset Dates Condition Status SNOMED Code Problem Dysthymic disorder F34.1 Active 07595139 Problem Generalized anxiety disorder F41.1 Active 89566593 Problem Acute upper respiratory infection, unspecified J06.9 Active 54276805 Problem Low back pain M54.5 Active 391451843 Problem Adjustment disorder with depressed mood F43.21 Active 12133701 Problem Anxiety F41.9 Active 94529682 ALLERGIES No Information ENCOUNTERS Encounter Location Date Diagnosis [facility] [id number] [place] [address] 34659- 9552 June, [facility] [id number] [place] [address] 26996- 4686 May, [facility] [id number] [place] [address] 93806- 4277 May, [facility] [id number] [place] [address] 87306- 2357 May, Low back pain M54.5 and Anxiety F41.9 [facility] [id number] [place] [address] 80771- 0456 Apr, [facility] [id number] [place] [address] 34719- 9177 Mar, Low back pain M54.5 [facility] [id number] [place] [address] 17574- 1647 Mar, Low back pain M54.5 [facility] [address] 32581- 0071 Feb, Ganglion, left wrist M67.432 [facility] [id number] [place] [address] 09057- 4362 Feb, Low back pain M54.5 [facility] [id number] [place] [address] 96434- 9710 Feb, Low back pain M54.5 [facility] [address] 61075- 5552 Feb, [facility] [id number] [place] [address] 78600- 6911 Feb, Low back pain M54.5 and Bronchitis J40 [facility] [id number] [place] [address] 14224- 9867 Feb, Low back pain M54.5 [facility] [address] 38138- 8240 Jan, [facility] [id number] [place] [address] 90398- 0395 Jan, Low back pain M54.5 [facility] [address] 40810- 0668 Jan, Low back pain M54.5 ; Anxiety F41.9 and Ganglion, left wrist M67.432 [facility] [id number] [place] [address] 03428- 4127 Dec, Low back pain M54.5 [facility] [id number] [place] [address] 66096- 9163 Dec, Ganglion, left wrist M67.432 [facility] [id number] [place] [address] 86290- 0738 Nov, Ganglion, left wrist M67.432 and Anxiety F41.9 [facility] [id number] [place] [address] 33333- 8083 Nov, Low back pain M54.5 [facility] [address] [address] 2504 Nov, [facility] [id number] [place] [address] 40199- 2537 Nov, [facility] [id number] [place] [address] 50203- 6513 Nov, [facility] [id number] [place] [address] 86414- 1318 Oct, Anxiety F41.9 [facility] [address] [place] [address] 95844- 9018 Oct, Low back pain M54.5 [facility] [id number] [place] [address] 47785- 3330 Oct, [facility] [id number] [place] [address] 92234- 2188 Oct, [facility] [id number] [place] [address] 31261- 3600 06 Oct, 2016 Adjustment disorder with depressed mood F43.21 and Generalized anxiety disorder F41.1 [facility] [address] [address]- 7245 Sep, Adjustment disorder with depressed mood F43.21 and Generalized anxiety disorder F41.1 [facility] [address], [place] [address] 2978 Sep, [address] [address] [facility] [id number] [place] [address] Sep [facility] [address], [place] [address]- 8363 Sep, Anxiety F41.9 [facility] [address] [address] 1230 Sep, Low back pain M54.5 [facility] [address] [address]- 2199 Sep, Adjustment disorder with depressed mood F43.21 and Generalized anxiety disorder F41.1 [facility] [id number] [place] [address] 59256- 6827 Sep, Allergic urticaria L50.0 [facility] [id number] [place] [address] 92985- 7496 Aug, [facility] [id number] [place] [address] 80473- 7441 Aug, Low back pain M54.5 [facility] [id number] [place] [address] 85588- 6334 Aug, Low back pain M54.5 [facility] [id number] [place] [address] 42574- 0471 Aug, [facility] [id number] [place] [address] 50688- 2504 Aug, Thoracic neuritis M54.14 [facility] [id number] [place] [address] 15220- 6898 Jul, [facility] [id number] [place] [address] 42868- 7197 Jul, Low back pain M54.5 [facility] [address] [place] [address] 41359- 4327 Jul, Thoracic neuritis M54.14 [facility] [id number] [place] [address] 26567- 3300 Jul, [facility] [id number] [place] [address] 63870- 1996 Jul, Thoracic neuritis M54.14 [facility] [id number] [place] [address] 46942- 3766 June, [facility] [address] [place] [address] 42383- 2310 June, Thoracic neuritis M54.14 [facility] [id number] [address] 4839 May, [facility] [address] [facility] [id number] [place] [address] 63801- 3341 May, [facility] [address] [facility] [id number], [place] [address]- 8149 Dec, [facility] [id number] [place] [address] 41796- 0421 Dec, [facility] [address] [facility] [id number] [place] [address], [place] [address]- 4466 Dec, [facility] [id number] [place] [address], [place] [address]- 6664 Dec, [facility] [id number] [place] [address] 27033- 0803 Nov, [facility] [id number] [place] [address] 38962- 9837 Nov, Thoracic neuritis M54.14 and Low back pain M54.5 [facility] [address], [place] [address]- 6822 Nov, [facility] [address] [place] [address] 66616- 0923 Oct, Low back pain M54.5 and Acute upper respiratory infection, unspecified J06.9 [facility] [address], [place] [address]- 4458 Oct, [facility] [address] [facility] [id number], [place] [address]- 6404 Oct, [facility] [id number] [address]- 0698 Oct, [facility] [address], [place] [address]- 4502 Oct, [facility] [address], [place] [address]- 8837 Sep, Chronic maxillary sinusitis J32.0 and Thoracic neuritis M54.14 [facility] [id number] [place] [address] 90937- 9533 Sep, [facility] [id number] [place] [address] 40891- 3841 Aug, Low back pain M54.5 and Other chronic pain G89.29 [facility] [address] 34051- 7946 Jul, Low back pain M54.5 and Other chronic pain G89.29 [place] [id number] [place] [address] 28953- 6642 Jul, [place] [address] 53476- 7235 June, [place] [address] 14842- 0036 May, Lumbago M54.5 and Sinusitis J32.9 [place] [id number] [place] [address] 97983- 6174 Apr, Unspecified backache 724.5 and Folliculitis L73.9 [place] [id number] [place] [address] 20106- 4553 Mar, URI (upper respiratory infection) J06.9 and Back pain M54.9 [facility] [id number] [place] [address] 36436- 7067 Mar, [facility] [id number] [place] [address] 05985- 2455 Mar, [facility] [id number] [place] [address] 60743- 7103 Feb, Low back pain M54.5 ; Sciatica, unspecified side M54.30 ; Allergic urticaria L50.0 and Folliculitis L73.9 [place] [address] [place] [address]- 9346 12 Feb, 2015 Visit for suture removal Z48.02 [place] [address] 58960- 3761 Feb, [place] [address] 46360- 9684 Feb, Rash R21 [place] [address] 75337- 3734 16 Jan, 2015 Pharyngitis J02.9 ; Shoulder pain, right M25.511 and Rash R21 [place] [address] 68158- 3890 Jan, [place] [address] 97491- 3844 30 Dec, 2014 Allergic urticaria L50.0 ; Right shoulder pain M25.511 and Lumbago M54.5 [place] [address] 79511- 9616 Dec, Upper respiratory tract infection, unspecified upper respiratory infection J06.9 [place] [id number] [place] [address] 12994- 1044 Dec, Contact dermatitis L25.9 [place] [id number] [place] [address] 18189- 8504 Dec, [place] [id number] [place] [address] 62887- 8881 Dec, Dermatitis L30.9 and Pain in right shoulder M25.511 [place] [id number] [place] [address] 71651- 9426 Nov, [place] [address] 71185- 5165 Nov, Upper respiratory tract infection, unspecified upper respiratory infection J06.9 [place] [address] 66476- 7322 Oct, [facility] [address] [id number] [place] [address]- 7093 Oct, [facility] [place] [facility] [address] [id number] [place] [address]- 3296 Oct, [facility] [place] [facility] [address] [id number] [place] [address]- 8159 Sep, Back pain 724.5 [facility] [place] [facility] [address] [id number] [place] [address]- 4769 18 Sep, 2014 Back pain 724.5 [facility] [address] [id number] [place] [address]- 7914 10 Sep, 2014 [facility] [place] [facility] [address] [id number] [place] [address]- 2986 16 Aug, 2014 [facility] [place] [facility] [address] [id number] [place] [address]- 7023 16 Aug, 2014 [facility] [place] [facility] [address] [id number] [place] [address]- 5585 15 Jul, 2014 Back pain 724.5 [facility] [place] [facility] [address] [id number] [place] [address]- 9940 11 Jul, 2014 [facility] [place] [facility] [address] [id number] [place] [address]- 7961 June, [facility] [place] [facility] [address] [id number] [place] [address]- 1807 14 May, 2014 [facility] [place] [facility] [address] [id number] [place] [address]- 8998 May, [facility] [place] [facility] [address] [id number] [place] [address]- 6243 30 Apr, 2014 [facility] [place] [facility] [address] [id number] [place] [address]- 8566 30 Apr, 2014 [facility] [place] [facility] [address] [id number] [place] [address]- 6343 Feb, [facility] [id number], [place] [address]- 3319 Feb, [facility] [address], [place] [address]- 8612 Dec, [facility] [address] 7854 Dec, [facility] [address], [place] [address]- 6957 Nov, [facility] [id number] [address]- 0506 Nov, [facility] [address], [place] [address]- 0424 Feb, [facility] [address], [place] [address]- 9075 Feb, [facility] [address], [place] [address]- 9902 Sep, [facility] [address], [place] [address]- 6667 Apr, [facility] [address], [place] [address]- 4427 Apr, [facility] [address], [place] [address]- 0628 Mar, [facility] [address], [place] [address]- 8569 Mar, [facility] [id number], [place] [address]- 9759 Mar, [facility] [address] 2235 Sep, IMMUNIZATIONS No Known Immunizations SOCIAL HISTORY Never Assessed REASON FOR VISIT DCF Issue PLAN OF CARE VITAL SIGNS MEDICATIONS Unknown Medications RESULTS No Results PROCEDURES No Known procedures INSTRUCTIONS MEDICATIONS ADMINISTERED No Known Medications MEDICAL (GENERAL) HISTORY Type Description Date Medical History frequent ear infections 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
--- OUTSIDE RECORDS SUMMARY | 2018-04-01 20:23 | XMS REPORT ---
Author Author MOUNA LAKE [facility] Address [address] [place] [address] Care Team Providers Care Refrigerating Engineer Head Name Role Phone MOUNA LAKE Unavailable PROBLEMS Type Condition ICD9-CM Code HWO41-QI Code Onset Dates Condition Status SNOMED Code Problem Acute upper respiratory infections of unspecified site 465.9 Active 56734969 Problem Unspecified otalgia 388.70 Active 66912890 Problem Acute sinusitis, unspecified 461.9 Active 22545733 Problem Cough 786.2 Active 18759449 Problem Lumbago 724.2 Active 075350601 Problem Unspecified backache 724.5 Active 266398108 Problem Influenza with other respiratory manifestations 487.1 Active 8306572 Problem Dysthymic disorder F34.1 Active 04542475 Problem Generalized anxiety disorder F41.1 Active 69786361 Problem Acute upper respiratory infection, unspecified J06.9 Active 25444604 Problem Low back pain M54.5 Active 815875750 Problem Adjustment disorder with depressed mood F43.21 Active 48897127 Problem Anxiety F41.9 Active 38399244 ALLERGIES No Information SOCIAL HISTORY Never Assessed PLAN OF CARE VITAL SIGNS MEDICATIONS Medication Instructions Dosage Frequency Start Date End Date Duration Status ProAir HFA 108 (90 Base) MCG/ACT Inhalation every 6 hrs for shortness of breath/cough 2 puffs as needed Active RESULTS No Results PROCEDURES No Known procedures IMMUNIZATIONS No Known Immunizations MEDICAL (GENERAL) HISTORY Type Description Date Medical History frequent ear infections Medical History gets respiratory infections from being around 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
--- OUTSIDE RECORDS SUMMARY | 2018-04-01 20:23 | XMS REPORT ---
Author Author JAYA MOUNA Organization [facility] Address [address] [place] [address] Care Team Providers Care Barrel Rifler Name Role Phone MOUNA LAKE Unavailable PROBLEMS Type Condition ICD9-CM Code NYQ48-UM Code Onset Dates Condition Status SNOMED Code Problem Dysthymic disorder F34.1 Active 69560925 Problem Generalized anxiety disorder F41.1 Active 67680584 Problem Acute upper respiratory infection, unspecified J06.9 Active 27997780 Problem Low back pain M54.5 Active 146854448 Problem Adjustment disorder with depressed mood F43.21 Active 83624239 Problem Anxiety F41.9 Active 61550790 ALLERGIES No Information ENCOUNTERS Encounter Location Date Diagnosis [facility] [id number] [place] [address] 97161- 0358 Jul, [facility] [id number] [place] [address] 39937- 1960 June, [facility] [id number] [place] [address] 65535- 3232 June, [facility] [id number] [place] [address] 87787- 1440 May, Low back pain M54.5 and Generalized anxiety disorder F41.1 [facility] [id number] [place] [address] 80645- 1303 May, [facility] [id number] [place] [address] 31547- 4492 May, Generalized anxiety disorder F41.1 [facility] [id number] [place] [address] 86580- 6568 May, Low back pain M54.5 and Anxiety F41.9 [facility] [id number] [place] [address] 20652- 7114 Apr, [facility] [id number] [place] [address] 98119- 2378 Mar, Low back pain M54.5 [facility] [id number] [place] [address] 26374 2546 Mar, Low back pain M54.5 [facility] [id number] [place] [address] 37523- 1616 Feb, Ganglion, left wrist M67.432 [facility] [id number] [place] [address] 96585- 3930 Feb, Low back pain M54.5 [facility] [id number] [place] [address] 63654- 9171 Feb, Low back pain M54.5 [facility] [id number] [place] [address] 29202- 9571 Feb, [facility] [id number] [place] [address] 96158- 5715 Feb, Low back pain M54.5 and Bronchitis J40 [facility] [id number] [place] [address] 94661- 2972 Feb, Low back pain M54.5 [facility] [id number] [place] [address] 98080- 0286 Jan, [facility] [id number] [place] [address] 18689 2548 Jan, Low back pain M54.5 [facility] [id number] [place] [address] 56263- 5486 Jan, Low back pain M54.5 ; Anxiety F41.9 and Ganglion, left wrist M67.432 [facility] [id number] [place] [address] 28363- 0629 Dec, Low back pain M54.5 [facility] [address] [place] [address] 90043- 4422 Dec, Ganglion, left wrist M67.432 [facility] [id number] [place] [address] 30296- 1350 Nov, Ganglion, left wrist M67.432 and Anxiety F41.9 [facility] [id number] [place] [address] 36704- 8001 Nov, Low back pain M54.5 [facility] [id number] [place] [address] 58321- 9416 Nov, [facility] [id number] [place] [address] 20723- 5942 Nov, [facility] [id number] [place] [address] 17683- 0586 Nov, [facility] [id number] [place] [address] 53161- 7825 Oct, Anxiety F41.9 [facility] [address] [place] [address] 61573- 0454 Oct, Low back pain M54.5 [facility] [id number] [place] [address] 52586- 1185 Oct, [facility] [id number] [place] [address] 18166- 0497 Oct, [facility] [id number] [place] [address] 27753- 2317 Oct, Adjustment disorder with depressed mood F43.21 and Generalized anxiety disorder F41.1 [facility] [address] [place] [address] 11961- 5932 Sep, Adjustment disorder with depressed mood F43.21 and Generalized anxiety disorder F41.1 [facility] [address] [address]- 5981 Sep, [facility] [id number] [place] [address] Sep [facility] [id number] [place] [address] 66663- 4776 Sep, Anxiety F41.9 [facility] [id number] [place] [address] 89480- 0707 Sep, Low back pain M54.5 [facility] [id number] [place] [address] 95460- 5688 Sep, Adjustment disorder with depressed mood F43.21 and Generalized anxiety disorder F41.1 [facility] [id number] [place] [address] 76644- 5715 Sep, Allergic urticaria L50.0 [facility] [id number] [place] [address] 26057- 5544 Aug, [facility] [id number] [place] [address] 56577- 6241 Aug, Low back pain M54.5 [facility] [id number] [place] [address] 07175- 0601 Aug, Low back pain M54.5 [facility] [id number] [place] [address] 19917- 3745 Aug, [facility] [id number] [place] [address] 71666- 5399 Aug, Thoracic neuritis M54.14 [facility] [id number] [place] [address] 94897- 2185 Jul, [facility] [id number] [place] [address] 63294- 6848 Jul, Low back pain M54.5 [facility] [id number] [place] [address] 56821- 0338 Jul, Thoracic neuritis M54.14 [facility] [id number] [place] [address] 15839- 4677 Jul, [facility] [address] [facility] [id number] [address] 3759 Jul, Thoracic neuritis M54.14 [facility] [address] [facility] [id number] [place] [address] 32234- 4170 June, [facility] [address] [place] [address] 86188- 6076 June, Thoracic neuritis M54.14 [facility] [address] [facility] [id number] [place] [address] 73156- 3372 May, [facility] [address] [facility] [id number] [place] [address], [place] [address]- 8994 May, [facility] [address] [place] [address] 54794- 8520 Dec, [facility] [id number] [place] [address] 76477- 9724 Dec, [facility] [address] [place] [address] 80176- 5017 Dec, [facility] [address] [place] [address] 17029- 5393 Dec, [facility] [address] [address]- 3891 Nov, [facility] [address] [place] [address] 25908- 3845 Nov, Thoracic neuritis M54.14 and Low back pain M54.5 [facility] [address] [address]- 5370 Nov, [facility] [address] [place] [address] 26427- 2232 Oct, Low back pain M54.5 and Acute upper respiratory infection, unspecified J06.9 [facility] [address] [address]- 8088 19 Oct, 2015 [facility] [id number] [place] [address] 89295- 0262 Oct, [facility] [id number] [place] [address] 05738- 0383 Oct, [facility] [id number] [place] [address] 97038- 1281 Oct, [facility] [id number] [place] [address] 85049- 6168 Sep, Chronic maxillary sinusitis J32.0 and Thoracic neuritis M54.14 [facility] [id number] [place] [address] 26932- 5501 Sep, [facility] [id number] [place] [address] 38989- 4875 Aug, Low back pain M54.5 and Other chronic pain G89.29 [facility] [id number] [place] [address] 83109- 6030 Jul, Low back pain M54.5 and Other chronic pain G89.29 [facility] [id number] [place] [address] 50037- 5161 Jul, [facility] [id number] [place] [address] 27099- 8202 June, [facility] [id number] [place] [address] 61687- 3400 May, Lumbago M54.5 and Sinusitis J32.9 [facility] [id number] [place] [address] 59767- 1120 Apr, Unspecified backache 724.5 and Folliculitis L73.9 [facility] [id number] [place] [address] 73226- 0204 24 Mar, 2015 URI (upper respiratory infection) J06.9 and Back pain M54.9 [facility] [id number] [place] [address] 54177- 1024 05 Mar, 2015 [facility] [id number] [place] [address] 81397- 3781 Mar, [facility] [address] 60598- 3750 Feb, Low back pain M54.5 ; Sciatica, unspecified side M54.30 ; Folliculitis L73.9 and Allergic urticaria L50.0 [address] [address] 19631- 9691 Feb, Visit for suture removal Z48.02 [place] [address] 22920- 8658 Feb, [address] [address] 23994- 9701 Feb, Rash R21 [address] [address] 63322- 0871 Jan, Pharyngitis J02.9 ; Shoulder pain, right M25.511 and Rash R21 [place] [id number] [place] [address] 68866- 3762 Jan, [place] [id number] [place] [address] 77245- 6259 Dec, Allergic urticaria L50.0 ; Right shoulder pain M25.511 and Lumbago M54.5 [place] [id number] [place] [address] 10597- 9618 Dec, Upper respiratory tract infection, unspecified upper respiratory infection J06.9 [place] [id number] [place] [address] 36517- 5613 Dec, Contact dermatitis L25.9 [place] [id number] [place] [address] 63147- 5882 Dec, [place] [id number] [place] [address] 37608- 4029 Dec, Dermatitis L30.9 and Pain in right shoulder M25.511 [facility] [id number] [address]- 4064 Nov, [facility] [id number] [place] [address] 19612- 9267 Nov, Upper respiratory tract infection, unspecified upper respiratory infection J06.9 [facility] [id number] [place] [address] 45667- 8031 Oct, [facility] [id number] [place] [address] 60995- 9497 Oct, [facility] [address] [facility] [id number] [place] [address] 93251- 3483 Oct, [facility] [id number] [place] [address] 76784- 0967 Sep, Back pain 724.5 [facility] [id number] [place] [address] 51681- 4288 Sep, Back pain 724.5 [facility] [id number] [place] [address] 44107- 3648 Sep, [facility] [id number] [address]- 3936 Aug, [facility] [address] [address]- 8445 Aug, [facility] [address] [place] [address] 73911- 1919 Jul, Back pain 724.5 [facility] [id number] [address]- 3484 Jul, [facility] [address] [facility] [id number] [place] [address] 00133- 4219 June, [facility] [address] [address]- 6350 14 May, 2014 [facility] [place] [facility] [address] [id number] [place] [address]- 4135 May, [facility] [place] [facility] [address] [id number] [place] [address]- 2960 Apr, [facility] [place] [facility] [address] [id number] [place] [address]- 9016 Apr, [facility] [place] [facility] [address] [id number] [place] [address]- 3434 Feb, [facility] [place] [facility] [address] [id number] [place] [address]- 3659 Feb, [facility] [place] [facility] [address] [id number] [place] [address]- 6979 Dec, [facility] [place] [facility] [address] [id number] [place] [address]- 2620 Dec, [facility] [place] [facility] [address] [id number] [place] [address]- 9925 Nov, [facility] [place] [facility] [address] [id number] [place] [address]- 4362 Nov, [facility] [place] [facility] [address] [id number] [place] [address]- 7855 Feb, [facility] [place] [facility] [address] [id number] [place] [address]- 7167 Feb, [facility] [place] [facility] [address] [id number] [place] [address]- 0930 Sep, [facility] [place] [facility] [address] [id number] [place] [address]- 3334 Apr, [facility] [place] [facility] [address] [id number] [place] [address]- 1656 Apr, [facility] [place] [facility] [address] [id number] [place] [address]- 2096 Mar, [facility] [place] [facility] [address] [id number] [place] [address]- 1513 Mar, [facility] [address] [facility] [id number] [place] [address]- 4746 Mar, [facility] [address] [facility] [id number] [place] [address]- 0876 Sep, IMMUNIZATIONS No Known Immunizations SOCIAL HISTORY Never Assessed REASON FOR VISIT Questions PLAN OF CARE VITAL SIGNS MEDICATIONS Unknown Medications RESULTS No Results PROCEDURES No Known procedures INSTRUCTIONS MEDICATIONS ADMINISTERED No Known Medications MEDICAL (GENERAL) HISTORY Type Description Date Medical History frequent ear infections Medical History gets 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
--- OUTSIDE RECORDS SUMMARY | 2018-04-01 20:23 | XMS REPORT ---
Author Author MOUNA LAKE Organization [employer] Address Unknown Phone Unavailable Care Team Providers Care Cash Poster Name Role Phone MOUNA LAKE CP Unavailable Allergies No Known Allergies Problems Problem Type Condition Code Onset Dates Condition Status Problem Lumbago 724.2 Active Problem Acute upper respiratory infections of unspecified site 465.9 Active Problem Acute upper respiratory infection, unspecified J06.9 Active Problem Unspecified otalgia 388.70 Active Problem Low back pain M54.5 Active Problem Cough 786.2 Active Problem Acute sinusitis, unspecified 461.9 Active Problem Influenza with other respiratory manifestations 487.1 Active Problem Unspecified backache 724.5 Active Medications No Known Medications Results No Known Results Summary Purpose [employer] Submission
--- OUTSIDE RECORDS SUMMARY | 2018-04-01 20:23 | XMS REPORT ---
Author Author JAYA MOUNA Organization [facility] Address [address] [place] [address] Care Team Providers Care Centrifugal Spinner Name Role Phone [place] Unavailable PROBLEMS Type Condition ICD9-CM Code NOK33-UN Code Onset Dates Condition Status SNOMED Code Problem Dysthymic disorder F34.1 Active 55715668 Problem Generalized anxiety disorder F41.1 Active 58769162 Problem Acute upper respiratory infection, unspecified J06.9 Active 63881890 Problem Low back pain M54.5 Active 037851749 Problem Adjustment disorder with depressed mood F43.21 Active 01826741 Problem Anxiety F41.9 Active 33923565 ALLERGIES No Known Allergies ENCOUNTERS Encounter Location Date Diagnosis [facility] [id number] [place] [address] 96830- 0603 Aug, [facility] [id number] [place] [address] 97739- 7983 Jul, Low back pain M54.5 [facility] [id number] [place] [address] 93084- 0354 June, Low back pain M54.5 [facility] [id number] [place] [address] 50080- 9080 May, Low back pain M54.5 and Generalized anxiety disorder F41.1 [facility] [id number] [place] [address] 27278- 1130 May, [facility] [id number] [place] [address] 19651- 3523 May, Generalized anxiety disorder F41.1 [facility] [id number] [place] [address] 86371- 2119 May, Low back pain M54.5 and Anxiety F41.9 [facility] [id number] [place] [address] 72402 2541 Apr, [facility] [address] 14678 2546 Mar, Low back pain M54.5 [facility] [address] 28074 2546 Mar, Low back pain M54.5 [facility] [address] 05367 2546 Feb, Ganglion, left wrist M67.432 [facility] [address] 82272- 9028 Feb, Low back pain M54.5 [facility] [address] 51861 2546 Feb, Low back pain M54.5 [facility] [address] 39073 2546 Feb, [facility] [address] 64723 2541 Feb, Low back pain M54.5 and Bronchitis J40 [facility] [address] 13132 2540 Feb, Low back pain M54.5 [facility] [address] 97357 2546 Jan, [facility] [id number] [place] [address] 40767 2546 Jan, Low back pain M54.5 [facility] [address] 44696 2546 Jan, Low back pain M54.5 ; Anxiety F41.9 and Ganglion, left wrist M67.432 [facility] [address] 18306 2546 Dec, Low back pain M54.5 [facility] [address] [place] [address] 43202- 1888 Dec, Ganglion, left wrist M67.432 [facility] [id number] [place] [address] 16499- 5626 Nov, Ganglion, left wrist M67.432 and Anxiety F41.9 [facility] [id number] [place] [address] 50754- 2426 Nov, Low back pain M54.5 [facility] [id number] [place] [address] 16654- 8746 Nov, [facility] [id number] [place] [address] 68989- 5859 Nov, [facility] [id number] [place] [address] 32590- 8223 Nov, [facility] [id number] [place] [address] 39130- 3353 Oct, Anxiety F41.9 [facility] [id number] [place] [address] 10735- 7354 Oct, Low back pain M54.5 [facility] [id number] [place] [address] 55546- 5051 Oct, [facility] [id number] [place] [address] 46393- 8387 Oct, [facility] [id number] [place] [address] 87973- 2547 Oct, Adjustment disorder with depressed mood F43.21 and Generalized anxiety disorder F41.1 [facility] [id number] [place] [address] 33469- 3181 Sep, Adjustment disorder with depressed mood F43.21 and Generalized anxiety disorder F41.1 [facility] [id number] [place] [address] 48149- 3206 Sep, [address] [id number] [place] [address] Sep [facility] [id number] [place] [address] 60481- 6375 Sep, Anxiety F41.9 [facility] [address] [place] [address] 22084- 3019 Sep, Low back pain M54.5 [facility] [id number] [place] [address] 43692- 9444 Sep, Adjustment disorder with depressed mood F43.21 and Generalized anxiety disorder F41.1 [facility] [id number] [place] [address] 18963- 5815 Sep, Allergic urticaria L50.0 [facility] [id number] [place] [address] 73475- 8840 Aug, [facility] [id number] [place] [address] 71081- 1876 Aug, Low back pain M54.5 [facility] [id number] [place] [address] 40845- 0276 Aug, Low back pain M54.5 [facility] [id number] [place] [address] 81482- 8356 Aug, [facility] [id number] [place] [address] 29109- 3976 Aug, Thoracic neuritis M54.14 [facility] [address] [place] [address] 29765- 4953 Jul, [facility] [id number] [place] [address] 33933- 9789 Jul, Low back pain M54.5 [facility] [address] [place] [address] 54902- 6406 Jul, Thoracic neuritis M54.14 [facility] [id number] [place] [address] 06683- 0080 Jul, [facility] [address] [address]- 8042 Jul, Thoracic neuritis M54.14 [facility] [address] [facility] [id number] [address]- 8208 June, [facility] [id number] [place] [address] 96124- 0900 June, Thoracic neuritis M54.14 [facility] [address] [facility] [id number], [place] [address]- 3545 May, [facility] [id number] [place] [address] 04064- 8778 May, [facility] [id number] [place] [address] 15461- 3988 Dec, [facility] [id number] [place] [address] 30210- 3123 Dec, [facility] [id number] [place] [address] 37836- 3068 Dec, [facility] [id number] [place] [address] 79272- 0070 Dec, [facility] [address] [address]- 6512 Nov, [facility] [address] [address]- 0376 Nov, Thoracic neuritis M54.14 and Low back pain M54.5 [facility] [address] [address]- 4008 Nov, [facility] [address] [address]- 2767 Oct, Low back pain M54.5 and Acute upper respiratory infection, unspecified J06.9 [facility] [id number] [place] [address] 40067- 1311 Oct, [facility] [id number] [place] [address] 45988- 8754 Oct, [facility] [id number] [place] [address] 13196- 5260 Oct, [facility] [id number] [place] [address] 71423- 9176 Oct, [facility] [id number] [place] [address] 04342- 1412 Sep, Chronic maxillary sinusitis J32.0 and Thoracic neuritis M54.14 [facility] [id number] [place] [address] 80068- 4751 Sep, [facility] [id number] [place] [address] 67759- 4505 Aug, Low back pain M54.5 and Other chronic pain G89.29 [facility] [id number] [place] [address] 95887- 3942 Jul, Low back pain M54.5 and Other chronic pain G89.29 [facility] [id number] [place] [address] 82920- 5655 Jul, [facility] [id number] [place] [address] 46759- 3335 June, [facility] [id number] [place] [address] 18102- 5123 May, Lumbago M54.5 and Sinusitis J32.9 [facility] [id number] [place] [address] 65159- 5909 Apr, Unspecified backache 724.5 and Folliculitis L73.9 [facility] [id number] [place] [address] 11924- 5223 24 Mar, 2015 URI (upper respiratory infection) J06.9 and Back pain M54.9 [facility] [id number] [place] [address]- 5978 05 Mar, 2015 [facility] [id number] [place] [address] 57632- 2350 Mar, [facility] [id number] [place] [address] 62368- 6224 Feb, Low back pain M54.5 ; Sciatica, unspecified side M54.30 ; Folliculitis L73.9 and Allergic urticaria L50.0 [facility] [id number] [place] [address] 15967- 6162 12 Feb, 2015 Visit for suture removal Z48.02 [facility] [address] 82239- 4866 Feb, [facility] [address] 22276- 9920 Feb, Rash R21 [facility] [facility] [address] 00921- 7144 16 Jan, 2015 Pharyngitis J02.9 ; Shoulder pain, right M25.511 and Rash R21 [facility] [facility] [address] 22885- 2073 Jan, [facility] [id number] [place] [address] 00626- 4707 Dec, Allergic urticaria L50.0 ; Right shoulder pain M25.511 and Lumbago M54.5 [facility] [id number] [place] [address] 19738- 5946 Dec, Upper respiratory tract infection, unspecified upper respiratory infection J06.9 [facility] [address] 58831- 0076 Dec, Contact dermatitis L25.9 [facility] [id number] [place] [address] 51565- 1794 Dec, [facility] [id number] [place] [address] 32709- 1371 Dec, Dermatitis L30.9 and Pain in right shoulder M25.511 [facility] [address] [address]- 5586 Nov, [facility] [id number] [address]- 2473 Nov, Upper respiratory tract infection, unspecified upper respiratory infection J06.9 [facility] [id number] [place] [address] 80493- 2126 Oct, [facility] [id number] [place] [address] 42582- 3741 Oct, [facility] [id number] [place] [address] 27954- 4557 Oct, [facility] [id number] [place] [address] 27776- 5369 Sep, Back pain 724.5 [facility] [id number] [place] [address] 57402- 7585 Sep, Back pain 724.5 [facility] [address] [address]- 5002 Sep, [facility] [address], [place] [address]- 5829 Aug, [facility] [address] [address]- 7361 Aug, [facility] [id number] [address]- 9507 Jul, Back pain 724.5 [facility] [id number] [address]- 1323 Jul, [facility] [id number] [address]- 5775 June, [facility] [address] [address]- 3401 14 May, 2014 [facility] [place] [facility] [address] [id number] [place] [address]- 8167 May, [facility] [place] [facility] [address] [id number] [place] [address]- 8382 Apr, [facility] [place] [facility] [address] [id number] [place] [address]- 6432 Apr, [facility] [place] [facility] [address] [id number] [place] [address]- 9939 Feb, [facility] [place] [facility] [address] [id number] [place] [address]- 6136 Feb, [facility] [place] [facility] [address] [id number] [place] [address]- 2916 Dec, [facility] [place] [facility] [address] [id number] [place] [address]- 0402 Dec, [facility] [place] [facility] [address] [id number] [place] [address]- 7242 Nov, [facility] [place] [facility] [address] [id number] [place] [address]- 7289 Nov, [facility] [place] [facility] [address] [id number] [place] [address]- 2649 Feb, [facility] [place] [facility] [address] [id number] [place] [address]- 6023 Feb, [facility] [place] [facility] [address] [id number], [place] [address]- 8787 Sep, [facility] [place] [facility] [address] [id number] [place] [address]- 5484 Apr, [facility] [place] [facility] [address] [id number] [place] [address]- 7046 Apr, [facility] [place] [facility] [address] [id number] [place] [address]- 3597 Mar, [facility] [place] [facility] [address] [facility] [id number] [place] [address]- 8116 Mar, [facility] [address] [facility] [id number] [place] [address]- 9780 Mar, [facility] [address] [facility] [id number] [place] [address] 2546 Sep, IMMUNIZATIONS No Known Immunizations SOCIAL HISTORY Never Assessed REASON FOR VISIT Pain management (chronic), PT had a cyst removed on his left wrist that has came back-Dimas CAREY PLAN OF CARE VITAL SIGNS Height 70 in 2017-01-11 Weight 142.1 lbs 2017-01-11 Temperature 98.1 degrees Fahrenheit 2017-01-11 Heart Rate 72 bpm 2017-01-11 Respiratory Rate 18 2017-01-11 BMI 20.39 kg/m2 2017-01-11 Blood pressure systolic 108 mmHg 2017-01-11 Blood pressure diastolic 72 mmHg 2017-01-11 MEDICATIONS Medication Instructions Dosage Frequency Start Date End Date Duration Status ProAir HFA 108 (90 Base) MCG/ACT Inhalation every 6 hrs for shortness of breath/cough 2 puffs as needed Active Lowry 7.5-325 MG Orally 4 times a day take 1 tablet 6h Dec, 28 days Active Ativan 2 MG Orally twice a day 1 tablet as needed 12h Nov, Active Robaxin-750 750 MG Orally 3 times a day 1 tablet 8h May, 30 day (s) Active Sudafed 12 Hour 120 MG Orally Once a day 1 tablet as needed 24h Nov, Active Gabapentin 300 MG Orally Three times a day 1 capsule 8h May, 30 day(s) Active RESULTS No Results PROCEDURES No Known procedures INSTRUCTIONS MEDICATIONS ADMINISTERED No Known Medications MEDICAL (GENERAL) HISTORY Type Description Date Medical History frequent ear infections 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
--- OUTSIDE RECORDS SUMMARY | 2018-04-01 20:24 | XMS REPORT ---
Author Author JAYA MOUNA Organization [facility] Address [address] [place] [address] Care Team Providers Care Clay Shop Supervisor Name Role Phone [place] Unavailable PROBLEMS Type Condition ICD9-CM Code [id number] Code Onset Dates Condition Status SNOMED Code Problem Dysthymic disorder F34.1 Active 88525621 Problem Generalized anxiety disorder F41.1 Active 52430153 Problem Acute upper respiratory infection, unspecified J06.9 Active 45746739 Problem Low back pain M54.5 Active 560888718 Problem Adjustment disorder with depressed mood F43.21 Active 85107865 Problem Anxiety F41.9 Active [id number] ALLERGIES No Known Allergies ENCOUNTERS Encounter Location Date Diagnosis [facility] [id number] [place] [address] 21523- 4674 Aug, [facility] [id number] [place] [address] 59423- 5265 Jul, Low back pain M54.5 [facility] [id number] [place] [address] 67156- 0415 June, Low back pain M54.5 [facility] [id number] [place] [address] 14259- 2890 May, Low back pain M54.5 and Generalized anxiety disorder F41.1 [facility] [id number] [place] [address] 89706- 8453 May, [facility] [id number] [place] [address] 96195- 1805 May, Generalized anxiety disorder F41.1 [facility] [id number] [place] [address] 15601- 3725 May, Low back pain M54.5 and Anxiety F41.9 [facility] [id number] [place] [address] 90479 2540 Apr, [facility] [address] 06386 2546 Mar, Low back pain M54.5 [facility] [address] 04845 2546 Mar, Low back pain M54.5 [facility] [address] 53000 2546 Feb, Ganglion, left wrist M67.432 [facility] [address] 11314- 6225 Feb, Low back pain M54.5 [facility] [address] 50968 2546 Feb, Low back pain M54.5 [facility] [address] 65742 2546 Feb, [facility] [address] 26766 2540 Feb, Low back pain M54.5 and Bronchitis J40 [facility] [address] 15439 2548 Feb, Low back pain M54.5 [facility] [address] 14773 2546 Jan, [facility] [id number] [place] [address] 02563 2546 Jan, Low back pain M54.5 [facility] [address] 69251 2546 Jan, Low back pain M54.5 ; Anxiety F41.9 and Ganglion, left wrist M67.432 [facility] [address] 12783 2546 Dec, Low back pain M54.5 [facility] [id number] [place] [address] 47677- 8540 Dec, Ganglion, left wrist M67.432 [facility] [id number] [place] [address] 10428- 7436 Nov, Ganglion, left wrist M67.432 and Anxiety F41.9 [facility] [id number] [place] [address] 94092- 8176 Nov, Low back pain M54.5 [facility] [id number] [place] [address] 02165- 4386 Nov, [facility] [id number] [place] [address] 54511- 6896 Nov, [facility] [id number] [place] [address] 89597- 1686 Nov, [facility] [id number] [place] [address] 23656- 7831 Oct, Anxiety F41.9 [facility] [id number] [place] [address] 56717- 4931 Oct, Low back pain M54.5 [facility] [id number] [place] [address] 51992- 4868 Oct, [facility] [id number] [place] [address] 90198- 1976 Oct, [facility] [id number] [place] [address] 11302- 2547 Oct, Adjustment disorder with depressed mood F43.21 and Generalized anxiety disorder F41.1 [facility] [id number] [place] [address] 92187- 6239 Sep, Adjustment disorder with depressed mood F43.21 and Generalized anxiety disorder F41.1 [facility] [id number] [place] [address] 27517- 6655 Sep, [address] [id number] [place] [address] Sep [facility] [id number] [place] [address] 20925- 5759 Sep, Anxiety F41.9 [facility] [id number] [place] [address] 98348- 0637 Sep, Low back pain M54.5 [facility] [id number] [place] [address] 00655- 1941 Sep, Adjustment disorder with depressed mood F43.21 and Generalized anxiety disorder F41.1 [facility] [id number] [place] [address] 30519- 0159 Sep, Allergic urticaria L50.0 [facility] [id number] [place] [address] 71996- 8705 Aug, [facility] [id number] [place] [address] 01118- 0231 Aug, Low back pain M54.5 [facility] [id number] [place] [address] 73389- 5659 Aug, Low back pain M54.5 [facility] [id number] [place] [address] 80642- 2659 Aug, [facility] [id number] [place] [address] 49264- 0228 Aug, Thoracic neuritis M54.14 [facility] [id number] [place] [address] 62126- 1826 Jul, [facility] [id number] [place] [address] 68531- 7261 Jul, Low back pain M54.5 [facility] [id number] [place] [address] 45846- 9293 Jul, Thoracic neuritis M54.14 [facility] [id number] [place] [address] 21992- 5022 Jul, [facility] [address] [address] 1630 Jul, Thoracic neuritis M54.14 [facility] [address] [facility] [id number] [address] 9298 June, [facility] [id number] [place] [address] 40864- 2408 June, Thoracic neuritis M54.14 [facility] [address] [facility] [id number] [address] 7868 May, [facility] [id number] [place] [address] 49340- 9597 May, [facility] [id number] [place] [address] 22187- 1859 Dec, [facility] [id number] [place] [address] 71900- 3983 Dec, [facility] [id number] [place] [address] 46162- 5211 Dec, [facility] [id number] [place] [address] 22625- 6190 Dec, [facility] [address] [address]- 0090 Nov, [facility] [address] [address]- 6400 Nov, Thoracic neuritis M54.14 and Low back pain M54.5 [facility] [address] [address]- 2217 Nov, [facility] [address] [address]- 6653 Oct, Low back pain M54.5 and Acute upper respiratory infection, unspecified J06.9 [facility] [id number] [place] [address] 43335- 9388 Oct, [facility] [id number] [place] [address] 77880- 9619 Oct, [facility] [id number] [place] [address] 84457- 9373 Oct, [facility] [id number] [place] [address] 34369- 2474 Oct, [facility] [id number] [place] [address] 93598- 9681 Sep, Chronic maxillary sinusitis J32.0 and Thoracic neuritis M54.14 [facility] [id number] [place] [address] 41130- 5115 Sep, [facility] [id number] [place] [address] 75398- 1000 Aug, Low back pain M54.5 and Other chronic pain G89.29 [facility] [id number] [place] [address] 46839- 1078 Jul, Low back pain M54.5 and Other chronic pain G89.29 [facility] [id number] [place] [address] 70385- 7858 Jul, [facility] [id number] [place] [address] 99231- 0619 June, [facility] [id number] [place] [address] 90349- 6803 May, Lumbago M54.5 and Sinusitis J32.9 [facility] [id number] [place] [address] 15765- 9567 Apr, Unspecified backache 724.5 and Folliculitis L73.9 [facility] [id number] [place] [address] 95963- 1591 24 Mar, 2015 URI (upper respiratory infection) J06.9 and Back pain M54.9 [facility] [id number] [place] [address]- 2850 05 Mar, 2015 [facility] [id number] [place] [address] 58307- 4354 Mar, [facility] [id number] [place] [address] 87343- 9206 Feb, Low back pain M54.5 ; Sciatica, unspecified side M54.30 ; Folliculitis L73.9 and Allergic urticaria L50.0 [facility] [id number] [place] [address] 63364- 0297 12 Feb, 2015 Visit for suture removal Z48.02 [facility] [address] 07735- 7282 Feb, [facility] [address] 82399- 6714 Feb, Rash R21 [facility] [address] 57611- 1695 16 Jan, 2015 Pharyngitis J02.9 ; Shoulder pain, right M25.511 and Rash R21 [address] [facility] 85744- 7649 Jan, [facility] [id number] [place] [address] 08315- 9797 Dec, Allergic urticaria L50.0 ; Right shoulder pain M25.511 and Lumbago M54.5 [facility] [id number] [place] [address] 32248- 0645 Dec, Upper respiratory tract infection, unspecified upper respiratory infection J06.9 [facility] [address] 00547- 7784 Dec, Contact dermatitis L25.9 [facility] [id number] [place] [address] 06786- 5254 Dec, [facility] [id number] [place] [address] 31480- 4732 Dec, Dermatitis L30.9 and Pain in right shoulder M25.511 [facility] [address], [place] [address]- 0174 Nov, [facility] [id number] [address]- 1858 Nov, Upper respiratory tract infection, unspecified upper respiratory infection J06.9 [facility] [id number] [place] [address] 86931- 6910 Oct, [facility] [id number] [place] [address] 59763- 1531 Oct, [facility] [id number] [place] [address] 97290- 6389 Oct, [facility] [id number] [place] [address] 04705- 1603 Sep, Back pain 724.5 [facility] [id number] [place] [address] 40329- 7762 Sep, Back pain 724.5 [facility] [address] [address]- 2458 Sep, [facility] [address] [address]- 3254 Aug, [facility] [address] [address]- 2586 Aug, [facility] [id number] [address]- 9441 Jul, Back pain 724.5 [facility] [id number] [address]- 1850 Jul, [facility] [id number] [address]- 0281 June, [facility] [address], [place] [address]- 6754 14 May, 2014 [facility] [place] [facility] [address] [id number] [place] [address]- 5735 May, [facility] [place] [facility] [address] [id number] [place] [address]- 1592 Apr, [facility] [place] [facility] [address] [id number] [place] [address]- 9213 Apr, [facility] [place] [facility] [address] [id number] [place] [address]- 2034 Feb, [facility] [place] [facility] [address] [id number] [place] [address]- 8921 Feb, [facility] [place] [facility] [address] [id number] [place] [address]- 9326 Dec, [facility] [place] [facility] [address] [id number] [place] [address]- 1809 Dec, [facility] [place] [facility] [address] [id number] [place] [address]- 9482 Nov, [facility] [place] [facility] [address] [id number] [place] [address]- 8794 Nov, [facility] [place] [facility] [address] [id number] [place] [address]- 9982 Feb, [facility] [place] [facility] [address] [id number] [place] [address]- 5078 Feb, [facility] [place] [facility] [address] [id number], [place] [address]- 0900 Sep, [facility] [place] [facility] [address] [id number] [place] [address]- 8139 Apr, [facility] [place] [facility] [address] [id number] [place] [address]- 4936 Apr, [facility] [place] [facility] [address] [id number] [place] [address]- 0854 Mar, [facility] [place] [facility] [address] [facility] [id number] [place]- 2416 Mar, [facility] [address] [facility] [id number] [place] [address]- 4078 Mar, [facility] [address] [facility] [id number] [place] [address] 0360 Sep, IMMUNIZATIONS No Known Immunizations SOCIAL HISTORY Never Assessed REASON FOR VISIT Cough/Congestion for a few days-Dimas CAREY PLAN OF CARE VITAL SIGNS Height 70 in 2017-02-11 Weight 147.8 lbs 2017-02-11 Temperature 98.6 degrees Fahrenheit 2017-02-11 Heart Rate 76 bpm 2017-02-11 Respiratory Rate 20 2017-02-11 BMI 21.20 kg/m2 2017-02-11 Blood pressure systolic 126 mmHg 2017-02-11 Blood pressure diastolic 78 mmHg 2017-02-11 MEDICATIONS Medication Instructions Dosage Frequency Start Date End Date Duration Status Gabapentin 300 MG Orally Three times a day 1 capsule 8h May, 30 day(s) Active Sudafed 12 Hour 120 MG Orally Once a day 1 tablet as needed 24h Nov, Active Bactrim DS 800-160 MG Orally Twice a day 1 tablet 12h Feb,Feb 10 day(s) Active ProAir HFA 108 (90 Base) MCG/ACT Inhalation every 6 hrs for shortness of breath/cough 2 puffs as needed Active Ativan 2 MG Orally twice a day 1 tablet as needed 12h Nov, Active PredniSONE 20 mg Orally Once a day 2 tablets 24h Feb, Active [place] 7.5-325 MG Orally 4 times a day take 1 tablet 6h Jan, 28 days Active Robaxin-750 750 MG Orally 3 times a day 1 tablet 8h May, 30 day (s) Active RESULTS No Results PROCEDURES No Known procedures INSTRUCTIONS MEDICATIONS ADMINISTERED No Known Medications MEDICAL (GENERAL) HISTORY Type Description Date Medical History frequent ear infections Medical History 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
--- OUTSIDE RECORDS SUMMARY | 2018-04-01 20:24 | XMS REPORT ---
Author Author MOUNA LAKE Organization [facility] Address [address] [place] [address] Care Team Providers Care Chemical Detection Expert Name Role Phone MOUNA LAKE Unavailable PROBLEMS Type Condition ICD9-CM Code [id number] Code Onset Dates Condition Status SNOMED Code Problem Dysthymic disorder F34.1 Active 26979988 Problem Generalized anxiety disorder F41.1 Active 08647090 Problem Acute upper respiratory infection, unspecified J06.9 Active 54928108 Problem Low back pain M54.5 Active 569407937 Problem Adjustment disorder with depressed mood F43.21 Active 00728190 Problem Anxiety F41.9 Active [id number] ALLERGIES No Known Allergies ENCOUNTERS Encounter Location Date Diagnosis [place] [id number] [place] [address] 66521- 4896 May, [facility] [address] [id number] [place] [address] 40096- 5985 Apr, [facility] [id number] [place] [address] 93578- 9319 Apr, [facility] [id number] [place] [address] 43338- 5265 Mar, Low back pain M54.5 [facility] [id number] [place] [address] 18151- 8229 Mar, Low back pain M54.5 [facility] [id number] [place] [address] 85720- 3391 Feb, Ganglion, left wrist M67.432 [facility] [id number] [place] [address] 24972- 2082 Feb, Low back pain M54.5 [facility] [id number] [place] [address] 95273- 8545 Feb, Low back pain M54.5 [facility] [id number] [place] [address] 00879- 1124 Feb, [facility] [address] [place] [place] [id number] [place] [address] 35595- 3136 Feb, Low back pain M54.5 and Bronchitis J40 [facility] [id number] [place] [address] 65764- 0668 Feb, Low back pain M54.5 [facility] [id number] [place] [address] 90651- 1379 Jan, [facility] [id number] [place] [address] 15004- 1014 Jan, Low back pain M54.5 [facility] [id number] [place] [address] 18968- 4507 Jan, Low back pain M54.5 ; Anxiety F41.9 and Ganglion, left wrist M67.432 [facility] [id number] [place] [address] 54466- 7018 Dec, Low back pain M54.5 [facility] [id number] [place] [address] 10792- 6318 Dec, Ganglion, left wrist M67.432 [facility] [id number] [place] [address] 48968- 6212 Nov, Ganglion, left wrist M67.432 and Anxiety F41.9 [facility] [id number] [place] [address] 30823- 6756 Nov, Low back pain M54.5 [facility] [id number] [place] [address] 40179- 0282 Nov, [facility] [id number] [place] [address] 08115- 3079 Nov, [facility] [id number] [address]- 0719 Nov, [facility] [id number] [place] [address] 88571- 2356 Oct, Anxiety F41.9 [facility] [id number] [place] [address] 85339- 5586 Oct, Low back pain M54.5 [facility] [id number] [place] [address] 38626- 4462 Oct, [facility] [id number] [place] [address] 18319- 6410 07 Oct, 2016 [facility] [id number] [place] [address] 79198- 5868 Oct, Adjustment disorder with depressed mood F43.21 and Generalized anxiety disorder F41.1 [facility] [id number] [place] [address] 04341- 3108 Sep, Adjustment disorder with depressed mood F43.21 and Generalized anxiety disorder F41.1 [facility] [id number] [place] [address] 84511- 0750 Sep, [address] [id number] [place] [address] Sep [facility] [id number] [place] [address] 58961- 4063 Sep, Anxiety F41.9 [facility] [id number] [place] [address] 11352- 9295 Sep, Low back pain M54.5 [facility] [id number] [place] [address] 42303- 3395 Sep, Adjustment disorder with depressed mood F43.21 and Generalized anxiety disorder F41.1 [facility] [id number] [place] [address] 07776- 6635 Sep, Allergic urticaria L50.0 [facility] [id number] [place] [address] 28385- 9953 Aug, [facility] [address] [facility] [id number] [place] [address] 49478- 2841 Aug, Low back pain M54.5 [facility] [address] [facility] [id number] [address] 5356 Aug, Low back pain M54.5 [facility] [address] [place] [id number] [place] [address] 00741- 2055 Aug, [facility] [address] [facility] [id number] [place] [address] 87829- 5948 Aug, Thoracic neuritis M54.14 [facility] [id number] [place] [address] 14988- 5158 Jul, [facility] [id number] [place] [address] 20963- 6337 Jul, Low back pain M54.5 [facility] [address] [place] [address] 93992- 9869 Jul, Thoracic neuritis M54.14 [facility] [id number] [place] [address] 37175- 4133 Jul, [facility] [address] [place] [address] 24895- 9995 Jul, Thoracic neuritis M54.14 [facility] [address] [address]- 1206 June, [facility] [address] [facility] [id number] [place] [address] 29364- 8703 June, Thoracic neuritis M54.14 [facility] [address] [address]- 3717 May, [facility] [id number] [address]- 3924 May, [facility] [id number] [place] [address] 98920- 7382 Dec, [facility] [id number] [place] [address] 99397- 8546 Dec, [facility] [id number] [place] [address] 70816- 5266 Dec, [facility] [id number] [place] [address] 77734- 6117 Dec, [facility] [id number] [place] [address] 26777- 9307 Nov, [facility] [id number] [place] [address] 83498- 8055 Nov, Thoracic neuritis M54.14 and Low back pain M54.5 [facility] [id number] [place] [address] 74485- 3805 Nov, [facility] [id number] [place] [address] 57709- 8678 Oct, Low back pain M54.5 and Acute upper respiratory infection, unspecified J06.9 [facility] [id number] [place] [address] 57321- 2999 Oct, [facility] [id number] [place] [address] 43174- 1799 Oct, [facility] [address] [place] [address] 64334- 2795 Oct, [facility] [id number] [place] [address] 76156- 1408 Oct, [facility] [id number] [place] [address] 82917- 8212 Sep, Chronic maxillary sinusitis J32.0 and Thoracic neuritis M54.14 [facility] [address] [place] [address] 88338- 8657 Sep, [facility] [id number] [place] [address] 18845- 7586 Aug, Low back pain M54.5 and Other chronic pain G89.29 [place] [address] 51156- 2858 Jul, Low back pain M54.5 and Other chronic pain G89.29 [place] [address] 20179- 8789 Jul, [place] [address] 65908- 6800 June, [place] [address] 09394- 6018 May, Lumbago M54.5 and Sinusitis J32.9 [place] [address] 02866- 7435 Apr, Unspecified backache 724.5 and Folliculitis L73.9 [place] [address] 06219- 1359 Mar, URI (upper respiratory infection) J06.9 and Back pain M54.9 [place] [address] 15190- 8910 Mar, [place] [address] 76922- 5305 Mar, [place] [address] 04639- 1965 Feb, Low back pain M54.5 ; Sciatica, unspecified side M54.30 ; Allergic urticaria L50.0 and Folliculitis L73.9 [place] [address] 25149- 5932 Feb, Visit for suture removal Z48.02 [place] [address] 53884- 7892 Feb, [place] [address] 84041- 2432 Feb, Rash R21 [facility] [id number] [place] [address] 50860- 5311 Jan, Pharyngitis J02.9 ; Shoulder pain, right M25.511 and Rash R21 [facility] [address] 27666- 5963 Jan, [facility] [address] 39968- 5773 Dec, Allergic urticaria L50.0 ; Right shoulder pain M25.511 and Lumbago M54.5 [facility] [address] 21570- 7998 Dec, Upper respiratory tract infection, unspecified upper respiratory infection J06.9 [facility] [address] 80503- 6807 Dec, Contact dermatitis L25.9 [facility] [address] 15468- 7410 Dec, [facility] [address] 78363- 6460 Dec, Dermatitis L30.9 and Pain in right shoulder M25.511 [facility] [id number] [place] [address] 75558- 8729 Nov, [facility] [address] 53200- 1118 Nov, Upper respiratory tract infection, unspecified upper respiratory infection J06.9 [facility] [id number] [place] [address] 03230- 6178 Oct, [facility] [id number] [place] [address] 76289- 2487 Oct, [facility] [id number] [place] [address] 86990- 7279 Oct, [facility] [address] [id number] [place] [address]- 0565 Sep, Back pain 724.5 [facility] [address] [id number] [place] [address]- 1360 Sep, Back pain 724.5 [facility] [place] [facility] [address] [id number] [place] [address]- 0751 Sep, [facility] [place] [facility] [address] [id number] [place] [address]- 9179 Aug, [facility] [place] [facility] [address] [id number] [place] [address]- 2731 Aug, [facility] [place] [facility] [address] [id number] [place] [address]- 1893 Jul, Back pain 724.5 [facility] [address] [id number] [place] [address]- 0351 Jul, [facility] [place] [facility] [address] [id number] [place] [address]- 0481 June, [facility] [place] [facility] [address] [id number] [place] [address]- 3262 May, [facility] [place] [facility] [address] [id number] [place] [address]- 2599 May, [facility] [place] [facility] [address] [id number] [place] [address]- 3824 Apr, [facility] [place] [facility] [address] [id number] [place] [address]- 7575 Apr, [facility] [place] [facility] [address] [id number] [place] [address]- 3481 Feb, [facility] [place] [facility] [address] [id number] [place] [address]- 2273 Feb, [facility] [place] [facility] [address] [id number] [place] [address]- 4373 Dec, [facility] [place] [facility] [address] [address]- 9384 Dec, [facility] [address] [address]- 3204 Nov, [facility] [address] [address]- 3512 Nov, [facility] [address] [address]- 1982 Feb, [facility] [address] [address]- 1768 Feb, [facility] [address] [address]- 5200 Sep, [facility] [address] [address]- 8609 Apr, [facility] [address] [address]- 2775 Apr, [facility] [address] [address]- 9677 Mar, [facility] [address] [address]- 2499 Mar, [facility] [address] [place] [address]- 5479 Mar, [facility] [address] [place] [address]- 1066 Sep, IMMUNIZATIONS No Known Immunizations SOCIAL HISTORY Never Assessed REASON FOR VISIT Pain management (chronic). KBoleRN PLAN OF CARE VITAL SIGNS Height 70 in 2016-08-03 Weight 136.4 lbs 2016-08-03 Temperature 98.2 degrees Fahrenheit 2016-08-03 Heart Rate 88 bpm 2016-08-03 Respiratory Rate 20 2016-08-03 BMI 19.57 kg/m2 2016-08-03 Blood pressure systolic 120 mmHg 2016-08-03 Blood pressure diastolic 78 mmHg 2016-08-03 MEDICATIONS Medication Instructions Dosage Frequency Start Date End Date Duration Status [place] 7.5-325 MG Orally 4 times a day take 1 tablet 6h Jul,Aug 28 days Active Gabapentin 300 MG Orally Three times a day 1 capsule 8h May, 30 day(s) Active Robaxin-750 750 MG Orally 3 times a day 1 tablet 8h May, Dec, 30 day(s) Active ProAir HFA 108 (90 Base) MCG/ACT Inhalation every 6 hrs for shortness of breath/cough 2 puffs as needed Active Sudafed 60 MG Orally 2 times a day 1 tablet as needed 12h 15 Nov, 2014 28 days Active RESULTS No Results PROCEDURES No Known procedures INSTRUCTIONS MEDICATIONS ADMINISTERED No Known Medications MEDICAL (GENERAL) HISTORY Type Description Date Medical History frequent ear infections 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
--- OUTSIDE RECORDS SUMMARY | 2018-04-01 20:24 | XMS REPORT ---
Author Author MOUNA LAKE Organization [facility] Address [address] [place] [address] Care Team Providers Care Orthopedic Assistant Name Role Phone MOUNA LAKE Unavailable PROBLEMS Type Condition ICD9-CM Code [id number] Code Onset Dates Condition Status SNOMED Code Problem Dysthymic disorder F34.1 Active 64812121 Problem Generalized anxiety disorder F41.1 Active 69438214 Problem Acute upper respiratory infection, unspecified J06.9 Active 17637572 Problem Low back pain M54.5 Active 313070345 Problem Adjustment disorder with depressed mood F43.21 Active 20230469 Problem Anxiety F41.9 Active 89908589 ALLERGIES No Information ENCOUNTERS Encounter Location Date Diagnosis [facility] [id number] [place] [address] 85205- 9674 May, [facility] [id number] [place] [address] 57403- 8227 May, [facility] [id number] [place] [address] 12420- 4060 May, [facility] [id number] [place] [address] 77166- 6073 Apr, [facility] [id number] [place] [address] 86459- 7364 Mar, Low back pain M54.5 [facility] [id number] [place] [address] 58735- 5334 Mar, Low back pain M54.5 [facility] [id number] [place] [address] 46998- 3305 Feb, Ganglion, left wrist M67.432 [facility] [id number] [place] [address] 70485- 2296 Feb, Low back pain M54.5 [facility] [address] [facility] [id number] [place] [address] 13313- 9881 Feb, Low back pain M54.5 [facility] [address] [facility] [id number] [place] [address] 24530- 8329 Feb, [facility] [address] [facility] [id number] [place] [address] 77930- 5868 Feb, Low back pain M54.5 and Bronchitis J40 [facility] [address] [facility] [id number] [place] [address] 51290- 8776 Feb, Low back pain M54.5 [facility] [id number] [place] [address] 09744- 3443 Jan, [facility] [id number] [place] [address] 15146- 6311 Jan, Low back pain M54.5 [facility] [id number] [place] [address] 70304- 3918 Jan, Low back pain M54.5 ; Anxiety F41.9 and Ganglion, left wrist M67.432 [facility] [id number] [place] [address] 33786- 1477 Dec, Low back pain M54.5 [facility] [id number] [place] [address] 84965- 7678 Dec, Ganglion, left wrist M67.432 [facility] [address] [facility] [id number] [place] [address] 70176- 5026 Nov, Ganglion, left wrist M67.432 and Anxiety F41.9 [facility] [id number] [place] [address] 50184- 5666 Nov, Low back pain M54.5 [facility] [id number] [place] [address] 50226- 3413 Nov, [facility] [id number] [address]- 8183 Nov, [facility] [id number] [place] [address] 10716- 4992 Nov, [facility] [id number] [place] [address] 25917- 2693 Oct, Anxiety F41.9 [facility] [id number] [place] [address] 34026- 4363 Oct, Low back pain M54.5 [facility] [id number] [place] [address] 43003- 7553 20 Oct, 2016 [facility] [id number] [place] [address] 96059- 1590 Oct, [facility] [id number] [place] [address] 36102- 1845 06 Oct, 2016 Adjustment disorder with depressed mood F43.21 and Generalized anxiety disorder F41.1 [facility] [id number] [place] [address] 98863- 0540 Sep, Adjustment disorder with depressed mood F43.21 and Generalized anxiety disorder F41.1 [facility] [id number] [place] [address] 02281- 1818 Sep, [address] [id number] [place] [address] Sep [facility] [address] [address]- 7948 Sep, Anxiety F41.9 [facility] [address] [address]- 9538 Sep, Low back pain M54.5 [facility] [id number] [place] [address] 64492- 6203 Sep, Adjustment disorder with depressed mood F43.21 and Generalized anxiety disorder F41.1 [facility] [id number] [place] [address] 14294- 4277 Sep, Allergic urticaria L50.0 [facility] [id number] [place] [address] 51145- 2490 Aug, [facility] [id number] [place] [address] 64302- 4399 Aug, Low back pain M54.5 [facility] [id number] [place] [address] 98935- 4089 Aug, Low back pain M54.5 [facility] [address] [facility] [id number] [place] [address] 93898- 0594 Aug, [facility] [id number] [place] [address] 85041- 4510 Aug, Thoracic neuritis M54.14 [facility] [id number] [place] [address] 58856- 6136 Jul, [facility] [id number] [place] [address] 55120- 9978 Jul, Low back pain M54.5 [facility] [id number] [place] [address] 55142- 7012 Jul, Thoracic neuritis M54.14 [facility] [id number] [place] [address] 27831- 1301 Jul, [facility] [id number] [place] [address] 74383- 4731 Jul, Thoracic neuritis M54.14 [facility] [id number] [place] [address] 47045- 2772 June, [facility] [id number] [place] [address] 38886- 1314 June, Thoracic neuritis M54.14 [facility] [id number] [place] [address] 36580- 4247 May, [facility] [id number] [place] [address] 73206- 7014 May, [facility] [address] [address]- 6078 Dec, [facility] [id number] [place] [address] 64371- 3565 Dec, [facility] [id number] [place] [address] 15615- 1359 Dec, [facility] [id number] [place] [address] 60868- 3441 Dec, [facility] [id number] [place] [address] 94514- 5719 Nov, [facility] [id number] [place] [address] 29549- 3079 Nov, Thoracic neuritis M54.14 and Low back pain M54.5 [facility] [id number] [place] [address] 57859- 4591 Nov, [facility] [id number] [place] [address] 77793- 8776 Oct, Low back pain M54.5 and Acute upper respiratory infection, unspecified J06.9 [facility] [id number] [place] [address] 46887- 1388 Oct, [facility] [id number] [place] [address] 64583- 5257 Oct, [facility] [id number] [place] [address] 77592- 2434 Oct, [facility] [id number] [place] [address] 56914- 8876 Oct, [facility] [id number] [place] [address] 12631- 6054 Sep, Chronic maxillary sinusitis J32.0 and Thoracic neuritis M54.14 [facility] [id number] [place] [address] 09409- 0045 Sep, [facility] [id number] [place] [address] 28271- 4796 Aug, Low back pain M54.5 and Other chronic pain G89.29 [facility] [id number] [place] [address] 45118- 2340 Jul, Low back pain M54.5 and Other chronic pain G89.29 [address] [address] 03864- 8855 Jul, [place] [address] 23564- 2585 June, [place] [address] 75832- 5616 May, Lumbago M54.5 and Sinusitis J32.9 [place] [id number] [place] [address] 52356- 9580 Apr, Unspecified backache 724.5 and Folliculitis L73.9 [place] [id number] [place] [address] 72269- 7268 Mar, URI (upper respiratory infection) J06.9 and Back pain M54.9 [place] [id number] [place] [address] 21262- 4258 Mar, [place] [id number] [place] [address] 88094- 6509 Mar, [place] [id number] [place] [address] 34047- 2994 Feb, Low back pain M54.5 ; Sciatica, unspecified side M54.30 ; Allergic urticaria L50.0 and Folliculitis L73.9 [place] [id number] [place] [address] 47616- 0791 Feb, Visit for suture removal Z48.02 [place] [address] 95077- 1861 Feb, [facility] [id number] [place] [address] 14125- 1527 Feb, Rash R21 [facility] [id number] [place] [address] 55321- 3306 Jan, Pharyngitis J02.9 ; Shoulder pain, right M25.511 and Rash R21 [facility] [address] 02551- 2516 Jan, [facility] [id number] [place] [address] 94708- 7903 30 Dec, 2014 Allergic urticaria L50.0 ; Right shoulder pain M25.511 and Lumbago M54.5 [facility] [id number] [place] [address] 46025- 2101 Dec, Upper respiratory tract infection, unspecified upper respiratory infection J06.9 [facility] [id number] [place] [address] 18199- 2043 Dec, Contact dermatitis L25.9 [facility] [id number] [place] [address] 72717- 1404 Dec, [facility] [id number] [place] [address] 86810- 2567 Dec, Dermatitis L30.9 and Pain in right shoulder M25.511 [facility] [id number] [place] [address] 04874- 0537 Nov, [facility] [id number] [place] [address] 45854- 2632 Nov, Upper respiratory tract infection, unspecified upper respiratory infection J06.9 [facility] [id number] [place] [address] 50517- 6623 Oct, [facility] [id number] [place] [address] 55444- 3417 Oct, [facility] [place] [facility] [address] [id number] [place] [address]- 4271 Oct, [facility] [address] [id number] [place] [address]- 8422 Sep, Back pain 724.5 [facility] [address] [id number] [place] [address]- 1345 Sep, Back pain 724.5 [facility] [place] [facility] [address] [id number] [place] [address]- 7228 Sep, [facility] [place] [facility] [address] [id number] [place] [address]- 7847 Aug, [facility] [place] [facility] [address] [id number] [place] [address]- 1867 Aug, [facility] [place] [facility] [address] [id number] [place] [address]- 1237 Jul, Back pain 724.5 [facility] [place] [facility] [address] [id number] [place] [address]- 1343 Jul, [facility] [place] [facility] [address] [id number] [place] [address]- 2172 June, [facility] [place] [facility] [address] [id number] [place] [address]- 4255 May, [facility] [place] [facility] [address] [id number] [place] [address]- 7718 May, [facility] [place] [facility] [address] [id number] [place] [address]- 2640 Apr, [facility] [place] [facility] [address] [id number] [place] [address]- 1915 Apr, [facility] [place] [facility] [address] [id number] [place] [address]- 4154 Feb, [facility] [place] [facility] [address] [id number] [place] [address]- 5519 Feb, [facility] [place] [facility] [address] [id number] [address]- 2546 Dec, [facility] [address] [address]- 8356 Dec, [facility] [address] [address]- 8596 Nov, [facility] [address] [address]- 1336 Nov, [facility] [address] [address]- 0309 Feb, [facility] [address] [place] [address] 47836- 8516 Feb, [facility] [address] [address]- 1416 Sep, [facility] [address] [address]- 7946 Apr, [facility] [address] [address]- 6266 Apr, [facility] [address] [address]- 8117 Mar, [facility] [address] [address]- 7626 Mar, [facility] [address] [address]- 5556 Mar, [facility] [id number] [address]- 7646 Sep, IMMUNIZATIONS No Known Immunizations SOCIAL HISTORY Never Assessed REASON FOR VISIT Stolen Medication PLAN OF CARE VITAL SIGNS MEDICATIONS Unknown Medications RESULTS No Results PROCEDURES No Known procedures INSTRUCTIONS MEDICATIONS ADMINISTERED No Known Medications MEDICAL (GENERAL) HISTORY Type Description Date Medical History frequent ear infections Medical History gets respiratory infections from being around 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
--- OUTSIDE RECORDS SUMMARY | 2018-04-01 20:25 | XMS REPORT ---
Author MOUNA Mathews [facility] e[employer] Address Unknown Phone Unavailable Care Team Providers Care Rubber Compounder Supervisor Name Role Phone MOUNA LAKE CP Unavailable Allergies, Adverse Reactions, Alerts Substance Reaction Event Type N.K.D.A. Info Not Available Non Drug Allergy Problems Problem Type Condition Code Onset Dates Condition Status Assessment Thoracic neuritis M54.14 Active Problem Lumbago 724.2 Active Problem Acute upper respiratory infections of unspecified site 465.9 Active Assessment Low back pain M54.5 Active Problem Acute upper respiratory infection, unspecified J06.9 Active Problem Unspecified otalgia 388.70 Active Problem Low back pain M54.5 Active Problem Cough 786.2 Active Problem Acute sinusitis, unspecified 461.9 Active Problem Influenza with other respiratory manifestations 487.1 Active Problem Unspecified backache 724.5 Active Medications Medication Code System Code Instructions Start Date End Date Status Dosage Zanaflex [facility] [address]-46 4 MG Orally 2 times a day Sep 29, 2014 1 tablet as needed Sudafed [facility] [address]-43 60 mg Orally 2 times a day Nov 22, 2014 1 tablet as needed ProAir HFA [facility] [address]-98 108 (90 Base) MCG/ACT Inhalation every 6 hrs for shortness of breath/cough 2 puffs as needed Olin [facility] [address]-35 7.5-325 MG Orally 3 times a day May 07, 2014 take 1 tablet Procedures Procedure Coding System Code Date DRUG SCREEN NON TLC DEVICES CPT-4 20191 Dec 05, 2015 No Charge CPT-4 32784 Dec 05, 2015 Office Visit, Est Pt., Level 3 CPT-4 04772 Dec 05, 2015 Vital Signs Date/Time: Dec 05, 2015 Cardiac Monitoring Heart Rate 80 bpm Weight 145.5 lbs Height 70 in BMI 20.87 Index Blood Pressure Diastolic 70 mmHg Blood Pressure Systolic 110 mmHg Results Name Result Date Reference Range Unit Abnormality Flag URINE DRUG SCREEN (IN HOUSE) ----BUP Negative 20151205 ----TCA Negative 20151205 ----MDMA Negative 20151205 ----BENZO Negative 20151205 ----OPIATE Positive 20151205 ----THC Positive 20151205 ----MTD Negative 20151205 ----AMPH Negative 20151205 ----BAR Negative 20151205 ----PCP Negative 20151205 ----MAMP Negative 20151205 ----OXY Positive 20151205 ----Lot # [id number] ----Exp date 20151205 ----Control + 20151205 ----COCAINE Negative 20151205 Summary Purpose eClinical[employer] Submission
--- OUTSIDE RECORDS SUMMARY | 2018-04-01 20:25 | XMS REPORT ---
Author Author MOUNA LAKE [facility] Address [address] [place] [address] Care Team Providers Care Detail Manager Name Role Phone MOUNA LAKE Unavailable PROBLEMS Type Condition ICD9-CM Code [id number] Code Onset Dates Condition Status SNOMED Code Problem Acute upper respiratory infections of unspecified site 465.9 Active 47716033 Problem Acute sinusitis, unspecified 461.9 Active 59679702 Problem Lumbago 724.2 Active 792806746 Problem Low back pain M54.5 Active 120997995 Problem Acute upper respiratory infection, unspecified J06.9 Active 32157783 Problem Unspecified backache 724.5 Active 365287425 Problem Cough 786.2 Active 28631807 Problem Unspecified otalgia 388.70 Active 77552997 Problem Influenza with other respiratory manifestations 487.1 Active 2967890 ALLERGIES Unknown Allergies SOCIAL HISTORY No smoking Hx information available PLAN OF CARE VITAL SIGNS MEDICATIONS Medication Instructions Dosage Frequency Start Date End Date Duration Status Zithromax Z-Bishop 250 MG Orally Once a day 2 tablets on the first day, then 1 tablet daily for 4 days 24h Oct, 5 day(s) Active RESULTS No Results PROCEDURES No Known procedures IMMUNIZATIONS No Known Immunizations
--- OUTSIDE RECORDS SUMMARY | 2018-04-01 20:25 | XMS REPORT ---
Author Author MOUNA LAKE Organization [facility] Address [address] [place] [address] Care Team Providers Care Product Marketing Analyst Name Role Phone MOUNA LAKE Unavailable PROBLEMS Type Condition ICD9-CM Code VIW60-KN Code Onset Dates Condition Status SNOMED Code Problem Dysthymic disorder F34.1 Active 12875619 Problem Generalized anxiety disorder F41.1 Active 21488368 Problem Acute upper respiratory infection, unspecified J06.9 Active 37871879 Problem Low back pain M54.5 Active 257913178 Problem Adjustment disorder with depressed mood F43.21 Active 07731666 Problem Anxiety F41.9 Active 49166281 ALLERGIES No Known Allergies ENCOUNTERS Encounter Location Date Diagnosis [place] [id number] [place] [address] 11328- 0831 June, [facility] [id number] [place] [address] 35384- 6282 May, [place] [id number] [place] [address] 02618- 7066 May, [facility] [id number] [place] [address] 53878- 8045 May, Generalized anxiety disorder F41.1 [facility] [id number] [place] [address] 42951- 2713 May, Low back pain M54.5 and Anxiety F41.9 [facility] [address] 10398- 6052 Apr, [facility] [id number] [place] [address] 85505- 1081 Mar, Low back pain M54.5 [facility] [address] [address]- 1974 Mar, Low back pain M54.5 [facility] [address] [facility] [id number] [place] [address] 96462- 1819 Feb, Ganglion, left wrist M67.432 [facility] [address] [facility] [id number] [place] [address] 27746- 3816 Feb, Low back pain M54.5 [facility] [id number] [place] [address] 91024- 2932 Feb, Low back pain M54.5 [facility] [id number] [place] [address] 50595- 3806 Feb, [facility] [id number] [place] [address] 90096- 1740 Feb, Low back pain M54.5 and Bronchitis J40 [facility] [address] 87754- 9551 Feb, Low back pain M54.5 [facility] [address] [facility] [id number] [place] [address] 61256- 9709 Jan, [facility] [id number] [place] [address] 48308- 8834 Jan, Low back pain M54.5 [facility] [id number] [place] [address] 84362- 6263 Jan, Low back pain M54.5 ; Anxiety F41.9 and Ganglion, left wrist M67.432 [facility] [address] [facility] [id number] [place] [address] 44556- 8678 Dec, Low back pain M54.5 [facility] [address] [facility] [id number] [place] [address] 95090 2546 Dec, Ganglion, left wrist M67.432 [facility] [address] [facility] [id number] [place] [address] 51789- 6496 Nov, Ganglion, left wrist M67.432 and Anxiety F41.9 [facility] [address] [address]- 2201 Nov, Low back pain M54.5 [facility] [id number] [place] [address] 73977- 6479 18 Nov, 2016 [facility] [id number] [place] [address] 73224- 7829 Nov, [facility] [id number] [place] [address] 26307- 8663 Nov, [facility] [id number] [place] [address] 37645- 3022 Oct, Anxiety F41.9 [facility] [address] [place] [address] 30249- 2878 Oct, Low back pain M54.5 [facility] [address] [place] [address] 01524- 4297 Oct, [facility] [address] [place] [address] 72687- 9461 Oct, [facility] [id number] [place] [address] 43320- 9639 Oct, Adjustment disorder with depressed mood F43.21 and Generalized anxiety disorder F41.1 [facility] [address] [place] [address] 31935- 1563 Sep, Adjustment disorder with depressed mood F43.21 and Generalized anxiety disorder F41.1 [facility] [address], [place] [address]- 3059 Sep, [place] [address] [facility] [id number] [place] [address] Sep [facility] [address], [place] [address]- 9173 Sep, Anxiety F41.9 [facility] [address] [place] [address] 67349- 1940 Sep, Low back pain M54.5 [facility] [address] [place] [address] 70011- 1706 Sep, Adjustment disorder with depressed mood F43.21 and Generalized anxiety disorder F41.1 [facility] [id number] [place] [address] 16651- 4059 Sep, Allergic urticaria L50.0 [facility] [id number] [place] [address] 87881- 0073 Aug, [facility] [id number] [place] [address] 72004- 8810 Aug, Low back pain M54.5 [facility] [id number] [place] [address] 17944- 4107 Aug, Low back pain M54.5 [facility] [id number] [place] [address] 01768- 9891 Aug, [facility] [id number] [place] [address] 25006- 9105 Aug, Thoracic neuritis M54.14 [facility] [id number] [place] [address] 42668- 3513 Jul, [facility] [id number] [place] [address] 91828- 9801 Jul, Low back pain M54.5 [facility] [id number] [place] [address] 91664- 2244 Jul, Thoracic neuritis M54.14 [facility] [id number] [place] [address] 00405- 6101 Jul, [facility] [id number] [place] [address] 06533- 3758 Jul, Thoracic neuritis M54.14 [facility] [address] [place] [address] 82624- 5333 June, [facility] [address], [place] [address]- 3954 June, Thoracic neuritis M54.14 [facility] [address] [facility] [id number] [place] [address], [place] [address]- 7493 May, [facility] [address] [facility] [id number], [place] [address]- 5319 May, [facility] [address] [facility] [id number] [place] [address] 12064- 2758 Dec, [facility] [address] [facility] [id number] [place] [address] 47172- 4626 Dec, [facility] [id number] [place] [address], [place] [address]- 0617 Dec, [facility] [id number] [place] [address] 53737- 7348 Dec, [facility] [id number] [place] [address] 31070- 1543 Nov, [facility] [address] [facility] [id number] [place] [address] 87387- 3269 Nov, Thoracic neuritis M54.14 and Low back pain M54.5 [facility] [id number], [place] [address]- 4353 Nov, [facility] [address] [place] [address] 48165- 0470 Oct, Low back pain M54.5 and Acute upper respiratory infection, unspecified J06.9 [facility] [address] [facility] [id number], [place] [address]- 0038 Oct, [facility] [id number] [place] [address] 12684- 2901 Oct, [facility] [id number], [place] [address]- 6955 Oct, [facility] [address] [place] [address] 36980- 1906 Oct, [facility] [id number] [place] [address] 23007- 3618 Sep, Chronic maxillary sinusitis J32.0 and Thoracic neuritis M54.14 [facility] [id number] [place] [address] 24735- 1774 Sep, [facility] [address] 71085- 0255 Aug, Low back pain M54.5 and Other chronic pain G89.29 [facility] [id number] [place] [address] 73779- 5532 Jul, Low back pain M54.5 and Other chronic pain G89.29 [place] [id number] [place] [address] 11996- 5300 Jul, [facility] [address] 49767- 8261 June, [facility] [id number] [place] [address] 29083- 1362 May, Lumbago M54.5 and Sinusitis J32.9 [place] [id number] [place] [address] 51056- 5967 Apr, Unspecified backache 724.5 and Folliculitis L73.9 [place] [id number] [place] [address] 99932- 5439 Mar, URI (upper respiratory infection) J06.9 and Back pain M54.9 [facility] [id number] [place] [address] 35326- 2341 Mar, [facility] [id number] [place] [address] 02342- 5186 Mar, [facility] [id number] [place] [address] 78687- 0917 Feb, Low back pain M54.5 ; Sciatica, unspecified side M54.30 ; Folliculitis L73.9 and Allergic urticaria L50.0 [place] [address] 33618- 3267 12 Feb, 2015 Visit for suture removal Z48.02 [place] [address] 94608- 0403 11 Feb, 2015 [place] [address] 62129- 2966 Feb, Rash R21 [place] [address] 12964- 0225 Jan, Pharyngitis J02.9 ; Shoulder pain, right M25.511 and Rash R21 [place] [address] 06665- 0191 Jan, [place] [address] 29072- 2943 30 Dec, 2014 Allergic urticaria L50.0 ; Right shoulder pain M25.511 and Lumbago M54.5 [place] [address] 54448- 9822 Dec, Upper respiratory tract infection, unspecified upper respiratory infection J06.9 [place] [id number] [place] [address] 53968- 4985 Dec, Contact dermatitis L25.9 [place] [id number] [place] [address] 79620- 5910 Dec, [place] [id number] [place] [address] 82168- 6385 Dec, Dermatitis L30.9 and Pain in right shoulder M25.511 [place] [id number] [place] [address] 94343- 7388 Nov, [place] [address] 96949- 4979 Nov, Upper respiratory tract infection, unspecified upper respiratory infection J06.9 [facility] [address] [id number] [place] [address]- 2287 Oct, [facility] [address] [facility] [id number], [place] [address]- 8194 Oct, [facility] [address] [id number] [place] [address]- 1345 Oct, [facility] [address] [facility] [id number] [place] [address] 78555- 8275 Sep, Back pain 724.5 [facility] [id number] [place] [address] 03178- 0334 Sep, Back pain 724.5 [facility] [address] [facility] [id number], [place] [address]- 7023 Sep, [facility] [address] [facility] [id number] [place] [address] 51901- 3633 Aug, [facility] [address] [facility] [id number], [place] [address]- 3724 Aug, [facility] [address] [facility] [id number], [place] [address]- 8310 Jul, Back pain 724.5 [facility] [address] [facility] [id number], [place] [address]- 8049 Jul, [facility] [address] [facility] [id number], [place] [address]- 6870 June, [facility] [address] [facility] [id number], [place] [address]- 8301 14 May, 2014 [facility] [address] [facility] [id number], [place] [address]- 3694 May, [facility] [address] [facility] [id number], [place] [address]- 1713 30 Apr, 2014 [facility] [address] [facility] [id number], [place] [address]- 2114 Apr, [facility] [address] [facility] [id number] [place] [address]- 2121 Feb, [facility] [address] [facility] [id number], [place] [address]- 4439 Feb, [facility] [address] [facility] [id number] [place] [address]- 7393 Dec, [facility] [address] [facility] [id number][place]- 3797 Dec, [facility] [address] [facility] [id number] [place] [address]- 9203 Nov, [facility] [address] [facility] [id number] [place] [address]- 7345 Nov, [facility] [address], [place] [address]- 6975 Feb, [facility] [address] [facility] [id number], [place] [address]- 7398 Feb, [facility] [address] [facility] [id number], [place] [address]- 0747 Sep, [facility] [address] [facility] [id number], [place] [address]- 1143 Apr, [facility] [address] [facility] [id number], [place] [address]- 0775 Apr, [facility] [address] [facility] [id number], [place] [address]- 2892 Mar, [facility] [address] [facility] [id number][place]- 2820 Mar, [facility] [address] [facility] [id number][place]- 4215 Mar, [facility] [address] [id number] [address]- 3075 Sep, IMMUNIZATIONS No Known Immunizations SOCIAL HISTORY Never Assessed REASON FOR VISIT pain management, last refilled 08/31/16 PLAN OF CARE VITAL SIGNS Height 70 in 2016-09-03 Weight 135.8 lbs 2016-09-03 Temperature 98.3 degrees Fahrenheit 2016-09-03 Heart Rate 80 bpm 2016-09-03 Respiratory Rate 18 2016-09-03 BMI 19.48 kg/m2 2016-09-03 Blood pressure systolic 116 mmHg 2016-09-03 Blood pressure diastolic 70 mmHg 2016-09-03 MEDICATIONS Medication Instructions Dosage Frequency Start Date End Date Duration Status SudoGest 60 mg Orally every 6 hrs 1 tablet as needed 6h Aug, Active [place] 7.5-325 MG Orally 4 times a day take 1 tablet 6h Aug, 28 days Active ProAir HFA 108 (90 Base) MCG/ACT Inhalation every 6 hrs for shortness of breath/cough 2 puffs as needed Active Gabapentin 300 MG Orally Three times a day 1 capsule 8h May, 30 day(s) Active Robaxin-750 750 MG Orally 3 times a day 1 tablet 8h May, Dec, 30 day(s) Active RESULTS No Results PROCEDURES No Known procedures INSTRUCTIONS MEDICATIONS ADMINISTERED No Known Medications MEDICAL (GENERAL) HISTORY Type Description Date Medical History frequent ear infections Medical History gets respiratory infections from being around 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
--- OUTSIDE RECORDS SUMMARY | 2018-04-01 20:25 | XMS REPORT ---
Author MOUNA Mathews [facility] e[employer] Address Unknown Phone Unavailable Care Team Providers Care Senior Software Qa Analyst Name Role Phone MOUNA LAKE CP Unavailable Allergies, Adverse Reactions, Alerts Substance Reaction Event Type N.K.D.A. Info Not Available Non Drug Allergy Problems Problem Type Condition Code Onset Dates Condition Status Assessment Lumbago M54.5 Active Assessment Allergic urticaria L50.0 Active Assessment Right shoulder pain M25.511 Active Problem Influenza with other respiratory manifestations 487.1 Active Problem Unspecified backache 724.5 Active Problem Unspecified otalgia 388.70 Active Problem Lumbago 724.2 Active Problem Acute upper respiratory infections of unspecified site 465.9 Active Problem Cough 786.2 Active Problem Acute sinusitis, unspecified 461.9 Active Medications Medication Code System Code Instructions Start Date End Date Status Dosage [place] [facility] [address]-45 5-325 MG Orally every 6 hrs May 07, 2014 take 1 tablet Triamcinolone Acetonide [facility] [address]-75 0.1 % Externally Twice a day Dec 26, 2014 1 application to affected area Zanaflex [facility] [address]-56 4 MG Orally every 8 hrs Sep 29, 2014 1 tablet as needed Famotidine [facility] [address]-73 20 MG Orally Once a day Jan 07, 2015 1 tablet at bedtime Diclofenac [facility] [address]-54 75 mg Orally 2 times a day, pc Dec 24, 2014 1 capsule Sudafed [facility] [address]-45 60 MG Orally 2 times a day Nov 22, 2014 1 tablet as needed ProAir HFA [facility] [address]-73 108 (90 Base) MCG/ACT Inhalation every 6 hrs for shortness of breath/cough 2 puffs as needed Claritin [facility] [address]-67 10 MG Orally Once a day Jan 07, 2015 Apr 07, 2015 1 tablet Procedures Procedure Coding System Code Date COMPLETE CBC W/AUTO DIFF WBC CPT-4 15985 Jan 07, 2015 COMPREHEN METABOLIC PANEL CPT-4 03144 Jan 07, 2015 Office Visit, Est Pt., Level 3 CPT-4 33304 Jan 07, 2015 VENIPUNCT, ROUTINE* CPT-4 91227 Jan 07, 2015 Vital Signs Date/Time: Jan 07, 2015 Temperature 97.8 F Weight 144.7 lbs Height 70 in BMI 20.76 Index Blood Pressure Diastolic 82 mmHg Blood Pressure Systolic 108 mmHg Cardiac Monitoring Heart Rate 116 bpm Results No Known Results Summary Purpose eClinicalWorks Submission
--- OUTSIDE RECORDS SUMMARY | 2018-04-01 20:25 | XMS REPORT ---
Author Author MOUNA LAKE Organization [facility] Address [address] [place] [address] Care Team Providers Care Tool Lapper Hand Name Role Phone MOUNA LAKE Unavailable PROBLEMS Type Condition ICD9-CM Code CMY07-TT Code Onset Dates Condition Status SNOMED Code Problem Dysthymic disorder F34.1 Active 73214098 Problem Generalized anxiety disorder F41.1 Active 03242333 Problem Acute upper respiratory infection, unspecified J06.9 Active 07721837 Problem Low back pain M54.5 Active 641242352 Problem Adjustment disorder with depressed mood F43.21 Active 47307808 Problem Anxiety F41.9 Active 98929830 ALLERGIES No Information ENCOUNTERS Encounter Location Date Diagnosis [facility] [id number] [place] [address] 58549- 4258 May, [facility] [id number] [place] [address] 22932- 7226 May, [facility] [id number] [place] [address] 10199- 5178 May, [facility] [id number] [place] [address] 90574- 4930 Apr, [facility] [id number] [place] [address] 12034- 8585 Mar, Low back pain M54.5 [facility] [id number] [place] [address] 33935- 0960 Mar, Low back pain M54.5 [facility] [id number] [place] [address] 73837- 7383 Feb, Ganglion, left wrist M67.432 [facility] [id number] [place] [address] 96389- 7669 Feb, Low back pain M54.5 [facility] [address] [facility] [id number] [place] [address] 67811- 1802 Feb, Low back pain M54.5 [facility] [address] [facility] [id number] [place] [address] 99422- 7215 Feb, [facility] [address] [facility] [id number] [place] [address] 54474- 9940 Feb, Low back pain M54.5 and Bronchitis J40 [facility] [address] [facility] [id number] [place] [address] 00783- 9183 Feb, Low back pain M54.5 [facility] [id number] [place] [address] 35695- 6003 Jan, [facility] [id number] [place] [address] 74304- 3661 Jan, Low back pain M54.5 [facility] [id number] [place] [address] 29165- 6377 Jan, Low back pain M54.5 ; Anxiety F41.9 and Ganglion, left wrist M67.432 [facility] [id number] [place] [address] 17066- 5579 Dec, Low back pain M54.5 [facility] [id number] [place] [address] 97604- 4607 Dec, Ganglion, left wrist M67.432 [facility] [address] [facility] [id number] [place] [address] 75972- 3803 Nov, Ganglion, left wrist M67.432 and Anxiety F41.9 [facility] [id number] [place] [address] 00334- 9376 Nov, Low back pain M54.5 [facility] [id number] [place] [address] 78672- 2805 Nov, [facility] [id number] [address]- 5823 Nov, [facility] [id number] [place] [address] 67922- 5587 Nov, [facility] [id number] [place] [address] 91793- 9364 Oct, Anxiety F41.9 [facility] [id number] [place] [address] 62455- 3099 Oct, Low back pain M54.5 [facility] [id number] [place] [address] 92310- 2786 20 Oct, 2016 [facility] [id number] [place] [address] 37756- 1858 Oct, [facility] [id number] [place] [address] 30845- 8093 06 Oct, 2016 Adjustment disorder with depressed mood F43.21 and Generalized anxiety disorder F41.1 [facility] [id number] [place] [address] 47168- 6423 Sep, Adjustment disorder with depressed mood F43.21 and Generalized anxiety disorder F41.1 [facility] [id number] [place] [address] 36722- 7337 Sep, [address] [id number] [place] [address] Sep [facility] [id number] [address]- 9641 Sep, Anxiety F41.9 [facility] [address] [address]- 9312 Sep, Low back pain M54.5 [facility] [id number] [place] [address] 70903- 0094 Sep, Adjustment disorder with depressed mood F43.21 and Generalized anxiety disorder F41.1 [facility] [id number] [place] [address] 39418- 2024 Sep, Allergic urticaria L50.0 [facility] [id number] [place] [address] 53983- 4120 Aug, [facility] [id number] [place] [address] 81852- 0278 Aug, Low back pain M54.5 [facility] [id number] [place] [address] 21489- 5903 Aug, Low back pain M54.5 [facility] [address] [facility] [id number] [place] [address] 92385- 6254 Aug, [facility] [id number] [place] [address] 08263- 5950 Aug, Thoracic neuritis M54.14 [facility] [id number] [place] [address] 79409- 0501 Jul, [facility] [id number] [place] [address] 87749- 1525 Jul, Low back pain M54.5 [facility] [id number] [place] [address] 62745- 4706 Jul, Thoracic neuritis M54.14 [facility] [id number] [place] [address] 06759- 4108 Jul, [facility] [id number] [place] [address] 24017- 3573 Jul, Thoracic neuritis M54.14 [facility] [id number] [place] [address] 60632- 2734 June, [facility] [id number] [place] [address] 08139- 2270 June, Thoracic neuritis M54.14 [facility] [id number] [place] [address] 46182- 6538 May, [facility] [id number] [place] [address] 34348- 2185 May, [facility] [address] [address]- 9380 Dec, [facility] [id number] [place] [address] 21155- 5028 Dec, [facility] [id number] [place] [address] 09658- 9634 Dec, [facility] [id number] [place] [address] 34947- 4717 Dec, [facility] [id number] [place] [address] 12164- 4987 Nov, [facility] [id number] [place] [address] 19876- 2458 Nov, Thoracic neuritis M54.14 and Low back pain M54.5 [facility] [id number] [place] [address] 33056- 8472 Nov, [facility] [id number] [place] [address] 17810- 3131 Oct, Low back pain M54.5 and Acute upper respiratory infection, unspecified J06.9 [facility] [id number] [place] [address] 18907- 3697 Oct, [facility] [id number] [place] [address] 00043- 9998 Oct, [facility] [id number] [place] [address] 66700- 0897 Oct, [facility] [id number] [place] [address] 29175- 3840 Oct, [facility] [id number] [place] [address] 24449- 9768 Sep, Chronic maxillary sinusitis J32.0 and Thoracic neuritis M54.14 [facility] [id number] [place] [address] 89551- 2369 Sep, [facility] [id number] [place] [address] 17340- 4832 Aug, Low back pain M54.5 and Other chronic pain G89.29 [facility] [id number] [place] [address] 20002- 8777 Jul, Low back pain M54.5 and Other chronic pain G89.29 [address] [place] [address] 26797- 3984 Jul, [address] [address] 32395- 9333 June, [address] [address] 57915- 5146 May, Lumbago M54.5 and Sinusitis J32.9 [address] [address] 27127- 4522 Apr, Unspecified backache 724.5 and Folliculitis L73.9 [place] [id number] [place] [address] 69897- 1601 Mar, URI (upper respiratory infection) J06.9 and Back pain M54.9 [place] [id number] [place] [address] 04137- 5032 Mar, [place] [id number] [place] [address] 52337- 9164 Mar, [place] [id number] [place] [address] 14261- 3778 Feb, Low back pain M54.5 ; Sciatica, unspecified side M54.30 ; Folliculitis L73.9 and Allergic urticaria L50.0 [place] [id number] [place] [address] 67680- 0650 Feb, Visit for suture removal Z48.02 [address] [address] 30619- 7533 Feb, [facility] [id number] [place] [address] 27089- 5378 Feb, Rash R21 [facility] [id number] [place] [address] 61300- 7661 Jan, Pharyngitis J02.9 ; Shoulder pain, right M25.511 and Rash R21 [facility] [address] 34694- 6783 Jan, [facility] [id number] [place] [address] 80183- 9302 30 Dec, 2014 Allergic urticaria L50.0 ; Right shoulder pain M25.511 and Lumbago M54.5 [facility] [id number] [place] [address] 85441- 5145 Dec, Upper respiratory tract infection, unspecified upper respiratory infection J06.9 [facility] [id number] [place] [address] 21384- 5617 Dec, Contact dermatitis L25.9 [facility] [id number] [place] [address] 44894- 8054 Dec, [facility] [id number] [place] [address] 92927- 8934 Dec, Dermatitis L30.9 and Pain in right shoulder M25.511 [facility] [id number] [place] [address] 20771- 2953 Nov, [facility] [id number] [place] [address] 63230- 4648 Nov, Upper respiratory tract infection, unspecified upper respiratory infection J06.9 [facility] [id number] [place] [address] 15949- 6434 Oct, [facility] [id number] [place] [address] 07220- 9274 Oct, [facility] [place] [facility] [address] [id number] [place] [address]- 9774 Oct, [facility] [address] [id number] [place] [address]- 8594 Sep, Back pain 724.5 [facility] [address] [id number] [place] [address]- 6386 Sep, Back pain 724.5 [facility] [place] [facility] [address] [id number] [place] [address]- 5866 Sep, [facility] [place] [facility] [address] [id number] [place] [address]- 9642 Aug, [facility] [place] [facility] [address] [id number] [place] [address]- 6878 Aug, [facility] [place] [facility] [address] [id number] [place] [address]- 1474 Jul, Back pain 724.5 [facility] [place] [facility] [address] [id number] [place] [address]- 3348 Jul, [facility] [place] [facility] [address] [id number] [place] [address]- 7451 June, [facility] [place] [facility] [address] [id number] [place] [address]- 1626 May, [facility] [place] [facility] [address] [id number] [place] [address]- 7832 May, [facility] [place] [facility] [address] [id number] [place] [address]- 1389 Apr, [facility] [place] [facility] [address] [id number] [place] [address]- 5239 Apr, [facility] [place] [facility] [address] [id number] [place] [address]- 9128 Feb, [facility] [place] [facility] [address] [id number] [place] [address]- 7725 Feb, [facility] [place] [facility] [address] [id number] [address]- 3386 Dec, [facility] [address] [address]- 1187 Dec, [facility] [address] [address]- 2902 Nov, [facility] [address] [address]- 9298 Nov, [facility] [address] 0330 Feb, [facility] [id number] [place] [address] 59260- 5766 Feb, [facility] [address] [address]- 0337 Sep, [facility] [id number] [place] [address] 68710- 2701 Apr, [facility] [address] [address]- 7461 Apr, [facility] [address] 7582 Mar, [facility] [address] [address]- 2844 Mar, [facility] [address] [address]- 6665 Mar, [facility] [id number] [address]- 9184 Sep, IMMUNIZATIONS No Known Immunizations SOCIAL HISTORY Never Assessed REASON FOR VISIT Controlled Med Refill PLAN OF CARE VITAL SIGNS MEDICATIONS Medication Instructions Dosage Frequency Start Date End Date Duration Status Sudafed 30 mg Orally 2 times a day 1 tablet as needed 12h 15 Nov, 2014 28 days Active RESULTS No Results PROCEDURES No Known procedures INSTRUCTIONS MEDICATIONS ADMINISTERED No Known Medications MEDICAL (GENERAL) HISTORY Type Description Date Medical History frequent ear infections Medical History gets respiratory infections from being around smoke, 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
--- OUTSIDE RECORDS SUMMARY | 2018-04-01 20:25 | XMS REPORT ---
Author Author MOUNA LAKE Organization [employer] Address Unknown Phone Unavailable Care Team Providers Care Product Manufacturing Professional Name Role Phone MOUNA LAKE CP Unavailable [...]
--- OUTSIDE RECORDS SUMMARY | 2018-04-01 20:26 | XMS REPORT ---
Author Author MOUNA LAKE Organization [employer] Address Unknown Phone Unavailable Care Team Providers Care Lifeguard Name Role Phone MOUNA LAKE CP Unavailable Allergies No Known Allergies Problems Problem Type Condition ICD-9 Code Onset Dates Condition Status Problem Influenza with other respiratory manifestations 487.1 Active Problem Unspecified backache 724.5 Active Problem Unspecified otalgia 388.70 Active Problem Lumbago 724.2 Active Problem Acute upper respiratory infections of unspecified site 465.9 Active Problem Cough 786.2 Active Problem Acute sinusitis, unspecified 461.9 Active Medications No Known Medications Results No Known Results Summary Purpose [employer] Submission
--- OUTSIDE RECORDS SUMMARY | 2018-04-01 20:26 | XMS REPORT ---
Author Author MOUNA LAKE Organization [employer] Address Unknown Phone Unavailable Care Team Providers Care Tape Editor Name Role Phone MOUNA LAKE CP Unavailable Allergies No Known Allergies Problems Problem Type Condition Code Onset Dates Condition Status Problem Influenza with other respiratory manifestations 487.1 Active Problem Unspecified backache 724.5 Active Problem Unspecified otalgia 388.70 Active Problem Lumbago 724.2 Active Problem Acute upper respiratory infections of unspecified site 465.9 Active Problem Cough 786.2 Active Problem Acute sinusitis, unspecified 461.9 Active Medications Medication Code System Code Instructions Start Date End Date Status Dosage Doxycycline Hyclate [facility] [address]-21 100 MG Orally every 12 hrs Feb 18, 2015 Feb 28, 2015 1 capsule Results No Known Results Summary Purpose [employer] Submission
--- OUTSIDE RECORDS SUMMARY | 2018-04-01 20:26 | XMS REPORT ---
Author Author OJ ODELL Organization [facility] Address [address] [place] [address] Care Team Providers Care Scientific Glass Blower Name Role Phone OJ ODELL Unavailable PROBLEMS Type Condition ICD9-CM Code PCG85-CB Code Onset Dates Condition Status SNOMED Code Problem Dysthymic disorder F34.1 Active 52116673 Problem Generalized anxiety disorder F41.1 Active 16526574 Problem Acute upper respiratory infection, unspecified J06.9 Active 40649531 Problem Low back pain M54.5 Active 256420609 Problem Adjustment disorder with depressed mood F43.21 Active 71792172 Problem Anxiety F41.9 Active 51811406 ALLERGIES No Information ENCOUNTERS Encounter Location Date Diagnosis [facility] [id number] [place] [address] 61455- 9437 Jul, [facility] [id number] [place] [address] 29232- 1507 June, [facility] [id number] [place] [address] 12694- 7259 June, [facility] [id number] [place] [address] 09964- 3011 May, [facility] [id number] [place] [address] 68257- 6542 May, [facility] [id number] [place] [address] 56419- 2309 May, Generalized anxiety disorder F41.1 [facility] [id number] [place] [address] 66602- 0815 May, Low back pain M54.[address] [facility] [id number] [place] [address] 31668- 9145 Apr, [facility] [id number] [place] [address] 60368- 7931 Mar, Low back pain M54.5 [facility] [id number] [place] [address] 20839- 0690 Mar, Low back pain M54.5 [facility] [id number] [place] [address] 02854- 7440 Feb, Ganglion, left wrist M67.432 [facility] [id number] [place] [address] 51034- 7386 Feb, Low back pain M54.5 [facility] [address] 17597- 5815 Feb, Low back pain M54.5 [facility] [address] 65646- 0544 Feb, [facility] [address] 17017- 3016 Feb, Low back pain M54.[address] [facility] [address] 47261- 1501 Feb, Low back pain M54.5 [facility] [id number] [place] [address] 86647- 7811 Jan, [facility] [address] 20245- 4123 Jan, Low back pain M54.5 [facility] [id number] [place] [address] 61555- 5989 Jan, Low back pain M54.5 ; Anxiety F41.9 and Ganglion, left wrist M67.432 [facility] [id number] [place] [address] 68371- 5618 15 Dec, 2016 Low back pain M54.5 [facility] [address] [place] [address]- 4814 Dec, Ganglion, left wrist M67.432 [facility] [id number] [place] [address] 30400- 1654 Nov, Ganglion, left wrist M67.[address] [facility] [address] [place] [address] 35073- 4995 Nov, Low back pain M54.5 [facility] [id number] [place] [address] 81164- 7699 Nov, [facility] [id number] [place] [address] 39036- 1196 Nov, [facility] [id number] [place] [address] 07247- 5826 Nov, [facility] [id number] [place] [address] 91209- 9114 Oct, Anxiety F41.9 [facility] [id number] [place] [address] 22425- 2446 22 Oct, 2016 Low back pain M54.5 [facility] [id number] [place] [address] 38867- 7720 Oct, [facility] [id number] [place] [address] 10542- 3975 Oct, [facility] [id number] [place] [address] 23645- 1079 Oct, Adjustment disorder with depressed mood F43.21 and Generalized anxiety disorder F41.1 [facility] [address] [place] [address] 87840- 4919 Sep, Adjustment disorder with depressed mood F43.21 and Generalized anxiety disorder F41.1 [facility] [address] [address] 7651 Sep, [facility] [address] [facility] [id number] [address] [facility] [id number] [place] [address] 44378- 5906 Sep, Anxiety F41.9 [facility] [id number] [place] [address] 24537- 7275 Sep, Low back pain M54.5 [facility] [id number] [place] [address] 17045- 4358 Sep, Adjustment disorder with depressed mood F43.21 and Generalized anxiety disorder F41.1 [facility] [id number] [place] [address] 14010- 3058 Sep, Allergic urticaria L50.0 [facility] [id number] [place] [address] 55988- 1526 Aug, [facility] [id number] [place] [address] 42930- 1362 Aug, Low back pain M54.5 [facility] [id number] [place] [address] 42785- 3177 Aug, Low back pain M54.5 [facility] [id number] [place] [address] 25426- 8509 Aug, [facility] [id number] [place] [address] 26444- 1312 Aug, Thoracic neuritis M54.14 [facility] [id number] [place] [address] 87879- 3045 Jul, [facility] [id number] [place] [address] 50146- 9895 Jul, Low back pain M54.5 [facility] [id number] [place] [address] 55281- 4414 Jul, Thoracic neuritis M54.14 [facility] [id number] [place] [address] 63179- 1184 Jul, [facility] [address], [place] [address]- 8157 Jul, Thoracic neuritis M54.14 [facility] [address] [facility] [id number] [place] [address] 10606- 3029 June, [facility] [address] [facility] [id number] [place] [address] 28603- 2628 June, Thoracic neuritis M54.14 [facility] [address] [facility] [id number] [place] [address] 22975- [address] May, [facility] [address] [facility] [id number] [place] [address], [place] [address]- [address] May, [facility] [id number] [place] [address] 95691- 7085 Dec, [facility] [id number] [place] [address] 75982- 0404 Dec, [facility] [id number] [place] [address] 26668- 6078 Dec, [facility] [id number] [place] [address] 25356- 8516 Dec, [facility] [address] [place] [address] 95798- 5382 Nov, [facility] [address], [place] [address]- 8727 Nov, Thoracic neuritis M54.14 and Low back pain M54.5 [facility] [address] [facility] [id number] [address] 5162 Nov, [facility] [id number] [place] [address] 57562- 8558 Oct, Low back pain M54.5 and Acute upper respiratory infection, unspecified J06.9 [facility] [address], [place] [address] 3301 Oct, [facility] [id number], [place] [address]- 3308 19 Oct, 2015 [facility] [id number] [place] [address] 60142- 0629 19 Oct, 2015 [facility] [id number] [place] [address] 31263- 0937 Oct, [facility] [id number] [place] [address] 08435- 7377 Sep, Chronic maxillary sinusitis J32.0 and Thoracic neuritis M54.14 [facility] [id number] [place] [address] 19018- 2234 Sep, [facility] [id number] [place] [address] 47761- 8332 Aug, Low back pain M54.5 and Other chronic pain G89.29 [facility] [id number] [place] [address] 11321- 1828 Jul, Low back pain M54.5 and Other chronic pain G89.29 [facility] [id number] [place] [address] 18235- 2254 Jul, [facility] [id number] [place] [address] 42724- 3832 June, [facility] [id number] [place] [address] 28582- 6934 May, Lumbago M54.[address] [facility] [id number] [place] [address] 05582- 7435 Apr, Unspecified backache 724.[address] [facility] [id number] [place] [address] 80287- 8949 24 Mar, 2015 URI (upper respiratory infection) J06.9 and Back pain M54.9 [facility] [id number] [place] [address] 58551- 2658 Mar, [place] [id number] [place] [address] 97131- 7071 02 Mar, 2015 [place] [address] 63275- 2816 Feb, Low back pain M54.5 ; Sciatica, unspecified side M54.30 ; Folliculitis L73.9 and Allergic urticaria L50.0 [place] [address] 00788- 4091 12 Feb, 2015 Visit for suture removal Z48.02 [place] [address] 88409- 0010 11 Feb, 2015 [place] [address] 06901- 9362 Feb, Rash R21 [place] [address] 47263- 0258 Jan, Pharyngitis J02.9 ; Shoulder pain, right M25.511 and Rash R21 [place] [id number] [place] [address] 89568- 0785 Jan, [place] [address] 92510- 2719 Dec, Allergic urticaria L50.0 ; Right shoulder pain M25.511 and Lumbago M54.5 [place] [id number] [place] [address] 26651- 3451 Dec, Upper respiratory tract infection, unspecified upper respiratory infection J06.9 [place] [id number] [place] [address] 67894- 5071 Dec, Contact dermatitis L25.9 [place] [id number] [place] [address] 71285- 1394 Dec, [place] [id number] [place] [address] 32296- 5633 Dec, Dermatitis L30.9 and Pain in right shoulder M25.511 [facility] [address] [id number], [place] [address]- 4637 Nov, [facility] [address] [facility] [id number], [place] [address]- 2218 Nov, Upper respiratory tract infection, unspecified upper respiratory infection J06.9 [facility] [address] [id number], [place] [address]- 4402 Oct, [facility] [address] [id number], [place] [address]- 4722 Oct, [facility] [id number] [place] [address] 12988- 8937 Oct, [facility] [address] [facility] [id number], [place] [address]- 7763 Sep, Back pain 724.5 [facility] [id number] [place] [address] 77728- 5733 Sep, Back pain 724.5 [facility] [address] [id number], [place] [address]- 2560 Sep, [facility] [address] [facility] [id number], [place] [address]- [address]74 Aug, [facility] [address] [facility] [id number], [place] [address]- 8562 Aug, [facility] [address] [facility] [id number], [place] [address]- 6656 Jul, Back pain 724.5 [facility] [address] [id number], [place] [address]- 1551 Jul, [facility] [address] [facility] [id number], [place] [address]- 2467 June, [facility] [address] [facility] [id number], [place] [address]- 2740 [address], [address] [facility] [address] [facility] [id number] [place] [address]- 0227 May, [facility] [place] [facility] [address] [id number] [place] [address]- 1244 Apr, [facility] [place] [facility] [address] [id number] [place] [address]- 4470 Apr, [facility] [place] [facility] [address] [id number] [place] [address]- 4034 Feb, [facility] [place] [facility] [address] [id number] [place] [address]- 4405 Feb, [facility] [place] [facility] [address] [id number] [place] [address]- 9493 Dec, [facility] [place] [facility] [address] [id number] [place] [address]- 7888 Dec, [facility] [place] [facility] [address] [id number] [place] [address]- 5595 Nov, [facility] [place] [facility] [address] [id number] [place] [address]- 7590 Nov, [facility] [place] [facility] [address] [id number] [place] [address]- 4292 Feb, [facility] [place] [facility] [address] [facility] [id number] [place] [address]- 1235 Feb, [facility] [place] [facility] [address] [id number] [place] [address]- 3172 Sep, [facility] [place] [facility] [address] [id number] [place] [address]- 8626 Apr, [facility] [place] [facility] [address] [id number] [place] [address]- 5650 Apr, [facility] [place] [facility] [address] [id number] [place] [address]- 8212 Mar, [facility] [place] [facility] [address] [id number] [place] [address]- 2462 Mar, [facility] [address] [facility] [id number] [place] [address] 0[address] Mar, 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
--- OUTSIDE RECORDS SUMMARY | 2018-04-01 20:26 | XMS REPORT ---
Author Author CRISTIANA VANG [facility] Address [address] [place] [address] Care Team Providers Care Pharmacist In Charge Owner Name Role Phone CRISTIANA VANG Unavailable PROBLEMS Type Condition ICD9-CM Code CUT49-MM Code Onset Dates Condition Status SNOMED Code Problem Dysthymic disorder F34.1 Active 92572296 Problem Generalized anxiety disorder F41.1 Active 08428245 Problem Acute upper respiratory infection, unspecified J06.9 Active 03803376 Problem Low back pain M54.5 Active 002276135 Problem Adjustment disorder with depressed mood F43.21 Active 33631809 Problem Anxiety F41.9 Active 67136653 ALLERGIES No Information ENCOUNTERS Encounter Location Date Diagnosis [facility] [id number] [place] [address] 68353- 2661 June, [facility] [id number] [place] [address] 52949- 6140 May, [facility] [id number] [place] [address] 43573- 6538 May, [facility] [id number] [place] [address] 05470- 5326 May, [facility] [id number] [place] [address] 87287- 6798 May, Generalized anxiety disorder F41.1 [facility] [id number] [place] [address] 59845- 1495 May, Low back pain M54.5 and Anxiety F41.9 [facility] [id number] [place] [address] 24749- 3102 Apr, [facility] [address] 46768- 5133 Mar, Low back pain M54.5 [facility] [id number] [place] [address] 50878- 9239 Mar, Low back pain M54.5 [facility] [id number] [place] [address] 48177- 0982 Feb, Ganglion, left wrist M67.432 [facility] [address] 06950- 3589 Feb, Low back pain M54.5 [facility] [id number] [place] [address] 46167- 9767 Feb, Low back pain M54.5 [facility] [id number] [place] [address] 86385- 0283 Feb, [facility] [address] 80067- 0092 Feb, Low back pain M54.5 and Bronchitis J40 [facility] [address] 47881- 5991 Feb, Low back pain M54.5 [facility] [id number] [place] [address] 64981- 9218 Jan, [facility] [id number] [place] [address] 21960- 3293 Jan, Low back pain M54.5 [facility] [address] 01239- 9056 Jan, Low back pain M54.5 ; Anxiety F41.9 and Ganglion, left wrist M67.432 [facility] [address] 65132- 3322 15 Dec, 2016 Low back pain M54.5 [facility] [id number] [place] [address] 79475- 3803 Dec, Ganglion, left wrist M67.432 [facility] [address] [place] [address] 4729 Nov, Ganglion, left wrist M67.432 and Anxiety F41.9 [facility] [id number] [place] [address] 99008- 6349 Nov, Low back pain M54.5 [facility] [id number] [place] [address] 43380- 1436 Nov, [facility] [id number] [place] [address] 58948- 5190 Nov, [facility] [id number] [place] [address] 34166- 5307 Nov, [facility] [id number] [place] [address] 09844- 7477 Oct, Anxiety F41.9 [facility] [id number] [place] [address] 64455- 4128 Oct, Low back pain M54.5 [facility] [id number] [place] [address] 81031- 3186 20 Oct, 2016 [facility] [id number] [place] [address] 96030- 0181 07 Oct, 2016 [facility] [id number] [place] [address] 39317- 8192 06 Oct, 2016 Adjustment disorder with depressed mood F43.21 and Generalized anxiety disorder F41.1 [facility] [address] [address] 2424 Sep, Adjustment disorder with depressed mood F43.21 and Generalized anxiety disorder F41.1 [facility] [address] [address] 1390 Sep, [facility] [place] [address] [id number] [place] [address] Sep [facility] [address] [address]- 5708 Sep, Anxiety F41.9 [facility] [id number] [place] [address] 35179- 8929 Sep, Low back pain M54.5 [facility] [id number] [place] [address] 57549- 3820 Sep, Adjustment disorder with depressed mood F43.21 and Generalized anxiety disorder F41.1 [facility] [address] 88921- 0445 Sep, Allergic urticaria L50.0 [facility] [id number] [place] [address] 70300- 4008 Aug, [facility] [id number] [place] [address] 46912- 6100 Aug, Low back pain M54.5 [facility] [id number] [place] [address] 98572- 6758 Aug, Low back pain M54.5 [facility] [id number] [place] [address] 85511- 6744 Aug, [facility] [address] 59408- 5607 Aug, Thoracic neuritis M54.14 [facility] [id number] [place] [address] 23122- 8246 Jul, [facility] [id number] [place] [address] 06461- 2120 Jul, Low back pain M54.5 [facility] [id number] [place] [address] 17351- 5033 Jul, Thoracic neuritis M54.14 [facility] [id number] [place] [address] 25350- 2296 Jul, [facility] [id number] [place] [address] 39405- 5194 Jul, Thoracic neuritis M54.14 [facility] [address] [facility] [id number] [address] 2478 June, [facility] [id number] [place] [address] 99127- 1477 June, Thoracic neuritis M54.14 [facility] [address] [address]- 8917 May, [facility] [id number] [place] [address] 47394- 1247 May, [facility] [id number] [place] [address] 13396- 0530 Dec, [facility] [id number] [place] [address] 65997- 6141 Dec, [facility] [id number] [place] [address] 28784- 9220 Dec, [facility] [id number] [place] [address] 51120- 6972 Dec, [facility] [id number] [place] [address] 80882- 9684 Nov, [facility] [id number] [place] [address] 89513- 1885 Nov, Thoracic neuritis M54.14 and Low back pain M54.5 [facility] [id number] [place] [address] 50256- 0740 Nov, [facility] [address] [address]- 1257 Oct, Low back pain M54.5 and Acute upper respiratory infection, unspecified J06.9 [facility] [address] [address]- 5720 Oct, [facility] [address] [address]- 5994 Oct, [facility] [id number] [place] [address] 37529- 0915 Oct, [facility] [address] 84300- 8990 Oct, [facility] [address] 42319- 9747 Sep, Chronic maxillary sinusitis J32.0 and Thoracic neuritis M54.14 [facility] [address] 42613- 2722 Sep, [facility] [address] 47774- 4185 Aug, Low back pain M54.5 and Other chronic pain G89.29 [facility] [address] 66205- 6803 Jul, Low back pain M54.5 and Other chronic pain G89.29 [facility] [address] 75944- 6492 Jul, [facility] [address] 63376- 1671 June, [facility] [address] 97217- 9406 May, Lumbago M54.5 and Sinusitis J32.9 [facility] [id number] [place] [address] 63376- 5711 Apr, Unspecified backache 724.5 and Folliculitis L73.9 [facility] [address] 02136- 6569 Mar, URI (upper respiratory infection) J06.9 and Back pain M54.9 [facility] [id number] [place] [address] 46144- 7405 Mar, [facility] [id number] [place] [address] 22166- 8245 Mar, [facility] [id number] [place] [address] 05033- 3819 Feb, Low back pain M54.5 ; Sciatica, unspecified side M54.30 ; Folliculitis L73.9 and Allergic urticaria L50.0 [facility] [id number] [place] [address] 50546- 8308 12 Feb, 2015 Visit for suture removal Z48.02 [place] [facility] [address] 05059- 5840 Feb, [facility] [facility] [address] 39998- 3086 Feb, Rash R21 [address] [address] 71851- 7191 Jan, Pharyngitis J02.9 ; Shoulder pain, right M25.511 and Rash R21 [address] [address] 20998- 6559 Jan, [place] [address] 25812- 4813 Dec, Allergic urticaria L50.0 ; Right shoulder pain M25.511 and Lumbago M54.5 [place] [address] 56639- 7319 Dec, Upper respiratory tract infection, unspecified upper respiratory infection J06.9 [place] [facility] [address] 23651- 6853 Dec, Contact dermatitis L25.9 [place] [address] 42600- 9252 Dec, [facility] [facility] [address] 85361- 8568 Dec, Dermatitis L30.9 and Pain in right shoulder M25.511 [place] [address] 29610- 1361 Nov, [facility] [address] [id number] [address]- 8811 Nov, Upper respiratory tract infection, unspecified upper respiratory infection J06.9 [facility] [address] [id number] [place] [address]- 1313 Oct, [facility] [address] [id number], [place] [address]- 1523 Oct, [facility] [address] [id number], [place] [address]- 7299 Oct, [facility] [address] [id number], [place] [address]- 7136 Sep, Back pain 724.5 [facility] [address] [facility] [id number], [place] [address]- 7892 Sep, Back pain 724.5 [facility] [address] [id number], [place] [address]- 9751 Sep, [facility] [address] [facility] [id number], [place] [address]- 3115 Aug, [facility] [address] [facility] [id number], [place] [address]- 0883 Aug, [facility] [address] [facility] [id number], [place] [address]- 7474 Jul, Back pain 724.5 [facility] [address] [facility] [id number], [place] [address]- 7099 Jul, [facility] [address] [facility] [id number], [place] [address]- 5191 June, [facility] [address] [facility] [id number], [place] [address]- 5423 14 May, 2014 [facility] [address] [facility] [id number], [place] [address]- 8931 13 May, 2014 [facility] [address] [id number], [place] [address]- 2493 Apr, [facility] [place] [facility] [address] [id number] [place] [address]- 5324 Apr, [facility] [place] [facility] [address] [facility] [id number] [place] [address]- 3415 Feb, [facility] [place] [facility] [address] [facility] [id number] [place] [address]- 7355 Feb, [facility] [place] [facility] [address] [facility] [id number] [place] [address]- 4824 Dec, [facility] [place] [facility] [address] [facility] [id number] [place] [address]- 5140 Dec, [facility] [place] [facility] [address] [facility] [id number] [place] [address]- 4890 Nov, [facility] [place] [facility] [address] [place] [address]- 8630 Nov, [facility] [place] [facility] [id number] [place] [address]- 6474 Feb, [facility] [place] [facility] [id number] [place] [address]- 3415 Feb, [facility] [place] [facility] [id number] [place] [address]- 4343 Sep, [facility] [place] [facility] [address] [id number] [place] [address]- 4511 Apr, [facility] [place] [facility] [address] [facility] [id number], [place] [address]- 5053 Apr, [facility] [place] [facility] [address] [id number] [place] [address]- 2238 Mar, [facility] [place] [facility] [address] [facility] [id number] [place] [address]- 0820 Mar, [facility] [place] [facility] [id number] [address]- 0980 Mar, [facility] [address] [facility] [id number] [place] [address]- 5391 Sep, IMMUNIZATIONS No Known Immunizations SOCIAL HISTORY Never Assessed REASON FOR VISIT Controlled Med Refill 10/02/16 PLAN OF CARE VITAL SIGNS MEDICATIONS Medication Instructions Dosage Frequency Start Date End Date Duration Status [place] 7.5-325 MG Orally 4 times a day take 1 tablet 6h Sep, 28 days Active SudoGest 60 MG Orally every 6 hrs 1 tablet as needed 6h Aug, Active RESULTS No Results PROCEDURES No Known procedures INSTRUCTIONS MEDICATIONS ADMINISTERED No Known Medications MEDICAL (GENERAL) HISTORY Type Description Date Medical History frequent ear infections 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
--- OUTSIDE RECORDS SUMMARY | 2018-04-01 20:27 | XMS REPORT ---
Author MOUNA Mathews [facility] eClinicalWorks Address Unknown Phone Unavailable Care Team Providers Care Gas Attendant Name Role Phone MOUNA LAKE CP Unavailable Allergies, Adverse Reactions, Alerts Substance Reaction Event Type N.K.D.A. Info Not Available Non Drug Allergy Problems Problem Type Condition Code Onset Dates Condition Status Assessment Rash R21 Active Problem Influenza with other respiratory manifestations 487.1 Active Problem Unspecified backache 724.5 Active Problem Unspecified otalgia 388.70 Active Problem Lumbago 724.2 Active Problem Acute upper respiratory infections of unspecified site 465.9 Active Problem Cough 786.2 Active Problem Acute sinusitis, unspecified 461.9 Active Medications Medication Code System Code Instructions Start Date End Date Status Dosage Zanaflex [facility] [address]-06 4 MG Orally 2 times a day Sep 29, 2014 1 tablet as needed Famotidine [facility] [address]-90 20 MG Orally Once a day Jan 07, 2015 1 tablet at bedtime ProAir HFA [facility] [address]-58 108 (90 Base) MCG/ACT Inhalation every 6 hrs for shortness of breath/cough 2 puffs as needed Triamcinolone Acetonide [facility] [address]-84 0.1 % Externally Twice a day Dec 26, 2014 1 application to affected area Sudafed [facility] [address]-75 60 MG Orally 2 times a day Nov 22, 2014 1 tablet as needed Claritin [facility] [address]-60 10 MG Orally Once a day Jan 07, 2015 Apr 07, 2015 1 tablet Vilonia [facility] [address]-14 5-325 MG Orally every 6 hrs. MUST LAST 30 DAYS May 07, 2014 take 1 tablet Procedures Procedure Coding System Code Date Office Visit, Est Pt., Level 2 CPT-4 60181 Feb 12, 2015 BIOPSY OF SKIN LESION CPT-4 61589 Feb 12, 2015 Vital Signs Date/Time: Feb 12, 2015 Temperature 98.5 F Weight 152.5 lbs Height 70 in BMI 21.88 Index Blood Pressure Diastolic 88 mmHg Blood Pressure Systolic 108 mmHg Cardiac Monitoring Heart Rate 96 bpm Results Name Result Date Reference Range Unit Abnormality Flag BIOPSY SKIN LESION (SINGLE) Summary Purpose eClinicalWorks Submission
--- OUTSIDE RECORDS SUMMARY | 2018-04-01 20:27 | XMS REPORT ---
Author Author MOUNA LAKE Organization [facility] Address [address] [place] [address] Care Team Providers Care Cover Operator Name Role Phone MOUNA LAKE Unavailable PROBLEMS Type Condition ICD9-CM Code UHL04-DR Code Onset Dates Condition Status SNOMED Code Problem Dysthymic disorder F34.1 Active 55765314 Problem Generalized anxiety disorder F41.1 Active 51898243 Problem Acute upper respiratory infection, unspecified J06.9 Active 84815172 Problem Low back pain M54.5 Active 984256147 Problem Adjustment disorder with depressed mood F43.21 Active 71500780 Problem Anxiety F41.9 Active 25343374 ALLERGIES No Information ENCOUNTERS Encounter Location Date Diagnosis [facility] [id number] [place] [address] 49453- 6840 May, [facility] [id number] [place] [address] 50198- 2804 May, [facility] [id number] [place] [address] 77793- 9634 May, [facility] [id number] [place] [address] 36716- 2910 Apr, [facility] [id number] [place] [address] 93276- 5923 Mar, Low back pain M54.5 [facility] [id number] [place] [address] 00165- 5665 Mar, Low back pain M54.5 [facility] [id number] [place] [address] 81753- 9699 Feb, Ganglion, left wrist M67.432 [facility] [id number] [place] [address] 79961- 2079 Feb, Low back pain M54.5 [facility] [address] [facility] [id number] [place] [address] 63020- 7938 Feb, Low back pain M54.5 [facility] [address] [facility] [id number] [place] [address] 31558- 8080 Feb, [facility] [address] [facility] [id number] [place] [address] 07445- 9843 Feb, Low back pain M54.5 and Bronchitis J40 [facility] [address] [facility] [id number] [place] [address] 76682- 7949 Feb, Low back pain M54.5 [facility] [id number] [place] [address] 59252- 7745 Jan, [facility] [id number] [place] [address] 88011- 5938 Jan, Low back pain M54.5 [facility] [id number] [place] [address] 28609- 6728 Jan, Low back pain M54.5 ; Anxiety F41.9 and Ganglion, left wrist M67.432 [facility] [id number] [place] [address] 14931- 0840 Dec, Low back pain M54.5 [facility] [id number] [place] [address] 28152- 5257 Dec, Ganglion, left wrist M67.432 [facility] [address] [facility] [id number] [place] [address] 55335- 9839 Nov, Ganglion, left wrist M67.432 and Anxiety F41.9 [facility] [id number] [place] [address] 81930- 7892 Nov, Low back pain M54.5 [facility] [id number] [place] [address] 28938- 5640 Nov, [facility] [id number] [address]- 8625 Nov, [facility] [id number] [place] [address] 40638- 2971 Nov, [facility] [id number] [place] [address] 29973- 7913 Oct, Anxiety F41.9 [facility] [id number] [place] [address] 80449- 6960 Oct, Low back pain M54.5 [facility] [id number] [place] [address] 90321- 3524 20 Oct, 2016 [facility] [id number] [place] [address] 88834- 5954 Oct, [facility] [id number] [place] [address] 83079- 6473 06 Oct, 2016 Adjustment disorder with depressed mood F43.21 and Generalized anxiety disorder F41.1 [facility] [id number] [place] [address] 03186- 5010 Sep, Adjustment disorder with depressed mood F43.21 and Generalized anxiety disorder F41.1 [facility] [id number] [place] [address] 91970- 5324 Sep, [address] [id number] [place] [address] Sep [facility] [address] [address]- 2355 Sep, Anxiety F41.9 [facility] [address] [address]- 7446 Sep, Low back pain M54.5 [facility] [id number] [place] [address] 38841- 3460 Sep, Adjustment disorder with depressed mood F43.21 and Generalized anxiety disorder F41.1 [facility] [id number] [place] [address] 01530- 1553 Sep, Allergic urticaria L50.0 [facility] [id number] [place] [address] 96449- 1192 Aug, [facility] [id number] [place] [address] 10065- 4085 Aug, Low back pain M54.5 [facility] [id number] [place] [address] 85180- 1777 Aug, Low back pain M54.5 [facility] [address] [facility] [id number] [place] [address] 99096- 9543 Aug, [facility] [id number] [place] [address] 95458- 2743 Aug, Thoracic neuritis M54.14 [facility] [id number] [place] [address] 85392- 8785 Jul, [facility] [id number] [place] [address] 99491- 4636 Jul, Low back pain M54.5 [facility] [id number] [place] [address] 69218- 4508 Jul, Thoracic neuritis M54.14 [facility] [id number] [place] [address] 12429- 1914 Jul, [facility] [id number] [place] [address] 39877- 5734 Jul, Thoracic neuritis M54.14 [facility] [id number] [place] [address] 92223- 8272 June, [facility] [id number] [place] [address] 64866- 7016 June, Thoracic neuritis M54.14 [facility] [id number] [place] [address] 57828- 2514 May, [facility] [id number] [place] [address] 77084- 3325 May, [facility] [address] [address]- 4046 Dec, [facility] [id number] [place] [address] 47547- 2662 Dec, [facility] [id number] [place] [address] 26722- 6424 Dec, [facility] [id number] [place] [address] 02456- 9694 Dec, [facility] [id number] [place] [address] 34779- 0796 Nov, [facility] [id number] [place] [address] 00547- 2029 Nov, Thoracic neuritis M54.14 and Low back pain M54.5 [facility] [id number] [place] [address] 50988- 8018 Nov, [facility] [id number] [place] [address] 29955- 3781 Oct, Low back pain M54.5 and Acute upper respiratory infection, unspecified J06.9 [facility] [id number] [place] [address] 23079- 3438 Oct, [facility] [id number] [place] [address] 86825- 5263 Oct, [facility] [id number] [place] [address] 68586- 2503 Oct, [facility] [id number] [place] [address] 73857- 5970 Oct, [facility] [id number] [place] [address] 57498- 6298 Sep, Chronic maxillary sinusitis J32.0 and Thoracic neuritis M54.14 [facility] [id number] [place] [address] 38363- 0582 Sep, [facility] [id number] [place] [address] 95919- 6312 Aug, Low back pain M54.5 and Other chronic pain G89.29 [facility] [id number] [place] [address] 83800- 0628 Jul, Low back pain M54.5 and Other chronic pain G89.29 [address] 36504- 7075 Jul, [address] [address] 56826- 2276 June, [address] [address] [address] 03322- 5307 May, Lumbago M54.5 and Sinusitis J32.9 [place] [id number] [place] [address] 18785- 3530 Apr, Unspecified backache 724.5 and Folliculitis L73.9 [place] [id number] [place] [address] 42808- 5835 Mar, URI (upper respiratory infection) J06.9 and Back pain M54.9 [place] [id number] [place] [address] 97296- 3567 Mar, [place] [id number] [place] [address] 53472- 7981 Mar, [address] [id number] [place] [address] 37975- 7683 Feb, Low back pain M54.5 ; Sciatica, unspecified side M54.30 ; Allergic urticaria L50.0 and Folliculitis L73.9 [place] [id number] [place] [address] 42212- 9630 Feb, Visit for suture removal Z48.02 [place] [address] 31469- 4044 Feb, [facility] [id number] [place] [address] 86136- 7647 Feb, Rash R21 [facility] [id number] [place] [address] 27719- 3046 Jan, Pharyngitis J02.9 ; Shoulder pain, right M25.511 and Rash R21 [facility] [address] 84187- 9167 Jan, [facility] [id number] [place] [address] 87746- 1399 30 Dec, 2014 Allergic urticaria L50.0 ; Right shoulder pain M25.511 and Lumbago M54.5 [facility] [id number] [place] [address] 82153- 3770 Dec, Upper respiratory tract infection, unspecified upper respiratory infection J06.9 [facility] [id number] [place] [address] 21729- 0145 Dec, Contact dermatitis L25.9 [facility] [id number] [place] [address] 91409- 6995 Dec, [facility] [id number] [place] [address] 23660- 2874 Dec, Dermatitis L30.9 and Pain in right shoulder M25.511 [facility] [id number] [place] [address] 90133- 4481 Nov, [facility] [id number] [place] [address] 07593- 8972 Nov, Upper respiratory tract infection, unspecified upper respiratory infection J06.9 [facility] [id number] [place] [address] 87856- 0881 Oct, [facility] [id number] [place] [address] 70077- 7539 Oct, [facility] [place] [facility] [address] [id number] [place] [address]- 9589 Oct, [facility] [address] [id number] [place] [address]- 1493 Sep, Back pain 724.5 [facility] [address] [id number] [place] [address]- 4706 Sep, Back pain 724.5 [facility] [place] [facility] [address] [id number] [place] [address]- 1385 Sep, [facility] [place] [facility] [address] [id number] [place] [address]- 7145 Aug, [facility] [place] [facility] [address] [id number] [place] [address]- 7596 Aug, [facility] [place] [facility] [address] [id number] [place] [address]- 0063 Jul, Back pain 724.5 [facility] [place] [facility] [address] [id number] [place] [address]- 4742 Jul, [facility] [place] [facility] [address] [id number] [place] [address]- 3874 June, [facility] [place] [facility] [address] [id number] [place] [address]- 6250 May, [facility] [place] [facility] [address] [id number] [place] [address]- 4904 May, [facility] [place] [facility] [address] [id number] [place] [address]- 6419 Apr, [facility] [place] [facility] [address] [id number] [place] [address]- 5117 Apr, [facility] [place] [facility] [address] [id number] [place] [address]- 9389 Feb, [facility] [place] [facility] [address] [id number] [place] [address]- 7775 Feb, [facility] [place] [facility] [address] [id number] [address]- 8576 Dec, [facility] [address] [address]- 6589 Dec, [facility] [address] [address]- 1063 Nov, [facility] [id number] [place] [address] 59759- 3138 Nov, [facility] [address] [address]- 6067 Feb, [facility] [id number] [place] [address] 13361- 2661 Feb, [facility] [address] [address]- 2651 Sep, [facility] [id number] [place] [address] 40447- 9685 Apr, [facility] [address] [address]- 5389 Apr, [facility] [address] 4569 Mar, [facility] [address] [address]- 3728 Mar, [facility] [address] [address]- 6096 Mar, [facility] [id number] [address]- 9142 Sep, IMMUNIZATIONS No Known Immunizations SOCIAL HISTORY Never Assessed REASON FOR VISIT Controlled Med Refill PLAN OF CARE VITAL SIGNS MEDICATIONS Medication Instructions Dosage Frequency Start Date End Date Duration Status [place] 7.5-325 MG Orally 4 times a day take 1 tablet 6h Aug, 28 days Active RESULTS No Results PROCEDURES No Known procedures INSTRUCTIONS MEDICATIONS ADMINISTERED No Known Medications MEDICAL (GENERAL) HISTORY Type Description Date Medical History frequent ear infections Medical History 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
--- OUTSIDE RECORDS SUMMARY | 2018-04-01 20:27 | XMS REPORT ---
Author Author JAYA MOUNA Organization [facility] Address [address] [place] [address] Care Team Providers Care Motor Analyst Name Role Phone [place] Unavailable PROBLEMS Type Condition ICD9-CM Code AMR32-IN Code Onset Dates Condition Status SNOMED Code Problem Dysthymic disorder F34.1 Active 17389131 Problem Generalized anxiety disorder F41.1 Active 22281685 Problem Acute upper respiratory infection, unspecified J06.9 Active 33215117 Problem Low back pain M54.5 Active 328718738 Problem Adjustment disorder with depressed mood F43.21 Active 79091542 Problem Anxiety F41.9 Active 36127489 ALLERGIES No Information ENCOUNTERS Encounter Location Date Diagnosis [facility] [id number] [place] [address] 80762- 7147 Aug, [facility] [id number] [place] [address] 94268- 8228 Jul, Low back pain M54.5 [facility] [id number] [place] [address] 24303- 5665 June, Low back pain M54.5 [facility] [id number] [place] [address] 10798- 7550 May, Low back pain M54.5 and Generalized anxiety disorder F41.1 [facility] [id number] [place] [address] 25041- 6649 May, [facility] [address] 44849- 1740 May, Generalized anxiety disorder F41.1 [facility] [id number] [place] [address] 73975- 2121 May, Low back pain M54.5 and Anxiety F41.9 [place] [id number] [place] [address] 38997- 3851 Apr, [facility] [address] 27097 2546 Mar, Low back pain M54.5 [facility] [id number] [place] [address] 99174 2546 Mar, Low back pain M54.5 [facility] [address] 86868 2546 Feb, Ganglion, left wrist M67.432 [facility] [address] 67766- 3498 Feb, Low back pain M54.5 [facility] [id number] [place] [address] 24688- 1646 Feb, Low back pain M54.5 [facility] [address] 79963 2546 Feb, [facility] [id number] [place] [address] 30536 2545 Feb, Low back pain M54.5 and Bronchitis J40 [facility] [id number] [place] [address] 88710 2547 Feb, Low back pain M54.5 [facility] [id number] [place] [address] 52002 2546 Jan, [facility] [id number] [place] [address] 75849 2546 Jan, Low back pain M54.5 [facility] [address] 01959 2546 Jan, Low back pain M54.5 ; Anxiety F41.9 and Ganglion, left wrist M67.432 [facility] [id number] [place] [address] 04657 2546 Dec, Low back pain M54.5 [facility] [id number] [place] [address] 19956- 6446 Dec, Ganglion, left wrist M67.432 [facility] [id number] [place] [address] 06097 2546 Nov, Ganglion, left wrist M67.432 and Anxiety F41.9 [facility] [id number] [place] [address] 06182 2546 Nov, Low back pain M54.5 [facility] [id number] [place] [address] 80812 2546 Nov, [facility] [id number] [place] [address] 49288- 6896 Nov, [facility] [id number] [place] [address] 81140- 2756 Nov, [facility] [id number] [place] [address] 12041- 3750 Oct, Anxiety F41.9 [facility] [id number] [place] [address] 64871 2546 Oct, Low back pain M54.5 [facility] [id number] [place] [address] 24864 2546 Oct, [facility] [id number] [place] [address] 73614 2546 Oct, [facility] [id number] [place] [address] 92194- 2546 Oct, Adjustment disorder with depressed mood F43.21 and Generalized anxiety disorder F41.1 [facility] [id number] [place] [address] 53915- 0186 Sep, Adjustment disorder with depressed mood F43.21 and Generalized anxiety disorder F41.1 [facility] [id number] [place] [address] 25651- 8246 Sep, [facility] [id number] [place] [address] Sep [facility] [id number] [place] [address] 78443- 7208 Sep, Anxiety F41.9 [facility] [id number] [place] [address] 29170- 5799 Sep, Low back pain M54.5 [facility] [id number] [place] [address] 03315- 2279 Sep, Adjustment disorder with depressed mood F43.21 and Generalized anxiety disorder F41.1 [facility] [id number] [place] [address] 99719- 3343 Sep, Allergic urticaria L50.0 [facility] [id number] [place] [address] 42227- 4450 Aug, [facility] [id number] [place] [address] 81011- 0850 Aug, Low back pain M54.5 [facility] [id number] [place] [address] 02956- 3225 Aug, Low back pain M54.5 [facility] [id number] [place] [address] 72164- 7971 Aug, [facility] [id number] [place] [address] 31054- 2979 Aug, Thoracic neuritis M54.14 [facility] [id number] [place] [address] 88948- 7576 Jul, [facility] [id number] [place] [address] 69781- 7630 Jul, Low back pain M54.5 [facility] [id number] [place] [address] 21302- 3027 Jul, Thoracic neuritis M54.14 [facility] [id number] [place] [address] 88980- 6492 Jul, [facility] [address] [address]- 5516 Jul, Thoracic neuritis M54.14 [facility] [id number] [address]- 7230 June, [facility] [id number] [place] [address] 76574- 7188 June, Thoracic neuritis M54.14 [facility] [address] [facility] [id number] [address]- 4902 May, [facility] [id number] [place] [address] 36416- 7292 May, [facility] [id number] [place] [address] 32067- 1977 Dec, [facility] [id number] [place] [address] 14535- 6577 Dec, [facility] [id number] [place] [address] 25647- 3345 Dec, [facility] [id number] [place] [address] 01821- 7981 Dec, [facility] [id number] [address]- 0383 Nov, [facility] [id number] [address]- 0608 Nov, Thoracic neuritis M54.14 and Low back pain M54.5 [facility] [id number] [address]- 9070 Nov, [facility] [id number] [address]- 0501 Oct, Low back pain M54.5 and Acute upper respiratory infection, unspecified J06.9 [facility] [id number] [place] [address] 35738- 3379 Oct, [facility] [id number] [place] [address] 59944- 1596 Oct, [facility] [id number] [place] [address] 19704- 4741 Oct, [facility] [id number] [place] [address] 99670- 5507 Oct, [facility] [address] 39334- 9048 Sep, Chronic maxillary sinusitis J32.0 and Thoracic neuritis M54.14 [facility] [id number] [place] [address] 10159- 0385 Sep, [facility] [id number] [place] [address] 86351- 9647 Aug, Low back pain M54.5 and Other chronic pain G89.29 [facility] [id number] [place] [address] 39639- 2515 Jul, Low back pain M54.5 and Other chronic pain G89.29 [facility] [id number] [place] [address] 72261- 6453 Jul, [facility] [id number] [place] [address] 28072- 8034 June, [facility] [id number] [place] [address] 06485- 9135 May, Lumbago M54.5 and Sinusitis J32.9 [facility] [id number] [place] [address] 40467- 5244 Apr, Unspecified backache 724.5 and Folliculitis L73.9 [facility] [id number] [place] [address] 13162- 0917 24 Mar, 2015 URI (upper respiratory infection) J06.9 and Back pain M54.9 [facility] [address] [place] [address]- 3925 05 Mar, 2015 [facility] [id number] [place] [address] 44796- 7268 Mar, [facility] [id number] [place] [address] 34735- 5826 Feb, Low back pain M54.5 ; Sciatica, unspecified side M54.30 ; Folliculitis L73.9 and Allergic urticaria L50.0 [place] [address] 78701- 3523 12 Feb, 2015 Visit for suture removal Z48.02 [place] [address] 26747- 2373 Feb, [place] [address] 97111- 8645 Feb, Rash R21 [place] [address] 83006- 1919 16 Jan, 2015 Pharyngitis J02.9 ; Shoulder pain, right M25.511 and Rash R21 [place] [address] 72731- 8346 Jan, [place] [address] 34418- 9610 Dec, Allergic urticaria L50.0 ; Right shoulder pain M25.511 and Lumbago M54.5 [place] [id number] [place] [address] 00477- 3893 Dec, Upper respiratory tract infection, unspecified upper respiratory infection J06.9 [place] [address] 53891- 2183 Dec, Contact dermatitis L25.9 [place] [id number] [place] [address] 87092- 3349 Dec, [facility] [address] 93645- 6248 Dec, Dermatitis L30.9 and Pain in right shoulder M25.511 [facility] [id number] [address]- 2461 Nov, [facility] [id number] [address]- 4231 Nov, Upper respiratory tract infection, unspecified upper respiratory infection J06.9 [facility] [address] [facility] [id number], [place] [address]- 1595 Oct, [facility] [address] [facility] [id number], [place] [address]- 6671 Oct, [facility] [id number] [place] [address] 88544- 4519 Oct, [facility] [id number] [place] [address] 51877- 5596 Sep, Back pain 724.5 [facility] [id number] [address]- 3014 Sep, Back pain 724.5 [facility] [address], [place] [address]- 8988 Sep, [facility] [id number] [address]- 3335 Aug, [facility] [address] [address]- 1786 Aug, [facility] [id number] [address]- 7089 Jul, Back pain 724.5 [facility] [id number] [address]- 2185 11 Jul, 2014 [facility] [address] [facility] [id number], [place] [address]- 4439 June, [facility] [address] [address]- 4511 14 May, 2014 [facility] [place] [facility] [address] [id number] [place] [address]- 8947 May, [facility] [place] [facility] [address] [id number] [place] [address]- 8630 Apr, [facility] [place] [facility] [address] [id number] [place] [address]- 5259 Apr, [facility] [place] [facility] [address] [id number] [place] [address]- 7641 Feb, [facility] [place] [facility] [address] [id number] [place] [address]- 7675 Feb, [facility] [place] [facility] [address] [id number] [place] [address]- 6492 Dec, [facility] [place] [facility] [address] [id number] [place] [address]- 3105 Dec, [facility] [place] [facility] [address] [id number] [place] [address]- 8626 Nov, [facility] [place] [facility] [address] [id number] [place] [address]- 2912 Nov, [facility] [place] [facility] [address] [id number] [place] [address]- 9740 Feb, [facility] [place] [facility] [address] [id number], [place] [address]- 3488 Feb, [facility] [place] [facility] [address] [id number], [place] [address]- 7222 Sep, [facility] [place] [facility] [address] [id number] [place] [address]- 8352 Apr, [facility] [place] [facility] [address] [id number] [place] [address]- 5496 Apr, [facility] [place] [facility] [address] [id number] [place] [address]- 9521 Mar, [facility] [place] [facility] [address] [facility] [id number] [place] [address]- 1636 Mar, [facility] [address] [facility] [id number] [place] [address]- 3733 Mar, [facility] [address] [facility] [id number] [place] 9641 Sep, IMMUNIZATIONS No Known Immunizations SOCIAL HISTORY Never Assessed REASON FOR VISIT PLAN OF CARE VITAL SIGNS MEDICATIONS Unknown Medications RESULTS No Results PROCEDURES No Known procedures INSTRUCTIONS MEDICATIONS ADMINISTERED No Known Medications MEDICAL (GENERAL) HISTORY Type Description Date Medical History frequent ear infections 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
--- OUTSIDE RECORDS SUMMARY | 2018-04-01 20:27 | XMS REPORT ---
Author Author WALESKA CAMPA [facility] Address [address] [place] [address] Care Team Providers Care Substation Manager Name Role Phone WALESKA CAMPA Unavailable PROBLEMS Type Condition ICD9-CM Code [id number] Code Onset Dates Condition Status SNOMED Code Problem Dysthymic disorder F34.1 Active 09080357 Problem Generalized anxiety disorder F41.1 Active 11696688 Problem Acute upper respiratory infection, unspecified J06.9 Active 37977495 Problem Low back pain M54.5 Active 833412160 Problem Adjustment disorder with depressed mood F43.21 Active 40219227 Problem Anxiety F41.9 Active [id number] ALLERGIES No Information ENCOUNTERS Encounter Location Date Diagnosis [facility] [id number] [place] [address] 96703- 3625 Jul, [facility] [id number] [place] [address] 04357- 9009 June, [facility] [id number] [place] [address] 92495- 8250 June, [facility] [id number] [place] [address] 35520- 2004 May, Low back pain M54.5 and Generalized anxiety disorder F41.1 [facility] [id number] [place] [address] 92768- 7393 May, [facility] [id number] [place] [address] 07448- 1046 May, Generalized anxiety disorder F41.1 [facility] [id number] [place] [address] 93796- 1217 May, Low back pain M54.5 and Anxiety F41.9 [facility] [address] [place] [address]- 1475 Apr, [facility] [id number] [place] [address] 98929- 5396 Mar, Low back pain M54.5 [facility] [id number] [place] [address] 29145 2546 Mar, Low back pain M54.5 [facility] [id number] [place] [address] 04068 2546 Feb, Ganglion, left wrist M67.432 [facility] [id number] [place] [address] 75032- 1856 Feb, Low back pain M54.5 [facility] [id number] [place] [address] 38050 2546 Feb, Low back pain M54.5 [facility] [id number] [place] [address] 54470 2546 Feb, [facility] [id number] [place] [address] 56181 254 Feb, Low back pain M54.5 and Bronchitis J40 [facility] [id number] [place] [address] 52224 2543 Feb, Low back pain M54.5 [facility] [id number] [place] [address] 34655 2546 Jan, [facility] [id number] [place] [address] 99138 2546 Jan, Low back pain M54.5 [facility] [id number] [place] [address] 30660 2546 Jan, Low back pain M54.5 ; Anxiety F41.9 and Ganglion, left wrist M67.432 [facility] [id number] [place] [address] 67374- 2546 Dec, Low back pain M54.5 [facility] [address] [address] 4795 Dec, Ganglion, left wrist M67.432 [facility] [id number] [place] [address] 92909- 5864 Nov, Ganglion, left wrist M67.432 and Anxiety F41.9 [facility] [id number] [place] [address] 00647- 4769 Nov, Low back pain M54.5 [facility] [id number] [place] [address] 05281- 8225 Nov, [facility] [id number] [place] [address] 68241- 7834 Nov, [facility] [id number] [place] [address] 50575- 0974 Nov, [facility] [id number] [place] [address] 96630- 5823 Oct, Anxiety F41.9 [facility] [id number] [place] [address] 14851- 9539 Oct, Low back pain M54.5 [facility] [id number] [place] [address] 30894- 1922 Oct, [facility] [id number] [place] [address] 99399- 4088 Oct, [facility] [id number] [place] [address] 67714- 2888 Oct, Adjustment disorder with depressed mood F43.21 and Generalized anxiety disorder F41.1 [facility] [id number] [place] [address] 16607- 6826 Sep, Adjustment disorder with depressed mood F43.21 and Generalized anxiety disorder F41.1 [facility] [address] [address]25 Sep, [facility] [id number] [address] Sep [facility] [id number] [place] [address] 38950- 8405 Sep, Anxiety F41.9 [facility] [id number] [place] [address] 02365- 4937 Sep, Low back pain M54.5 [facility] [id number] [place] [address] 77255- 7922 Sep, Adjustment disorder with depressed mood F43.21 and Generalized anxiety disorder F41.1 [facility] [id number] [place] [address] 31405- 4502 Sep, Allergic urticaria L50.0 [facility] [id number] [place] [address] 98816- 9480 Aug, [facility] [id number] [place] [address] 45241- 2570 Aug, Low back pain M54.5 [facility] [id number] [place] [address] 37640- 4435 Aug, Low back pain M54.5 [facility] [id number] [place] [address] 85969- 2510 Aug, [facility] [id number] [place] [address] 84192- 5086 Aug, Thoracic neuritis M54.14 [facility] [id number] [place] [address] 48036- 2882 Jul, [facility] [id number] [place] [address] 51372- 2269 Jul, Low back pain M54.5 [facility] [id number] [place] [address] 13880- 0338 Jul, Thoracic neuritis M54.14 [facility] [id number] [place] [address] 23024- 9758 Jul, [facility] [address] [address]- 4440 Jul, Thoracic neuritis M54.14 [facility] [id number] [place] [address] 23316- 7929 June, [facility] [id number] [place] [address] 99338- 0246 June, Thoracic neuritis M54.14 [facility] [id number] [place] [address] 10000- 7483 May, [facility] [id number] [place] [address] 11528- 6522 May, [facility] [id number] [place] [address] 77569- 6624 Dec, [facility] [id number] [place] [address] 13550- 0802 Dec, [facility] [id number] [place] [address] 65256- 0729 Dec, [facility] [id number] [place] [address] 99274- 4103 Dec, [facility] [address] [address]- 1455 Nov, [facility] [id number] [place] [address] 81910- 0790 Nov, Thoracic neuritis M54.14 and Low back pain M54.5 [facility] [address] [address]- 9090 Nov, [facility] [id number] [place] [address] 01348- 6900 Oct, Low back pain M54.5 and Acute upper respiratory infection, unspecified J06.9 [facility] [address] [address]- 9730 Oct, [facility] [id number] [place] [address] 42666- 1440 Oct, [facility] [id number] [place] [address] 47208- 9165 Oct, [facility] [id number] [place] [address] 94262- 6044 Oct, [facility] [address] 31034- 6947 Sep, Chronic maxillary sinusitis J32.0 and Thoracic neuritis M54.14 [facility] [id number] [place] [address] 38113- 8205 Sep, [facility] [id number] [place] [address] 82750- 8541 Aug, Low back pain M54.5 and Other chronic pain G89.29 [facility] [address] 42665- 7562 Jul, Low back pain M54.5 and Other chronic pain G89.29 [facility] [id number] [place] [address] 95413- 5549 Jul, [facility] [id number] [place] [address] 89379- 5443 June, [facility] [id number] [place] [address] 88632- 1705 May, Lumbago M54.5 and Sinusitis J32.9 [facility] [id number] [place] [address] 20026- 1034 Apr, Unspecified backache 724.5 and Folliculitis L73.9 [facility] [id number] [place] [address] 61297- 8308 Mar, URI (upper respiratory infection) J06.9 and Back pain M54.9 [facility] [address] 58094- 6415 05 Mar, 2015 [facility] [id number] [place] [address] 80039- 1344 Mar, [facility] [id number] [place] [address] 19627- 8225 Feb, Low back pain M54.5 ; Sciatica, unspecified side M54.30 ; Folliculitis L73.9 and Allergic urticaria L50.0 [address] [address] [address] 59722- 1502 Feb, Visit for suture removal Z48.02 [address] [address] 20846- 2148 Feb, [address] [address] 49576- 4899 Feb, Rash R21 [address] [address] 52727- 3481 Jan, Pharyngitis J02.9 ; Shoulder pain, right M25.511 and Rash R21 [address] [address] 39993- 2844 Jan, [address] [id number] [place] [address] 98508- 2341 Dec, Allergic urticaria L50.0 ; Right shoulder pain M25.511 and Lumbago M54.5 [place] [id number] [place] [address] 03710- 0259 Dec, Upper respiratory tract infection, unspecified upper respiratory infection J06.9 [place] [id number] [place] [address] 23653- 1141 Dec, Contact dermatitis L25.9 [place] [address] 89426- 2062 Dec, [place] [address] 25414- 7075 Dec, Dermatitis L30.9 and Pain in right shoulder M25.511 [facility] [address] [address]- 5883 Nov, [facility] [id number] [address]- 4492 Nov, Upper respiratory tract infection, unspecified upper respiratory infection J06.9 [facility] [id number] [place] [address] 63384- 7033 Oct, [facility] [id number] [address]- 9340 Oct, [facility] [id number] [place] [address] 34396- 8540 Oct, [facility] [id number] [place] [address] 87978- 2243 Sep, Back pain 724.5 [facility] [id number] [place] [address] 31117- 9084 Sep, Back pain 724.5 [facility] [id number] [place] [address] 83419- 6437 Sep, [facility] [id number] [place] [address] 25271- 6847 Aug, [facility] [address] [address]- 4067 Aug, [facility] [address] [address]- 2785 Jul, Back pain 724.5 [facility] [id number] [address]- 1596 Jul, [facility] [id number] [address]- 3546 June, [facility] [address] [address]- 1410 14 May, 2014 [facility] [place] [facility] [address] [id number] [place] [address]- 3976 May, [facility] [place] [facility] [address] [id number] [place] [address]- 2661 Apr, [facility] [place] [facility] [address] [id number] [place] [address]- 0672 Apr, [facility] [place] [facility] [address] [id number] [place] [address]- 7766 Feb, [facility] [place] [facility] [address] [id number] [place] [address]- 9453 Feb, [facility] [place] [facility] [address] [id number] [place] [address]- 6631 Dec, [facility] [place] [facility] [address] [id number] [place] [address]- 8600 Dec, [facility] [place] [facility] [address] [id number] [place] [address]- 5500 Nov, [facility] [place] [facility] [address] [id number] [place] [address]- 8482 Nov, [facility] [place] [facility] [address] [id number] [place] [address]- 9954 Feb, [facility] [place] [facility] [address] [id number] [place] [address]- 7337 Feb, [facility] [place] [facility] [address] [id number] [place] [address]- 2176 Sep, [facility] [place] [facility] [address] [id number] [place] [address]- 9686 Apr, [facility] [place] [facility] [address] [id number] [place] [address]- 5329 Apr, [facility] [place] [facility] [address] [id number] [place] [address]- 7735 Mar, [facility] [place] [facility] [address] [id number] [place] [address] 2546 Mar, [facility] [address] [facility] [id number] [place] [address]- 2546 Mar, [facility] [address] [facility] [id number] [address]- 2546 Sep, IMMUNIZATIONS No Known Immunizations SOCIAL HISTORY Never Assessed REASON FOR VISIT Controlled Med Refill 11/02/16 PLAN OF CARE VITAL SIGNS MEDICATIONS Medication Instructions Dosage Frequency Start Date End Date Duration Status SudoGest 60 MG Orally every 6 hrs 1 tablet as needed 6h Aug, 28 days Active RESULTS No Results PROCEDURES No Known procedures INSTRUCTIONS MEDICATIONS ADMINISTERED No Known Medications MEDICAL (GENERAL) HISTORY Type Description Date Medical History frequent ear infections 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
--- OUTSIDE RECORDS SUMMARY | 2018-04-01 20:28 | XMS REPORT ---
Author Author [facility] Address [address] [place] [address] Care Team Providers Care Miner Name Role Phone JAYA MOUNA Unavailable PROBLEMS Type Condition ICD9-CM Code [id number] Code Onset Dates Condition Status SNOMED Code Problem Acute upper respiratory infections of unspecified site 465.9 Active 39427332 Problem Acute sinusitis, unspecified 461.9 Active 94230763 Problem Lumbago 724.2 Active 501709350 Problem Low back pain M54.5 Active 372618833 Problem Acute upper respiratory infection, unspecified J06.9 Active 17103250 Problem Unspecified backache 724.5 Active 602067350 Problem Cough 786.2 Active 88840641 Problem Unspecified otalgia 388.70 Active 17653523 Problem Influenza with other respiratory manifestations 487.1 Active 7204557 ALLERGIES Unknown Allergies SOCIAL HISTORY No smoking Hx information available PLAN OF CARE VITAL SIGNS MEDICATIONS Medication Instructions Dosage Frequency Start Date End Date Duration Status ProAir HFA 108 (90 Base) MCG/ACT Inhalation every 6 hrs for shortness of breath/cough 2 puffs as needed Active RESULTS No Results PROCEDURES No Known procedures IMMUNIZATIONS No Known Immunizations
--- OUTSIDE RECORDS SUMMARY | 2018-04-01 20:28 | XMS REPORT ---
Author Author MOUNA LAKE Organization [facility] Address [address] [place] [address] Care Team Providers Care Exhibitions Curator Name Role Phone MOUNA LAKE Unavailable PROBLEMS Type Condition ICD9-CM Code NBU04-CP Code Onset Dates Condition Status SNOMED Code Problem Dysthymic disorder F34.1 Active 74451994 Problem Generalized anxiety disorder F41.1 Active 43774336 Problem Acute upper respiratory infection, unspecified J06.9 Active 24002790 Problem Low back pain M54.5 Active 579827512 Problem Adjustment disorder with depressed mood F43.21 Active 64363667 Problem Anxiety F41.9 Active 61213443 ALLERGIES No Information ENCOUNTERS Encounter Location Date Diagnosis [facility] [id number] [place] [address] 93483- 6343 Aug, [facility] [id number] [place] [address] 43490- 6481 Jul, Low back pain M54.5 [facility] [id number] [place] [address] 16849- 6869 June, Low back pain M54.5 [facility] [id number] [place] [address] 43873- 5739 May, Low back pain M54.5 and Generalized anxiety disorder F41.1 [facility] [id number] [place] [address] 75276- 9887 May, [facility] [id number] [place] [address] 50012- 6226 May, Generalized anxiety disorder F41.1 [facility] [id number] [place] [address] 94578- 7726 May, Low back pain M54.5 and Anxiety F41.9 [facility] [id number] [place] [address] 27131 2549 Apr, [facility] [address] [address] 2546 Mar, Low back pain M54.5 [facility] [address] 20058 2546 Mar, Low back pain M54.5 [facility] [address] 99095 2546 Feb, Ganglion, left wrist M67.432 [facility] [address] 83159- 6362 Feb, Low back pain M54.5 [facility] [address] 95429 2546 Feb, Low back pain M54.5 [facility] [address] 08612 2546 Feb, [facility] [address] 27397 2545 Feb, Low back pain M54.5 and Bronchitis J40 [facility] [address] 67440 2548 Feb, Low back pain M54.5 [facility] [address] 15581 2546 Jan, [facility] [id number] [place] [address] 12434 2546 Jan, Low back pain M54.5 [facility] [address] 44365 2546 Jan, Low back pain M54.5 ; Anxiety F41.9 and Ganglion, left wrist M67.432 [facility] [address] 43192 2546 Dec, Low back pain M54.5 [facility] [address] [place] [address] 95177- 6162 Dec, Ganglion, left wrist M67.432 [facility] [id number] [place] [address] 51411- 2676 Nov, Ganglion, left wrist M67.432 and Anxiety F41.9 [facility] [id number] [place] [address] 34606- 7756 Nov, Low back pain M54.5 [facility] [id number] [place] [address] 46032- 6156 Nov, [facility] [id number] [place] [address] 19958- 5099 Nov, [facility] [id number] [place] [address] 20074- 2152 Nov, [facility] [id number] [place] [address] 78266- 4701 Oct, Anxiety F41.9 [facility] [id number] [place] [address] 81671- 8291 Oct, Low back pain M54.5 [facility] [id number] [place] [address] 99765- 5341 Oct, [facility] [id number] [place] [address] 92598- 9237 Oct, [facility] [id number] [place] [address] 36674- 2541 Oct, Adjustment disorder with depressed mood F43.21 and Generalized anxiety disorder F41.1 [facility] [id number] [place] [address] 41783- 3063 Sep, Adjustment disorder with depressed mood F43.21 and Generalized anxiety disorder F41.1 [facility] [id number] [place] [address] 66503- 9388 Sep, [address] [id number] [place] [address] Sep [facility] [id number] [place] [address] 54720- 8285 Sep, Anxiety F41.9 [facility] [address] [place] [address] 22531- 2512 Sep, Low back pain M54.5 [facility] [id number] [place] [address] 51045- 5792 Sep, Adjustment disorder with depressed mood F43.21 and Generalized anxiety disorder F41.1 [facility] [id number] [place] [address] 61228- 9783 Sep, Allergic urticaria L50.0 [facility] [id number] [place] [address] 77350- 9945 Aug, [facility] [id number] [place] [address] 19860- 7465 Aug, Low back pain M54.5 [facility] [id number] [place] [address] 28044- 2958 Aug, Low back pain M54.5 [facility] [id number] [place] [address] 18455- 7192 Aug, [facility] [id number] [place] [address] 55519- 5591 Aug, Thoracic neuritis M54.14 [facility] [address] [place] [address] 31531- 6372 Jul, [facility] [id number] [place] [address] 90942- 9013 Jul, Low back pain M54.5 [facility] [address] [place] [address] 32827- 7106 Jul, Thoracic neuritis M54.14 [facility] [id number] [place] [address] 88479- 5671 Jul, [facility] [address] [address] 3340 Jul, Thoracic neuritis M54.14 [facility] [address] [facility] [id number] [address] 8110 June, [facility] [id number] [place] [address] 34834- 5044 June, Thoracic neuritis M54.14 [facility] [address] [facility] [id number] [address]- 2432 May, [facility] [id number] [place] [address] 74913- 6137 May, [facility] [id number] [place] [address] 37442- 3906 Dec, [facility] [id number] [place] [address] 25492- 9104 Dec, [facility] [address] [place] [address] 88740- 4867 Dec, [facility] [address] [place] [address] 36461- 6422 Dec, [facility] [address] [address]- 3133 Nov, [facility] [address] [address]- 5286 Nov, Thoracic neuritis M54.14 and Low back pain M54.5 [facility] [address] [address]- 1492 Nov, [facility] [address] [address]- 4139 Oct, Low back pain M54.5 and Acute upper respiratory infection, unspecified J06.9 [facility] [address] [place] [address] 24861- 0401 Oct, [facility] [id number] [place] [address] 78218- 9872 Oct, [facility] [id number] [place] [address] 74652- 8086 Oct, [facility] [id number] [place] [address] 67124- 4860 Oct, [facility] [id number] [place] [address] 66134- 5771 Sep, Chronic maxillary sinusitis J32.0 and Thoracic neuritis M54.14 [facility] [id number] [place] [address] 21234- 7733 Sep, [facility] [id number] [place] [address] 08248- 7063 Aug, Low back pain M54.5 and Other chronic pain G89.29 [facility] [id number] [place] [address] 79909- 2137 Jul, Low back pain M54.5 and Other chronic pain G89.29 [facility] [id number] [place] [address] 19087- 9123 Jul, [facility] [id number] [place] [address] 49209- 8195 June, [facility] [id number] [place] [address] 41229- 0344 May, Lumbago M54.5 and Sinusitis J32.9 [facility] [id number] [place] [address] 16461- 2140 Apr, Unspecified backache 724.5 and Folliculitis L73.9 [facility] [id number] [place] [address] 78474- 6057 24 Mar, 2015 URI (upper respiratory infection) J06.9 and Back pain M54.9 [facility] [id number] [place] [address]- 4927 05 Mar, 2015 [facility] [id number] [place] [address] 10346- 2641 Mar, [facility] [id number] [place] [address] 60469- 4908 Feb, Low back pain M54.5 ; Sciatica, unspecified side M54.30 ; Allergic urticaria L50.0 and Folliculitis L73.9 [place] [id number] [place] [address] 44937- 4353 12 Feb, 2015 Visit for suture removal Z48.02 [place] [address] 99457- 2189 Feb, [place] [address] 98867- 3610 Feb, Rash R21 [address] [address] 33831- 1434 16 Jan, 2015 Pharyngitis J02.9 ; Shoulder pain, right M25.511 and Rash R21 [address] [place] [address] 58443- 7502 Jan, [place] [facility] [id number] [place] [address] 73619- 4690 Dec, Allergic urticaria L50.0 ; Right shoulder pain M25.511 and Lumbago M54.5 [facility] [id number] [place] [address] 85390- 3894 Dec, Upper respiratory tract infection, unspecified upper respiratory infection J06.9 [place] [address] 90105- 3955 Dec, Contact dermatitis L25.9 [facility] [facility] [id number] [place] [address] 68502- 3821 Dec, [facility] [id number] [place] [address] 05831- 7620 Dec, Dermatitis L30.9 and Pain in right shoulder M25.511 [facility] [address] [address]- 8879 Nov, [facility] [id number] [address]- 9429 Nov, Upper respiratory tract infection, unspecified upper respiratory infection J06.9 [facility] [id number] [place] [address] 78472- 1176 Oct, [facility] [id number] [place] [address] 12146- 1696 Oct, [facility] [id number] [place] [address] 46367- 3267 Oct, [facility] [id number] [place] [address] 88403- 4458 Sep, Back pain 724.5 [facility] [id number] [place] [address] 43328- 8483 Sep, Back pain 724.5 [facility] [address] [address]- 8161 Sep, [facility] [address] [address]- 8452 Aug, [facility] [address] [address]- 7873 Aug, [facility] [id number] [address]- 5919 Jul, Back pain 724.5 [facility] [id number] [address]- 5287 Jul, [facility] [id number] [address]- 7138 June, [facility] [address] [address]- 4701 14 May, 2014 [facility] [place] [facility] [address] [id number] [place] [address]- 8911 May, [facility] [place] [facility] [address] [id number] [place] [address]- 3920 Apr, [facility] [place] [facility] [address] [id number] [place] [address]- 4679 Apr, [facility] [place] [facility] [address] [id number] [place] [address]- 6778 Feb, [facility] [place] [facility] [address] [id number] [place] [address]- 4384 Feb, [facility] [place] [facility] [address] [id number] [place] [address]- 6157 Dec, [facility] [place] [facility] [address] [id number] [place] [address]- 9854 Dec, [facility] [place] [facility] [address] [id number] [place] [address]- 8215 Nov, [facility] [place] [facility] [address] [id number] [place] [address]- 7531 Nov, [facility] [place] [facility] [address] [id number] [place] [address]- 3556 Feb, [facility] [place] [facility] [address] [id number] [place] [address]- 8738 Feb, [facility] [place] [facility] [address] [id number], [place] [address]- 2770 Sep, [facility] [place] [facility] [address] [id number] [place] [address]- 6960 Apr, [facility] [place] [facility] [address] [id number] [place] [address]- 2166 Apr, [facility] [place] [facility] [address] [id number] [place] [address]- 5296 Mar, [facility] [place] [facility] [address] [facility] [id number] [place] [address]- 2546 Mar, [facility] [address] [facility] [id number], [place] [address]- 3316 Mar, [facility] [address] [facility] [id number] [place] [address]- 2546 Sep, IMMUNIZATIONS No Known Immunizations SOCIAL HISTORY Never Assessed REASON FOR VISIT Requests return call PLAN OF CARE VITAL SIGNS MEDICATIONS Medication Instructions Dosage Frequency Start Date End Date Duration Status [place] 7.5-325 MG Orally twice daily for two weeks, then once daily for two weeks, then stop take 1 tablet Mar, Mar, 14 days Active RESULTS No Results PROCEDURES No Known procedures INSTRUCTIONS MEDICATIONS ADMINISTERED No Known Medications MEDICAL (GENERAL) HISTORY Type Description Date Medical History frequent ear infections 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
--- OUTSIDE RECORDS SUMMARY | 2018-04-01 20:28 | XMS REPORT ---
Author Author MOUNA LAKE Organization [employer] Address Unknown Phone Unavailable Care Team Providers Care Mud Temperer Name Role Phone MOUNA LAKE CP Unavailable Allergies, Adverse Reactions, Alerts Substance Reaction Event Type N.K.D.A. Info Not Available Non Drug Allergy Problems Problem Type Condition ICD-9 Code Onset Dates Condition Status Assessment Back pain 724.5 Active Problem Influenza with other respiratory manifestations 487.1 Active Problem Unspecified backache 724.5 Active Problem Unspecified otalgia 388.70 Active Problem Lumbago 724.2 Active Problem Acute upper respiratory infections of unspecified site 465.9 Active Problem Cough 786.2 Active Problem Acute sinusitis, unspecified 461.9 Active Medications Medication Code System Code Instructions Start Date End Date Status Dosage [place] [facility] [address]-32 5-325 MG May 07, 2014 take 1 tablet by oral route every 6 hours as needed for pain PRN pain Kayla to sign for [place] ProAir HFA [facility] [address]-58 108 (90 Base) MCG/ACT Inhalation every 6 hrs for shortness of breath/cough 2 puffs as needed Zanaflex [facility] [address]-29 4 MG Orally every 8 hrs Sep 29, 2014 1 tablet as needed Procedures Procedure Coding System Code Date Office Visit, Est Pt., Level 3 CPT-4 73923 Sep 29, 2014 Vital Signs Date/Time: Sep 29, 2014 Temperature 97.4 F Weight 159.6 lbs Height 70 in BMI 22.90 Index Blood Pressure Diastolic 78 mmHg Blood Pressure Systolic 124 mmHg Cardiac Monitoring Heart Rate 98 bpm Results No Known Results Summary Purpose [employer] Submission
--- OUTSIDE RECORDS SUMMARY | 2018-04-01 20:28 | XMS REPORT ---
Author Author KAYLA NOE Organization [employer] Address Unknown Phone Unavailable Care Team Providers Care Nurse Tech Name Role Phone KAYLA NOE CP Unavailable Allergies, Adverse Reactions, Alerts Substance Reaction Event Type N.K.D.A. Info Not Available Non Drug Allergy Problems Problem Type Condition Code Onset Dates Condition Status Assessment Upper respiratory tract infection, unspecified upper respiratory infection J06.9 Active Problem Influenza with other respiratory manifestations 487.1 Active Problem Unspecified backache 724.5 Active Problem Unspecified otalgia 388.70 Active Problem Lumbago 724.2 Active Problem Acute upper respiratory infections of unspecified site 465.9 Active Problem Cough 786.2 Active Problem Acute sinusitis, unspecified 461.9 Active Medications Medication Code System Code Instructions Start Date End Date Status Dosage [place] [facility] [address]-79 5-325 MG May 07, 2014 take 1 tablet by oral route every 6 hours as needed for pain PRN pain Kayla to sign for [place] Sudafed [facility] [address]-22 60 MG Orally 2 times a day Nov 22, 2014 1 tablet as needed Zanaflex [facility] [address]-36 4 MG Orally every 8 hrs Sep 29, 2014 1 tablet as needed Zithromax Z-Bishop [facility] [address]-26 250 MG Orally Once a day Nov 22, 2014 Nov 27, 2014 2 tablets on the first day, then 1 tablet daily for 4 days Procedures Procedure Coding System Code Date Office Visit, Est Pt., Level 3 CPT-4 85259 Nov 22, 2014 MEASURE BLOOD OXYGEN LEVEL CPT-4 25033 Nov 22, 2014 Vital Signs Date/Time: Nov 22, 2014 Temperature 98.4 F Weight 154.8 lbs Height 70 in Oximetry 98 % Blood Pressure Diastolic 86 mmHg Blood Pressure Systolic 128 mmHg Cardiac Monitoring Heart Rate 94 bpm BMI 22.21 Index Results No Known Results Summary Purpose [employer] Submission
--- OUTSIDE RECORDS SUMMARY | 2018-04-01 20:28 | XMS REPORT ---
Author Author MOUNA LAKE Organization [employer] Address Unknown Phone Unavailable Care Team Providers Care Fine Patcher Name Role Phone MOUNA LAKE CP Unavailable [...]
--- OUTSIDE RECORDS SUMMARY | 2018-04-01 20:28 | XMS REPORT ---
Author Author JAYA MOUNA Organization [facility] Address [address] [place] [address] Care Team Providers Care Underwriting Intern Name Role Phone MOUNA [place]KE Unavailable PROBLEMS Type Condition ICD9-CM Code ZJM27-OP Code Onset Dates Condition Status SNOMED Code Problem Dysthymic disorder F34.1 Active 02649744 Problem Generalized anxiety disorder F41.1 Active 32760765 Problem Acute upper respiratory infection, unspecified J06.9 Active 92938594 Problem Low back pain M54.5 Active 205627953 Problem Adjustment disorder with depressed mood F43.21 Active 54869181 Problem Anxiety F41.9 Active 43017542 ALLERGIES No Information ENCOUNTERS Encounter Location Date Diagnosis [facility] [id number] [place] [address] 54132- 1800 Aug, [facility] [id number] [place] [address] 67528- 9719 Jul, Low back pain M54.5 [facility] [id number] [place] [address] 49308- 1405 June, Low back pain M54.5 [facility] [id number] [place] [address] 14777- 5292 May, Low back pain M54.5 and Generalized anxiety disorder F41.1 [facility] [id number] [place] [address] 50907- 3845 May, [facility] [address] 99165- 6167 May, Generalized anxiety disorder F41.1 [facility] [id number] [place] [address] 29664- 3656 May, Low back pain M54.5 and Anxiety F41.9 [place] [id number] [place] [address] 32463- 9258 Apr, [facility] [address] 9[address]27 2546 Mar, Low back pain M54.5 [facility] [id number] [place] [address] 30670 2546 Mar, Low back pain M54.5 [facility] [address] 74040 2546 Feb, Ganglion, left wrist M67.432 [facility] [address] 22479- 9081 Feb, Low back pain M54.5 [facility] [id number] [place] [address] 69057- 3646 Feb, Low back pain M54.5 [facility] [address] 74646 2546 Feb, [facility] [id number] [place] [address] 05091 2543 Feb, Low back pain M54.5 and Bronchitis J40 [facility] [id number] [place] [address] 41582 2548 Feb, Low back pain M54.5 [facility] [id number] [place] [address] 32603 2546 Jan, [facility] [id number] [place] [address] 88931 2546 Jan, Low back pain M54.5 [facility] [address] 34502 2546 Jan, Low back pain M54.5 ; Anxiety F41.9 and Ganglion, left wrist M67.432 [facility] [id number] [place] [address] 19199 2546 Dec, Low back pain M54.5 [facility] [id number] [place] [address] 70304- 6856 Dec, Ganglion, left wrist M67.432 [facility] [id number] [place] [address] 56883 2546 Nov, Ganglion, left wrist M67.432 and Anxiety F41.9 [facility] [id number] [place] [address] 10925 2546 Nov, Low back pain M54.5 [facility] [id number] [place] [address] 62472 2546 Nov, [facility] [id number] [place] [address] 43598- 6166 Nov, [facility] [id number] [place] [address] 44756- 9116 Nov, [facility] [id number] [place] [address] 88231- 2957 Oct, Anxiety F41.9 [facility] [id number] [place] [address] 09189 2546 Oct, Low back pain M54.5 [facility] [id number] [place] [address] 50392 2546 Oct, [facility] [id number] [place] [address] 90809 2546 Oct, [facility] [id number] [place] [address] 20094- 2546 Oct, Adjustment disorder with depressed mood F43.21 and Generalized anxiety disorder F41.1 [facility] [id number] [place] [address] 32652- 5686 Sep, Adjustment disorder with depressed mood F43.21 and Generalized anxiety disorder F41.1 [facility] [id number] [place] [address] 91449- 4126 Sep, [address] [id number] [place] [address] Sep [facility] [id number] [place] [address] 24788- 2876 Sep, Anxiety F41.9 [facility] [id number] [place] [address] 75535- 1338 Sep, Low back pain M54.5 [facility] [id number] [place] [address] 92999- 3760 Sep, Adjustment disorder with depressed mood F43.21 and Generalized anxiety disorder F41.1 [facility] [id number] [place] [address] 91160- 5051 Sep, Allergic urticaria L50.0 [facility] [id number] [place] [address] 36038- 6923 Aug, [facility] [id number] [place] [address] 01636- 2173 Aug, Low back pain M54.5 [facility] [id number] [place] [address] 21876- 2741 Aug, Low back pain M54.5 [facility] [id number] [place] [address] 47556- 8385 Aug, [facility] [id number] [place] [address] 45042- 3423 Aug, Thoracic neuritis M54.14 [facility] [id number] [place] [address] 96072- 3648 Jul, [facility] [id number] [place] [address] 76225- 9525 Jul, Low back pain M54.5 [facility] [id number] [place] [address] 35791- 8121 Jul, Thoracic neuritis M54.14 [facility] [id number] [place] [address] 07880- 4542 Jul, [facility] [address] [address]- 9992 Jul, Thoracic neuritis M54.14 [facility] [address] [address]- 7607 June, [facility] [id number] [place] [address] 41079- 0013 June, Thoracic neuritis M54.14 [facility] [address] [facility] [id number] [address] 4700 May, [facility] [id number] [place] [address] 22331- 5718 May, [facility] [id number] [place] [address] 64409- 6412 Dec, [facility] [id number] [place] [address] 75215- 6957 Dec, [facility] [id number] [place] [address] 99564- 7113 Dec, [facility] [id number] [place] [address] 27130- 4449 Dec, [facility] [address] [address]- 9696 Nov, [facility] [address] [address]- 2494 Nov, Thoracic neuritis M54.14 and Low back pain M54.5 [facility] [address] [address]- 7206 Nov, [facility] [address] [address]- 8103 Oct, Low back pain M54.5 and Acute upper respiratory infection, unspecified J06.9 [facility] [id number] [place] [address] 53154- 6526 Oct, [facility] [id number] [place] [address] 62561- 9022 Oct, [facility] [id number] [place] [address] 17911- 7239 Oct, [facility] [id number] [place] [address] 36981- 6980 Oct, [facility] [address] 28684- 2502 Sep, Chronic maxillary sinusitis J32.0 and Thoracic neuritis M54.14 [facility] [id number] [place] [address] 75053- 0301 Sep, [facility] [id number] [place] [address] 57916- 9725 Aug, Low back pain M54.5 and Other chronic pain G89.29 [facility] [id number] [place] [address] 09823- 9197 Jul, Low back pain M54.5 and Other chronic pain G89.29 [facility] [id number] [place] [address] 91162- 1849 Jul, [facility] [id number] [place] [address] 66035- 9796 June, [facility] [id number] [place] [address] 42491- 3960 May, Lumbago M54.5 and Sinusitis J32.9 [facility] [id number] [place] [address] 05323- 4547 Apr, Unspecified backache 724.5 and Folliculitis L73.9 [facility] [id number] [place] [address] 59799- 1165 24 Mar, 2015 URI (upper respiratory infection) J06.9 and Back pain M54.9 [facility] [address] [place] [address]- 3956 05 Mar, 2015 [facility] [id number] [place] [address] 44066- 5951 Mar, [facility] [id number] [place] [address] 42459- 5681 Feb, Low back pain M54.5 ; Sciatica, unspecified side M54.30 ; Allergic urticaria L50.0 and Folliculitis L73.9 [place] [address] 15567- 8677 12 Feb, 2015 Visit for suture removal Z48.02 [place] [address] 12149- 3752 Feb, [place] [address] 62927- 3966 Feb, Rash R21 [place] [address] 07874- 0044 16 Jan, 2015 Pharyngitis J02.9 ; Shoulder pain, right M25.511 and Rash R21 [address] [address] 68713- 3794 Jan, [place] [address] 96980- 8083 Dec, Allergic urticaria L50.0 ; Right shoulder pain M25.511 and Lumbago M54.5 [place] [id number] [place] [address] 43351- 0838 Dec, Upper respiratory tract infection, unspecified upper respiratory infection J06.9 [place] [address] 98980- 8036 Dec, Contact dermatitis L25.9 [place] [id number] [place] [address] 03611- 2243 Dec, [place] [address] 03054- 7043 Dec, Dermatitis L30.9 and Pain in right shoulder M25.511 [facility] [id number] [address]- 5632 Nov, [facility] [id number] [address]- 3132 Nov, Upper respiratory tract infection, unspecified upper respiratory infection J06.9 [facility] [address] [facility] [id number], [place] [address]- 1071 Oct, [facility] [address] [facility] [id number], [place] [address]- 1951 Oct, [facility] [id number] [place] [address] 01545- 2653 Oct, [facility] [id number] [place] [address] 71928- 6882 Sep, Back pain 724.5 [facility] [id number] [address]- 7264 Sep, Back pain 724.5 [facility] [address] [address]- 8294 Sep, [facility] [id number], [place] [address]- 4848 Aug, [facility] [address] [address]- 1916 Aug, [facility] [id number] [address]- 8020 Jul, Back pain 724.5 [facility] [id number] [address]- 8018 11 Jul, 2014 [facility] [address] [facility] [id number], [place] [address]- 5424 June, [facility] [address] [address]- 5739 14 May, 2014 [facility] [place] [facility] [address] [id number] [place] [address]- 1046 May, [facility] [place] [facility] [address] [id number] [place] [address]- 1908 Apr, [facility] [place] [facility] [address] [id number] [place] [address]- 1679 Apr, [facility] [place] [facility] [address] [id number] [place] [address]- 3778 Feb, [facility] [place] [facility] [address] [id number] [place] [address]- 8927 Feb, [facility] [place] [facility] [address] [id number] [place] [address]- 0151 Dec, [facility] [place] [facility] [address] [id number] [place] [address]- 1683 Dec, [facility] [place] [facility] [address] [id number] [place] [address]- 6936 Nov, [facility] [place] [facility] [address] [id number] [place] [address]- 7492 Nov, [facility] [place] [facility] [address] [id number] [place] [address]- 0683 Feb, [facility] [place] [facility] [address] [id number], [place] [address]- 7512 Feb, [facility] [place] [facility] [address] [id number], [place] [address]- 2167 Sep, [facility] [place] [facility] [address] [id number] [place] [address]- 4839 Apr, [facility] [place] [facility] [address] [id number] [place] [address]- 6376 Apr, [facility] [place] [facility] [address] [id number] [place] [address]- 6465 Mar, [facility] [place] [facility] [address] [facility] [id number] [place] [address]- 2556 Mar, [facility] [address] [facility] [id number] [place] [address]- 8286 Mar, [facility] [address] [facility] [id number] [place] [address]- 6666 Sep, IMMUNIZATIONS No Known Immunizations SOCIAL HISTORY Never Assessed REASON FOR VISIT Controlled Med Refill 01/21/17 PLAN OF CARE VITAL SIGNS MEDICATIONS Medication Instructions Dosage Frequency Start Date End Date Duration Status [place] 7.5-325 MG Orally 4 times a day take 1 tablet 6h Jan, 28 days Active RESULTS No Results PROCEDURES No Known procedures INSTRUCTIONS MEDICATIONS ADMINISTERED No Known Medications MEDICAL (GENERAL) HISTORY Type Description Date Medical History frequent ear infections Medical History gets 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
--- OUTSIDE RECORDS SUMMARY | 2018-04-01 20:29 | XMS REPORT ---
Author Author MOUNA LAKE Organization [employer] Address Unknown Phone Unavailable Care Team Providers Care Clinical Unit Educator Name Role Phone MOUNA LAKE CP Unavailable [...]
--- OUTSIDE RECORDS SUMMARY | 2018-04-01 20:29 | XMS REPORT ---
Author Author MOUNA LAKE Organization [employer] Address Unknown Phone Unavailable Care Team Providers Care Breaker Machine Tender Name Role Phone MOUNA LAKE CP Unavailable Allergies, Adverse Reactions, Alerts Substance Reaction Event Type N.K.D.A. Info Not Available Non Drug Allergy Problems Problem Type Condition Code Onset Dates Condition Status Assessment Chronic maxillary sinusitis J32.0 Active Assessment Thoracic neuritis M54.14 Active Problem Influenza with other respiratory manifestations 487.1 Active Problem Unspecified backache 724.5 Active Problem Unspecified otalgia 388.70 Active Problem Lumbago 724.2 Active Problem Acute upper respiratory infections of unspecified site 465.9 Active Problem Cough 786.2 Active Problem Acute sinusitis, unspecified 461.9 Active Medications Medication Code System Code Instructions Start Date End Date Status Dosage Zanaflex [facility] [address]-67 4 MG Orally 2 times a day Sep 29, 2014 1 tablet as needed ProAir HFA [facility] [address]-80 108 (90 Base) MCG/ACT Inhalation every 6 hrs for shortness of breath/cough 2 puffs as needed Sudafed [facility] [address]-29 60 mg Orally 2 times a day Nov 22, 2014 1 tablet as needed [place] [facility] [id number] 7.5-325 MG Orally 3 times a day May 07, 2014 take 1 tablet Procedures Procedure Coding System Code Date Office Visit, Est Pt., Level 3 CPT-4 52260 Oct 07, 2015 Vital Signs Date/Time: Oct 07, 2015 Cardiac Monitoring Heart Rate 90 bpm Weight 142.5 lbs Height 70 in BMI 20.44 Index Blood Pressure Diastolic 67 mmHg Blood Pressure Systolic 144 mmHg Results No Known Results Summary Purpose [employer] Submission
--- OUTSIDE RECORDS SUMMARY | 2018-04-01 20:29 | XMS REPORT ---
Author Author MOUNA LAKE [facility] Address [address] [place] [address] Care Team Providers Care Road Machine Operator Name Role Phone MOUNA LAKE Unavailable PROBLEMS Type Condition ICD9-CM Code ASN40-EA Code Onset Dates Condition Status SNOMED Code Problem Acute upper respiratory infections of unspecified site 465.9 Active 92344591 Problem Acute sinusitis, unspecified 461.9 Active 88966391 Problem Lumbago 724.2 Active 583449360 Problem Low back pain M54.5 Active 591792257 Problem Acute upper respiratory infection, unspecified J06.9 Active 89586698 Problem Unspecified backache 724.5 Active 345868537 Problem Cough 786.2 Active 81178122 Problem Unspecified otalgia 388.70 Active 52603736 Problem Influenza with other respiratory manifestations 487.1 Active 8771610 ALLERGIES Unknown Allergies SOCIAL HISTORY No smoking Hx information available PLAN OF CARE VITAL SIGNS MEDICATIONS Medication Instructions Dosage Frequency Start Date End Date Duration Status Cromolyn Sodium 4 % Ophthalmic every 4 hrs 1 drop into affected eye 4h 12 Oct, 2015 Active RESULTS No Results PROCEDURES No Known procedures IMMUNIZATIONS No Known Immunizations
--- OUTSIDE RECORDS SUMMARY | 2018-04-01 20:29 | XMS REPORT ---
Author Author MOUNA LAKE [facility] Address [address] [place] [address] Care Team Providers Care Music Supervisor Name Role Phone MOUNA LAKE Unavailable PROBLEMS Type Condition ICD9-CM Code OVC61-DK Code Onset Dates Condition Status SNOMED Code Problem Acute upper respiratory infections of unspecified site 465.9 Active 90997791 Problem Acute sinusitis, unspecified 461.9 Active 23299900 Problem Lumbago 724.2 Active 826791365 Problem Low back pain M54.5 Active 667192503 Problem Acute upper respiratory infection, unspecified J06.9 Active 12443600 Problem Unspecified backache 724.5 Active 505474281 Problem Cough 786.2 Active 26207279 Problem Unspecified otalgia 388.70 Active 27257660 Problem Influenza with other respiratory manifestations 487.1 Active 7004542 ALLERGIES Unknown Allergies SOCIAL HISTORY No smoking Hx information available PLAN OF CARE VITAL SIGNS MEDICATIONS Medication Instructions Dosage Frequency Start Date End Date Duration Status [place] 7.5-325 MG Orally 3 times a day take 1 tablet 8h Apr, Active RESULTS No Results PROCEDURES No Known procedures IMMUNIZATIONS No Known Immunizations
--- OUTSIDE RECORDS SUMMARY | 2018-04-01 20:29 | XMS REPORT ---
Author Author MOUNA LAKE Organization [facility] Address [address] [place] [address] Care Team Providers Care Athletic Gear Custodian Name Role Phone MOUNA LAKE Unavailable PROBLEMS Type Condition ICD9-CM Code VQX93-SW Code Onset Dates Condition Status SNOMED Code Problem Dysthymic disorder F34.1 Active 61153195 Problem Generalized anxiety disorder F41.1 Active 10832719 Problem Acute upper respiratory infection, unspecified J06.9 Active 16951242 Problem Low back pain M54.5 Active 899933677 Problem Adjustment disorder with depressed mood F43.21 Active 69751176 Problem Anxiety F41.9 Active 49520634 ALLERGIES No Information ENCOUNTERS Encounter Location Date Diagnosis [facility] [id number] [place] [address] 97343- 6762 Aug, [facility] [id number] [place] [address] 52003- 5739 Jul, Low back pain M54.5 [facility] [id number] [place] [address] 96307- 6301 June, Low back pain M54.5 [facility] [id number] [place] [address] 69468- 1115 May, Low back pain M54.5 and Generalized anxiety disorder F41.1 [facility] [id number] [place] [address] 99888- 7296 May, [facility] [id number] [place] [address] 10453- 4612 May, Generalized anxiety disorder F41.1 [facility] [id number] [place] [address] 43480- 7637 May, Low back pain M54.5 and Anxiety F41.9 [facility] [id number] [place] [address] 24922 2548 Apr, [facility] [address] [address] 2546 Mar, Low back pain M54.5 [facility] [address] [address] 2546 Mar, Low back pain M54.5 [facility] [address] [address] 2546 Feb, Ganglion, left wrist M67.432 [facility] [address] 08960- 4949 Feb, Low back pain M54.5 [facility] [address] 37289 2546 Feb, Low back pain M54.5 [facility] [address] 9[address] 2546 Feb, [facility] [address] [address] 2541 Feb, Low back pain M54.5 and Bronchitis J40 [facility] [address] [address] 254 Feb, Low back pain M54.5 [facility] [address] 6[address]41 2546 Jan, [facility] [id number] [place] [address] 92129 2546 Jan, Low back pain M54.5 [facility] [address] 35905 2546 Jan, Low back pain M54.5 ; Anxiety F41.9 and Ganglion, left wrist M67.432 [facility] [address] [address] 2546 Dec, Low back pain M54.5 [facility] [address] [place] [address] 31370- 1165 Dec, Ganglion, left wrist M67.432 [facility] [id number] [place] [address] 60801- 1326 Nov, Ganglion, left wrist M67.432 and Anxiety F41.9 [facility] [id number] [place] [address] 30495- 5506 Nov, Low back pain M54.5 [facility] [id number] [place] [address] 34999- 8826 Nov, [facility] [id number] [place] [address] 61951- 1616 Nov, [facility] [id number] [place] [address] 05890- 3041 Nov, [facility] [id number] [place] [address] 50432- 6935 Oct, Anxiety F41.9 [facility] [id number] [place] [address] 29588- 6754 Oct, Low back pain M54.5 [facility] [id number] [place] [address] 21520- 7202 Oct, [facility] [id number] [place] [address] 19068- 9566 Oct, [facility] [id number] [place] [address] 27626- 2541 Oct, Adjustment disorder with depressed mood F43.21 and Generalized anxiety disorder F41.1 [facility] [id number] [place] [address] 49187- 8326 Sep, Adjustment disorder with depressed mood F43.21 and Generalized anxiety disorder F41.1 [facility] [id number] [place] [address] 27038- 1125 Sep, [address] [id number] [place] [address] Sep [facility] [id number] [place] [address] 33632- 7244 Sep, Anxiety F41.9 [facility] [address] [place] [address] 46687- 9884 Sep, Low back pain M54.5 [facility] [id number] [place] [address] 33648- 9483 Sep, Adjustment disorder with depressed mood F43.21 and Generalized anxiety disorder F41.1 [facility] [id number] [place] [address] 62304- 2619 Sep, Allergic urticaria L50.0 [facility] [id number] [place] [address] 13966- 7264 Aug, [facility] [id number] [place] [address] 48274- 5599 Aug, Low back pain M54.5 [facility] [id number] [place] [address] 90552- 3822 Aug, Low back pain M54.5 [facility] [id number] [place] [address] 14141- 0844 Aug, [facility] [id number] [place] [address] 25744- 2944 Aug, Thoracic neuritis M54.14 [facility] [address] [place] [address] 42295- 1472 Jul, [facility] [id number] [place] [address] 74943- 3674 Jul, Low back pain M54.5 [facility] [address] [place] [address] 06398- 1507 Jul, Thoracic neuritis M54.14 [facility] [id number] [place] [address] 77652- 7883 Jul, [facility] [address] [address] 0273 Jul, Thoracic neuritis M54.14 [facility] [address] [facility] [id number] [address] 0816 June, [facility] [id number] [place] [address] 04518- 8849 June, Thoracic neuritis M54.14 [facility] [address] [facility] [id number] [address]- 4939 May, [facility] [id number] [place] [address] 25153- 5782 May, [facility] [id number] [place] [address] 84141- 6831 Dec, [facility] [id number] [place] [address] 85948- 5522 Dec, [facility] [id number] [place] [address] 19501- 1657 Dec, [facility] [id number] [place] [address] 10106- 2752 Dec, [facility] [address] [address]- 7503 Nov, [facility] [address] [address]- 4836 Nov, Thoracic neuritis M54.14 and Low back pain M54.5 [facility] [address] [address]- 2976 Nov, [facility] [address] [address]- 5578 Oct, Low back pain M54.5 and Acute upper respiratory infection, unspecified J06.9 [facility] [address] [place] [address] 19704- 0537 Oct, [facility] [id number] [place] [address] 19789- 8595 Oct, [facility] [id number] [place] [address] 56611- 9866 Oct, [facility] [id number] [place] [address] 16029- 0730 Oct, [facility] [id number] [place] [address] 64576- 9074 Sep, Chronic maxillary sinusitis J32.0 and Thoracic neuritis M54.14 [facility] [id number] [place] [address] 05286- 6536 Sep, [facility] [id number] [place] [address] 27250- 5758 Aug, Low back pain M54.5 and Other chronic pain G89.29 [facility] [id number] [place] [address] 82770- 1457 Jul, Low back pain M54.5 and Other chronic pain G89.29 [facility] [id number] [place] [address] 69194- 3757 Jul, [facility] [id number] [place] [address] 35158- 5478 June, [facility] [id number] [place] [address] 71255- 1379 May, Lumbago M54.5 and Sinusitis J32.9 [facility] [id number] [place] [address] 84239- 0959 Apr, Unspecified backache 724.5 and Folliculitis L73.9 [facility] [id number] [place] [address] 48367- 1900 24 Mar, 2015 URI (upper respiratory infection) J06.9 and Back pain M54.9 [facility] [id number] [place] [address]- 2340 05 Mar, 2015 [facility] [id number] [place] [address] 57815- 1439 Mar, [facility] [id number] [place] [address] 71759- 3954 Feb, Low back pain M54.5 ; Sciatica, unspecified side M54.30 ; Folliculitis L73.9 and Allergic urticaria L50.0 [facility] [id number] [place] [address] 99007- 9101 12 Feb, 2015 Visit for suture removal Z48.02 [facility] [address] 06219- 1615 Feb, [facility] [address] 57889- 1698 Feb, Rash R21 [facility] [address] 12753- 3830 16 Jan, 2015 Pharyngitis J02.9 ; Shoulder pain, right M25.511 and Rash R21 [facility] [address] 28938- 0931 Jan, [facility] [id number] [place] [address] 90467- 0276 Dec, Allergic urticaria L50.0 ; Right shoulder pain M25.511 and Lumbago M54.5 [facility] [id number] [place] [address] 09006- 8585 Dec, Upper respiratory tract infection, unspecified upper respiratory infection J06.9 [facility] [address] 84867- 1839 Dec, Contact dermatitis L25.9 [facility] [id number] [place] [address] 96288- 0323 Dec, [facility] [id number] [place] [address] 03796- 1535 Dec, Dermatitis L30.9 and Pain in right shoulder M25.511 [facility] [address] [address]- 1343 Nov, [facility] [id number] [address]- 1891 Nov, Upper respiratory tract infection, unspecified upper respiratory infection J06.9 [facility] [id number] [place] [address] 38290- 9932 Oct, [facility] [id number] [place] [address] 37350- 7405 Oct, [facility] [id number] [place] [address] 06320- 2598 Oct, [facility] [id number] [place] [address] 63355- 8783 Sep, Back pain 724.5 [facility] [id number] [place] [address] 42087- 0279 Sep, Back pain 724.5 [facility] [address] [address]- 8018 Sep, [facility] [address] [address]- 9161 Aug, [facility] [address] [address]- 3946 Aug, [facility] [id number] [address]- 9678 Jul, Back pain 724.5 [facility] [id number] [address]- 0037 Jul, [facility] [id number] [address]- 5464 June, [facility] [address] [address]- 6229 14 May, 2014 [facility] [place] [facility] [address] [id number] [place] [address]- 1182 May, [facility] [place] [facility] [address] [id number] [place] [address]- 0119 Apr, [facility] [place] [facility] [address] [id number] [place] [address]- 7886 Apr, [facility] [place] [facility] [address] [id number] [place] [address]- 6835 Feb, [facility] [place] [facility] [address] [id number] [place] [address]- 9606 Feb, [facility] [place] [facility] [address] [id number] [place] [address]- 0302 Dec, [facility] [place] [facility] [address] [id number] [place] [address]- 0684 Dec, [facility] [place] [facility] [address] [id number] [place] [address]- 7694 Nov, [facility] [place] [facility] [address] [id number] [place] [address]- 7151 Nov, [facility] [place] [facility] [address] [id number] [place] [address]- 1237 Feb, [facility] [place] [facility] [address] [id number] [place] [address]- 0442 Feb, [facility] [place] [facility] [address] [id number] [address]- 1937 Sep, [facility] [place] [facility] [address] [id number] [place] [address]- 3980 Apr, [facility] [place] [facility] [address] [id number] [place] [address]- 4706 Apr, [facility] [place] [facility] [address] [id number] [place] [address]- 9599 Mar, [facility] [place] [facility] [address] [facility] [id number] [place] [address]- 2546 Mar, [facility] [address] [facility] [id number] [address]- 1936 Mar, [facility] [address] [facility] [id number] [place] [address]- 7096 Sep, IMMUNIZATIONS No Known Immunizations SOCIAL HISTORY Never Assessed REASON FOR VISIT med refill PLAN OF CARE VITAL SIGNS MEDICATIONS Medication Instructions Dosage Frequency Start Date End Date Duration Status Bountiful 7.5-325 MG Orally twice daily for two weeks, then once daily for two weeks, then stop take 1 tablet Feb, 14 days Active RESULTS No Results PROCEDURES No Known procedures INSTRUCTIONS MEDICATIONS ADMINISTERED No Known Medications MEDICAL (GENERAL) HISTORY Type Description Date Medical History frequent ear infections Medical History gets respiratory infections from being around smoke, 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
--- OUTSIDE RECORDS SUMMARY | 2018-04-01 20:29 | XMS REPORT ---
Author Author MOUNA LAKE [facility] Address [address] [place] [address] Care Team Providers Care Upper Inspector Name Role Phone MOUNA LAKE Unavailable PROBLEMS Type Condition ICD9-CM Code HIP00-SI Code Onset Dates Condition Status SNOMED Code Problem Acute upper respiratory infections of unspecified site 465.9 Active 02978262 Problem Acute sinusitis, unspecified 461.9 Active 68562926 Problem Lumbago 724.2 Active 249292860 Assessment Low back pain M54.5 Oct, Active 952154533 Problem Low back pain M54.5 Active 551404985 Problem Acute upper respiratory infection, unspecified J06.9 Active 86028217 Problem Unspecified backache 724.5 Active 689678885 Problem Cough 786.2 Active 09886063 Problem Unspecified otalgia 388.70 Active 36424163 Problem Influenza with other respiratory manifestations 487.1 Active 8131451 ALLERGIES Substance Reaction Event Type Date Status N.K.D.A. Unknown Non Drug Allergy Oct, Unknown SOCIAL HISTORY No smoking Hx information available PLAN OF CARE VITAL SIGNS Height 70 in 2015-11-04 Weight 144.5 lbs 2015-11-04 Heart Rate 92 bpm 2015-11-04 Respiratory Rate 20 2015-11-04 BMI 20.73 kg/m2 2015-11-04 Blood pressure systolic 130 mmHg 2015-11-04 Blood pressure diastolic 74 mmHg 2015-11-04 MEDICATIONS Medication Instructions Dosage Frequency Start Date End Date Duration Status Zanaflex 4 MG Orally 2 times a day 1 tablet as needed 12h 22 Sep, 2014 Active Cromolyn Sodium 4 % Ophthalmic every 4 hrs 1 drop into affected eye 4h 12 Oct, 2015 Active Sudafed 60 mg Orally 2 times a day 1 tablet as needed 12h 15 Nov, 2014 Active Reynolds 7.5-325 MG Orally 3 times a day take 1 tablet 8h 30 Apr, 2014 Active ProAir HFA 108 (90 Base) MCG/ACT Inhalation every 6 hrs for shortness of breath/cough 2 puffs as needed Active RESULTS Name Result Date Reference Range [employer] 2015-11-04 PROCEDURES Procedure Date Ordered Related Diagnosis Body Site Office Visit, Est Pt., Level 3 Nov 04, 2015 No Charge Nov 04, 2015 IMMUNIZATIONS No Known Immunizations
--- OUTSIDE RECORDS SUMMARY | 2018-04-01 20:29 | XMS REPORT ---
Author Author JAYA MOUNA Organization [facility] Address [address] [place] [address] Care Team Providers Care Assembly Inspector Helper Name Role Phone MOUNA [place] Unavailable PROBLEMS Type Condition ICD9-CM Code OKG01-OV Code Onset Dates Condition Status SNOMED Code Problem Dysthymic disorder F34.1 Active 66101217 Problem Generalized anxiety disorder F41.1 Active 21138953 Problem Acute upper respiratory infection, unspecified J06.9 Active 49385946 Problem Low back pain M54.5 Active 170427330 Problem Adjustment disorder with depressed mood F43.21 Active 69680262 Problem Anxiety F41.9 Active 17344416 ALLERGIES No Information ENCOUNTERS Encounter Location Date Diagnosis [facility] [id number] [place] [address] 66019- 3393 Aug, [facility] [id number] [place] [address] 34077- 3680 Jul, Low back pain M54.5 [facility] [id number] [place] [address] 08484- 2937 June, Low back pain M54.5 [facility] [id number] [place] [address] 30865- 9305 May, Low back pain M54.5 and Generalized anxiety disorder F41.1 [facility] [id number] [place] [address] 89613- 8119 May, [facility] [address] 24068- 4619 May, Generalized anxiety disorder F41.1 [facility] [id number] [place] [address] 09475- 6042 May, Low back pain M54.5 and Anxiety F41.9 [place] [id number] [place] [address] 42839- 7425 Apr, [facility] [address] [address] 2546 Mar, Low back pain M54.5 [facility] [id number] [place] [address] 23028 2546 Mar, Low back pain M54.5 [facility] [address] 59967 2546 Feb, Ganglion, left wrist M67.432 [facility] [address] 20857- 0672 Feb, Low back pain M54.5 [facility] [id number] [place] [address] 48956- 6146 Feb, Low back pain M54.5 [facility] [address] 03419 2546 Feb, [facility] [id number] [place] [address] 81235 254 Feb, Low back pain M54.5 and Bronchitis J40 [facility] [id number] [place] [address] 35723 2549 Feb, Low back pain M54.5 [facility] [id number] [place] [address] 34132 2546 Jan, [facility] [id number] [place] [address] 20478 2546 Jan, Low back pain M54.5 [facility] [address] 06096 2546 Jan, Low back pain M54.5 ; Anxiety F41.9 and Ganglion, left wrist M67.432 [facility] [id number] [place] [address] 54283 2546 Dec, Low back pain M54.5 [facility] [id number] [place] [address] 73928- 9686 Dec, Ganglion, left wrist M67.432 [facility] [id number] [place] [address] 38824 2546 Nov, Ganglion, left wrist M67.432 and Anxiety F41.9 [facility] [id number] [place] [address] 47326 2546 Nov, Low back pain M54.5 [facility] [id number] [place] [address] 79860 2546 Nov, [facility] [id number] [place] [address] 68174- 6106 Nov, [facility] [id number] [place] [address] 08719- 8086 Nov, [facility] [id number] [place] [address] 59930- 8218 Oct, Anxiety F41.9 [facility] [id number] [place] [address] 48437 2546 Oct, Low back pain M54.5 [facility] [id number] [place] [address] 89344 2546 Oct, [facility] [id number] [place] [address] 48408 2546 Oct, [facility] [id number] [place] [address] 86118- 2546 Oct, Adjustment disorder with depressed mood F43.21 and Generalized anxiety disorder F41.1 [facility] [id number] [place] [address] 50965- 9296 Sep, Adjustment disorder with depressed mood F43.21 and Generalized anxiety disorder F41.1 [facility] [id number] [place] [address] 85007- 1596 Sep, [id number] [address] Sep [facility] [id number] [place] [address] 02765- 8066 Sep, Anxiety F41.9 [facility] [id number] [place] [address] 30188- 4703 Sep, Low back pain M54.5 [facility] [id number] [place] [address] 56242- 5556 Sep, Adjustment disorder with depressed mood F43.21 and Generalized anxiety disorder F41.1 [facility] [id number] [place] [address] 46171- 4639 Sep, Allergic urticaria L50.0 [facility] [id number] [place] [address] 22281- 8049 Aug, [facility] [id number] [place] [address] 68664- 2381 Aug, Low back pain M54.5 [facility] [id number] [place] [address] 11521- 1453 Aug, Low back pain M54.5 [facility] [id number] [place] [address] 80468- 4205 Aug, [facility] [id number] [place] [address] 60510- 3507 Aug, Thoracic neuritis M54.14 [facility] [id number] [place] [address] 76659- 4178 Jul, [facility] [id number] [place] [address] 08583- 4610 Jul, Low back pain M54.5 [facility] [id number] [place] [address] 52268- 1349 Jul, Thoracic neuritis M54.14 [facility] [id number] [place] [address] 45884- 6561 Jul, [facility] [address] [address]- 1266 Jul, Thoracic neuritis M54.14 [facility] [address] [address]- 2824 June, [facility] [id number] [place] [address] 38079- 4337 June, Thoracic neuritis M54.14 [facility] [address] [facility] [id number] [address] 4834 May, [facility] [id number] [place] [address] 93059- 5241 May, [facility] [id number] [place] [address] 55048- 1099 Dec, [facility] [id number] [place] [address] 68574- 2833 Dec, [facility] [id number] [place] [address] 53334- 8819 Dec, [facility] [id number] [place] [address] 30025- 1629 Dec, [facility] [address] [address]- 8592 Nov, [facility] [address] [address]- 0624 Nov, Thoracic neuritis M54.14 and Low back pain M54.5 [facility] [address] [address]- 8880 Nov, [facility] [address] [address]- 3508 Oct, Low back pain M54.5 and Acute upper respiratory infection, unspecified J06.9 [facility] [id number] [place] [address] 22451- 2911 Oct, [facility] [id number] [place] [address] 05274- 9886 Oct, [facility] [id number] [place] [address] 96887- 3038 Oct, [facility] [id number] [place] [address] 61409- 5800 Oct, [facility] [address] 15745- 5516 Sep, Chronic maxillary sinusitis J32.0 and Thoracic neuritis M54.14 [facility] [id number] [place] [address] 64496- 0046 Sep, [facility] [id number] [place] [address] 97844- 4295 Aug, Low back pain M54.5 and Other chronic pain G89.29 [facility] [id number] [place] [address] 18202- 7697 Jul, Low back pain M54.5 and Other chronic pain G89.29 [facility] [id number] [place] [address] 80379- 6807 Jul, [facility] [id number] [place] [address] 72647- 5498 June, [facility] [id number] [place] [address] 79834- 1924 May, Lumbago M54.5 and Sinusitis J32.9 [facility] [id number] [place] [address] 24043- 9561 Apr, Unspecified backache 724.5 and Folliculitis L73.9 [facility] [id number] [place] [address] 85297- 3070 24 Mar, 2015 URI (upper respiratory infection) J06.9 and Back pain M54.9 [facility] [address] [place] [address]- 0940 05 Mar, 2015 [facility] [id number] [place] [address] 33983- 4465 Mar, [facility] [id number] [place] [address] 25705- 5278 Feb, Low back pain M54.5 ; Sciatica, unspecified side M54.30 ; Folliculitis L73.9 and Allergic urticaria L50.0 [place] [address] 81426- 6890 12 Feb, 2015 Visit for suture removal Z48.02 [place] [address] 32214- 1223 Feb, [place] [address] 03725- 1558 Feb, Rash R21 [place] [address] 47860- 0475 16 Jan, 2015 Pharyngitis J02.9 ; Shoulder pain, right M25.511 and Rash R21 [place] [address] 50420- 0350 Jan, [place] [address] 05856- 8252 Dec, Allergic urticaria L50.0 ; Right shoulder pain M25.511 and Lumbago M54.5 [place] [id number] [place] [address] 29180- 9041 Dec, Upper respiratory tract infection, unspecified upper respiratory infection J06.9 [place] [address] 90233- 1996 Dec, Contact dermatitis L25.9 [place] [id number] [place] [address] 78992- 0559 Dec, [facility] [address] 88640- 4798 Dec, Dermatitis L30.9 and Pain in right shoulder M25.511 [facility] [id number] [address]- 8101 Nov, [facility] [id number] [address]- 6201 Nov, Upper respiratory tract infection, unspecified upper respiratory infection J06.9 [facility] [address] [facility] [id number], [place] [address]- 3349 Oct, [facility] [address] [facility] [id number], [place] [address]- 0595 Oct, [facility] [id number] [place] [address] 18046- 9887 Oct, [facility] [id number] [place] [address] 45738- 6470 Sep, Back pain 724.5 [facility] [id number] [address]- 7898 Sep, Back pain 724.5 [facility] [address] [address]- 3960 Sep, [facility] [id number] [address]- 0029 Aug, [facility] [address] [address]- 4428 Aug, [facility] [id number] [address]- 6287 Jul, Back pain 724.5 [facility] [id number] [address]- 5052 11 Jul, 2014 [facility] [address] [facility] [id number], [place] [address]- 9303 June, [facility] [address] [address]- 5751 14 May, 2014 [facility] [place] [facility] [address] [id number] [place] [address]- 2327 May, [facility] [place] [facility] [address] [id number] [place] [address]- 2165 Apr, [facility] [place] [facility] [address] [id number] [place] [address]- 5637 Apr, [facility] [place] [facility] [address] [id number] [place] [address]- 8550 Feb, [facility] [place] [facility] [address] [id number] [place] [address]- 3229 Feb, [facility] [place] [facility] [address] [id number] [place] [address]- 9226 Dec, [facility] [place] [facility] [address] [id number] [place] [address]- 6952 Dec, [facility] [place] [facility] [address] [id number] [place] [address]- 3552 Nov, [facility] [place] [facility] [address] [id number] [place] [address]- 3311 Nov, [facility] [place] [facility] [address] [id number] [place] [address]- 4101 Feb, [facility] [place] [facility] [address] [id number], [place] [address]- 5233 Feb, [facility] [place] [facility] [address] [id number], [place] [address]- 4906 Sep, [facility] [place] [facility] [address] [id number] [place] [address]- 3020 Apr, [facility] [place] [facility] [address] [id number] [place] [address]- 2356 Apr, [facility] [place] [facility] [address] [id number] [place] [address]- 8323 Mar, [facility] [place] [facility] [address] [facility] [id number] [place] [address]- 9336 Mar, [facility] [address] [facility] [id number] [place] [address]- 4726 Mar, [facility] [address] [facility] [id number] [place] [address]- 1646 Sep, IMMUNIZATIONS No Known Immunizations SOCIAL HISTORY Never Assessed REASON FOR VISIT Controlled Med Refill 02/18/17 PLAN OF CARE VITAL SIGNS MEDICATIONS Medication Instructions Dosage Frequency Start Date End Date Duration Status [place] 7.5-325 MG Orally 4 times a day take 1 tablet 6h Feb, 28 days Active RESULTS No Results PROCEDURES No Known procedures INSTRUCTIONS MEDICATIONS ADMINISTERED No Known Medications MEDICAL (GENERAL) HISTORY Type Description Date Medical History frequent ear infections Medical History gets 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
--- OUTSIDE RECORDS SUMMARY | 2018-04-01 20:29 | XMS REPORT ---
Author MOUNA Mathews Organization [employer] Address Unknown Phone Unavailable Care Team Providers Care Plant Health Manager Name Role Phone MOUNA LAKE CP Unavailable Allergies No Known Allergies Problems Problem Type Condition Code Onset Dates Condition Status Assessment Visit for suture removal Z48.02 Active Problem Influenza with other respiratory manifestations 487.1 Active Problem Unspecified backache 724.5 Active Problem Unspecified otalgia 388.70 Active Problem Lumbago 724.2 Active Problem Acute upper respiratory infections of unspecified site 465.9 Active Problem Cough 786.2 Active Problem Acute sinusitis, unspecified 461.9 Active Medications No Known Medications Results No Known Results Summary Purpose [employer] Submission
--- OUTSIDE RECORDS SUMMARY | 2018-04-01 20:30 | XMS REPORT ---
Author Author MOUNA LAKE Organization [employer] Address Unknown Phone Unavailable Care Team Providers Care Balance And Hairspring Assembler Name Role Phone MOUNA LAKE CP Unavailable [...] Instructions Start Date End Date Status Dosage [facility] [id number] 5-325 MG Orally every 6 hrs May 07, 2014 take 1 tablet Results No Known Results Summary Purpose [employer] Submission
--- OUTSIDE RECORDS SUMMARY | 2018-04-01 20:30 | XMS REPORT ---
Author Author LORNA BELL Organization [facility] Address [address] [place] [address] Care Team Providers Care Regrind Mill Operator Name Role Phone ULICES BELLWIN Unavailable PROBLEMS Type Condition ICD9-CM Code EZU40-LP Code Onset Dates Condition Status SNOMED Code Problem Dysthymic disorder F34.1 Active 83317392 Problem Generalized anxiety disorder F41.1 Active 08740016 Problem Acute upper respiratory infection, unspecified J06.9 Active 62554314 Problem Low back pain M54.5 Active 760695294 Problem Adjustment disorder with depressed mood F43.21 Active 92467710 Problem Anxiety F41.9 Active 80007236 ALLERGIES No Information ENCOUNTERS Encounter Location Date Diagnosis [facility] [id number] [place] [address] 04843- 6302 Jul, [facility] [id number] [place] [address] 93021- 1000 June, [facility] [id number] [place] [address] 18272- 4309 June, [facility] [id number] [place] [address] 42370- 4461 May, [facility] [id number] [place] [address] 90875- 9064 May, [facility] [id number] [place] [address] 55002- 8452 May, Generalized anxiety disorder F41.1 [facility] [id number] [place] [address] 40289- 7224 May, Low back pain M54.5 and Anxiety F41.9 [facility] [id number] [place] [address] 38305- 2617 Apr, [facility] [id number] [place] [address] 60037- 8890 Mar, Low back pain M54.5 [facility] [id number] [place] [address] 90099- 9766 Mar, Low back pain M54.5 [facility] [id number] [place] [address] 71120- 8216 Feb, Ganglion, left wrist M67.432 [facility] [address] [facility] [id number] [place] [address] 27224- 0332 Feb, Low back pain M54.5 [facility] [id number] [place] [address] 32531- 8741 Feb, Low back pain M54.5 [facility] [id number] [place] [address] 26951- 6890 Feb, [facility] [id number] [place] [address] 63882- 1116 Feb, Low back pain M54.5 and Bronchitis J40 [facility] [address] 76690- 1867 Feb, Low back pain M54.5 [facility] [id number] [place] [address] 47228- 5712 Jan, [facility] [id number] [place] [address] 23151 2546 Jan, Low back pain M54.5 [facility] [id number] [place] [address] 95540 2549 Jan, Low back pain M54.5 ; Anxiety F41.9 and Ganglion, left wrist M67.432 [facility] [id number] [place] [address] 33220- 1716 Dec, Low back pain M54.5 [facility] [id number] [place] [address] 05632- 1991 Dec, Ganglion, left wrist M67.432 [facility] [id number] [place] [address] 78231- 8821 Nov, Ganglion, left wrist M67.432 and Anxiety F41.9 [facility] [id number] [place] [address] 54205- 3173 Nov, Low back pain M54.5 [facility] [id number] [place] [address] 81539- 8252 Nov, [facility] [id number] [place] [address] 74799- 9100 Nov, [facility] [id number] [place] [address] 68990- 3440 Nov, [facility] [id number] [place] [address] 96893- 5756 Oct, Anxiety F41.9 [facility] [id number] [place] [address] 03662- 0673 22 Oct, 2016 Low back pain M54.5 [facility] [id number] [place] [address] 02111- 5149 20 Oct, 2016 [facility] [address] [place] [address] 42692- 7328 Oct, [facility] [address] [place] [address] 85125- 6793 Oct, Adjustment disorder with depressed mood F43.21 and Generalized anxiety disorder F41.1 [facility] [address] [place] [address] 61066- 3710 Sep, Adjustment disorder with depressed mood F43.21 and Generalized anxiety disorder F41.1 [facility] [address] [address]- 5838 Sep, [address] [id number] [place] [address] Sep [facility] [id number] [place] [address] 71511- 8424 Sep, Anxiety F41.9 [facility] [id number] [place] [address] 44711- 8056 Sep, Low back pain M54.5 [facility] [id number] [place] [address] 76867- 5528 Sep, Adjustment disorder with depressed mood F43.21 and Generalized anxiety disorder F41.1 [facility] [id number] [place] [address] 78236- 4507 Sep, Allergic urticaria L50.0 [facility] [id number] [place] [address] 74095- 1126 Aug, [facility] [id number] [place] [address] 26151- 5088 Aug, Low back pain M54.5 [facility] [id number] [place] [address] 61871- 3910 Aug, Low back pain M54.5 [facility] [id number] [place] [address] 72688- 2469 Aug, [facility] [id number] [place] [address] 46964- 6332 Aug, Thoracic neuritis M54.14 [facility] [id number] [place] [address] 49070- 7335 Jul, [facility] [id number] [place] [address] 63681- 1841 Jul, Low back pain M54.5 [facility] [id number] [place] [address] 10712- 5380 Jul, Thoracic neuritis M54.14 [facility] [id number] [place] [address] 24245- 0163 Jul, [facility] [id number] [place] [address] 56763- 2668 Jul, Thoracic neuritis M54.14 [facility] [id number] [place] [address] 27091- 9799 June, [facility] [id number] [place] [address] 47381- 5512 June, Thoracic neuritis M54.14 [facility] [id number] [place] [address] 51044- 8954 May, [facility] [id number] [place] [address] 04052- 5921 May, [facility] [id number] [place] [address] 81393- 9418 Dec, [facility] [id number] [place] [address] 35618- 5691 Dec, [facility] [id number] [place] [address] 71893- 9109 Dec, [facility] [id number] [place] [address] 01691- 5259 Dec, [facility] [id number] [place] [address] 87365- 3607 Nov, [facility] [id number] [place] [address] 30322- 1792 Nov, Thoracic neuritis M54.14 and Low back pain M54.5 [facility] [id number] [place] [address] 08577- 4933 Nov, [facility] [id number] [place] [address] 11823- 8841 Oct, Low back pain M54.5 and Acute upper respiratory infection, unspecified J06.9 [facility] [address] [place] [address] 19173- 1820 Oct, [facility] [id number] [place] [address] 97525- 8894 Oct, [facility] [address] [place] [address] 58788- 3959 Oct, [facility] [id number] [place] [address] 74909- 2948 Oct, [facility] [id number] [place] [address] 37669- 0455 Sep, Chronic maxillary sinusitis J32.0 and Thoracic neuritis M54.14 [facility] [id number] [place] [address] 79257- 6193 Sep, [facility] [id number] [place] [address] 14498- 9479 Aug, Low back pain M54.5 and Other chronic pain G89.29 [facility] [id number] [place] [address] 71926- 6622 Jul, Low back pain M54.5 and Other chronic pain G89.29 [facility] [id number] [place] [address] 14888- 7678 Jul, [facility] [id number] [place] [address] 66752- 8693 June, [facility] [id number] [place] [address] 96361- 6465 May, Lumbago M54.5 and Sinusitis J32.9 [facility] [id number] [place] [address] 76813- 3609 Apr, Unspecified backache 724.5 and Folliculitis L73.9 [facility] [id number] [place] [address] 88457- 7427 Mar, URI (upper respiratory infection) J06.9 and Back pain M54.9 [facility] [id number] [place] [address] 98790- 2591 Mar, [facility] [id number] [place] [address] 92867- 6344 02 Mar, [address] 29448- 2694 Feb, Low back pain M54.5 ; Sciatica, unspecified side M54.30 ; Folliculitis L73.9 and Allergic urticaria L50.0 [place] [address] 53074- 5742 Feb, Visit for suture removal Z48.02 [place] [address] 02657- 4290 Feb, [place] [address] 15398- 1579 Feb, Rash R21 [place] [address] 16222- 8175 Jan, Pharyngitis J02.9 ; Shoulder pain, right M25.511 and Rash R21 [place] [address] 93845- 3911 Jan, [place] [address] 62772- 7055 30 Dec, 2014 Allergic urticaria L50.0 ; Right shoulder pain M25.511 and Lumbago M54.5 [place] [id number] [place] [address] 50219- 8679 Dec, Upper respiratory tract infection, unspecified upper respiratory infection J06.9 [place] [id number] [place] [address] 78240- 9065 Dec, Contact dermatitis L25.9 [place] [address] 49330- 0040 Dec, [facility] [id number] [place] [address] 55460- 8473 Dec, Dermatitis L30.9 and Pain in right shoulder M25.511 [facility] [address] [id number], [place] [address]- 4664 Nov, [facility] [address] [facility] [id number], [place] [address]- 2400 Nov, Upper respiratory tract infection, unspecified upper respiratory infection J06.9 [facility] [address] [id number], [place] [address]- 4426 Oct, [facility] [address] [facility] [id number], [place] [address]- 8237 Oct, [facility] [id number] [place] [address] 85849- 1933 Oct, [facility] [address] [facility] [id number], [place] [address]- 5212 Sep, Back pain 724.5 [facility] [address] [place] [address] 68211- 9910 Sep, Back pain 724.5 [facility] [address] [id number], [place] [address]- 1564 Sep, [facility] [address] [facility] [id number], [place] [address]- 8529 Aug, [facility] [address] [id number] [address]- 7007 Aug, [facility] [address] [id number] [address]- 3236 Jul, Back pain 724.5 [facility] [address] [facility] [id number], [place] [address]- 8411 Jul, [facility] [address] [facility] [id number], [place] [address]- 4686 June, [facility] [address] [facility] [id number], [place] [address]- 1094 14 May, 2014 [facility] [address] [id number] [address]- 1907 May, [facility] [place] [facility] [address] [id number] [place] [address]- 0135 Apr, [facility] [place] [facility] [address] [id number] [place] 3105 Apr, [facility] [place] [facility] [address] [facility] [id number] [place] [address]- 8759 Feb, [facility] [place] [facility] [address] [id number] [place] [address]- 6948 Feb, [facility] [place] [facility] [address] [id number] [place] [address]- 7089 Dec, [facility] [place] [facility] [address] [facility] [id number] [place] [address]- 5941 Dec, [facility] [place] [facility] [address] [facility] [id number] [place] [address]- 9432 Nov, [facility] [place] [facility] [address] [facility] [id number] [place] [address]- 8755 Nov, [facility] [place] [facility] [address] [facility] [id number] [place] [address]- 9755 Feb, [facility] [place] [facility] [address] [facility] [id number] [place] [address]- 7921 Feb, [facility] [place] [facility] [address] [id number], [place] [address]- 3881 Sep, [facility] [place] [facility] [address] [id number], [place] [address]- 5919 Apr, [facility] [place] [facility] [address] [id number] [place] [address]- 5852 Apr, [facility] [place] [facility] [address] [facility] [id number] [place] [address]- 0404 Mar, [facility] [place] [facility] [address] [facility] [id number] [place] [address]- 6042 Mar, [facility] [place] [facility] [address] [facility] [id number] [place] [address]- 8382 Mar, [facility] [address] [facility] [id number][place] [address] 0298 Sep, IMMUNIZATIONS No Known Immunizations SOCIAL HISTORY Never Assessed REASON FOR VISIT anger management group PLAN OF CARE VITAL SIGNS MEDICATIONS Unknown Medications RESULTS No Results PROCEDURES No Known procedures INSTRUCTIONS MEDICATIONS ADMINISTERED No Known Medications MEDICAL (GENERAL) HISTORY Type Description Date Medical History frequent ear infections 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
--- OUTSIDE RECORDS SUMMARY | 2018-04-01 20:30 | XMS REPORT ---
Author Author JAYA MOUNA Organization [facility] Address [address] [place] [address] Care Team Providers Care Accounts Receivable Representative Name Role Phone [place] Unavailable PROBLEMS Type Condition ICD9-CM Code FGO02-PY Code Onset Dates Condition Status SNOMED Code Problem Dysthymic disorder F34.1 Active 22691730 Problem Generalized anxiety disorder F41.1 Active 88767228 Problem Acute upper respiratory infection, unspecified J06.9 Active 66688493 Problem Low back pain M54.5 Active 381026529 Problem Adjustment disorder with depressed mood F43.21 Active 24582666 Problem Anxiety F41.9 Active 88417188 ALLERGIES No Information ENCOUNTERS Encounter Location Date Diagnosis [facility] [id number] [place] [address] 42689- 4872 Aug, [facility] [id number] [place] [address] 29404- 3606 Jul, Low back pain M54.5 [facility] [id number] [place] [address] 66478- 1292 June, Low back pain M54.5 [facility] [id number] [place] [address] 32760- 1743 May, Low back pain M54.5 and Generalized anxiety disorder F41.1 [facility] [id number] [place] [address] 48503- 8923 May, [facility] [address] 04962- 1370 May, Generalized anxiety disorder F41.1 [facility] [id number] [place] [address] 10611- 4667 May, Low back pain M54.5 and Anxiety F41.9 [facility] [facility] [id number] [place] [address] 07245- 0668 Apr, [facility] [address] 36008 2546 Mar, Low back pain M54.5 [facility] [id number] [place] [address] 91786 2546 Mar, Low back pain M54.5 [facility] [address] 35503 2546 Feb, Ganglion, left wrist M67.432 [facility] [address] 45544- 3310 Feb, Low back pain M54.5 [facility] [id number] [place] [address] 85359- 9476 Feb, Low back pain M54.5 [facility] [address] 50499 2546 Feb, [facility] [id number] [place] [address] 94371 254 Feb, Low back pain M54.5 and Bronchitis J40 [facility] [id number] [place] [address] 21943 2544 Feb, Low back pain M54.5 [facility] [id number] [place] [address] 44342 2546 Jan, [facility] [id number] [place] [address] 28093 2546 Jan, Low back pain M54.5 [facility] [address] 87093 2546 Jan, Low back pain M54.5 ; Anxiety F41.9 and Ganglion, left wrist M67.432 [facility] [id number] [place] [address] 35701 2546 Dec, Low back pain M54.5 [facility] [id number] [place] [address] 17831- 3316 Dec, Ganglion, left wrist M67.432 [facility] [id number] [place] [address] 97815 2546 Nov, Ganglion, left wrist M67.432 and Anxiety F41.9 [facility] [id number] [place] [address] 34101 2546 Nov, Low back pain M54.5 [facility] [id number] [place] [address] 60338 2546 Nov, [facility] [id number] [place] [address] 56695- 8166 Nov, [facility] [id number] [place] [address] 60909- 6776 Nov, [facility] [id number] [place] [address] 58734- 8790 Oct, Anxiety F41.9 [facility] [id number] [place] [address] 21547 2546 Oct, Low back pain M54.5 [facility] [id number] [place] [address] 26524 2546 Oct, [facility] [id number] [place] [address] 51618 2546 Oct, [facility] [id number] [place] [address] 32951- 2546 Oct, Adjustment disorder with depressed mood F43.21 and Generalized anxiety disorder F41.1 [facility] [id number] [place] [address] 00316- 5636 Sep, Adjustment disorder with depressed mood F43.21 and Generalized anxiety disorder F41.1 [facility] [id number] [place] [address] 24204- 8066 Sep, [address] [id number] [place] [address] Sep [facility] [id number] [place] [address] 86959- 4836 Sep, Anxiety F41.9 [facility] [id number] [place] [address] 56739- 8269 Sep, Low back pain M54.5 [facility] [id number] [place] [address] 28661- 9679 Sep, Adjustment disorder with depressed mood F43.21 and Generalized anxiety disorder F41.1 [facility] [id number] [place] [address] 18831- 4258 Sep, Allergic urticaria L50.0 [facility] [id number] [place] [address] 69236- 5414 Aug, [facility] [id number] [place] [address] 74583- 9060 Aug, Low back pain M54.5 [facility] [id number] [place] [address] 13839- 8643 Aug, Low back pain M54.5 [facility] [id number] [place] [address] 96646- 0776 Aug, [facility] [id number] [place] [address] 60366- 3951 Aug, Thoracic neuritis M54.14 [facility] [id number] [place] [address] 62880- 8291 Jul, [facility] [id number] [place] [address] 54975- 2570 Jul, Low back pain M54.5 [facility] [id number] [place] [address] 59565- 2812 Jul, Thoracic neuritis M54.14 [facility] [id number] [place] [address] 05908- 9760 Jul, [facility] [address] [address]- 4033 Jul, Thoracic neuritis M54.14 [facility] [address] [address]- 6230 June, [facility] [id number] [place] [address] 74153- 3578 June, Thoracic neuritis M54.14 [facility] [address] [facility] [id number] [address]- 6116 May, [facility] [id number] [place] [address] 13209- 2144 May, [facility] [id number] [place] [address] 33331- 2832 Dec, [facility] [id number] [place] [address] 82680- 7909 Dec, [facility] [id number] [place] [address] 65494- 2630 Dec, [facility] [id number] [place] [address] 70111- 7805 Dec, [facility] [address] [address]- 6912 Nov, [facility] [address] [address]- 8036 Nov, Thoracic neuritis M54.14 and Low back pain M54.5 [facility] [address] [address]- 7419 Nov, [facility] [address] [address]- 2313 Oct, Low back pain M54.5 and Acute upper respiratory infection, unspecified J06.9 [facility] [id number] [place] [address] 97582- 7448 Oct, [facility] [id number] [place] [address] 65605- 9890 Oct, [facility] [id number] [place] [address] 65858- 0087 Oct, [facility] [id number] [place] [address] 25460- 6587 Oct, [facility] [address] 44407- 9837 Sep, Chronic maxillary sinusitis J32.0 and Thoracic neuritis M54.14 [facility] [id number] [place] [address] 81547- 7641 Sep, [facility] [id number] [place] [address] 31424- 0293 Aug, Low back pain M54.5 and Other chronic pain G89.29 [facility] [id number] [place] [address] 44666- 8644 Jul, Low back pain M54.5 and Other chronic pain G89.29 [facility] [id number] [place] [address] 14258- 3097 Jul, [facility] [id number] [place] [address] 73578- 1352 June, [facility] [id number] [place] [address] 07409- 7287 May, Lumbago M54.5 and Sinusitis J32.9 [facility] [id number] [place] [address] 68271- 0520 Apr, Unspecified backache 724.5 and Folliculitis L73.9 [facility] [id number] [place] [address] 47476- 3523 24 Mar, 2015 URI (upper respiratory infection) J06.9 and Back pain M54.9 [facility] [address] [place] [address]- 4560 05 Mar, 2015 [facility] [id number] [place] [address] 44709- 8703 Mar, [facility] [id number] [place] [address] 03438- 8268 Feb, Low back pain M54.5 ; Sciatica, unspecified side M54.30 ; Folliculitis L73.9 and Allergic urticaria L50.0 [place] [address] 84363- 4342 12 Feb, 2015 Visit for suture removal Z48.02 [place] [address] 42376- 9467 Feb, [place] [address] 56909- 4349 Feb, Rash R21 [place] [address] 72969- 4584 16 Jan, 2015 Pharyngitis J02.9 ; Shoulder pain, right M25.511 and Rash R21 [address] [address] 67710- 9693 Jan, [place] [address] 80559- 4812 Dec, Allergic urticaria L50.0 ; Right shoulder pain M25.511 and Lumbago M54.5 [place] [id number] [place] [address] 79543- 5224 Dec, Upper respiratory tract infection, unspecified upper respiratory infection J06.9 [place] [address] 38198- 6861 Dec, Contact dermatitis L25.9 [place] [id number] [place] [address] 28872- 6541 Dec, [facility] [address] 96424- 1192 Dec, Dermatitis L30.9 and Pain in right shoulder M25.511 [facility] [id number] [address]- 4583 Nov, [facility] [id number] [address]- 7043 Nov, Upper respiratory tract infection, unspecified upper respiratory infection J06.9 [facility] [address] [facility] [id number], [place] [address]- 2313 Oct, [facility] [address] [facility] [id number], [place] [address]- 0578 Oct, [facility] [id number] [place] [address] 20274- 5271 Oct, [facility] [id number] [place] [address] 93791- 5364 Sep, Back pain 724.5 [facility] [id number] [address]- 8285 Sep, Back pain 724.5 [facility] [address] [address]- 8125 Sep, [facility] [id number] [address]- 8792 Aug, [facility] [address] [address]- 4341 Aug, [facility] [id number] [address]- 5169 Jul, Back pain 724.5 [facility] [id number] [address]- 3945 11 Jul, 2014 [facility] [address] [facility] [id number], [place] [address]- 9897 June, [facility] [address] [address]- 8593 14 May, 2014 [facility] [place] [facility] [address] [id number] [place] [address]- 0244 May, [facility] [place] [facility] [address] [id number] [place] [address]- 5036 Apr, [facility] [place] [facility] [address] [id number] [place] [address]- 8549 Apr, [facility] [place] [facility] [address] [id number] [place] [address]- 9342 Feb, [facility] [place] [facility] [address] [id number] [place] [address]- 1431 Feb, [facility] [place] [facility] [address] [id number] [place] [address]- 7681 Dec, [facility] [place] [facility] [address] [id number] [place] [address]- 9921 Dec, [facility] [place] [facility] [address] [id number] [place] [address]- 2888 Nov, [facility] [place] [facility] [address] [id number] [place] [address]- 1737 Nov, [facility] [place] [facility] [address] [id number] [place] [address]- 1667 Feb, [facility] [place] [facility] [address] [id number], [place] [address]- 0804 Feb, [facility] [place] [facility] [address] [id number], [place] [address]- 7434 Sep, [facility] [place] [facility] [address] [id number] [place] [address]- 5811 Apr, [facility] [place] [facility] [address] [id number] [place] [address]- 8926 Apr, [facility] [place] [facility] [address] [id number] [place] [address]- 0819 Mar, [facility] [place] [facility] [address] [facility] [id number] [place] [address]- 2816 Mar, [facility] [address] [facility] [id number] [place] [address]- 8805 Mar, [facility] [address] [facility] [id number] [place] [address]- 5236 Sep, IMMUNIZATIONS No Known Immunizations SOCIAL HISTORY Never Assessed REASON FOR VISIT Controlled Med Refill PLAN OF CARE VITAL SIGNS MEDICATIONS Medication Instructions Dosage Frequency Start Date End Date Duration Status Ativan 2 MG Orally twice a day 1 tablet as needed 12h 23 Nov, 2016 Active RESULTS No Results PROCEDURES No Known procedures INSTRUCTIONS MEDICATIONS ADMINISTERED No Known Medications MEDICAL (GENERAL) HISTORY Type Description Date Medical History frequent ear infections 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
--- OUTSIDE RECORDS SUMMARY | 2018-04-01 20:30 | XMS REPORT ---
Author Author JAYA MOUNA Organization [facility] Address [address] [place] [address] Care Team Providers Care Wool Buyer Name Role Phone MOUNA LAKE Unavailable PROBLEMS Type Condition ICD9-CM Code BNU10-LT Code Onset Dates Condition Status SNOMED Code Problem Dysthymic disorder F34.1 Active 93076614 Problem Generalized anxiety disorder F41.1 Active 32980153 Problem Acute upper respiratory infection, unspecified J06.9 Active 17749932 Problem Low back pain M54.5 Active 167367860 Problem Adjustment disorder with depressed mood F43.21 Active 60854626 Problem Anxiety F41.9 Active [id number] ALLERGIES No Information ENCOUNTERS Encounter Location Date Diagnosis [facility] [id number] [place] [address] 12486- 7102 Aug, [facility] [id number] [place] [address] 13327- 2339 Jul, Low back pain M54.5 [facility] [id number] [place] [address] 21273- 3766 June, Low back pain M54.5 [facility] [id number] [place] [address] 80657- 6090 May, Low back pain M54.5 and Generalized anxiety disorder F41.1 [facility] [id number] [place] [address] 02835- 2616 May, [facility] [address] 63448- 8214 May, Generalized anxiety disorder F41.1 [facility] [id number] [place] [address] 36229- 4126 May, Low back pain M54.5 and Anxiety F41.9 [id number] [place] [address] 40049- 8396 Apr, [facility] [address] 13044 2546 Mar, Low back pain M54.5 [facility] [id number] [place] [address] 64089 2546 Mar, Low back pain M54.5 [facility] [address] 38387 2546 Feb, Ganglion, left wrist M67.432 [facility] [address] 87322- 7095 Feb, Low back pain M54.5 [facility] [id number] [place] [address] 78123- 3876 Feb, Low back pain M54.5 [facility] [address] 41150 2546 Feb, [facility] [id number] [place] [address] 42459 2541 Feb, Low back pain M54.5 and Bronchitis J40 [facility] [id number] [place] [address] 53692 2542 Feb, Low back pain M54.5 [facility] [id number] [place] [address] 19489 2546 Jan, [facility] [id number] [place] [address] 34588 2546 Jan, Low back pain M54.5 [facility] [address] 89527 2546 Jan, Low back pain M54.5 ; Anxiety F41.9 and Ganglion, left wrist M67.432 [facility] [id number] [place] [address] 35191 2546 Dec, Low back pain M54.5 [facility] [id number] [place] [address] 00173- 4036 Dec, Ganglion, left wrist M67.432 [facility] [id number] [place] [address] 57450 2546 Nov, Ganglion, left wrist M67.432 and Anxiety F41.9 [facility] [id number] [place] [address] 65826 2546 Nov, Low back pain M54.5 [facility] [id number] [place] [address] 85449 2546 Nov, [facility] [id number] [place] [address] 16049- 1676 Nov, [facility] [id number] [place] [address] 77722- 6366 Nov, [facility] [id number] [place] [address] 04237- 9283 Oct, Anxiety F41.9 [facility] [id number] [place] [address] 68778 2546 Oct, Low back pain M54.5 [facility] [id number] [place] [address] 49953 2546 Oct, [facility] [id number] [place] [address] 13746 2546 Oct, [facility] [id number] [place] [address] 46697- 2546 Oct, Adjustment disorder with depressed mood F43.21 and Generalized anxiety disorder F41.1 [facility] [id number] [place] [address] 67698- 3666 Sep, Adjustment disorder with depressed mood F43.21 and Generalized anxiety disorder F41.1 [facility] [id number] [place] [address] 69882- 9446 Sep, [address] [id number] [place] [address] Sep [facility] [id number] [place] [address] 67113- 7059 Sep, Anxiety F41.9 [facility] [id number] [place] [address] 42306- 0270 Sep, Low back pain M54.5 [facility] [id number] [place] [address] 02624- 0330 Sep, Adjustment disorder with depressed mood F43.21 and Generalized anxiety disorder F41.1 [facility] [id number] [place] [address] 25351- 6500 Sep, Allergic urticaria L50.0 [facility] [id number] [place] [address] 27018- 4424 Aug, [facility] [id number] [place] [address] 16895- 0064 Aug, Low back pain M54.5 [facility] [id number] [place] [address] 99137- 6680 Aug, Low back pain M54.5 [facility] [id number] [place] [address] 54062- 9931 Aug, [facility] [id number] [place] [address] 23605- 0697 Aug, Thoracic neuritis M54.14 [facility] [id number] [place] [address] 93068- 5660 Jul, [facility] [id number] [place] [address] 07300- 9601 Jul, Low back pain M54.5 [facility] [id number] [place] [address] 68772- 0357 Jul, Thoracic neuritis M54.14 [facility] [id number] [place] [address] 16641- 7233 Jul, [facility] [address] [address]- 4681 Jul, Thoracic neuritis M54.14 [facility] [address] [address]- 5770 June, [facility] [id number] [place] [address] 30849- 4510 June, Thoracic neuritis M54.14 [facility] [address] [facility] [id number] [address]- 9607 May, [facility] [id number] [place] [address] 73332- 6147 May, [facility] [id number] [place] [address] 83666- 0932 Dec, [facility] [id number] [place] [address] 77677- 9012 Dec, [facility] [id number] [place] [address] 64222- 7325 Dec, [facility] [id number] [place] [address] 40552- 6547 Dec, [facility] [address] [address]- 2092 Nov, [facility] [address] [address]- 6157 Nov, Thoracic neuritis M54.14 and Low back pain M54.5 [facility] [address] [address]- 2798 Nov, [facility] [address] [address]- 1902 Oct, Low back pain M54.5 and Acute upper respiratory infection, unspecified J06.9 [facility] [id number] [place] [address] 31739- 9807 Oct, [facility] [id number] [place] [address] 89878- 8424 Oct, [facility] [id number] [place] [address] 95971- 5250 Oct, [facility] [id number] [place] [address] 64667- 8841 Oct, [facility] [address] 07562- 6604 Sep, Chronic maxillary sinusitis J32.0 and Thoracic neuritis M54.14 [facility] [id number] [place] [address] 96643- 9196 Sep, [facility] [id number] [place] [address] 70025- 6036 Aug, Low back pain M54.5 and Other chronic pain G89.29 [facility] [id number] [place] [address] 53610- 8780 Jul, Low back pain M54.5 and Other chronic pain G89.29 [facility] [id number] [place] [address] 17714- 3153 Jul, [facility] [id number] [place] [address] 33010- 1119 June, [facility] [id number] [place] [address] 36206- 2904 May, Lumbago M54.5 and Sinusitis J32.9 [facility] [id number] [place] [address] 87800- 0589 Apr, Unspecified backache 724.5 and Folliculitis L73.9 [facility] [id number] [place] [address] 60886- 0068 24 Mar, 2015 URI (upper respiratory infection) J06.9 and Back pain M54.9 [facility] [address] [place] [address]- 7377 05 Mar, 2015 [facility] [id number] [place] [address] 15518- 5685 Mar, [facility] [id number] [place] [address] 66718- 8941 Feb, Low back pain M54.5 ; Sciatica, unspecified side M54.30 ; Folliculitis L73.9 and Allergic urticaria L50.0 [address] 90211- 6217 12 Feb, 2015 Visit for suture removal Z48.02 [address] [place] [address] 40324- 9308 Feb, [address] [address] 12389- 9962 Feb, Rash R21 [address] [place] [address] 16038- 3631 16 Jan, 2015 Pharyngitis J02.9 ; Shoulder pain, right M25.511 and Rash R21 [address] [place] [address] 57904- 3503 Jan, [place] [address] 90639- 3219 Dec, Allergic urticaria L50.0 ; Right shoulder pain M25.511 and Lumbago M54.5 [place] [id number] [place] [address] 74694- 9252 Dec, Upper respiratory tract infection, unspecified upper respiratory infection J06.9 [address] [place] [address] 14008- 2421 Dec, Contact dermatitis L25.9 [place] [id number] [place] [address] 35672- 1893 Dec, [facility] [address] 05093- 0415 Dec, Dermatitis L30.9 and Pain in right shoulder M25.511 [facility] [id number] [address]- 7952 Nov, [facility] [id number] [address]- 6085 Nov, Upper respiratory tract infection, unspecified upper respiratory infection J06.9 [facility] [address] [facility] [id number] [address]- 8132 Oct, [facility] [address] [facility] [id number] [address]- 2631 Oct, [facility] [id number] [place] [address] 67268- 2800 Oct, [facility] [id number] [place] [address] 28499- 7602 Sep, Back pain 724.5 [facility] [id number] [address]- 8858 Sep, Back pain 724.5 [facility] [address] [address]- 0359 Sep, [facility] [id number] [address]- 2389 Aug, [facility] [address] [address]- 2158 Aug, [facility] [id number] [address]- 2790 Jul, Back pain 724.5 [facility] [id number] [address]- 7496 11 Jul, 2014 [facility] [address] [facility] [id number], [place] [address]- 4558 June, [facility] [address] [address]- 4966 14 May, 2014 [facility] [place] [facility] [address] [id number] [place] [address]- 6974 May, [facility] [place] [facility] [address] [id number] [place] [address]- 5793 Apr, [facility] [place] [facility] [address] [id number] [place] [address]- 9860 Apr, [facility] [place] [facility] [address] [id number] [place] [address]- 8017 Feb, [facility] [place] [facility] [address] [id number] [place] [address]- 7365 Feb, [facility] [place] [facility] [address] [id number] [place] [address]- 0936 Dec, [facility] [place] [facility] [address] [id number] [place] [address]- 0043 Dec, [facility] [place] [facility] [address] [id number] [place] [address]- 1849 Nov, [facility] [place] [facility] [address] [id number] [place] [address]- 5945 Nov, [facility] [place] [facility] [address] [id number] [place] [address]- 8018 Feb, [facility] [place] [facility] [address] [id number], [place] [address]- 7037 Feb, [facility] [place] [facility] [address] [id number] [address]- 5266 Sep, [facility] [place] [facility] [address] [id number] [place] [address]- 5242 Apr, [facility] [place] [facility] [address] [id number] [place] [address]- 8366 Apr, [facility] [place] [facility] [address] [id number] [place] [address]- 1665 Mar, [facility] [place] [facility] [address] [facility] [id number] [place] 2809 Mar, [facility] [address] [facility] [id number] [place] 3344 Mar, [facility] [address] [facility] [id number] [place] [address]- 3775 Sep, IMMUNIZATIONS No Known Immunizations SOCIAL HISTORY Never Assessed REASON FOR VISIT [facility] letter PLAN OF CARE VITAL SIGNS MEDICATIONS Unknown Medications RESULTS No Results PROCEDURES No Known procedures INSTRUCTIONS MEDICATIONS ADMINISTERED No Known Medications MEDICAL (GENERAL) HISTORY Type Description Date Medical History frequent ear infections 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
--- OUTSIDE RECORDS SUMMARY | 2018-04-01 20:30 | XMS REPORT ---
Author Author MOUNA LAKE Organization [employer] Address Unknown Phone Unavailable Care Team Providers Care Dyer Helper Name Role Phone MOUNA LAKE CP Unavailable [...] Instructions Start Date End Date Status Dosage Sudafed [facility] [address]-24 60 MG Orally 2 times a day. MUST LAST 30 DAYS Nov 22, 2014 1 tablet as needed Results No Known Results Summary Purpose [employer] Submission
--- OUTSIDE RECORDS SUMMARY | 2018-04-01 20:31 | XMS REPORT ---
Author Author MOUNA LAKE Organization [employer] Address Unknown Phone Unavailable Care Team Providers Care Press Maintainer Name Role Phone MOUNA LAKE CP Unavailable [...] Start Date End Date Status Dosage Sudafed [facility] [address]-76 60 mg Orally 2 times a day Nov 22, 2014 1 tablet as needed [place] [facility] [address]-96 7.5-325 MG Orally 3 times a day May 07, 2014 take 1 tablet Results No Known Results Summary Purpose [employer] Submission
--- OUTSIDE RECORDS SUMMARY | 2018-04-01 20:31 | XMS REPORT ---
Author Author MOUNA LAKE Organization [facility] Address [address] [place] [address] Care Team Providers Care Forestry Support Specialist Name Role Phone MOUNA LAKE Unavailable PROBLEMS Type Condition ICD9-CM Code QFM82-IZ Code Onset Dates Condition Status SNOMED Code Problem Dysthymic disorder F34.1 Active 16747092 Problem Generalized anxiety disorder F41.1 Active 45657098 Problem Acute upper respiratory infection, unspecified J06.9 Active 19247634 Problem Low back pain M54.5 Active 092974099 Problem Adjustment disorder with depressed mood F43.21 Active 37922846 Problem Anxiety F41.9 Active 93744649 ALLERGIES No Information ENCOUNTERS Encounter Location Date Diagnosis [facility] [id number] [place] [address] 88317- 4064 Jul, [facility] [id number] [place] [address] 00456- 1173 June, [facility] [id number] [place] [address] 87991- 5368 June, [facility] [id number] [place] [address] 78005- 1310 May, Low back pain M54.5 and Generalized anxiety disorder F41.1 [facility] [id number] [place] [address] 07434- 1911 May, [facility] [id number] [place] [address] 10546- 4813 May, Generalized anxiety disorder F41.1 [facility] [id number] [place] [address] 14396- 8347 May, Low back pain M54.5 and Anxiety F41.9 [facility] [id number] [place] [address] 49453- 5400 Apr, [facility] [id number] [place] [address] 46976- 7319 Mar, Low back pain M54.5 [facility] [id number] [place] [address] 35469 2546 Mar, Low back pain M54.5 [facility] [id number] [place] [address] 22829- 0366 Feb, Ganglion, left wrist M67.432 [facility] [id number] [place] [address] 07673- 4392 Feb, Low back pain M54.5 [facility] [id number] [place] [address] 48200- 7968 Feb, Low back pain M54.5 [facility] [id number] [place] [address] 59140- 6716 Feb, [facility] [id number] [place] [address] 50868- 8036 Feb, Low back pain M54.5 and Bronchitis J40 [facility] [id number] [place] [address] 21351- 3254 Feb, Low back pain M54.5 [facility] [id number] [place] [address] 80747- 1826 Jan, [facility] [id number] [place] [address] 51079 2541 Jan, Low back pain M54.5 [facility] [id number] [place] [address] 45283- 5796 Jan, Low back pain M54.5 ; Anxiety F41.9 and Ganglion, left wrist M67.432 [facility] [id number] [place] [address] 43999- 1183 Dec, Low back pain M54.5 [facility] [id number] [place] [address] 31113- 4998 Dec, Ganglion, left wrist M67.432 [facility] [id number] [place] [address] 58749- 1921 Nov, Ganglion, left wrist M67.432 and Anxiety F41.9 [facility] [id number] [place] [address] 24150- 1285 Nov, Low back pain M54.5 [facility] [id number] [place] [address] 19757- 4984 Nov, [facility] [id number] [place] [address] 41175- 4504 Nov, [facility] [id number] [place] [address] 70975- 9267 Nov, [facility] [id number] [place] [address] 57512- 9155 Oct, Anxiety F41.9 [facility] [id number] [place] [address] 28356- 2313 Oct, Low back pain M54.5 [facility] [id number] [place] [address] 92960- 3297 Oct, [facility] [id number] [place] [address] 25889- 8282 Oct, [facility] [id number] [place] [address] 00562- 3515 Oct, Adjustment disorder with depressed mood F43.21 and Generalized anxiety disorder F41.1 [facility] [id number] [place] [address] 82382- 0248 Sep, Adjustment disorder with depressed mood F43.21 and Generalized anxiety disorder F41.1 [facility] [address] [address]- 1764 Sep, [facility] [id number] [place] [address] Sep [facility] [id number] [place] [address] 02457- 5844 Sep, Anxiety F41.9 [facility] [id number] [place] [address] 74983- 0162 Sep, Low back pain M54.5 [facility] [id number] [place] [address] 31982- 5814 Sep, Adjustment disorder with depressed mood F43.21 and Generalized anxiety disorder F41.1 [facility] [id number] [place] [address] 80674- 4961 Sep, Allergic urticaria L50.0 [facility] [id number] [place] [address] 41113- 8729 Aug, [facility] [id number] [place] [address] 02241- 5609 Aug, Low back pain M54.5 [facility] [id number] [place] [address] 15413- 2218 Aug, Low back pain M54.5 [facility] [id number] [place] [address] 48275- 0859 Aug, [facility] [id number] [place] [address] 30110- 3930 Aug, Thoracic neuritis M54.14 [facility] [id number] [place] [address] 30745- 0675 Jul, [facility] [id number] [place] [address] 37458- 2733 Jul, Low back pain M54.5 [facility] [id number] [place] [address] 80594- 9449 Jul, Thoracic neuritis M54.14 [facility] [id number] [place] [address] 74635- 6021 Jul, [facility] [address] [facility] [id number] [address] 7321 Jul, Thoracic neuritis M54.14 [facility] [address] [facility] [id number] [place] [address] 89227- 0103 June, [facility] [id number] [place] [address] 83520- 7168 June, Thoracic neuritis M54.14 [facility] [address] [facility] [id number] [place] [address] 83764- 8488 May, [facility] [address] [facility] [id number] [place] [address], [place] [address]- 6614 May, [facility] [id number] [place] [address] 99522- 5201 Dec, [facility] [id number] [place] [address] 39389- 5807 Dec, [facility] [address] [place] [address] 08011- 5835 Dec, [facility] [address] [place] [address] 17690- 8944 Dec, [facility] [address] [address]- 8745 Nov, [facility] [address] [place] [address] 00953- 4897 Nov, Thoracic neuritis M54.14 and Low back pain M54.5 [facility] [address] [address]- 2504 Nov, [facility] [address] [place] [address] 48141- 6229 Oct, Low back pain M54.5 and Acute upper respiratory infection, unspecified J06.9 [facility] [address] [address]- 6304 19 Oct, 2015 [facility] [id number] [place] [address] 29719- 6910 Oct, [facility] [id number] [place] [address] 31069- 6699 Oct, [facility] [id number] [place] [address] 95430- 2482 Oct, [facility] [id number] [place] [address] 87913- 6606 Sep, Chronic maxillary sinusitis J32.0 and Thoracic neuritis M54.14 [facility] [id number] [place] [address] 26435- 4998 Sep, [facility] [id number] [place] [address] 30582- 0165 Aug, Low back pain M54.5 and Other chronic pain G89.29 [facility] [id number] [place] [address] 12433- 7599 Jul, Low back pain M54.5 and Other chronic pain G89.29 [facility] [id number] [place] [address] 95837- 8739 Jul, [facility] [id number] [place] [address] 15980- 3839 June, [facility] [id number] [place] [address] 18869- 2740 May, Lumbago M54.5 and Sinusitis J32.9 [facility] [id number] [place] [address] 09776- 4729 Apr, Unspecified backache 724.5 and Folliculitis L73.9 [facility] [id number] [place] [address] 95220- 9358 24 Mar, 2015 URI (upper respiratory infection) J06.9 and Back pain M54.9 [facility] [id number] [place] [address] 56578- 0856 05 Mar, 2015 [place] [id number] [place] [address] 30086- 2321 Mar, [place] [address] 46782- 9918 Feb, Low back pain M54.5 ; Sciatica, unspecified side M54.30 ; Allergic urticaria L50.0 and Folliculitis L73.9 [place] [address] 76428- 6189 Feb, Visit for suture removal Z48.02 [place] [address] 05827- 5047 Feb, [place] [address] 98582- 2613 Feb, Rash R21 [place] [address] 08843- 0485 Jan, Pharyngitis J02.9 ; Shoulder pain, right M25.511 and Rash R21 [place] [facility] [id number] [place] [address] 81874- 3470 Jan, [place] [id number] [place] [address] 94678- 6210 Dec, Allergic urticaria L50.0 ; Right shoulder pain M25.511 and Lumbago M54.5 [place] [facility] [id number] [place] [address] 52196- 9582 Dec, Upper respiratory tract infection, unspecified upper respiratory infection J06.9 [place] [facility] [id number] [place] [address] 98503- 8253 Dec, Contact dermatitis L25.9 [place] [id number] [place] [address] 19047- 8521 Dec, [place] [address] 35960- 6377 Dec, Dermatitis L30.9 and Pain in right shoulder M25.511 [facility] [id number] [address]- 6385 Nov, [facility] [id number] [place] [address] 39789- 9614 Nov, Upper respiratory tract infection, unspecified upper respiratory infection J06.9 [facility] [id number] [place] [address] 89990- 3483 Oct, [facility] [id number] [place] [address] 61309- 3604 Oct, [facility] [address] [facility] [id number] [place] [address] 43956- 6988 Oct, [facility] [id number] [place] [address] 73635- 3874 Sep, Back pain 724.5 [facility] [id number] [place] [address] 94613- 5762 Sep, Back pain 724.5 [facility] [id number] [place] [address] 43711- 4123 Sep, [facility] [id number] [address]- 6690 Aug, [facility] [address] [address]- 1891 Aug, [facility] [address] [place] [address] 23622- 3215 Jul, Back pain 724.5 [facility] [id number] [address]- 7618 Jul, [facility] [address] [facility] [id number] [place] [address] 92629- 1926 June, [facility] [address] [address]- 2358 14 May, 2014 [facility] [place] [facility] [address] [id number] [place] [address]- 1677 May, [facility] [place] [facility] [address] [id number] [place] [address]- 8203 Apr, [facility] [place] [facility] [address] [id number] [place] [address]- 4899 Apr, [facility] [place] [facility] [address] [id number] [place] [address]- 4789 Feb, [facility] [place] [facility] [address] [id number] [place] [address]- 0356 Feb, [facility] [place] [facility] [address] [id number] [place] [address]- 5673 Dec, [facility] [place] [facility] [address] [id number] [place] [address]- 8771 Dec, [facility] [place] [facility] [address] [id number] [place] [address]- 8282 Nov, [facility] [place] [facility] [address] [id number] [place] [address]- 7914 Nov, [facility] [place] [facility] [address] [id number] [place] [address]- 5902 Feb, [facility] [place] [facility] [address] [id number] [place] [address]- 3322 Feb, [facility] [place] [facility] [address] [id number] [place] [address]- 4650 Sep, [facility] [place] [facility] [address] [id number] [place] [address]- 5967 Apr, [facility] [place] [facility] [address] [id number] [place] [address]- 1266 Apr, [facility] [place] [facility] [address] [id number] [place] [address]- 7086 Mar, [facility] [place] [facility] [address] [id number] [place] [address]- 4268 Mar, [facility] [address] [facility] [id number] [place] [address]- 2546 Mar, [facility] [address] [facility] [id number] [place] [address]- 2546 Sep, IMMUNIZATIONS No Known Immunizations SOCIAL HISTORY Never Assessed REASON FOR VISIT Controlled Med Refill PLAN OF CARE VITAL SIGNS MEDICATIONS Medication Instructions Dosage Frequency Start Date End Date Duration Status [place] 7.5-325 MG Orally 4 times a day take 1 tablet 6h Oct, 28 days Active RESULTS No Results PROCEDURES No Known procedures INSTRUCTIONS MEDICATIONS ADMINISTERED No Known Medications MEDICAL (GENERAL) HISTORY Type Description Date Medical History frequent ear infections 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
--- OUTSIDE RECORDS SUMMARY | 2018-04-01 20:31 | XMS REPORT ---
Author MOUNA Mathews [facility] e[employer] Address Unknown Phone Unavailable Care Team Providers Care Semiconductor Packages Platemaker Name Role Phone MOUNA LAKE CP Unavailable Allergies, Adverse Reactions, Alerts Substance Reaction Event Type N.K.D.A. Info Not Available Non Drug Allergy Problems Problem Type Condition Code Onset Dates Condition Status Assessment Rash R21 Active Assessment Pharyngitis J02.9 Active Assessment Shoulder pain, right M25.511 Active Problem Influenza with other respiratory manifestations 487.1 Active Problem Unspecified backache 724.5 Active Problem Unspecified otalgia 388.70 Active Problem Lumbago 724.2 Active Problem Acute upper respiratory infections of unspecified site 465.9 Active Problem Cough 786.2 Active Problem Acute sinusitis, unspecified 461.9 Active Medications Medication Code System Code Instructions Start Date End Date Status Dosage [place] [facility] [address]-74 5-325 MG Orally every 6 hrs. MUST LAST 30 DAYS May 07, 2014 take 1 tablet Claritin [facility] [address]-35 10 MG Orally Once a day Jan 07, 2015 Apr 07, 2015 1 tablet Amoxicillin [facility] [address]-25 500 MG Orally 3 times a day Jan 23, 2015 Feb 02, 2015 1 tablet Famotidine [facility] [address]-89 20 MG Orally Once a day Jan 07, 2015 1 tablet at bedtime Zanaflex [facility] [address]-36 4 MG Orally 2 times a day Sep 29, 2014 1 tablet as needed ProAir HFA [facility] [address]-37 108 (90 Base) MCG/ACT Inhalation every 6 hrs for shortness of breath/cough 2 puffs as needed Sudafed [facility] [address]-45 60 MG Orally 2 times a day Nov 22, 2014 1 tablet as needed Procedures Procedure Coding System Code Date Office Visit, Est Pt., Level 3 CPT-4 58515 Jan 23, 2015 Vital Signs Date/Time: Jan 23, 2015 Temperature 98.6 F Weight 147 lbs Height 70 in BMI 21.09 Index Blood Pressure Diastolic 82 mmHg Blood Pressure Systolic 120 mmHg Cardiac Monitoring Heart Rate 100 bpm Results No Known Results Summary Purpose eClinicalWorks Submission
--- OUTSIDE RECORDS SUMMARY | 2018-04-01 20:31 | XMS REPORT ---
Author Author MOUNA LAKE Organization [employer] Address Unknown Phone Unavailable Care Team Providers Care Certified Veterinary Technician Name Role Phone MOUNA LAKE CP Unavailable [...] Instructions Start Date End Date Status Dosage [place] [facility] [address]-27 7.5-325 MG Orally 3 times a day May 07, 2014 take 1 tablet Sudafed [facility] [address]-72 60 mg Orally 2 times a day Nov 22, 2014 1 tablet as needed Results No Known Results Summary Purpose eClinicalWorks Submission
--- OUTSIDE RECORDS SUMMARY | 2018-04-01 20:31 | XMS REPORT ---
Author Author MOUNA LAKE [facility] Address [address] [place] [address] Care Team Providers Care Lumber Scaler Name Role Phone MOUNA LAKE Unavailable PROBLEMS Type Condition ICD9-CM Code FRH35-UB Code Onset Dates Condition Status SNOMED Code Problem Acute upper respiratory infections of unspecified site 465.9 Active 40803655 Problem Unspecified otalgia 388.70 Active 22280199 Problem Acute sinusitis, unspecified 461.9 Active 60908290 Problem Cough 786.2 Active 35308148 Problem Lumbago 724.2 Active 020254284 Problem Unspecified backache 724.5 Active 344046124 Problem Influenza with other respiratory manifestations 487.1 Active 0223253 Problem Dysthymic disorder F34.1 Active 48146195 Problem Generalized anxiety disorder F41.1 Active 83664393 Problem Acute upper respiratory infection, unspecified J06.9 Active 78909395 Problem Low back pain M54.5 Active 605402254 Problem Adjustment disorder with depressed mood F43.21 Active 88340107 Problem Anxiety F41.9 Active 01422136 ALLERGIES No Known Allergies SOCIAL HISTORY Never Assessed PLAN OF CARE VITAL SIGNS Height 70 in 2016-06-29 Weight 144.6 lbs 2016-06-29 Temperature 98.3 degrees Fahrenheit 2016-06-29 Heart Rate 84 bpm 2016-06-29 Respiratory Rate 20 2016-06-29 BMI 20.75 kg/m2 2016-06-29 Blood pressure systolic 136 mmHg 2016-06-29 Blood pressure diastolic 84 mmHg 2016-06-29 MEDICATIONS Medication Instructions Dosage Frequency Start Date End Date Duration Status Sudafed 60 mg Orally 2 times a day 1 tablet as needed 12h 15 Nov, 2014 Active [place] 7.5-325 MG Orally 3 times a day take 1 tablet 8h June, Active Gabapentin 300 MG Orally Three times [...]
--- OUTSIDE RECORDS SUMMARY | 2018-04-01 20:32 | XMS REPORT ---
Author Author MOUNA LAKE Organization [employer] Address Unknown Phone Unavailable Care Team Providers Care Advertisement Distributor Name Role Phone MOUNA LAKE CP Unavailable [...] Instructions Start Date End Date Status Dosage [place] [facility] [address]-75 5-325 MG May 07, 2014 take 1 tablet by oral route every 6 hours as needed for pain PRN pain Kayla to sign for Leonel Herndon [facility] [address]-78 60 Orally every 6 hrs 1 tablet as needed Results No Known Results Summary Purpose eClinicalWorks Submission
--- OUTSIDE RECORDS SUMMARY | 2018-04-01 20:32 | XMS REPORT ---
Author Author MOUNA LAKE Organization [facility] Address [address] [place] [address] Care Team Providers Care Fine Craft Artist Name Role Phone MOUNA LAKE Unavailable PROBLEMS Type Condition ICD9-CM Code [id number] Code Onset Dates Condition Status SNOMED Code Problem Dysthymic disorder F34.1 Active 63717644 Problem Generalized anxiety disorder F41.1 Active 35342048 Problem Acute upper respiratory infection, unspecified J06.9 Active 17521727 Problem Low back pain M54.5 Active 956205559 Problem Adjustment disorder with depressed mood F43.21 Active 22345779 Problem Anxiety F41.9 Active 65351761 ALLERGIES No Information ENCOUNTERS Encounter Location Date Diagnosis [facility] [id number] [place] [address] 13916- 4350 Jul, [facility] [id number] [place] [address] 66351- 7275 June, [facility] [id number] [place] [address] 97332- 2886 June, [facility] [id number] [place] [address] 50911- 6903 May, [facility] [id number] [place] [address] 33839- 7775 May, [facility] [id number] [place] [address] 97661- 9759 May, Generalized anxiety disorder F41.1 [facility] [id number] [place] [address] 30200- 3834 May, Low back pain M54.5 and Anxiety F41.9 [facility] [id number] [place] [address] 98951- 8847 Apr, [facility] [id number] [place] [address] 59942- 6318 Mar, Low back pain M54.5 [facility] [id number] [place] [address] 76736- 9326 Mar, Low back pain M54.5 [facility] [id number] [place] [address] 72318- 0386 Feb, Ganglion, left wrist M67.432 [facility] [id number] [place] [address] 94828- 0785 Feb, Low back pain M54.5 [facility] [address] 10792- 7406 Feb, Low back pain M54.5 [facility] [address] 97317- 7726 Feb, [facility] [address] 26369- 3887 Feb, Low back pain M54.5 and Bronchitis J40 [facility] [address] 15053- 1541 Feb, Low back pain M54.5 [facility] [id number] [place] [address] 97128- 8217 Jan, [facility] [address] 26934 2546 Jan, Low back pain M54.5 [facility] [id number] [place] [address] 65527 2546 04 Jan, 2017 Low back pain M54.5 ; Anxiety F41.9 and Ganglion, left wrist M67.432 [facility] [id number] [place] [address] 78964- 2546 15 Dec, 2016 Low back pain M54.5 [facility] [id number] [place] [address] 03574- 5340 Dec, Ganglion, left wrist M67.432 [facility] [address] [facility] [id number] [place] [address] 46132- 6497 Nov, Ganglion, left wrist M67.432 and Anxiety F41.9 [facility] [id number] [place] [address] 16364- 3697 Nov, Low back pain M54.5 [facility] [id number] [place] [address] 99864- 2247 Nov, [facility] [id number] [place] [address] 29387- 2966 Nov, [facility] [id number] [place] [address] 47159- 9285 Nov, [facility] [id number] [place] [address] 91948- 4698 Oct, Anxiety F41.9 [facility] [id number] [place] [address] 15912- 7500 22 Oct, 2016 Low back pain M54.5 [facility] [id number] [place] [address] 30867- 4386 20 Oct, 2016 [facility] [id number] [place] [address] 41818- 7415 Oct, [facility] [address] [place] [address] 47120- 4416 Oct, Adjustment disorder with depressed mood F43.21 and Generalized anxiety disorder F41.1 [facility] [address] [place] [address] 14154- 7117 Sep, Adjustment disorder with depressed mood F43.21 and Generalized anxiety disorder F41.1 [facility] [address] [address]- 1142 Sep, [address] [address] [facility] [id number] [place] [address] Sep [facility] [id number] [place] [address] 58672- 5362 Sep, Anxiety F41.9 [facility] [id number] [place] [address] 27154- 1700 Sep, Low back pain M54.5 [facility] [id number] [place] [address] 75764- 0539 Sep, Adjustment disorder with depressed mood F43.21 and Generalized anxiety disorder F41.1 [facility] [id number] [place] [address] 19827- 2948 Sep, Allergic urticaria L50.0 [facility] [id number] [place] [address] 66471- 4859 Aug, [facility] [id number] [place] [address] 93733- 9853 Aug, Low back pain M54.5 [facility] [id number] [place] [address] 17146- 8007 Aug, Low back pain M54.5 [facility] [id number] [place] [address] 14725- 3870 Aug, [facility] [id number] [place] [address] 08912- 4037 Aug, Thoracic neuritis M54.14 [facility] [id number] [place] [address] 51520- 2969 Jul, [facility] [id number] [place] [address] 44481- 7016 Jul, Low back pain M54.5 [facility] [id number] [place] [address] 43195- 5712 Jul, Thoracic neuritis M54.14 [facility] [id number] [place] [address] 12346- 1213 Jul, [facility] [id number] [place] [address] 04112- 0107 Jul, Thoracic neuritis M54.14 [facility] [id number] [place] [address] 08851- 0748 June, [facility] [id number] [place] [address] 22368- 5671 June, Thoracic neuritis M54.14 [facility] [id number] [place] [address] 89018- 8388 May, [facility] [id number] [place] [address] 22462- 2117 May, [facility] [id number] [place] [address] 97692- 4040 Dec, [facility] [id number] [place] [address] 23859- 5948 Dec, [facility] [id number] [place] [address] 56020- 9696 Dec, [facility] [id number] [place] [address] 97334- 7773 Dec, [facility] [id number] [place] [address] 28538- 8727 Nov, [facility] [id number] [place] [address] 73195- 9627 Nov, Thoracic neuritis M54.14 and Low back pain M54.5 [facility] [id number] [place] [address] 66735- 4603 Nov, [facility] [id number] [place] [address] 02504- 0298 Oct, Low back pain M54.5 and Acute upper respiratory infection, unspecified J06.9 [facility] [address] [place] [address] 67501- 6104 Oct, [facility] [id number] [place] [address] 09313- 4683 Oct, [facility] [address] [place] [address] 35268- 0032 Oct, [facility] [id number] [place] [address] 89282- 2745 Oct, [facility] [id number] [place] [address] 68309- 5104 Sep, Chronic maxillary sinusitis J32.0 and Thoracic neuritis M54.14 [facility] [id number] [place] [address] 95070- 5451 Sep, [facility] [id number] [place] [address] 07519- 3396 Aug, Low back pain M54.5 and Other chronic pain G89.29 [facility] [id number] [place] [address] 82363- 2405 Jul, Low back pain M54.5 and Other chronic pain G89.29 [facility] [id number] [place] [address] 78019- 2266 Jul, [facility] [id number] [place] [address] 57976- 0943 June, [facility] [id number] [place] [address] 85014- 8199 May, Lumbago M54.5 and Sinusitis J32.9 [facility] [id number] [place] [address] 54538- 5822 Apr, Unspecified backache 724.5 and Folliculitis L73.9 [facility] [id number] [place] [address] 09301- 2687 Mar, URI (upper respiratory infection) J06.9 and Back pain M54.9 [facility] [id number] [place] [address] 63320- 8501 Mar, [facility] [id number] [place] [address] 00037- 2789 02 Mar, 2015 [facility] [address] 98039- 1780 Feb, Low back pain M54.5 ; Sciatica, unspecified side M54.30 ; Allergic urticaria L50.0 and Folliculitis L73.9 [address] 45088- 9727 Feb, Visit for suture removal Z48.02 [address] [address] 20672- 6336 Feb, [address] 52798- 5215 Feb, Rash R21 [address] [address] 70421- 3315 Jan, Pharyngitis J02.9 ; Shoulder pain, right M25.511 and Rash R21 [address] [place] [id number] [place] [address] 03718- 7968 Jan, [address] [id number] [place] [address] 03302- 4507 30 Dec, 2014 Allergic urticaria L50.0 ; Right shoulder pain M25.511 and Lumbago M54.5 [address] [place] [id number] [place] [address] 09095- 3148 Dec, Upper respiratory tract infection, unspecified upper respiratory infection J06.9 [address] [id number] [place] [address] 59747- 0426 Dec, Contact dermatitis L25.9 [address] [place] [address] 91150- 1810 Dec, [facility] [id number] [place] [address] 26714- 3241 16 Dec, 2014 Dermatitis L30.9 and Pain in right shoulder M25.511 [facility] [address] [facility] [id number] [address]- 9771 Nov, [facility] [address] [facility] [id number], [place] [address]- 6246 Nov, Upper respiratory tract infection, unspecified upper respiratory infection J06.9 [facility] [address] [facility] [id number] [place] [address]- 9028 Oct, [facility] [address] [facility] [id number] [place] [address] 70100- 8719 Oct, [facility] [address] [facility] [id number] [place] [address] 47351- 4213 Oct, [facility] [address] [place] [address] 16140- 4730 Sep, Back pain 724.5 [facility] [address] [place] [address] 03498- 6234 Sep, Back pain 724.5 [facility] [address] [facility] [id number] [place] [address] 00213- 9327 Sep, [facility] [address] [address]- 4309 Aug, [facility] [address] [address]- 1097 Aug, [facility] [address] [address]- 0598 Jul, Back pain 724.5 [facility] [address] [facility] [id number], [place] [address]- 0293 Jul, [facility] [address] [facility] [id number] [address]- 4608 June, [facility] [address] [facility] [id number], [place] [address]- 0034 14 May, 2014 [facility] [address] [address]- 2546 May, [facility] [place] [facility] [address] [id number] [place] [address]- 5645 Apr, [facility] [place] [facility] [address] [id number] [place] [address]- 9654 Apr, [facility] [place] [facility] [address] [id number] [place] [address]- 6627 Feb, [facility] [place] [facility] [address] [id number] [place] [address]- 2446 Feb, [facility] [place] [facility] [address] [id number] [place] [address]- 8482 Dec, [facility] [place] [facility] [address] [id number] [place] [address]- 7002 Dec, [facility] [place] [facility] [address] [id number] [place] [address]- 8580 Nov, [facility] [place] [facility] [address] [id number] [place] [address]- 0333 Nov, [facility] [place] [facility] [address] [id number] [place] [address]- 5530 Feb, [facility] [place] [facility] [address] [id number] [place] [address]- 0977 Feb, [facility] [place] [facility] [address] [id number] [place] [address]- 2103 Sep, [facility] [place] [facility] [address] [id number] [place] [address]- 0203 Apr, [facility] [place] [facility] [address] [id number] [place] [address]- 1507 Apr, [facility] [place] [facility] [address] [id number] [place] [address]- 9683 Mar, [facility] [place] [facility] [address] [id number] [place] [address]- 7457 Mar, [facility] [place] [facility] [address] [facility] [id number] [place] [address]- 5976 Mar, [facility] [address] [facility] [id number], [place] [address]- 0496 Sep, IMMUNIZATIONS No Known Immunizations SOCIAL HISTORY Never Assessed REASON FOR VISIT PLAN OF CARE VITAL SIGNS MEDICATIONS Medication Instructions Dosage Frequency Start Date End Date Duration Status HydrOXYzine HCl 25 MG Orally every 8 hrs 1 tablet as needed 8h Oct, 30 day(s) Active RESULTS No Results PROCEDURES No Known procedures INSTRUCTIONS MEDICATIONS ADMINISTERED No Known Medications MEDICAL (GENERAL) HISTORY Type Description Date Medical History frequent ear infections Medical History gets 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
--- OUTSIDE RECORDS SUMMARY | 2018-04-01 20:32 | XMS REPORT ---
Author Author LORNA BELL Organization [facility] Address [address] [place] [address] Care Team Providers Care Barrel Assembly Inspector Name Role Phone ULICES BELLWIN Unavailable PROBLEMS Type Condition ICD9-CM Code OHF93-QT Code Onset Dates Condition Status SNOMED Code Problem Dysthymic disorder F34.1 Active 07366125 Problem Generalized anxiety disorder F41.1 Active 32731993 Problem Acute upper respiratory infection, unspecified J06.9 Active 53577433 Problem Low back pain M54.5 Active 033686336 Problem Adjustment disorder with depressed mood F43.21 Active 45601066 Problem Anxiety F41.9 Active [id number] ALLERGIES No Information ENCOUNTERS Encounter Location Date Diagnosis [facility] [id number] [place] [address] 28959- 1534 Jul, [facility] [id number] [place] [address] 92842- 3524 June, [facility] [id number] [place] [address] 00350- 0472 June, [facility] [id number] [place] [address] 95376- 1381 May, [facility] [id number] [place] [address] 22379- 2475 May, [facility] [id number] [place] [address] 78166- 8735 May, Generalized anxiety disorder F41.1 [facility] [id number] [place] [address] 96773- 7250 May, Low back pain M54.5 and Anxiety F41.9 [facility] [id number] [place] [address] 13314- 8476 Apr, [facility] [id number] [place] [address] 45503- 0833 Mar, Low back pain M54.5 [facility] [id number] [place] [address] 53034- 6516 Mar, Low back pain M54.5 [facility] [id number] [place] [address] 56086- 6686 Feb, Ganglion, left wrist M67.432 [facility] [address] [facility] [id number] [place] [address] 52167- 4234 Feb, Low back pain M54.5 [facility] [id number] [place] [address] 74139- 7428 Feb, Low back pain M54.5 [facility] [id number] [place] [address] 56738- 4650 Feb, [facility] [id number] [place] [address] 59254- 3475 Feb, Low back pain M54.5 and Bronchitis J40 [facility] [address] 82174- 2929 Feb, Low back pain M54.5 [facility] [id number] [place] [address] 63121- 5940 Jan, [facility] [id number] [place] [address] 33160 2546 Jan, Low back pain M54.5 [facility] [id number] [place] [address] 13357 2545 Jan, Low back pain M54.5 ; Anxiety F41.9 and Ganglion, left wrist M67.432 [facility] [id number] [place] [address] 94163- 9206 Dec, Low back pain M54.5 [facility] [id number] [place] [address] 90918- 0477 Dec, Ganglion, left wrist M67.432 [facility] [id number] [place] [address] 47880- 0574 Nov, Ganglion, left wrist M67.432 and Anxiety F41.9 [facility] [id number] [place] [address] 98721- 1719 Nov, Low back pain M54.5 [facility] [id number] [place] [address] 22921- 6054 Nov, [facility] [id number] [place] [address] 03520- 0586 Nov, [facility] [id number] [place] [address] 94561- 6904 Nov, [facility] [id number] [place] [address] 92216- 7924 Oct, Anxiety F41.9 [facility] [id number] [place] [address] 18963- 1953 22 Oct, 2016 Low back pain M54.5 [facility] [id number] [place] [address] 61316- 7793 20 Oct, 2016 [facility] [id number] [place] [address] 51395- 5610 Oct, [facility] [id number] [place] [address] 27320- 8590 Oct, Adjustment disorder with depressed mood F43.21 and Generalized anxiety disorder F41.1 [facility] [id number] [place] [address] 58634- 2188 Sep, Adjustment disorder with depressed mood F43.21 and Generalized anxiety disorder F41.1 [facility] [address] [address]- 4292 Sep, [address] [id number] [place] [address] Sep [facility] [id number] [place] [address] 74493- 5483 Sep, Anxiety F41.9 [facility] [id number] [place] [address] 03650- 8290 Sep, Low back pain M54.5 [facility] [id number] [place] [address] 33833- 8779 Sep, Adjustment disorder with depressed mood F43.21 and Generalized anxiety disorder F41.1 [facility] [id number] [place] [address] 02921- 2457 Sep, Allergic urticaria L50.0 [facility] [id number] [place] [address] 26791- 3773 Aug, [facility] [id number] [place] [address] 59125- 2755 Aug, Low back pain M54.5 [facility] [id number] [place] [address] 01529- 2347 Aug, Low back pain M54.5 [facility] [id number] [place] [address] 05906- 6260 Aug, [facility] [id number] [place] [address] 03306- 7943 Aug, Thoracic neuritis M54.14 [facility] [id number] [place] [address] 93711- 8395 Jul, [facility] [id number] [place] [address] 73543- 7490 Jul, Low back pain M54.5 [facility] [id number] [place] [address] 67677- 7326 Jul, Thoracic neuritis M54.14 [facility] [id number] [place] [address] 16683- 1681 Jul, [facility] [id number] [place] [address] 45666- 7196 Jul, Thoracic neuritis M54.14 [facility] [id number] [place] [address] 60057- 3087 June, [facility] [id number] [place] [address] 02491- 4207 June, Thoracic neuritis M54.14 [facility] [id number] [place] [address] 60975- 0146 May, [facility] [id number] [place] [address] 08338- 7051 May, [facility] [id number] [place] [address] 09481- 2939 Dec, [facility] [id number] [place] [address] 42076- 8267 Dec, [facility] [id number] [place] [address] 39910- 4819 Dec, [facility] [id number] [place] [address] 53503- 1050 Dec, [facility] [id number] [place] [address] 08584- 4635 Nov, [facility] [id number] [place] [address] 76727- 7498 Nov, Thoracic neuritis M54.14 and Low back pain M54.5 [facility] [id number] [place] [address] 14037- 7632 Nov, [facility] [id number] [place] [address] 89390- 1488 Oct, Low back pain M54.5 and Acute upper respiratory infection, unspecified J06.9 [facility] [id number] [place] [address] 09892- 0209 Oct, [facility] [id number] [place] [address] 83458- 9574 Oct, [facility] [id number] [place] [address] 88228- 9295 Oct, [facility] [id number] [place] [address] 41060- 9032 Oct, [facility] [id number] [place] [address] 82656- 5007 Sep, Chronic maxillary sinusitis J32.0 and Thoracic neuritis M54.14 [facility] [id number] [place] [address] 57042- 9341 Sep, [facility] [id number] [place] [address] 88280- 4611 Aug, Low back pain M54.5 and Other chronic pain G89.29 [facility] [id number] [place] [address] 18426- 4395 Jul, Low back pain M54.5 and Other chronic pain G89.29 [facility] [id number] [place] [address] 28292- 7012 Jul, [facility] [id number] [place] [address] 21134- 8569 June, [facility] [id number] [place] [address] 49457- 6123 May, Lumbago M54.5 and Sinusitis J32.9 [facility] [id number] [place] [address] 96524- 4287 Apr, Unspecified backache 724.5 and Folliculitis L73.9 [facility] [id number] [place] [address] 60586- 9131 Mar, URI (upper respiratory infection) J06.9 and Back pain M54.9 [facility] [id number] [place] [address] 24843- 4383 Mar, [facility] [id number] [place] [address] 71615- 7827 02 Mar, [address] [place] [address] 24029- 8597 Feb, Low back pain M54.5 ; Sciatica, unspecified side M54.30 ; Allergic urticaria L50.0 and Folliculitis L73.9 [place] [address] 07165- 0384 Feb, Visit for suture removal Z48.02 [place] [address] 40605- 9563 Feb, [place] [address] 79580- 3741 Feb, Rash R21 [place] [address] 28252- 8332 Jan, Pharyngitis J02.9 ; Shoulder pain, right M25.511 and Rash R21 [place] [address] 29938- 1800 Jan, [place] [address] 51033- 7346 30 Dec, 2014 Allergic urticaria L50.0 ; Right shoulder pain M25.511 and Lumbago M54.5 [place] [id number] [place] [address] 82285- 8156 Dec, Upper respiratory tract infection, unspecified upper respiratory infection J06.9 [place] [id number] [place] [address] 19234- 3859 Dec, Contact dermatitis L25.9 [place] [address] 06055- 0876 Dec, [place] [address] 36430- 4488 Dec, Dermatitis L30.9 and Pain in right shoulder M25.511 [facility] [address] [id number] [address]- 6087 Nov, [facility] [address] [facility] [id number] [place] [address]- 7333 Nov, Upper respiratory tract infection, unspecified upper respiratory infection J06.9 [facility] [address] [id number] [place] [address]- 5142 Oct, [facility] [address] [facility] [id number] [address]- 7280 Oct, [facility] [id number] [place] [address] 42047- 2983 Oct, [facility] [address] [facility] [id number] [place] [address]- 4850 Sep, Back pain 724.5 [facility] [id number] [place] [address] 84351- 4052 Sep, Back pain 724.5 [facility] [address] [id number] [place] [address]- 6543 Sep, [facility] [address] [facility] [id number] [place] [address]- 6715 Aug, [facility] [id number] [address]- 9993 Aug, [facility] [id number] [address]- 3110 Jul, Back pain 724.5 [facility] [address] [facility] [id number] [place] [address]- 5723 Jul, [facility] [address] [facility] [id number] [place] [address]- 2538 June, [facility] [address] [facility] [id number] [place] [address]- 5784 14 May, 2014 [facility] [id number] [address]- 6932 May, [facility] [place] [facility] [address] [id number] [place] [address]- 7281 Apr, [facility] [place] [facility] [address] [id number] [place]- 7593 Apr, [facility] [place] [facility] [address] [facility] [id number] [place] [address]- 5333 Feb, [facility] [place] [facility] [address] [id number] [place] [address]- 7651 Feb, [facility] [place] [facility] [address] [id number] [place] [address]- 2530 Dec, [facility] [place] [facility] [address] [facility] [id number] [place] [address]- 9208 Dec, [facility] [place] [facility] [address] [facility] [id number] [place] [address]- 9611 Nov, [facility] [place] [facility] [address] [facility] [id number] [place] [address]- 1513 Nov, [facility] [place] [facility] [address] [facility] [id number] [place] [address]- 8388 Feb, [facility] [place] [facility] [address] [facility] [id number] [place] [address]- 9402 Feb, [facility] [place] [facility] [address] [id number] [place] [address]- 5888 Sep, [facility] [place] [facility] [address] [id number] [place] [address]- 8283 Apr, [facility] [place] [facility] [address] [id number] [place] [address]- 0084 Apr, [facility] [place] [facility] [address] [facility] [id number] [place] [address]- 6979 Mar, [facility] [place] [facility] [address] [facility] [id number] [place] [address]- 6844 Mar, [facility] [place] [facility] [address] [facility] [id number] [place] [address] 8916 Mar, [facility] [address] [facility] [id number] [place] 3452 Sep, IMMUNIZATIONS No Known Immunizations SOCIAL HISTORY Never Assessed REASON FOR VISIT BH f/u, Anxiety and depression. 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
--- OUTSIDE RECORDS SUMMARY | 2018-04-01 20:32 | XMS REPORT ---
Author Author LORNA BELL Organization [facility] Address [address] [place] [address] Care Team Providers Care Plumber Maintenance Name Role Phone ULICES BELLWIN Unavailable PROBLEMS Type Condition ICD9-CM Code [id number] Code Onset Dates Condition Status SNOMED Code Problem Dysthymic disorder F34.1 Active 70111030 Problem Generalized anxiety disorder F41.1 Active 37501487 Problem Acute upper respiratory infection, unspecified J06.9 Active 39697928 Problem Low back pain M54.5 Active 184473877 Problem Adjustment disorder with depressed mood F43.21 Active 79435980 Problem Anxiety F41.9 Active 23338581 ALLERGIES No Information ENCOUNTERS Encounter Location Date Diagnosis [facility] [address] [place] [address] 16142- 2264 Jul, [facility] [id number] [place] [address] 95920- 7408 June, [facility] [id number] [place] [address] 17361- 7579 June, [facility] [id number] [place] [address] 03557- 4753 May, [facility] [id number] [place] [address] 48769- 9506 May, [facility] [address] [place] [address] 44009- 6023 May, Generalized anxiety disorder F41.1 [facility] [id number] [place] [address] 14899- 7725 May, Low back pain M54.5 and Anxiety F41.9 [facility] [id number] [place] [address] 12699- 9315 Apr, [facility] [id number] [place] [address] 87339- 1946 Mar, Low back pain M54.5 [facility] [id number] [place] [address] 03726- 4836 Mar, Low back pain M54.5 [facility] [id number] [place] [address] 76158- 9766 Feb, Ganglion, left wrist M67.432 [facility] [address] [facility] [id number] [place] [address] 68944- 5194 Feb, Low back pain M54.5 [facility] [id number] [place] [address] 10324- 3260 Feb, Low back pain M54.5 [facility] [id number] [place] [address] 49858- 1531 Feb, [facility] [id number] [place] [address] 03518- 3993 Feb, Low back pain M54.5 and Bronchitis J40 [facility] [address] 24054- 6121 Feb, Low back pain M54.5 [facility] [id number] [place] [address] 18855- 2694 Jan, [facility] [id number] [place] [address] 43614 2546 Jan, Low back pain M54.5 [facility] [id number] [place] [address] 18190 2549 Jan, Low back pain M54.5 ; Anxiety F41.9 and Ganglion, left wrist M67.432 [facility] [id number] [place] [address] 06904- 2396 Dec, Low back pain M54.5 [facility] [id number] [place] [address] 60608- 6059 Dec, Ganglion, left wrist M67.432 [facility] [id number] [place] [address] 34946- 1889 Nov, Ganglion, left wrist M67.432 and Anxiety F41.9 [facility] [id number] [place] [address] 60324- 2734 Nov, Low back pain M54.5 [facility] [id number] [place] [address] 26385- 8111 Nov, [facility] [id number] [place] [address] 14706- 3614 Nov, [facility] [id number] [place] [address] 28947- 3698 Nov, [facility] [id number] [place] [address] 35551- 5926 Oct, Anxiety F41.9 [facility] [id number] [place] [address] 49290- 3124 22 Oct, 2016 Low back pain M54.5 [facility] [id number] [place] [address] 31892- 3703 20 Oct, 2016 [facility] [address] [place] [address] 57216- 1097 Oct, [facility] [address] [place] [address] 48718- 3389 Oct, Adjustment disorder with depressed mood F43.21 and Generalized anxiety disorder F41.1 [facility] [address] [place] [address] 45290- 8719 Sep, Adjustment disorder with depressed mood F43.21 and Generalized anxiety disorder F41.1 [facility] [address] [address] 9967 Sep, [address] [id number] [place] [address] Sep [facility] [id number] [place] [address] 87794- 9094 Sep, Anxiety F41.9 [facility] [id number] [place] [address] 05497- 7140 Sep, Low back pain M54.5 [facility] [id number] [place] [address] 25032- 4062 Sep, Adjustment disorder with depressed mood F43.21 and Generalized anxiety disorder F41.1 [facility] [id number] [place] [address] 06714- 6095 Sep, Allergic urticaria L50.0 [facility] [id number] [place] [address] 45229- 1135 Aug, [facility] [id number] [place] [address] 67606- 6181 Aug, Low back pain M54.5 [facility] [id number] [place] [address] 10200- 1183 Aug, Low back pain M54.5 [facility] [id number] [place] [address] 60542- 3287 Aug, [facility] [id number] [place] [address] 45453- 4328 Aug, Thoracic neuritis M54.14 [facility] [id number] [place] [address] 41433- 3178 Jul, [facility] [id number] [place] [address] 53761- 1911 Jul, Low back pain M54.5 [facility] [id number] [place] [address] 56612- 4124 Jul, Thoracic neuritis M54.14 [facility] [id number] [place] [address] 77217- 7812 Jul, [facility] [id number] [place] [address] 91250- 7048 Jul, Thoracic neuritis M54.14 [facility] [id number] [place] [address] 34561- 1303 June, [facility] [id number] [place] [address] 62883- 6975 June, Thoracic neuritis M54.14 [facility] [id number] [place] [address] 49341- 9692 May, [facility] [id number] [place] [address] 30691- 3482 May, [facility] [id number] [place] [address] 29078- 5991 Dec, [facility] [id number] [place] [address] 35311- 1212 Dec, [facility] [id number] [place] [address] 83058- 8005 Dec, [facility] [id number] [place] [address] 68881- 7570 Dec, [facility] [id number] [place] [address] 28077- 1603 Nov, [facility] [id number] [place] [address] 38083- 1666 Nov, Thoracic neuritis M54.14 and Low back pain M54.5 [facility] [id number] [place] [address] 39699- 4979 Nov, [facility] [id number] [place] [address] 36513- 4841 Oct, Low back pain M54.5 and Acute upper respiratory infection, unspecified J06.9 [facility] [address] [place] [address] 34487- 7552 Oct, [facility] [id number] [place] [address] 99807- 2979 Oct, [facility] [address] [place] [address] 61047- 5508 Oct, [facility] [id number] [place] [address] 22616- 0199 Oct, [facility] [id number] [place] [address] 43472- 3380 Sep, Chronic maxillary sinusitis J32.0 and Thoracic neuritis M54.14 [facility] [id number] [place] [address] 12814- 3129 Sep, [facility] [id number] [place] [address] 09355- 6692 Aug, Low back pain M54.5 and Other chronic pain G89.29 [facility] [id number] [place] [address] 21627- 7754 Jul, Low back pain M54.5 and Other chronic pain G89.29 [facility] [id number] [place] [address] 20134- 0235 Jul, [facility] [id number] [place] [address] 93925- 1449 June, [facility] [id number] [place] [address] 23353- 3054 May, Lumbago M54.5 and Sinusitis J32.9 [facility] [id number] [place] [address] 44789- 4112 Apr, Unspecified backache 724.5 and Folliculitis L73.9 [facility] [id number] [place] [address] 33442- 3242 Mar, URI (upper respiratory infection) J06.9 and Back pain M54.9 [facility] [id number] [place] [address] 80357- 6729 Mar, [facility] [id number] [place] [address] 30991- 7978 02 Mar, [address] 13287- 5346 Feb, Low back pain M54.5 ; Sciatica, unspecified side M54.30 ; Allergic urticaria L50.0 and Folliculitis L73.9 [place] [address] 07985- 1428 Feb, Visit for suture removal Z48.02 [place] [address] 05024- 2891 Feb, [place] [address] 82927- 8099 Feb, Rash R21 [place] [address] 00730- 2163 Jan, Pharyngitis J02.9 ; Shoulder pain, right M25.511 and Rash R21 [address] [address] 34828- 7209 Jan, [place] [address] 88413- 6021 30 Dec, 2014 Allergic urticaria L50.0 ; Right shoulder pain M25.511 and Lumbago M54.5 [place] [id number] [place] [address] 61091- 5096 Dec, Upper respiratory tract infection, unspecified upper respiratory infection J06.9 [place] [id number] [place] [address] 02072- 5224 Dec, Contact dermatitis L25.9 [place] [address] 03683- 6618 Dec, [place] [address] 33906- 9233 Dec, Dermatitis L30.9 and Pain in right shoulder M25.511 [facility] [address] [id number] [address]- 5737 Nov, [facility] [address] [facility] [id number] [address]- 3001 Nov, Upper respiratory tract infection, unspecified upper respiratory infection J06.9 [facility] [address] [id number] [address]- 3066 Oct, [facility] [address] [facility] [id number] [place] [address]- 2494 Oct, [facility] [id number] [place] [address] 34583- 9216 Oct, [facility] [address] [facility] [id number] [address]- 1465 Sep, Back pain 724.5 [facility] [address] [place] [address] 67645- 0970 Sep, Back pain 724.5 [facility] [address] [id number] [place] [address]- 9416 Sep, [facility] [address] [facility] [id number] [place] [address]- 2179 Aug, [facility] [address] [id number] [address]- 3885 Aug, [facility] [address] [id number] [address]- 7003 Jul, Back pain 724.5 [facility] [address] [facility] [id number] [place] [address]- 4508 Jul, [facility] [address] [facility] [id number] [place] [address]- 6071 June, [facility] [address] [facility] [id number] [place] [address]- 5941 14 May, 2014 [facility] [address] [id number] [address]- 1222 May, [facility] [place] [facility] [address] [id number] [place] [address]- 8083 Apr, [facility] [place] [facility] [address] [id number] [place] 8598 Apr, [facility] [place] [facility] [address] [facility] [id number] [place] [address]- 5910 Feb, [facility] [place] [facility] [address] [id number] [place] [address]- 5766 Feb, [facility] [place] [facility] [address] [id number] [place] [address]- 3387 Dec, [facility] [place] [facility] [address] [facility] [id number] [place] [address]- 5410 Dec, [facility] [place] [facility] [address] [facility] [id number] [place] [address]- 1980 Nov, [facility] [place] [facility] [address] [facility] [id number] [place] [address]- 7608 Nov, [facility] [place] [facility] [address] [facility] [id number] [place] [address]- 8453 Feb, [facility] [place] [facility] [address] [facility] [id number] [place] [address]- 6072 Feb, [facility] [place] [facility] [address] [id number] [address]- 5411 Sep, [facility] [place] [facility] [address] [id number] [address]- 6514 Apr, [facility] [place] [facility] [address] [id number] [place] [address]- 7341 Apr, [facility] [place] [facility] [address] [facility] [id number] [place] [address]- 1144 Mar, [facility] [place] [facility] [address] [facility] [id number] [place] [address]- 8899 Mar, [facility] [place] [facility] [address] [facility] [id number] [place]- 4787 Mar, [facility] [address] [facility] [id number] [place] [address]- 3216 Sep, IMMUNIZATIONS No Known Immunizations SOCIAL HISTORY Never Assessed REASON FOR VISIT BH f/u, Anxiety and depression. PLAN OF CARE Activity Details Follow Up He has appt. on 09-15-16. 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
--- OUTSIDE RECORDS SUMMARY | 2018-04-01 20:33 | XMS REPORT ---
Author Author CRISTIANA VANG Organization [employer] Address Unknown Phone Unavailable Care Team Providers Care Construction Cost Estimator Name Role Phone CRISTIANA VANG CP Unavailable Allergies No Known Allergies Problems [...]
--- OUTSIDE RECORDS SUMMARY | 2018-04-01 20:33 | XMS REPORT ---
Author Author BRIDGER VALERA [facility] [employer] Address Unknown Phone Unavailable Care Team Providers Care Property And Equipment Clerk Name Role Phone BRIDGER VALERA Unavailable Allergies, Adverse Reactions, Alerts Substance Reaction Event Type N.K.D.A. Info Not Available Non Drug Allergy Problems Problem Type Condition Code Onset Dates Condition Status Assessment Contact dermatitis L25.9 Active Problem Influenza with other respiratory manifestations 487.1 Active Problem Unspecified backache 724.5 Active Problem Unspecified otalgia 388.70 Active Problem Lumbago 724.2 Active Problem Acute upper respiratory infections of unspecified site 465.9 Active Problem Cough 786.2 Active Problem Acute sinusitis, unspecified 461.9 Active Medications Medication Code System Code Instructions Start Date End Date Status Dosage Diclofenac [facility] [address]-12 75 mg Orally 2 times a day, pc Dec 24, 2014 1 capsule Sudafed [facility] [address]-03 60 MG Orally 2 times a day Nov 22, 2014 1 tablet as needed Triamcinolone Acetonide [facility] [address]-66 0.1 % Externally Twice a day Dec 26, 2014 1 application to affected area [facility] [address]-34 5-325 MG Orally every 6 hrs May 07, 2014 take 1 tablet Zanaflex [facility] [address]-16 4 MG Orally every 8 hrs Sep 29, 2014 1 tablet as needed ProAir HFA [facility] [address]-99 108 (90 Base) MCG/ACT Inhalation every 6 hrs for shortness of breath/cough 2 puffs as needed PredniSONE [facility] [address]-65 20 MG Orally 3 times a day Dec 26, 2014 Dec 31, 2014 1 tablet with food or milk PredniSONE [facility] [address]-68 50 MG Orally Once a day Dec 24, 2014 Dec 29, 2014 1 tablet with food or milk Procedures Procedure Coding System Code Date Office Visit, Est Pt., Level 3 CPT-4 67420 Dec 26, 2014 Vital Signs Date/Time: Dec 26, 2014 Temperature 98.8 F Weight 154.8 lbs Height 70 in BMI 22.21 Index Blood Pressure Diastolic 78 mmHg Blood Pressure Systolic 118 mmHg Cardiac Monitoring Heart Rate 100 bpm Results No Known Results Summary Purpose [employer] Submission
--- OUTSIDE RECORDS SUMMARY | 2018-04-01 20:33 | XMS REPORT ---
Author Author MOUNA LAKE Organization [employer] Address Unknown Phone Unavailable Care Team Providers Care Presser Hand Name Role Phone MOUNA LAKE CP Unavailable [...] Start Date End Date Status Dosage Sudafed [facility] [address]-44 60 MG Orally 2 times a day Nov 22, 2014 1 tablet as needed [place] [facility] [address]-22 5-325 MG Orally every 6 hrs May 07, 2014 take 1 tablet Zanaflex [facility] [address]-04 4 MG Orally every 8 hrs Sep 29, 2014 1 tablet as needed Results No Known Results Summary Purpose [employer] Submission
--- OUTSIDE RECORDS SUMMARY | 2018-04-01 20:33 | XMS REPORT ---
Author Author MOUNA LAKE Organization [employer] Address Unknown Phone Unavailable Care Team Providers Care Special Education Inclusion Teacher Name Role Phone MOUNA LAKE CP Unavailable [...] Instructions Start Date End Date Status Dosage [facility] [address]-06 5-325 MG Orally every 6 hrs. MUST LAST 30 DAYS May 07, 2014 take 1 tablet Results No Known Results Summary Purpose [employer] Submission
--- OUTSIDE RECORDS SUMMARY | 2018-04-01 20:33 | XMS REPORT ---
Author Author MOUNA LAKE [facility] Address [address] [place] [address] Care Team Providers Care Pole Maker Name Role Phone MOUNA LAKE Unavailable PROBLEMS Type Condition ICD9-CM Code PLE15-WH Code Onset Dates Condition Status SNOMED Code Problem Acute upper respiratory infections of unspecified site 465.9 Active 14320556 Problem Unspecified otalgia 388.70 Active 89238741 Problem Acute sinusitis, unspecified 461.9 Active 96912759 Problem Cough 786.2 Active 30687340 Problem Lumbago 724.2 Active 945127085 Problem Unspecified backache 724.5 Active 348703532 Problem Influenza with other respiratory manifestations 487.1 Active 0731241 Problem Dysthymic disorder F34.1 Active 14017103 Problem Generalized anxiety disorder F41.1 Active 06012350 Problem Acute upper respiratory infection, unspecified J06.9 Active 94785751 Problem Low back pain M54.5 Active 951940486 Problem Adjustment disorder with depressed mood F43.21 Active 03479902 Problem Anxiety F41.9 Active 53825291 ALLERGIES No Information SOCIAL HISTORY Never Assessed [...] infections from being around 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
--- OUTSIDE RECORDS SUMMARY | 2018-04-01 20:33 | XMS REPORT ---
Author Author MOUNA LAKE Organization [employer] Address Unknown Phone Unavailable Care Team Providers Care Director Of Rooms Name Role Phone MOUNA LAKE CP Unavailable [...]
--- OUTSIDE RECORDS SUMMARY | 2018-04-01 20:33 | XMS REPORT ---
Author Author MOUNA LAKE Organization [facility] Address [address] [place] [address] Care Team Providers Care Acetone Button Paster Name Role Phone MOUNA LAKE Unavailable PROBLEMS Type Condition ICD9-CM Code [id number] Code Onset Dates Condition Status SNOMED Code Problem Dysthymic disorder F34.1 Active 70856737 Problem Generalized anxiety disorder F41.1 Active 04178434 Problem Acute upper respiratory infection, unspecified J06.9 Active 98862439 Problem Low back pain M54.5 Active 907334371 Problem Adjustment disorder with depressed mood F43.21 Active 72513165 Problem Anxiety F41.9 Active 79044247 ALLERGIES No Information ENCOUNTERS Encounter Location Date Diagnosis [place] [id number] [place] [address] 97368- 6790 June, [facility] [id number] [place] [address] 38980- 5563 May, [facility] [id number] [place] [address] 88506- 8555 May, [facility] [id number] [place] [address] 31385- 8918 May, Generalized anxiety disorder F41.1 [facility] [id number] [place] [address] 39842- 2226 May, Low back pain M54.5 and Anxiety F41.9 [facility] [id number] [place] [address] 88667- 2991 Apr, [facility] [id number] [place] [address] 01537- 2828 Mar, Low back pain M54.5 [facility] [id number] [place] [address] 70030- 8418 Mar, Low back pain M54.5 [facility] [address] [facility] [id number] [place] [address] 47053- 5744 Feb, Ganglion, left wrist M67.432 [facility] [id number] [place] [address] 58707- 9546 Feb, Low back pain M54.5 [facility] [address] 05683- 6376 Feb, Low back pain M54.5 [facility] [id number] [place] [address] 72997- 7276 Feb, [facility] [id number] [place] [address] 55984- 6958 Feb, Low back pain M54.5 and Bronchitis J40 [facility] [id number] [place] [address] 59353- 6311 Feb, Low back pain M54.5 [facility] [id number] [place] [address] 00925- 3598 Jan, [facility] [id number] [place] [address] 52428- 1643 Jan, Low back pain M54.5 [facility] [id number] [place] [address] 59857- 1272 Jan, Low back pain M54.5 ; Anxiety F41.9 and Ganglion, left wrist M67.432 [facility] [address] [facility] [id number] [place] [address] 50392- 0624 Dec, Low back pain M54.5 [facility] [address] [facility] [id number] [place] [address] 26362 2546 Dec, Ganglion, left wrist M67.432 [facility] [address] [facility] [id number] [place] [address] 07900- 5778 Nov, Ganglion, left wrist M67.432 and Anxiety F41.9 [facility] [address], [place] [address] 2014 Nov, Low back pain M54.5 [facility] [address] [place] [address] 23601- 2804 Nov, [facility] [address] [place] [address] 83589- 9914 Nov, [facility] [id number] [place] [address] 96039- 5687 Nov, [facility] [address] [place] [address] 82241- 2239 Oct, Anxiety F41.9 [facility] [address] [place] [address] 52205- 9453 Oct, Low back pain M54.5 [facility] [address] [place] [address] 81652- 6925 Oct, [facility] [address] [place] [address] 29875- 8733 Oct, [facility] [id number] [place] [address] 96509- 3693 Oct, Adjustment disorder with depressed mood F43.21 and Generalized anxiety disorder F41.1 [facility] [address] [place] [address] 10725- 2883 Sep, Adjustment disorder with depressed mood F43.21 and Generalized anxiety disorder F41.1 [facility] [address], [place] [address]- 6130 Sep, [place] [address] [facility] [id number] [place] [address] Sep [facility] [address], [place] [address]- 4764 Sep, Anxiety F41.9 [facility] [address] [place] [address] 99008- 5802 Sep, Low back pain M54.5 [facility] [address] [place] [address] 96458- 3898 Sep, Adjustment disorder with depressed mood F43.21 and Generalized anxiety disorder F41.1 [facility] [address] [place] [address] 21209- 9091 Sep, Allergic urticaria L50.0 [facility] [id number] [place] [address] 11249- 2357 Aug, [facility] [id number] [place] [address] 37556- 2703 Aug, Low back pain M54.5 [facility] [id number] [place] [address] 72893- 5442 Aug, Low back pain M54.5 [facility] [id number] [place] [address] 54673- 6312 Aug, [facility] [id number] [place] [address] 78331- 1588 Aug, Thoracic neuritis M54.14 [facility] [id number] [place] [address] 85975- 3551 Jul, [facility] [address] [place] [address] 77360- 3565 Jul, Low back pain M54.5 [facility] [id number] [place] [address] 95727- 2079 Jul, Thoracic neuritis M54.14 [facility] [address] [place] [address] 48321- 6618 Jul, [facility] [id number] [place] [address] 06331- 7698 Jul, Thoracic neuritis M54.14 [facility] [address] [place] [address] 26129- 2551 June, [facility] [id number] [address] 0630 June, Thoracic neuritis M54.14 [facility] [id number] [place] [address]- 7116 May, [facility] [address] [facility] [id number], [place] [address]- 3889 May, [facility] [address] [facility] [id number] [place] [address] 37403- 5443 Dec, [facility] [address] [facility] [id number] [place] [address] 22381- 2650 Dec, [facility] [id number] [place] [address], [place] [address]- 4051 Dec, [facility] [id number] [place] [address] 86360- 6972 Dec, [facility] [id number] [place] [address] 50073- 0863 Nov, [facility] [address] [place] [address] 23825- 5593 Nov, Thoracic neuritis M54.14 and Low back pain M54.5 [facility] [address], [place] [address]- 0280 Nov, [facility] [address] [place] [address] 07380- 6947 Oct, Low back pain M54.5 and Acute upper respiratory infection, unspecified J06.9 [facility] [address], [place] [address]- 2749 Oct, [facility] [id number] [place] [address] 06416- 1470 Oct, [facility] [id number], [place] [address]- 4687 Oct, [facility] [address] [place] [address] 24088- 0383 Oct, [facility] [id number] [place] [address] 39908- 8281 Sep, Chronic maxillary sinusitis J32.0 and Thoracic neuritis M54.14 [facility] [id number] [place] [address] 07276- 7292 Sep, [facility] [address] 25884- 0276 Aug, Low back pain M54.5 and Other chronic pain G89.29 [facility] [id number] [place] [address] 73792- 0892 Jul, Low back pain M54.5 and Other chronic pain G89.29 [place] [id number] [place] [address] 84448- 8975 Jul, [facility] [address] 09300- 8954 June, [facility] [id number] [place] [address] 81165- 0481 May, Lumbago M54.5 and Sinusitis J32.9 [place] [id number] [place] [address] 55749- 4609 Apr, Unspecified backache 724.5 and Folliculitis L73.9 [facility] [id number] [place] [address] 66327- 4060 Mar, URI (upper respiratory infection) J06.9 and Back pain M54.9 [facility] [id number] [place] [address] 40643- 9329 Mar, [facility] [id number] [place] [address] 85483- 1835 Mar, [facility] [id number] [place] [address] 34697- 8538 Feb, Low back pain M54.5 ; Sciatica, unspecified side M54.30 ; Folliculitis L73.9 and Allergic urticaria L50.0 [place] [address] 89227- 7242 12 Feb, 2015 Visit for suture removal Z48.02 [facility] [address] 12754- 4738 Feb, [place] [address] 39149- 0533 Feb, Rash R21 [place] [address] 79197- 1774 Jan, Pharyngitis J02.9 ; Shoulder pain, right M25.511 and Rash R21 [place] [address] 31740- 8306 Jan, [place] [address] 34745- 2651 Dec, Allergic urticaria L50.0 ; Right shoulder pain M25.511 and Lumbago M54.5 [place] [address] 75186- 8353 Dec, Upper respiratory tract infection, unspecified upper respiratory infection J06.9 [place] [id number] [place] [address] 85768- 3954 Dec, Contact dermatitis L25.9 [place] [id number] [place] [address] 21035- 5622 Dec, [place] [id number] [place] [address] 52318- 1423 Dec, Dermatitis L30.9 and Pain in right shoulder M25.511 [facility] [id number] [place] [address] 29363- 8178 Nov, [place] [address] 67187- 0134 Nov, Upper respiratory tract infection, unspecified upper respiratory infection J06.9 [facility] [address] [id number] [place] [address]- 3360 Oct, [facility] [address] [id number] [place] [address]- 6518 Oct, [facility] [address] [id number] [place] [address]- 5422 Oct, [facility] [address] [facility] [id number] [place] [address] 54847- 4328 Sep, Back pain 724.5 [facility] [id number] [place] [address] 25557- 2683 Sep, Back pain 724.5 [facility] [address] [facility] [id number], [place] [address]- 5119 Sep, [facility] [address] [facility] [id number] [place] [address] 78907- 6228 Aug, [facility] [address] [facility] [id number], [place] [address]- 9421 Aug, [facility] [address] [facility] [id number], [place] [address]- 7377 Jul, Back pain 724.5 [facility] [address] [facility] [id number] [place] [address]- 3443 Jul, [facility] [address] [facility] [id number], [place] [address]- 8210 June, [facility] [address] [facility] [id number], [place] [address]- 1119 14 May, 2014 [facility] [address] [facility] [id number], [place] [address]- 4307 May, [facility] [address] [facility] [id number], [place] [address]- 0993 30 Apr, 2014 [facility] [address] [facility] [id number], [place] [address]- 2546 Apr, [facility] [address] [facility] [id number] [place] [address]- 9696 Feb, [facility] [address] [facility] [id number] [place] [address]- 9818 Feb, [facility] [address] [facility] [id number] [place] [address]- 1400 Dec, [facility] [address] [facility] [id number], [place] [address]- 5707 Dec, [facility] [address] [facility] [id number] [place] [address]- 4323 Nov, [facility] [address] [facility] [id number] [place] [address]- 1195 Nov, [facility] [address], [place] [address]- 5346 Feb, [facility] [address] [facility] [id number], [place] [address]- 1157 Feb, [facility] [address] [facility] [id number], [place] [address]- 4153 Sep, [facility] [address] [facility] [id number], [place] [address]- 1990 Apr, [facility] [address], [place] [address]- 9361 Apr, [facility] [address] [facility] [id number], [place] [address]- 5949 Mar, [facility] [address] [facility] [id number], [place] [address]- 9518 Mar, [facility] [address] [facility] [id number][place] 9600 Mar, [facility] [id number], [place] [address]- 2996 Sep, IMMUNIZATIONS No Known Immunizations SOCIAL HISTORY Never Assessed REASON FOR VISIT anxiety med PLAN OF CARE VITAL SIGNS MEDICATIONS Medication Instructions Dosage Frequency Start Date End Date Duration Status HydrOXYzine HCl 25 MG Orally 3 times a day 1 tablet as needed 8h Sep, 30 day(s) Active RESULTS No Results PROCEDURES No Known procedures INSTRUCTIONS MEDICATIONS ADMINISTERED No Known Medications MEDICAL (GENERAL) HISTORY Type Description Date Medical History frequent ear infections Medical History gets respiratory infections from being around 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
--- OUTSIDE RECORDS SUMMARY | 2018-04-01 20:33 | XMS REPORT ---
Author Author MOUNA LAKE Organization [employer] Address Unknown Phone Unavailable Care Team Providers Care Division Traffic Superintendent Name Role Phone MOUNA LAKE CP Unavailable Allergies, Adverse Reactions, Alerts Substance Reaction Event Type N.K.D.A. Info Not Available Non Drug Allergy Problems Problem Type Condition Code Onset Dates Condition Status Assessment Folliculitis L73.9 Active Assessment Low back pain M54.5 Active Assessment Sciatica, unspecified side M54.30 Active Assessment Allergic urticaria L50.0 Active Problem Influenza with other respiratory manifestations 487.1 Active Problem Unspecified backache 724.5 Active Problem Unspecified otalgia 388.70 Active Problem Lumbago 724.2 Active Problem Acute upper respiratory infections of unspecified site 465.9 Active Problem Cough 786.2 Active Problem Acute sinusitis, unspecified 461.9 Active Medications Medication Code System Code Instructions Start Date End Date Status Dosage Sudafed [facility] [address]-76 60 MG Orally 2 times a day Nov 22, 2014 1 tablet as needed [place] [facility] [address]-74 5-325 MG Orally every 6 hrs. MUST LAST 30 DAYS May 07, 2014 take 1 tablet Claritin [facility] [address]-49 10 MG Orally Once a day Jan 07, 2015 Apr 07, 2015 1 tablet ProAir HFA [facility] [address]-55 108 (90 Base) MCG/ACT Inhalation every 6 hrs for shortness of breath/cough 2 puffs as needed Famotidine [facility] [address]-40 20 MG Orally Once a day Jan 07, 2015 1 tablet at bedtime Procedures Procedure Coding System Code Date No Charge CPT-4 19641 Feb 27, 2015 Office Visit, Est Pt., Level 3 CPT-4 88078 Feb 27, 2015 Vital Signs Date/Time: Feb 27, 2015 Temperature 98.6 F Weight 158.4 lbs Height 70 in BMI 22.73 Index Blood Pressure Diastolic 94 mmHg Blood Pressure Systolic 130 mmHg Cardiac Monitoring Heart Rate 104 bpm Results No Known Results Summary Purpose [employer] Submission
--- OUTSIDE RECORDS SUMMARY | 2018-04-01 20:34 | XMS REPORT ---
Author Author MOUNA LAKE Organization [facility] Address [address] [place] [address] Care Team Providers Care Electrician Locomotive Name Role Phone MOUNA LAKE Unavailable PROBLEMS Type Condition ICD9-CM Code YFE85-NM Code Onset Dates Condition Status SNOMED Code Problem Dysthymic disorder F34.1 Active 58180447 Problem Generalized anxiety disorder F41.1 Active 72348490 Problem Acute upper respiratory infection, unspecified J06.9 Active 91940846 Problem Low back pain M54.5 Active 801953196 Problem Adjustment disorder with depressed mood F43.21 Active 26511871 Problem Anxiety F41.9 Active [id number] ALLERGIES No Information ENCOUNTERS Encounter Location Date Diagnosis [facility] [id number] [place] [address] 40879- 8666 May, [facility] [id number] [place] [address] 73739- 6629 Apr, [facility] [id number] [place] [address] 63630- 5992 Apr, [facility] [id number] [place] [address] 30010- 4974 Mar, Low back pain M54.5 [facility] [id number] [place] [address] 72868- 8408 Mar, Low back pain M54.5 [facility] [id number] [place] [address] 84634- 4988 Feb, Ganglion, left wrist M67.432 [facility] [id number] [place] [address] 82832- 4381 Feb, Low back pain M54.5 [facility] [id number] [place] [address] 63330- 7844 Feb, Low back pain M54.5 [facility] [id number] [place] [address] 17380- 5009 Feb, [facility] [id number] [place] [address] 39182- 2105 Feb, Low back pain M54.5 and Bronchitis J40 [facility] [address] 94741- 2629 Feb, Low back pain M54.5 [facility] [id number] [place] [address] 52147- 8521 Jan, [facility] [id number] [place] [address] 81488- 0805 Jan, Low back pain M54.5 [facility] [id number] [place] [address] 88206- 3051 Jan, Low back pain M54.5 ; Anxiety F41.9 and Ganglion, left wrist M67.432 [facility] [id number] [place] [address] 87105- 2006 Dec, Low back pain M54.5 [facility] [id number] [place] [address] 98137- 6297 Dec, Ganglion, left wrist M67.432 [facility] [id number] [place] [address] 37233- 3875 Nov, Ganglion, left wrist M67.432 and Anxiety F41.9 [facility] [id number] [place] [address] 26147- 0612 Nov, Low back pain M54.5 [facility] [id number] [place] [address] 83105- 3510 Nov, [facility] [id number] [place] [address] 23678- 3798 Nov, [facility] [address] [id number] [address] 4401 Nov, [facility] [id number] [place] [address] 52636- 3215 Oct, Anxiety F41.9 [facility] [address] [place] [address] 23364- 1475 Oct, Low back pain M54.5 [facility] [id number] [place] [address] 50620- 8512 Oct, [facility] [id number] [place] [address] 28979- 8530 Oct, [facility] [id number] [place] [address] 71100- 9702 Oct, Adjustment disorder with depressed mood F43.21 and Generalized anxiety disorder F41.1 [facility] [id number] [place] [address] 57292- 9305 Sep, Adjustment disorder with depressed mood F43.21 and Generalized anxiety disorder F41.1 [facility] [address] [place] [address] 19399- 3717 Sep, [address] [id number] [place] [address] Sep [facility] [id number] [place] [address] 20060- 1034 Sep, Anxiety F41.9 [facility] [address] [place] [address] 49046- 0677 Sep, Low back pain M54.5 [facility] [address] [place] [address] 59596- 4772 Sep, Adjustment disorder with depressed mood F43.21 and Generalized anxiety disorder F41.1 [facility] [address] [place] [address] 94431- 6360 Sep, Allergic urticaria L50.0 [facility] [id number] [place] [address] 10250- 4609 Aug, [facility] [address] [facility] [id number] [address] 8967 Aug, Low back pain M54.5 [facility] [address] [facility] [id number] [address] Aug, Low back pain M54.5 [facility] [address] [facility] [id number] [place] [address] 77818- 0544 Aug, [facility] [address] [facility] [id number] [place] [address] 52159- 6066 Aug, Thoracic neuritis M54.14 [facility] [id number] [place] [address] 58507- 3053 Jul, [facility] [id number] [place] [address] 99178- 8423 Jul, Low back pain M54.5 [facility] [address] [place] [address] 71437- 2221 Jul, Thoracic neuritis M54.14 [facility] [id number] [place] [address] 85969- 7855 Jul, [facility] [id number] [place] [address] 66883- 1246 Jul, Thoracic neuritis M54.14 [facility] [address] [address] 0067 June, [facility] [address] [facility] [id number] [address]- 1044 June, Thoracic neuritis M54.14 [facility] [id number] [address]- 0875 May, [facility] [address] [facility] [id number] [address]- 6388 May, [facility] [id number] [place] [address] 99695- 6762 Dec, [facility] [id number] [place] [address] 42534- 7761 Dec, [facility] [id number] [place] [address] 73643- 8817 Dec, [facility] [id number] [place] [address] 66178- 4412 Dec, [facility] [id number] [place] [address] 12496- 4782 Nov, [facility] [id number] [place] [address] 26040- 3876 Nov, Thoracic neuritis M54.14 and Low back pain M54.5 [facility] [id number] [place] [address] 04354- 2278 Nov, [facility] [id number] [place] [address] 40614- 2579 Oct, Low back pain M54.5 and Acute upper respiratory infection, unspecified J06.9 [facility] [id number] [place] [address] 83706- 4466 Oct, [facility] [id number] [place] [address] 48430- 2037 Oct, [facility] [address] [place] [address] 83661- 6668 Oct, [facility] [id number] [place] [address] 19306- 6578 Oct, [facility] [id number] [place] [address] 75896- 5638 Sep, Chronic maxillary sinusitis J32.0 and Thoracic neuritis M54.14 [facility] [address] [place] [address] 63034- 7482 Sep, [facility] [id number] [place] [address] 79417- 3435 Aug, Low back pain M54.5 and Other chronic pain G89.29 [address] [place] [address] 84444- 9013 Jul, Low back pain M54.5 and Other chronic pain G89.29 [place] [address] 71395- 7481 Jul, [place] [address] 53610- 8066 June, [place] [address] 09897- 6966 May, Lumbago M54.5 and Sinusitis J32.9 [place] [address] 93241- 1494 Apr, Unspecified backache 724.5 and Folliculitis L73.9 [place] [address] 94964- 1762 Mar, URI (upper respiratory infection) J06.9 and Back pain M54.9 [place] [address] 77519- 0597 Mar, [place] [address] 98514- 0908 Mar, [place] [address] 11611- 4151 Feb, Low back pain M54.5 ; Sciatica, unspecified side M54.30 ; Folliculitis L73.9 and Allergic urticaria L50.0 [place] [address] 22001- 5532 Feb, Visit for suture removal Z48.02 [place] [address] 02078- 8427 Feb, [place] [address] 65388- 0120 Feb, Rash R21 [facility] [id number] [place] [address] 34796- 5534 Jan, Pharyngitis J02.9 ; Shoulder pain, right M25.511 and Rash R21 [facility] [id number] [place] [address] 49073- 6707 Jan, [facility] [id number] [place] [address] 59321- 6838 Dec, Allergic urticaria L50.0 ; Right shoulder pain M25.511 and Lumbago M54.5 [facility] [id number] [place] [address] 21056- 0238 Dec, Upper respiratory tract infection, unspecified upper respiratory infection J06.9 [facility] [id number] [place] [address] 15785- 5436 Dec, Contact dermatitis L25.9 [facility] [id number] [place] [address] 86765- 7881 Dec, [facility] [id number] [place] [address] 35367- 4208 Dec, Dermatitis L30.9 and Pain in right shoulder M25.511 [facility] [id number] [place] [address] 25962- 5142 Nov, [facility] [id number] [place] [address] 35032- 0693 Nov, Upper respiratory tract infection, unspecified upper respiratory infection J06.9 [facility] [id number] [place] [address] 98805- 1077 Oct, [facility] [id number] [place] [address] 01079- 8183 Oct, [facility] [id number] [place] [address] 05338- 6981 Oct, [facility] [address] [facility] [id number] [place] [address]- 4837 Sep, Back pain 724.5 [facility] [address] [id number] [place] [address]- 0294 Sep, Back pain 724.5 [facility] [address] [id number] [place] [address]- 1456 Sep, [facility] [place] [facility] [address] [id number] [place] [address]- 5959 Aug, [facility] [place] [facility] [address] [id number] [place] [address]- 5417 Aug, [facility] [place] [facility] [address] [id number] [place] [address]- 4713 Jul, Back pain 724.5 [facility] [address] [id number] [place] [address]- 7623 Jul, [facility] [place] [facility] [address] [id number] [place] [address]- 8745 June, [facility] [place] [facility] [address] [id number] [place] [address]- 1041 May, [facility] [place] [facility] [address] [id number] [place] [address]- 0674 May, [facility] [place] [facility] [address] [id number] [place] [address]- 7218 Apr, [facility] [place] [facility] [address] [id number] [place] [address]- 1341 Apr, [facility] [place] [facility] [address] [id number] [place] [address]- 4779 Feb, [facility] [place] [facility] [address] [id number] [place] [address]- 9443 Feb, [facility] [place] [facility] [address] [id number] [place] [address]- 2265 Dec, [facility] [place] [facility] [address] [address]- 1516 Dec, [facility] [address] [address]- 8574 Nov, [facility] [address] [address]- 3376 Nov, [facility] [address] [address]- 3776 Feb, [facility] [address] [address]- 0937 Feb, [facility] [address] [address]- 4486 Sep, [facility] [address] [address]- 8036 Apr, [facility] [address] [address]- 6596 Apr, [facility] [address] [address]- 9449 Mar, [facility] [address] [address]- 8706 Mar, [facility] [id number] [address]- 2212 Mar, [facility] [id number] [address]- 1686 Sep, IMMUNIZATIONS No Known Immunizations SOCIAL HISTORY Never Assessed [facility] OF CARE VITAL SIGNS MEDICATIONS Unknown Medications RESULTS No Results PROCEDURES No Known procedures INSTRUCTIONS MEDICATIONS ADMINISTERED No Known Medications MEDICAL (GENERAL) HISTORY Type Description Date Medical History frequent ear infections Medical 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
--- OUTSIDE RECORDS SUMMARY | 2018-04-01 20:34 | XMS REPORT | Continuity of Care Document ---
Author Author [facility] Organization [facility] Address Unknown Phone Unavailable Allergies Active Description Code Type Severity Reaction Onset Reported/Identified Relationship to Patient Clinical Status Yes No Known Drug Allergies [id number] Drug Allergy Unknown N/A 08/25/2015 Medications There is no data. Problems Date Dx Coded Attending Type Code Diagnosis Diagnosed By 03/23/2010 Ot 462 12/26/2014 MELINDA FORRESTER, SILVER Cifuentes Ot F17.210 NICOTINE DEPENDENCE, CIGARETTES, UNCOMPL 12/26/2014 SILVER LAWRENCE MD Ot L30.9 DERMATITIS, UNSPECIFIED 01/06/2015 JAMES MARTINEZ MD Ot F17.210 NICOTINE DEPENDENCE, CIGARETTES, UNCOMPL 01/06/2015 JAMES MARTINEZ MD Ot I88.9 NONSPECIFIC LYMPHADENITIS, UNSPECIFIED 01/06/2015 MICHELLE FORRESTER, JAMES Pyle Ot R21 RASH AND OTHER NONSPECIFIC SKIN ERUPTION 08/27/2015 GARCÍA VANN ELECTROPHYSIOLOGY TECH Ot R50.9 FEVER, UNSPECIFIED 08/27/2015 GARCÍA VANN ELECTROPHYSIOLOGY TECH Ot R51 HEADACHE 08/28/2015 GARCÍA VANN APRN Ot R50.9 FEVER, UNSPECIFIED 08/28/2015 GARCÍA VANN ELECTROPHYSIOLOGY TECH Ot R51 HEADACHE 01/14/2016 FERNY PEARSON MD Ot M51.34 OTHER INTERVERTEBRAL DISC DEGENERATION, 01/23/2016 FERNY PEARSON MD, Ot M51.34 OTHER INTERVERTEBRAL DISC DEGENERATION, 01/31/2016 FERNY PEARSON MD Ot M47.814 SPONDYLOSIS W/O MYELOPATHY OR RADICULOPA 03/17/2016 FERNY PEARSON MD, Ot M47.814 SPONDYLOSIS W/O MYELOPATHY OR RADICULOPA 03/17/2016 FERNY PEARSON MD, Ot 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, T 03/17/2016 FERNY PEARSON MD, Ot Z79.899 OTHER LONGTERM (CURRENT) DRUG THERAPY 03/25/2016 FERNY PEARSON MD Ot M47.814 SPONDYLOSIS W/O MYELOPATHY OR RADICULOPA 03/25/2016 FERNY PEARSON MD, Ot 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, T 03/25/2016 FERNY PEARSON MD Ot Z79.899 OTHER LONGTERM (CURRENT) DRUG THERAPY 08/29/2016 FERNY PEARSON MD Ot M51.34 OTHER INTERVERTEBRAL DISC DEGENERATION, 08/29/2016 FERNY PEARSON MD, Ot M47.814 SPONDYLOSIS W/O MYELOPATHY OR RADICULOPA 08/29/2016 FERNY PEARSON MD, Ot 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, T 08/29/2016 FERNY PEARSON MD, Ot Z79.899 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) DRUG THERAPY 08/29/2016 AREN COLINDRES MD Ot F17.210 NICOTINE DEPENDENCE, CIGARETTES, UNCOMPL 08/29/2016 AREN COLINDRES MD Ot G89.29 OTHER CHRONIC PAIN 08/29/2016 AREN COLINDRES MD Ot M54.9 DORSALGIA, UNSPECIFIED 08/29/2016 AREN COLINDRES MD Ot T15.91XA FOREIGN BODY ON EXTERNAL EYE, PART UNSP, 09/01/2016 AREN COLINDRES MD Ot F17.210 NICOTINE DEPENDENCE, CIGARETTES, UNCOMPL 09/01/2016 AREN COLINDRES MD Ot G89.29 OTHER CHRONIC PAIN 09/01/2016 AREN COLINDRES MD Ot M54.9 DORSALGIA, UNSPECIFIED 09/01/2016 AREN COLINDRES MD Ot T15.91XA FOREIGN BODY ON EXTERNAL EYE, PART UNSP, 10/05/2016 FERNY PEARSON MD, Ot M47.814 SPONDYLOSIS W/O MYELOPATHY OR RADICULOPA 10/05/2016 FERNY PEARSON MD, Ot 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 Results There is no data. Encounters ACCT No. Visit Date/Time Discharge Status Pt. Type Provider Facility Loc./Unit Complaint [id number] 12/14/2016 20:26:00 12/14/2016 21:44:00 DIS Emergency ASHLEY SAHA [facility] ER RT HAND INJ [id number] 08/29/2016 00:59:00 08/29/2016 03:05:00 DIS Emergency AREN COLINDRES MD [facility] ER F O IN RT EYE,WELDING [id number] 02/28/2016 10:29:00 02/28/2016 23:59:59 CLS Outpatient FERNY PEARSON MD [facility] CARD DISC DISODER [id number] 01/31/2016 07:23:00 01/31/2016 08:01:00 DIS Outpatient FERNY PEARSON MD [facility] CARD SPONDYLOSIS WITHOUT MYELOPATHY [id number] 01/08/2016 09:14:00 01/08/2016 23:59:59 CLS Outpatient FERNY PEARSON MD [facility] RAD PAIN IN THORACIC SPINE [id number] 08/25/2015 15:06:00 08/25/2015 17:33:00 DIS Emergency GARCÍA VANN ELECTROPHYSIOLOGY TECH [facility] ER [id number] 01/05/2015 23:46:00 01/06/2015 00:38:00 DIS Emergency JAMES MARTINEZ MD [facility] ER [id number] 12/26/2014 06:05:00 12/26/2014 06:38:00 DIS Emergency SILVER LAWRENCE MD [facility] ER [id number] 04/01/2018 20:11:00 ACT Emergency VENU FORRESTER, JEANA Juares [facility] ER CHEST PAIN x7 DAYS [id number] 03/23/2010 07:15:00 Document Registration [id number] 02/16/2018 16:20:00 02/16/2018 23:59:59 CLS Outpatient [place] APRN [facility]
[2018-04-01 20:43] LABS: BASOPHILS # (AUTO) 0.1 10^3/uL (0.0-0.1); BASOPHILS % (AUTO) 1 % (0-10); EOSINOPHILS # (AUTO) 0.1 10^3/uL (0.0-0.3); EOSINOPHILS % (AUTO) 1 % (0-10); HEMATOCRIT 41 % (40-54); HEMOGLOBIN 14.2 G/DL (13.3-17.7); LYMPHOCYTES # (AUTO) 2.3 X 10^3 (1.0-4.0); LYMPHOCYTES % (AUTO) 26 % (12-44); MEAN CORPUSCULAR HEMOGLOBIN 31 PG (25-34); MEAN CORPUSCULAR HGB CONC 35 G/DL (32-36); MEAN CORPUSCULAR VOLUME 89 FL (80-99); MEAN PLATELET VOLUME 9.5 FL (7.4-10.4); MONOCYTES # (AUTO) 0.8 X 10^3 (0.0-1.0); MONOCYTES % (AUTO) 9 % (0-12); NEUTROPHILS # (AUTO) 5.6 X 10^3 (1.8-7.8); NEUTROPHILS % (AUTO) 63 % (42-75); PLATELET COUNT 246 10^3/uL (130-400); RED CELL DISTRIBUTION WIDTH 12.7 % (10.0-14.5); WHITE BLOOD COUNT 8.9 10^3/uL (4.3-11.0)
[2018-04-01] MEDS ORDERED: ASPIRIN 81 MG CHEW (CHILDREN'S ASA) PO ONE (20:45)
[2018-04-01 21:01] LABS: ALANINE AMINOTRANSFERASE 15 U/L (0-55); ALBUMIN 4.4 GM/DL (3.2-4.5); ALKALINE PHOSPHATASE 74 U/L (40-136); AMYLASE 60 U/L (25-125); BILIRUBIN,TOTAL 0.3 MG/DL (0.1-1.0); BUN/CREATININE RATIO 10; CALCIUM 9.5 MG/DL (8.5-10.1); CARBON DIOXIDE 23 MMOL/L (21-32); CHLORIDE 108 MMOL/L (98-107); CREATININE SERUM 0.81 MG/DL (0.60-1.30); GFR ESTIMATED > 60; GLUCOSE 128 MG/DL (70-105); LIPASE 77 U/L (8-78); MAGNESIUM 2.2 MG/DL (1.8-2.4); POTASSIUM 3.4 MMOL/L (3.6-5.0); SODIUM 142 MMOL/L (135-145); TOTAL PROTEIN 6.7 GM/DL (6.4-8.2)
[2018-04-01 21:07] LABS: MYOGLOBIN SERUM 25.6 NG/ML (10.0-92.0)
--- NOTE | 2018-04-01 21:23 | Diagnostic Imaging Report ---
INDICATION: Chest pain COMPARISON: None FINDINGS: Single frontal view of the chest demonstrates normal heart size and pulmonary vascularity. The lungs are well aerated and clear. No large pleural effusion or pneumothorax is seen. The visualized osseous structures show no acute abnormalities. IMPRESSION: 1. No acute cardiopulmonary process. Dictated by: Dictated on workstation # [id number]
[2018-04-01] MEDS ORDERED: KETOROLAC 30 MG/ML VIAL IVP ONE (21:30)
--- NOTE | 2018-04-01 21:31 | ED Chest Pain ---
General Chief Complaint: Chest Wall/Rib Pain Stated Complaint: CHEST PAIN x7 DAYS Nursing Triage Note: PATIENT AMBULATORY TO ER WITH COMPLAINT OF COUGH X 1 WEEK, CHEST PAIN TO RIGHT CHEST THAT GETS WORSE WITH TAKING BREATHS, AND SHORTNESS OF BREATH. PATIENT STATES COUGH IS PRODUCTIVE WITH CLEAR SPUTUM. PATIENT HAS BEEN USING HIS ALBUTEROL INHALER AND SUDAFED WITH MINIMAL RELIEF. Nursing Sepsis Screen: No Definite Risk Source: patient Exam Limitations: no limitations History of Present Illness Date Seen by Provider: Apr 01, 2018 Time Seen by Provider: 20:37 Initial Comments 38-year-old male who presents to the emergency room with complaints of cough, right-sided chest pain that is worse when he takes a deep breath, and pain with breathing causing shortness of breath. The patient reports that he's had a productive cough with clear phlegm. He has been using [id number] Sudafed and albuterol without relief. Timing/Duration: 1 week Location: substernal (right ) Radiation: no radiation Associated Symptoms: shortness of breath Allergies and Home Medications Allergies Coded Allergies: No Known Drug Allergies (Unverified , 08/25/15) Patient Home Medication List Home Medication List Reviewed: Yes Review of Systems Review of Systems Constitutional: no symptoms reported, see HPI Respiratory: See HPI, Cough, Shortness of Air Cardiovascular: See HPI, Chest Pain All Other Systems Reviewed Negative Unless Noted: Yes Past Fjoarxr-Zrtqhp-Yrzlgw Hx Past Med/Social Hx: Reviewed Nursing Past Med/Soc Hx Patient Social History Alcohol Use: Occasionally Uses Number of Drinks Today: 2 Alcohol Beverage of Choice: Whiskey Recreational Drug Use: No Smoking Status: Current Everyday Smoker Type Used: Cigarettes 2nd Hand Smoke Exposure: Yes Recent Foreign Travel: No Contact w/Someone Who Travel: No Recent Infectious Disease Expo: No Recent Hopitalizations: No Physical Abuse: No Sexual Abuse: No Mistreated: No Fear: No Immunizations Up To Date Tetanus Booster (TDap): More than 5yrs PED Vaccines UTD: Yes Seasonal Allergies Seasonal Allergies: Yes Past Medical History Surgeries: No Respiratory: Yes Chronic Bronchitis Cardiac: No Neurological: No Reproductive Disorders: No Genitourinary: No Gastrointestinal: No Musculoskeletal: Yes (rotator cuff injury, in pain clinic for back pain- hydrocodones) Chronic Back Pain Endocrine: No HEENT: No Cancer: No Psychosocial: No Integumentary: No Blood Disorders: No Family Medical History Reviewed Nursing Family Hx No Pertinent Family Hx Physical Exam Vital Signs Vital Signs - First Documented 04/01/18 04/01/18 20:18 20:20 Temp 97.3 Pulse 123 Resp 14 B/P (MAP) 137/88 (104) Pulse Ox 99 O2 Delivery Room Air Capillary Refill : Less Than 3 Seconds Height, Weight, BMI Height: 5'10.00" Weight: 140lbs. 0.0oz. [id number]; 20.9 BMI Method:Stated General Appearance: No Apparent Distress, WD/WN HEENT: PERRL/EOMI, TMs Normal, Normal ENT Inspection, Pharynx Normal Respiratory: Lungs Clear, Normal Breath Sounds, No Accessory Muscle Use, No Respiratory Distress, Other (right sided chest tenderness) Cardiovascular: Regular Rate, Rhythm, No Edema, No Gallop, No JVD, No Murmur, Normal Peripheral Pulses Extremity: Normal Capillary Refill Neurologic/Psychiatric: Alert, Oriented x3, Normal Mood/Affect Progress/Results/Core Measures Results/Orders Lab Results Laboratory Tests Test 04/01/18 20:28 Range/Units White Blood Count 8.9 4.3-11.0 10^3/uL Red Blood Count 4.54 4.35-5.85 10^6/uL Hemoglobin 14.2 13.3-17.7 G/DL Hematocrit 41 40-54 % Mean Corpuscular Volume 89 80-99 FL Mean Corpuscular Hemoglobin 31 25-34 PG Mean Corpuscular Hemoglobin Concent 35 32-36 G/DL Red Cell Distribution Width 12.7 10.0-14.5 % Platelet Count 246 130-400 10^3/uL Mean Platelet Volume 9.5 7.4-10.4 FL Neutrophils (%) (Auto) 63 42-75 % Lymphocytes (%) (Auto) 26 12-44 % Monocytes (%) (Auto) 9 0-12 % Eosinophils (%) (Auto) 1 0-10 % Basophils (%) (Auto) 1 0-10 % Neutrophils # (Auto) 5.6 1.8-7.8 X 10^3 Lymphocytes # (Auto) 2.3 1.0-4.0 X 10^3 Monocytes # (Auto) 0.8 0.0-1.0 X 10^3 Eosinophils # (Auto) 0.1 0.0-0.3 10^3/uL Basophils # (Auto) 0.1 0.0-0.1 10^3/uL Prothrombin Time 13.0 12.2-14.7 SEC INR Comment 1.0 0.8-1.4 Activated Partial Thromboplast Time 32 24-35 SEC Sodium Level 142 135-145 MMOL/L Potassium Level 3.4 L 3.6-5.0 MMOL/L Chloride Level 108 H 98-107 MMOL/L Carbon Dioxide Level 23 21-32 MMOL/L Anion Gap 11 5-14 MMOL/L Blood Urea Nitrogen 8 7-18 MG/DL Creatinine 0.81 0.60-1.30 MG/DL Estimat Glomerular Filtration Rate > 60 BUN/Creatinine Ratio 10 Glucose Level 128 H 70-105 MG/DL Calcium Level 9.5 8.5-10.1 MG/DL Corrected Calcium 9.2 8.5-10.1 MG/DL Magnesium Level 2.2 1.8-2.4 MG/DL Total Bilirubin 0.3 0.1-1.0 MG/DL Aspartate Amino Transf (AST/SGOT) 18 5-34 U/L Alanine Aminotransferase (ALT/SGPT) 15 0-55 U/L Alkaline Phosphatase 74 40-136 U/L Myoglobin 25.6 10.0-92.0 NG/ML Troponin I < 0.028 <0.028 NG/ML Total Protein 6.7 6.4-8.2 GM/DL Albumin 4.4 3.2-4.5 GM/DL Amylase Level 60 25-125 U/L Lipase 77 8-78 U/L Serum Alcohol 72 H <10 MG/DL My Orders Orders - BERNOT,SAHARA Cbc With Automated Diff (04/01/18 20:37) Magnesium (04/01/18 20:37) Chest 1 View, Ap/Pa Only (04/01/18 20:37) Ekg Tracing (04/01/18 20:37) Cardiac Profile 1 (04/01/18 20:37) Comprehensive Metabolic Panel (04/01/18 20:37) Myoglobin Serum (04/01/18 20:37) Protime With Inr (04/01/18 20:37) Partial Thromboplastin Time (04/01/18 20:37) O2 (04/01/18 20:37) Monitor-Rhythm Ecg Trace Only (2/22/19 20:37) Aspirin Chewable Tablet (Baby Aspirin Ch (04/01/18 20:45) Saline Lock/Iv-Start (04/01/18 20:37) Lipase (04/01/18 20:37) Amylase (04/01/18 20:37) Alcohol (04/01/18 20:37) Ketorolac Injection (Toradol Injection) (04/01/18 21:30) Dexamethasone Injection (Decadron Inject (04/01/18 21:45) Iv Push Business Sales Consultant Ed (04/01/18 ) Im/Sub-Q Injection Non-Ab Ed (04/01/18 ) Medications Given in ED Vital Signs/I&O 04/01/18 04/01/18 04/01/18 20:18 20:20 21:45 Temp 97.3 97.3 Pulse 123 123 Resp 14 14 B/P (MAP) 137/88 (104) 137/88 (104) Pulse Ox 99 99 O2 Delivery Room Air Room Air Blood Pressure Mean: 104 Progress Progress Note : Time: 21:30 Progress Note I have seen and evaluated the patient. I have reviewed his labs, images, and ekg and discussed the findings with him. He agrees with plan of care, plans for discharge, return precautions were given. Diagnostic Imaging Diagonstic Imaging: Xray Plain Films/CT/US/NM/MRI: chest Comments NAME: JAMES AMRTINS [facility] REC#: [id number] PHYSICIAN: SAHARA GROVE CC: REY GROVE NICHOLAS M MD Page 1 of 1 RADIOLOGY REPORT [facility], [facility]. [place], [place] CC: REY GROVE NICHOLAS M MD Page 1 of 1 RADIOLOGY REPORT NAME: JAMES MARTINS [facility] REC#: [id number] PT STATUS: DEP ER : 1980 PHYSICIAN: SAHARA GROVE ADMIT DATE: 04/01/18/ER Signed Date of Exam: 04/01/18 CHEST 1 VIEW, AP/PA ONLY INDICATION: Chest pain COMPARISON: None FINDINGS: Single frontal view of the chest demonstrates normal heart size and pulmonary vascularity. The lungs are well aerated and clear. No large pleural effusion or pneumothorax is seen. The visualized osseous structures show no acute abnormalities. IMPRESSION: 1. No acute cardiopulmonary process. Dictated by: Dictated on workstation # [id number] Dict: 04/01/182116 Trans: 04/02/181651 Interpreted by: DEMOND HARRIS MD Electronically signed by: DEMOND HARRIS MD 04/02/181651 Reviewed: Reviewed by Me Departure Impression Primary Impression: Pleuritic chest pain Disposition: HOME, SELF-CARE Condition: Stable/Unchanged Departure-Patient Inst. Decision time for Depature: 21:30 Referrals: RENE BUENO DO (PCP) Primary Care Physician MOUNA LAKE (Family) Primary Care Physician Patient Instructions: Pleuritic Chest Pain (DC) Add. Discharge Instructions: Continue to use ibuprofen and Tylenol as directed by the bottle for pain relief. Follow-up with your primary care provider within 1 week for recheck. Return back to the emergency room for worsening symptoms or concerns as needed. All discharge instructions reviewed with patient and/or family. Voiced understanding. SAHARA GROVE Apr 01, 2018 21:31
[2018-04-01 21:45] VITALS: BP 137/88
[2018-04-01] MEDS ORDERED: DEXAMETHASONE 10 MG/ML (DECADRON) 1 ML VIAL IM ONE (21:45)
== END 2018-04-01 21:53 | disposition home or self-care (01) ==
LOC: EDUNIT# 20:10 → ER 20:11
DX: R07.81 Pleurodynia (principal); F17.210 Nicotine dependence, cigarettes, uncomplicated; Z87.09 Personal history of other diseases of the respiratory system
CPT/HCPCS: 36415; 71045; 80053; 80320; 82150; 83690; 83735; 83874; 84484; 85025; 85610; 85730; 93041; 96372; 96374

== ENCOUNTER 2020-06-23 18:56 | Emergency (ER) | payer MEDICAID, OTHER ==
[~2020-06-23] VITALS: Ht 180.3 cm; Wt 65.7 kg
[2020-06-23 19:05] VITALS: BP 109/65
--- NOTE | 2020-06-23 19:09 | ED Lower Extremity ---
General Stated Complaint: L HIP INJ Source: patient Exam Limitations: no limitations History of Present Illness Date Seen by Provider: June 23, 2020 Time Seen by Provider: 19:07 Initial Comments To ER accompanied by a female with reports of left hip pain. Denies any known injury. Patient states that there was no injury that this pain just started this evening after having worked typically all day but there was no direct trauma to the hip. It began hurting about 3 hours ago. He has been drinking some alcohol to help with the pain. He has never had this before. He reports that his hip is "out of place". Onset: just prior to arrival Severity: moderate Pain/Injury Location: left hip Method of Injury: unknown Modifying Factors: Worse With Movement Allergies and Home Medications Allergies Coded Allergies: No Known Drug Allergies (Unverified , 08/25/15) Home Medications Hydrocodone/Acetaminophen 1 Each Tablet, 1 TAB PO Q4H PRN for PAIN-MODERATE (5- 7) Prescribed by: GARCÍA VANN on 06/23/201943 Patient Home Medication List Home Medication List Reviewed: Yes Review of Systems Constitutional: see HPI EENTM: see HPI Respiratory: no symptoms reported Cardiovascular: no symptoms reported Genitourinary: no symptoms reported Musculoskeletal: see HPI Skin: no symptoms reported Psychiatric/Neurological: No Symptoms Reported Past Bjwxsfn-Jpaylt-Mmufkb Hx Patient Social History Alcohol Beverage of Choice: Whiskey Type Used: Cigarettes 2nd Hand Smoke Exposure: Yes Recent Hopitalizations: No Immunizations Up To Date Tetanus Booster (TDap): More than 5yrs PED Vaccines UTD: Yes Seasonal Allergies Seasonal Allergies: Yes Past Medical History Surgeries: No Respiratory: Yes Chronic Bronchitis Cardiac: No Neurological: No Reproductive Disorders: No Genitourinary: No Gastrointestinal: No Musculoskeletal: Yes (rotator cuff injury, in pain clinic for back pain- hydrocodones) Chronic Back Pain Endocrine: No HEENT: No Cancer: No Psychosocial: No Integumentary: No Blood Disorders: No Family Medical History No Pertinent Family Hx Physical Exam Vital Signs Vital Signs - First Documented 06/23/20 19:05 Temp 35.4 Pulse 73 Resp 18 B/P (MAP) 109/65 (80) Pulse Ox 95 O2 Delivery Room Air Capillary Refill : Height, Weight, BMI Height: 5'10.00" Weight: 140lbs. 0.0oz. 63.261680se; 20.9 BMI Method:Stated General Appearance: WD/WN, no apparent distress, other (Transfers self from wheelchair to bed with standby assist. can flex and extend the hip while in bed though this does seem to hurt him. ) Respiratory: no respiratory distress, no accessory muscle use Hips: bilateral hip normal inspection, bilateral hip normal range of motion; left hip other (Left anterior hip is tender to palpation) Legs: bilateral leg non-tender, bilateral leg normal inspection, bilateral leg normal range of motion Knees: bilateral knee non-tender, bilateral knee normal inspection, bilateral k nee normal range of motion Ankles: bilateral ankle non-tender, bilateral ankle normal inspection, bilatera l ankle normal range of motion Feet: bilateral foot non-tender, bilateral foot normal inspection, bilateral foot normal range of motion Neurologic/Psychiatric: alert, normal mood/affect, oriented x 3 Skin: normal color, warm/dry Strong dorsalis pedis pulse Progress/Results/Core Measures Results/Orders My Orders Orders - GARCÍA VANN APRN Ketorolac Injection (Toradol Injection) (06/23/20 19:15) Orphenadrine Inj (Ed Only) (Norflex Inje (06/23/20 19:15) Hip, Left, 2 Views (06/23/20 19:06) Medications Given in ED Current Medications Medications Dose Ordered Sig/Nolan Route Start Time Stop Time Status Last Admin Dose Admin Ketorolac Tromethamine 60 mg ONCE ONCE IM 06/23/20 19:15 06/23/20 19:16 DC 06/23/20 19:24 60 MG Orphenadrine Citrate 60 mg ONCE ONCE IM 06/23/20 19:15 06/23/20 19:16 DC 06/23/20 19:28 60 MG Vital Signs/I&O 06/23/20 19:05 Temp 35.4 Pulse 73 Resp 18 B/P (MAP) 109/65 (80) Pulse Ox 95 O2 Delivery Room Air Departure Communication (Admissions) Female at the bedside and provides most of the history for him. He is very talkative, laughs inappropriately and appears intoxicated. 1942-discussed with him and significant other. X-ray looks normal. He assures me that his hip is "out of place". 1946-He is ambulatory out of ER. Does have a limp but is partially weightbearing on left leg. Impression Primary Impression: Left hip pain Disposition: HOME, SELF-CARE Condition: Stable Departure-Patient Inst. Decision time for Depature: 19:09 Referrals: [facility] (PCP/Family) Primary Care Physician Patient Instructions: Acute Pain, Adult (DC) Scripts Hydrocodone/Acetaminophen (Hydrocodone-Acetamin 5-325 mg) 1 Each Tablet 1 TAB PO Q4H PRN for PAIN-MODERATE (5-7), #10 TAB Prov: GARCÍA VANN APRN 06/23/20 GARCÍA VANN APRN June 23, 2020 19:09
[2020-06-23] MEDS ORDERED: KETOROLAC 60 MG/2 ML VIAL IM ONE (19:15)
[2020-06-23] MEDS ORDERED: ORPHENADRINE 60 MG/2 ML (NORFLEX) AMP (ED ONLY) IM ONE (19:15)
--- NOTE | 2020-06-23 19:36 | Diagnostic Imaging Report ---
INDICATION: Left hip pain. EXAMINATION: Left hip, 06/23/2020. COMPARISON: None available. FINDINGS: No fracture or dislocation noted. 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 This appears chronic. However, if pain persists follow-up imaging recommended. IMPRESSION: No fracture or dislocation. Dictated by: Dictated on workstation # [id number]
[2020-06-23] MEDS ORDERED: ACHD5005 PO (19:44)
== END 2020-06-23 19:47 | disposition home or self-care (01) ==
LOC: EDUNIT# 18:56 → ER 19:01
DX: M25.552 Pain in left hip (principal); Z77.22 Contact with and (suspected) exposure to environmental tobacco smoke (acute) (chronic); X58.XXXA Exposure to other specified factors, initial encounter
CPT/HCPCS: 73502